=== PATIENT | male | born 1945 | race Caucasian/White ===

== ENCOUNTER → 2017-09-29 | Day surgery (SDC) | payer MEDICARE, BC ==
[~2017-09-29] MED LIST: ASPIR 8181 MG PO; CLONAZEPAM0.5 MG PO; COMPLETE M9 MG/15 ML PO; COREG25 MG PO; DIGOXIN250 MCG PO; ENALAPRIL-HCTZ1 EAC1 PO; FENTANYL CITRATE/PF 100MCG/2 ML INJ ONE; FUROSEMIDE20 MG PO; HYDROCHLOROTHIA25 MG PO; IOPAMIDOL 200 MG/ML 20 ML VIAL IT ONE; ISOSORBIDE DINI30 MG PO; LANTUS100 UNITS/ SQ; LEVEMIR100 UNIT/1 SC; LIDOCAINE HCL 1% 30ML-PF VIAL ONE; LIDOCAINE HCL 2% LOCAL INJ 5 ML SDV VIAL INJ ONE; LIOTHYRONINE SO5 MCG PO; LOVENOX SQ; LOVENOX60 MG/0.6 SC; LYRICA50 MG PO; METFORMIN HCL1000 MG PO; MIDAZOLAM HCL 2 MG/2 ML VIAL ONE; NEXIUM40 MG PO; NIASPAN500 MG PO; NITROGLYCERIN0.4 MG SL; NOVOLOG100 UNITS/ SQ; OMEGA 3 1,0001 EACH PO; OMEPRAZOLE40 MG PO; POTASSIUM CHLO10 ME1 PO; PROPOFOL IV EMULSION 10 MG/ML 20 ML VIAL ONE; SIMVASTATIN40 MG PO; TRIAMCINOLONE ACET 40 MG/ML VIAL ONE; VASOTEC5 MG PO; VIIBRYD40 MG PO; VITAMIN B12 PO; VITAMIN D1000 UNI1 PO; WARFARIN SODIUM3 MG PO
== END | disposition home or self-care (01) ==
LOC: OR 05:33
PROVIDERS: ATTEND Physical Medicine & Rehabilitation Pain Medicine
DX: M46.1 Sacroiliitis, not elsewhere classified (principal); M47.896 Other spondylosis, lumbar region; G57.00 Lesion of sciatic nerve, unspecified lower limb; E03.9 Hypothyroidism, unspecified; I25.10 Atherosclerotic heart disease of native coronary artery without angina pectoris; I25.2 Old myocardial infarction; E11.22 Type 2 diabetes mellitus with diabetic chronic kidney disease; I13.0 Hypertensive heart and chronic kidney disease with heart failure and stage 1 through stage 4 chronic kidney disease, or unspecified chronic kidney disease; N18.9 Chronic kidney disease, unspecified; I50.9 Heart failure, unspecified; Z01.810 Encounter for preprocedural cardiovascular examination; Z79.4 Long term (current) use of insulin; Z79.01 Long term (current) use of anticoagulants; Z79.82 Long term (current) use of aspirin; Z95.0 Presence of cardiac pacemaker; Z95.2 Presence of prosthetic heart valve
CPT/HCPCS: 36415; 82948; 93005; G0260; J2001 ×2; J2250; J3301; Q9966; 77002

== ENCOUNTER 2017-10-21 20:01 | Inpatient (IN) | payer MEDICARE, BC ==
[~2017-10-21] VITALS: Ht 162.6 cm; Wt 91.4 kg
[~2017-10-21 20:01] MED LIST changes: -FENTANYL CITRATE/PF 100MCG/2 ML INJ ONE; -IOPAMIDOL 200 MG/ML 20 ML VIAL IT ONE; -LIDOCAINE HCL 1% 30ML-PF VIAL ONE; -LIDOCAINE HCL 2% LOCAL INJ 5 ML SDV VIAL INJ ONE; -LOVENOX60 MG/0.6 SC; -MIDAZOLAM HCL 2 MG/2 ML VIAL ONE; -PROPOFOL IV EMULSION 10 MG/ML 20 ML VIAL ONE; -TRIAMCINOLONE ACET 40 MG/ML VIAL ONE
[2017-10-21] MEDS ORDERED: LOVENOX60 MG/0.6 SC (20:38)
[2017-10-21] MEDS ORDERED: ENALAPRIL-HCTZ1 EAC1 PO (20:38)
[2017-10-21 20:56] LABS: BASOPHILS % 0.3 % (0.0-1.0); EOSINOPHILS # (AUTO) 0.2 (0.0-0.4); EOSINOPHILS % 1.6 % (0.0-6.0); HEMATOCRIT 40.8 % (38.2-49.6); HEMOGLOBIN 13.4 g/dL (14.0-18.0); LYMPHOCYTES # (AUTO) 0.6 (1.0-3.2); LYMPHOCYTES % 6.3 % (18.0-39.1); MEAN CORPUSCULAR HEMOGLOBIN 29.7 pg (28-32); MEAN CORPUSCULAR HGB CONC 32.8 g/dL (31-35); MEAN CORPUSCULAR VOLUME 90.5 fL (81-99); MONOCYTES # (AUTO) 0.6 (0.2-0.8); MONOCYTES % 5.9 % (4.4-11.3); NEUTROPHILS # (AUTO) 8.2 (2.1-6.9); NEUTROPHILS % 85.5 % (38.7-80.0); PLATELET COUNT 136 x10e3/uL (140-360); RED BLOOD COUNT 4.51 x10e6/uL (4.3-5.7); RED CELL DISTRIBUTION WIDTH 15.2 % (11.7-14.4)
[2017-10-21 21:00] LABS: INR 1.32; PROTHROMBIN TIME 15.4 seconds (11.9-14.5)
[2017-10-21 21:01] LABS: PARTIAL THROMBOPLASTIN TIME 34.3 seconds (23.8-35.5)
[2017-10-21 21:08] LABS: ALBUMIN 3.3 g/dL (3.5-5.0); ALBUMIN/GLOBULIN RATIO 0.9 (0.8-2.0); ANION GAP 15.6 mmol/L (8-16); CALCIUM 8.9 mg/dL (8.4-10.2); CREATININE, SERUM 1.91 mg/dL (0.72-1.25); POTASSIUM 4.6 mmol/L (3.5-5.1)
[2017-10-21 21:14] LABS: CREATINE KINASE MB 6.6 ng/mL (0-5.0)
--- NOTE | 2017-10-21 21:35 | Diagnostic Imaging Report ---
CHEST SINGLE (PORTABLE), 10/21/2017 8:48 PM Technique: CHEST SINGLE (PORTABLE) Comparison: 04/12/2013, CT 01/03/2017 . Clinical history: Chest pain Findings: See Impression Impression: 1. Lines/Tubes: Stable left chest wall ICD. 2. Stable mildly enlarged cardiomediastinal silhouette. 3. Central vascular congestion. No consolidation. 4. No effusion or pneumothorax. Signed by: Dr Janna Chavez MD on 10/21/2017 9:32 PM
[2017-10-21] MEDS ORDERED: SODIUM CHLORIDE FLUSH 10 ML SYR INJ PRN (22:00)
[2017-10-21] MEDS ORDERED: DEXTROSE 50% SYRINGE 50 ML IV PRN (22:00)
[2017-10-21] MEDS ORDERED: ONDANSETRON HCL INJ 2 MG/ML VIAL IV PRN (22:00)
[2017-10-21] MEDS ORDERED: NITROGLYCERIN 0.4 MG SUBL SL SCH (22:00)
[2017-10-22] VITALS (17 sets, daily range): BP systolic 93–139; BP diastolic 60–96
[2017-10-22] MEDS: FAMOTIDINE 20 MG/2 ML VIAL IV SCH ×3 (00:40→22:25)
[2017-10-22] MEDS: NITROGLYCERIN 2% OINT 1 GM PKT TOP SCH ×4 (00:40→19:02)
[2017-10-22] MEDS: MORPHINE SULFATE 2 MG/ML SYR IV PRN ×4 (00:40→16:54)
[2017-10-22 04:19] LABS: BASOPHILS % 0.2 % (0.0-1.0); EOSINOPHILS # (AUTO) 0.2 (0.0-0.4); HEMATOCRIT 42.6 % (38.2-49.6); HEMOGLOBIN 13.8 g/dL (14.0-18.0); LYMPHOCYTES # (AUTO) 0.9 (1.0-3.2); MEAN CORPUSCULAR HEMOGLOBIN 29.3 pg (28-32); MEAN CORPUSCULAR HGB CONC 32.4 g/dL (31-35); MEAN CORPUSCULAR VOLUME 90.4 fL (81-99); MONOCYTES # (AUTO) 0.6 (0.2-0.8); MONOCYTES % 6.6 % (4.4-11.3); NEUTROPHILS # (AUTO) 7.7 (2.1-6.9); NEUTROPHILS % 81.9 % (38.7-80.0); PLATELET COUNT 135 x10e3/uL (140-360); RED BLOOD COUNT 4.71 x10e6/uL (4.3-5.7); RED CELL DISTRIBUTION WIDTH 15.3 % (11.7-14.4)
[2017-10-22 04:34] LABS: ALBUMIN 3.2 g/dL (3.5-5.0); ALBUMIN/GLOBULIN RATIO 0.9 (0.8-2.0); ANION GAP 14.2 mmol/L (8-16); CALCIUM 9.2 mg/dL (8.4-10.2); CHOL/HDL RATIO 2.8 (3.9-4.7); CREATININE, SERUM 1.69 mg/dL (0.72-1.25); POTASSIUM 4.2 mmol/L (3.5-5.1)
[2017-10-22 04:49] LABS: CREATINE KINASE MB 24.2 ng/mL (0-5.0)
[2017-10-22] MEDS: INSULIN REGULAR, HUMAN 100 UNIT/1 ML 3ML VIAL SQ SCH ×4 (07:44→21:48)
[2017-10-22] MEDS: CARVEDILOL 12.5 MG TAB PO SCH ×2 (08:21→16:43)
[2017-10-22] MEDS: ASPIRIN 81 MG ENTERIC COATED PO SCH (08:21)
[2017-10-22] MEDS: SIMVASTATIN 40 MG TAB PO SCH (08:21)
[2017-10-22] MEDS: FUROSEMIDE 20 MG TAB PO SCH (08:21)
[2017-10-22] MEDS: HYDROCHLOROTHIAZIDE 25 MG TAB PO SCH ×2 (08:21→08:22)
[2017-10-22] MEDS: ENALAPRIL MALEATE 5 MG TAB PO SCH (08:21)
[2017-10-22] MEDS: CLONAZEPAM 0.5 MG TAB PO SCH ×2 (08:21→16:44)
[2017-10-22] MEDS: PANTOPRAZOLE SOD 40 MG TABEC PO SCH (08:21)
[2017-10-22] MEDS: PREGABALIN 50 MG CAP PO SCH ×2 (08:21→16:44)
[2017-10-22] MEDS ORDERED: WARFARIN SOD 3 MG TAB PO SCH (09:00)
[2017-10-22] MEDS ORDERED: NIACIN 500 MG TABSR PO SCH (09:00)
[2017-10-22] MEDS ORDERED: HYDROCHLOROTHIAZIDE PO SCH (09:00)
[2017-10-22] MEDS ORDERED: NON-FORMULARY MEDICATION (Vilazodone Hydrochloride (Viibryd) 40 MG) PO SCH (09:00)
[2017-10-22] MEDS ORDERED: ENALAPRIL PO SCH (09:00)
[2017-10-22] MEDS ORDERED: [UNRECOGNIZED DRUG - OTHER] PO SCH (09:00)
[2017-10-22] MEDS ORDERED: CARVEDILOL 25 MG PO SCH (09:00)
[2017-10-22] MEDS ORDERED: NIACIN 500 MG PO SCH (09:00)
--- NOTE | 2017-10-22 09:16 | History and Physical ---
REASON FOR ADMISSION: [id number] elevated [place]. HISTORY OF PRESENT ILLNESS: Patient is a gentleman who presented with chest pain that he has been having off and on for a couple of days where initial enzymes and EKG were unremarkable, but second set of enzymes were positive for [id number] elevated [place], so he is being admitted for further evaluation. He is currently chest pain free. His vital signs are stable. PAST MEDICAL HISTORY: Significant for coronary artery disease, diabetes, hypothyroidism, hypertension, hyperlipidemia. MEDICATIONS: See MAR. ALLERGIES: NONE. SOCIAL HISTORY: Nonsmoker, nondrinker. Lives at home. FAMILY HISTORY: Hypertension. PHYSICAL EXAMINATION: VITAL SIGNS: 98.6, blood pressure 124/76, pulse 90, sats 98%. GENERAL: He is in no apparent distress, sitting up in bed. NECK: Supple. No lymphadenopathy. CARDIOVASCULAR: Regular rate and rhythm. LUNGS: Clear to auscultation bilaterally. ABDOMEN: Good bowel sounds. Soft, nontender. EXTREMITIES: No clubbing or cyanosis. NEUROLOGICAL: Nonfocal. ASSESSMENT AND PLAN: 1. Bnf-PH-bcxrhwg elevated myocardial infarction. Continue with current care. Will place him on telemetry and will consult his digital recruiter, Dr. Knutson. 2. Hypertension. Continue with his home medication. 3. Hyperlipidemia. Continue with his simvastatin. 4. Hypothyroidism. Continue with his medication. 5. Diabetes. Will continue with his medication and monitor his sugars. 6. Chronic kidney disease, stage 3. Will continue to monitor. Please see hospital chart for full details. Job#: [id number]
[2017-10-22] MEDS: VILAZODONE 40 MG PO SCH (09:49)
[2017-10-22] MEDS: LIOTHYRONINE SODIUM 5 MCG TAB PO SCH (09:49)
[2017-10-22 12:50] LABS: CREATINE KINASE MB 65.4 ng/mL (0-5.0)
[2017-10-22] MEDS ORDERED: CLONIDINE HCL 0.1 MG TAB PO PRN (16:00)
[2017-10-22] MEDS: WARFARIN SOD 2.5 MG TAB PO SCH (16:44)
[2017-10-22] MEDS: ENOXAPARIN SOD INJ 60 MG/0.6 ML SYR SC SCH (16:44)
--- NOTE | 2017-10-22 18:06 | Consultation ---
DATE OF CONSULTATION: October 22, 2017 ATTENDING PHYSICIAN: Dr. Jules Dawson Thank you so much for asking us to see Mr. Brown again in consultation. He is a complex, elderly, 72-year-old man known to us for many, many years with multiple cardiac problems including coronary disease and transaortic valve replacement for aortic stenosis. CHIEF COMPLAINT: He presented to the emergency room with substernal chest discomfort that he originally thought was indigestion. HISTORY OF PRESENT ILLNESS: The patient was resistant to coming to the hospital but his children eventually convinced him that he needed to come. He has demonstrated to have abnormal cardiac enzymes since he has been here. PAST MEDICAL HISTORY: Long and complex with known coronary disease and previous coronary stenting before 2013. In June 2013, he had transaortic valve replacement with a tissue valve by Dr. Nick Guan. His ejection fraction seemed to improve afterwards. He has longstanding diabetes and hyperlipidemia. He visited with Dr. Knutson in the office earlier this week to have preoperative evaluation before consideration for lumbar spine injections for pain. He had a melanoma resection from his arm. Had AICD implanted and lumbar spine surgery in 2016. MEDICATIONS: Recent home medications include: 1. Niaspan 500 mg daily. 2. Lyrica 50 mg twice a day. 3. Aspirin 81 mg daily. 4. Warfarin 2.5 mg daily. 5. Lovenox 80 mg daily. 6. Clonazepam 0.5 mg twice a day. 7. Enalapril/hydrochlorothiazide 5 and 12.5 daily. 8. NovoLog 100 units per mL, 27 units 3 times a day. 9. [place]-3 once a day. 10. Viibryd 40 mg daily. 11. Omeprazole 20 mg daily. 12. Liothyronine 5 mcg daily. 13. Levemir Flextouch 50 units in the morning and 60 in the evening. 14. Coreg 25 mg b.i.d. 15. Simvastatin 40 mg daily. PHYSICAL EXAMINATION GENERAL: A pleasant, obese man who is comfortable. VITALS: Blood pressure 135/70. HEENT: Relatively unremarkable. NECK: No jugular venous distention. THORAX: There is a defibrillator site intact. Heart sounds S1 and S2 are equal. There are no murmurs. Lungs are clear. ABDOMEN: Markedly protuberant. EXTREMITIES: No cyanosis, clubbing or edema. EKG shows sinus rhythm without ST or T wave changes above a possible anterolateral scar which is unchanged from previous EKG performed in our office earlier this week. Cardiac enzymes are abnormal with troponins at 0.149, 0.659, with normal being less than 0.3. His BNP is 316. BUN 35 and creatinine 1.69 today. ASSESSMENT 1. Subendocardial myocardial infarction or wsb-NF-aevxqkliy myocardial infarction. 2. Renal insufficiency. 3. Diabetes. 4. Congestive heart failure, improved after valve replacement. PLAN: Will continue current medications and monitor his cardiac status. Will consider invasive versus noninvasive management. He will not be having any injections for back pain as planned for next week. Thank you for asking me to see him in consultation. Job#: [id number] cc:MD KATELIN VALDEZ MD
[2017-10-22] MEDS: NIACIN 500 MG TABSR PO SCH (21:46)
[2017-10-23] VITALS (37 sets, daily range): BP systolic 79–160; BP diastolic 48–92
[2017-10-23] MEDS: NITROGLYCERIN 2% OINT 1 GM PKT TOP SCH ×5 (00:21→23:25)
[2017-10-23] MEDS: MORPHINE SULFATE 2 MG/ML SYR IV PRN ×3 (01:11→18:13)
[2017-10-23 06:45] LABS: BASOPHILS % 0.3 % (0.0-1.0); EOSINOPHILS # (AUTO) 0.2 (0.0-0.4); EOSINOPHILS % 1.3 % (0.0-6.0); HEMATOCRIT 39.1 % (38.2-49.6); HEMOGLOBIN 12.7 g/dL (14.0-18.0); LYMPHOCYTES # (AUTO) 0.5 (1.0-3.2); LYMPHOCYTES % 4.1 % (18.0-39.1); MEAN CORPUSCULAR HEMOGLOBIN 29.5 pg (28-32); MEAN CORPUSCULAR HGB CONC 32.5 g/dL (31-35); MEAN CORPUSCULAR VOLUME 90.7 fL (81-99); MONOCYTES % 8.5 % (4.4-11.3); NEUTROPHILS # (AUTO) 10.2 (2.1-6.9); NEUTROPHILS % 85.3 % (38.7-80.0); PLATELET COUNT 115 x10e3/uL (140-360); RED BLOOD COUNT 4.31 x10e6/uL (4.3-5.7); RED CELL DISTRIBUTION WIDTH 15.2 % (11.7-14.4)
[2017-10-23 07:03] LABS: ALBUMIN 3.3 g/dL (3.5-5.0); ANION GAP 13.4 mmol/L (8-16); CALCIUM 9.3 mg/dL (8.4-10.2); CREATININE, SERUM 2.28 mg/dL (0.72-1.25); POTASSIUM 4.4 mmol/L (3.5-5.1)
[2017-10-23] MEDS: INSULIN REGULAR, HUMAN 100 UNIT/1 ML 3ML VIAL SQ SCH ×4 (07:49→20:52)
[2017-10-23 07:52] LABS: EOSINOPHILS % (MANUAL) 2 % (0-7); LYMPHOCYTES % (MANUAL) 3 % (19-48); MONOCYTES % (MANUAL) 11 % (3.4-9.0); NEUTROPHILS % (MANUAL) 84 % (40-74)
[2017-10-23 07:53] LABS: PLATELET ESTIMATE ADEQUATE; PLATELET MORPHOLOGY COMMENT NORMAL; RBC MORPHOLOGY COMMENT NORMAL
[2017-10-23] MEDS: ASPIRIN 81 MG ENTERIC COATED PO SCH (08:44)
[2017-10-23] MEDS: CARVEDILOL 12.5 MG TAB PO SCH ×2 (08:45→17:30)
[2017-10-23] MEDS: LIOTHYRONINE SODIUM 5 MCG TAB PO SCH (08:45)
[2017-10-23] MEDS: HYDROCHLOROTHIAZIDE 25 MG TAB PO SCH ×2 (08:45→08:46)
[2017-10-23] MEDS: CLONAZEPAM 0.5 MG TAB PO SCH ×2 (08:46→17:30)
[2017-10-23] MEDS: PREGABALIN 50 MG CAP PO SCH ×2 (08:46→17:30)
[2017-10-23] MEDS: FUROSEMIDE 20 MG TAB PO SCH (08:46)
[2017-10-23] MEDS: ENALAPRIL MALEATE 5 MG TAB PO SCH (08:46)
[2017-10-23] MEDS: PANTOPRAZOLE SOD 40 MG TABEC PO SCH (08:46)
[2017-10-23] MEDS: SIMVASTATIN 40 MG TAB PO SCH (08:47)
[2017-10-23] MEDS: INSULIN DETEMIR 100 UNIT/ML PEN SQ SCH ×2 (08:47→20:55)
[2017-10-23] MEDS: FAMOTIDINE 20 MG/2 ML VIAL IV SCH ×2 (11:27→20:56)
[2017-10-23] MEDS: VILAZODONE 40 MG PO SCH (11:27)
[2017-10-23] MEDS: ENOXAPARIN SOD INJ 60 MG/0.6 ML SYR SC SCH (17:30)
[2017-10-23] MEDS: WARFARIN SOD 2.5 MG TAB PO SCH (17:31)
[2017-10-23] MEDS: NIACIN 500 MG TABSR PO SCH (21:00)
[2017-10-24] VITALS (29 sets, daily range): BP systolic 91–117; BP diastolic 47–93
[2017-10-24 04:39] LABS: BASOPHILS % 0.2 % (0.0-1.0); EOSINOPHILS # (AUTO) 0.2 (0.0-0.4); EOSINOPHILS % 1.6 % (0.0-6.0); HEMATOCRIT 36.1 % (38.2-49.6); HEMOGLOBIN 11.9 g/dL (14.0-18.0); LYMPHOCYTES # (AUTO) 0.6 (1.0-3.2); MEAN CORPUSCULAR HEMOGLOBIN 29.3 pg (28-32); MEAN CORPUSCULAR VOLUME 88.9 fL (81-99); MONOCYTES # (AUTO) 1.1 (0.2-0.8); MONOCYTES % 10.3 % (4.4-11.3); NEUTROPHILS # (AUTO) 9.2 (2.1-6.9); NEUTROPHILS % 82.5 % (38.7-80.0); PLATELET COUNT 114 x10e3/uL (140-360); RED BLOOD COUNT 4.06 x10e6/uL (4.3-5.7)
[2017-10-24 04:53] LABS: INR 1.46; PROTHROMBIN TIME 16.7 seconds (11.9-14.5)
[2017-10-24 05:04] LABS: ANION GAP 13.9 mmol/L (8-16); CALCIUM 9.3 mg/dL (8.4-10.2); CREATININE, SERUM 2.15 mg/dL (0.72-1.25); POTASSIUM 3.9 mmol/L (3.5-5.1)
[2017-10-24] MEDS: NITROGLYCERIN 2% OINT 1 GM PKT TOP SCH ×4 (06:00→23:49)
[2017-10-24 06:38] LABS: EOSINOPHILS % (MANUAL) 1 % (0-7); LYMPHOCYTES % (MANUAL) 5 % (19-48); MONOCYTES % (MANUAL) 6 % (3.4-9.0); NEUTROPHILS % (MANUAL) 87 % (40-74)
[2017-10-24 06:39] LABS: ANISOCYTOSIS SLIGHT; PLATELET ESTIMATE SLIGHTLY DECREASED; PLATELET MORPHOLOGY COMMENT FEW LARGE; RBC MORPHOLOGY COMMENT NORMAL
[2017-10-24] MEDS: INSULIN REGULAR, HUMAN 100 UNIT/1 ML 3ML VIAL SQ SCH ×4 (07:30→21:05)
[2017-10-24] MEDS ORDERED: INSULIN DETEMIR 100 UNIT/ML PEN SQ SCH (07:30)
[2017-10-24] MEDS: LIOTHYRONINE SODIUM 5 MCG TAB PO SCH (08:52)
[2017-10-24] MEDS: HYDROCHLOROTHIAZIDE 25 MG TAB PO SCH ×2 (08:52→09:00)
[2017-10-24] MEDS: ENALAPRIL MALEATE 5 MG TAB PO SCH (08:54)
[2017-10-24] MEDS: PREGABALIN 50 MG CAP PO SCH ×2 (08:54→17:30)
[2017-10-24] MEDS: PANTOPRAZOLE SOD 40 MG TABEC PO SCH (08:56)
[2017-10-24] MEDS: FUROSEMIDE 20 MG TAB PO SCH (08:57)
[2017-10-24] MEDS: ASPIRIN 81 MG ENTERIC COATED PO SCH (08:59)
[2017-10-24] MEDS: CLONAZEPAM 0.5 MG TAB PO SCH ×2 (08:59→17:30)
[2017-10-24] MEDS: SIMVASTATIN 40 MG TAB PO SCH (09:00)
[2017-10-24] MEDS: VILAZODONE 40 MG PO SCH (09:00)
[2017-10-24] MEDS: CARVEDILOL 12.5 MG TAB PO SCH ×2 (09:00→17:30)
[2017-10-24] MEDS ORDERED: NITROGLYCERIN 0.4 MG SUBL SL PRN (11:30)
[2017-10-24] MEDS: FAMOTIDINE 20 MG/2 ML VIAL IV SCH ×2 (12:15→21:04)
[2017-10-24] MEDS ORDERED: SODIUM CHLORIDE 0.9% 1000ML 1,000 ML IV SCH (12:30)
--- NOTE | 2017-10-24 13:21 | Consultation ---
DATE OF CONSULTATION: October 24, 2017 REASON FOR CONSULTATION: Acute kidney injury and risk stratification pre cardiac cath. A 72-year-old gentleman, multiple comorbidities. History of hypertension, congestive heart failure, hyperlipidemia. Has been on Coumadin. History of hypothyroidism, type 2 diabetes, probable chronic kidney disease stage unclear, history of prior [place], history of mitral valve replacement, AICD placement. Patient of Dr. Knutson, cardiology, with a recent report of [place] and cardiology anticipating cardiac cath. Patient lying supine. Relatively poor historian. No apparent respiratory distress. Follows commands. REVIEW OF SYSTEMS: Negative for nausea, vomiting, shortness of breath. He denies prior history of any history of chronic kidney disease. He has prior history of PCI and stenting. Had a transaortic valve replacement apparently. He had a melanoma resection. Chemistries show sodium 135, potassium 3.9, bicarbonate 27, creatinine 2.1. SOCIAL HISTORY: Does not smoke or drink. ALLERGIES: NO APPARENT DRUG ALLERGIES. CURRENT MEDICATIONS: Patient is on 1. Aspirin 81 mg daily. 2. Carvedilol 25 b.i.d. 3. Klonopin 0.5 b.i.d. 4. Enalapril 5 mg p.o. daily. 5. Furosemide 20 mg p.o. daily. 6. Famotidine. 7. Hydrochlorothiazide 12.5 mg p.o. daily. 8. Hydrochlorothiazide 50 mg p.o. daily. 9. Insulin. 10. Liothyronine. 11. Pantoprazole. 12. Simvastatin. 13. Warfarin 2.5 mg p.o. daily. FAMILY HISTORY: Significant for hypertension. PHYSICAL EXAMINATION GENERAL: Awake, alert, lying supine. VITALS: Blood pressure 117/82, pulse rate 80, respiratory rate 17. HEAD AND NECK: Cornea clear. Oral mucosa dry. LUNGS: Relatively clear. No rales or rhonchi. HEART: S1, S2 audible. ABDOMEN: Otherwise soft, nontender. LOWER EXTREMITY EXAMINATION: Shows no edema. IMPRESSION: Ihbnk-it-eqflelf kidney injury, possible underlying nephrosclerosis due to long-standing hypertension, diabetes, elderly gentleman, multiple comorbid, at moderate to high risk for dye-induced nephropathy. At the moment, no evidence of fluid overload or congestive heart failure. Will discontinue patient's diuretics as well as enalapril for now. I have discussed a spectrum of dye-induced nephropathy ranging from mild to moderate kidney injury to severe kidney shutdown, requiring temporary or permanent dialysis. Patient states he wants to think about it. In the meantime, I would hold off on loop diuretics and enalapril. Will start gentle intravenous fluids in the form of normal saline. Obtain kidney ultrasound, serum uric acid, spot urine protein creatinine ratio, urinalysis. No evidence of congestive heart failure. Overall guarded prognosis. Please see orders. Job#: [id number] MARISA
--- NOTE | 2017-10-24 16:37 | Diagnostic Imaging Report ---
EXAM: Renal Ultrasound INDICATION: \S\massiel COMPARISON: None TECHNIQUE: Transverse and longitudinal images of the kidneys and bladder were obtained. FINDINGS: Right Kidney: Length: 10.6 cm Appearance: Normal echogenicity. Collecting system: No hydronephrosis Stones: None Cyst/Mass: None Left Kidney: Length: 11.6 cm Appearance: Normal echogenicity. Collecting system: No hydronephrosis Stones: None Cyst/Mass: None Bladder: Normal. The prostate is not well-visualized but it appears normal in size, measuring 1.7 x 1.5 x 2 cm with estimated volume of 2.7 cc. IMPRESSION: Normal renal ultrasound exam. Signed by: Dr. Nicole Huerta M.D. on 10/24/2017 4:33 PM
[2017-10-24] MEDS: ENOXAPARIN SOD INJ 60 MG/0.6 ML SYR SC SCH (17:30)
[2017-10-24] MEDS: WARFARIN SOD 2.5 MG TAB PO SCH (17:30)
--- NOTE | 2017-10-24 18:14 | Diagnostic Imaging Report ---
PROCEDURE: Frontal and lateral views of the chest. COMPARISON: 10/21/17 INDICATIONS: CHF, SHORTNESS OF BREATH FINDINGS: Limited by body habitus. Lines/tubes: Stable left chest wall triple lead cardiac device. Lungs: The lungs are well inflated. Pulmonary vascular congestion and mild interstitial edema. Pleura: There is no significant pleural effusion or pneumothorax. Heart and mediastinum: The cardiomediastinal silhouette is enlarged. Stent overlying cardiac shadow. Bones: Generalized demineralization limits evaluation. No definite acute bony abnormality. IMPRESSION: Enlarged cardiomediastinal silhouette, pulmonary vascular congestion, and mild interstitial edema. Dictated by: Devon Lugo M.D. on 10/24/2017 at 18:21 Electronically approved by: Devon Lugo M.D. on 10/24/2017 at 18:21
[2017-10-24] MEDS: MORPHINE SULFATE 2 MG/ML SYR IV PRN (19:31)
[2017-10-24] MEDS: NIACIN 500 MG TABSR PO SCH (21:04)
[2017-10-24] MEDS: INSULIN DETEMIR 100 UNIT/ML PEN SQ SCH (21:06)
[2017-10-24 23:32] LABS: BACTERIA,URINE FEW /HPF; BILIRUBIN,URINE NEGATIVE (NEGATIVE); CLARITY,URINE CLEAR (CLEAR); COLOR,URINE YELLOW (YELLOW); EPITHELIAL CELLS,URINE RARE /LPF; KETONES,URINE NEGATIVE (NEGATIVE); LEUKOCYTE ESTERASE ,URINE NEGATIVE (NEGATIVE); NITRITE,URINE NEGATIVE (NEGATIVE); PROTEIN,URINE DIPSTICK NEGATIVE (NEGATIVE); URINE UROBILINOGEN 0.2 mg/dL (0.2 - 1); WBC,URINE (MAN) 0-5 /HPF (0-5)
[2017-10-25] VITALS (21 sets, daily range): BP systolic 82–128; BP diastolic 48–87
[2017-10-25 00:24] LABS: CREATININE,URINE RANDOM 146.95 mg/dL (63-166); TOTAL PROTEIN, URINE 10.6 mg/dL (1-14)
[2017-10-25] MEDS: MORPHINE SULFATE 2 MG/ML SYR IV PRN (01:19)
[2017-10-25 04:43] LABS: BASOPHILS % 0.3 % (0.0-1.0); EOSINOPHILS # (AUTO) 0.3 (0.0-0.4); EOSINOPHILS % 2.9 % (0.0-6.0); HEMATOCRIT 36.7 % (38.2-49.6); LYMPHOCYTES # (AUTO) 0.6 (1.0-3.2); LYMPHOCYTES % 6.2 % (18.0-39.1); MEAN CORPUSCULAR HEMOGLOBIN 29.3 pg (28-32); MEAN CORPUSCULAR HGB CONC 32.7 g/dL (31-35); MEAN CORPUSCULAR VOLUME 89.7 fL (81-99); MONOCYTES # (AUTO) 1.1 (0.2-0.8); MONOCYTES % 11.4 % (4.4-11.3); NEUTROPHILS # (AUTO) 7.4 (2.1-6.9); NEUTROPHILS % 78.8 % (38.7-80.0); PLATELET COUNT 129 x10e3/uL (140-360); RED BLOOD COUNT 4.09 x10e6/uL (4.3-5.7); RED CELL DISTRIBUTION WIDTH 15.2 % (11.7-14.4)
[2017-10-25 05:23] LABS: ALBUMIN/GLOBULIN RATIO 0.8 (0.8-2.0); ANION GAP 14.5 mmol/L (8-16); CALCIUM 9.1 mg/dL (8.4-10.2); CREATININE, SERUM 2.08 mg/dL (0.72-1.25); POTASSIUM 3.5 mmol/L (3.5-5.1)
[2017-10-25] MEDS: NITROGLYCERIN 2% OINT 1 GM PKT TOP SCH ×3 (05:51→18:03)
[2017-10-25] MEDS: INSULIN REGULAR, HUMAN 100 UNIT/1 ML 3ML VIAL SQ SCH ×4 (07:30→20:29)
[2017-10-25] MEDS: INSULIN DETEMIR 100 UNIT/ML PEN SQ SCH ×2 (07:30→21:04)
[2017-10-25] MEDS: VILAZODONE 40 MG PO SCH ×2 (09:00→16:00)
[2017-10-25] MEDS: ASPIRIN 81 MG ENTERIC COATED PO SCH (10:43)
[2017-10-25] MEDS: SIMVASTATIN 40 MG TAB PO SCH (10:44)
[2017-10-25] MEDS: PREGABALIN 50 MG CAP PO SCH ×2 (10:45→17:22)
[2017-10-25] MEDS: CARVEDILOL 12.5 MG TAB PO SCH ×2 (10:45→18:04)
[2017-10-25] MEDS: CLONAZEPAM 0.5 MG TAB PO SCH ×2 (10:46→17:25)
[2017-10-25] MEDS: PANTOPRAZOLE SOD 40 MG TABEC PO SCH (10:46)
[2017-10-25] MEDS: FAMOTIDINE 20 MG/2 ML VIAL IV SCH ×2 (10:50→21:02)
[2017-10-25] MEDS: LIOTHYRONINE SODIUM 5 MCG TAB PO SCH (10:53)
--- NOTE | 2017-10-25 15:04 | Cardiology Report ---
DATE OF STUDY: ECHOCARDIOGRAM ATTENDING PHYSICIAN: Dr. Antonieta Jeffers. M-MODE: Dilated left atrium. Dilated left ventricular hypertrophy. Severely diminished left ventricular contractility, especially the anterior septal and apical delgado. TAVR is present. Normal mitral and tricuspid valves. No pericardial effusion. Pacemaker. SECTOR SCAN: Dilated left atrium. Dilated left ventricle. Severely diminished left ventricular contractility. Estimated ejection fraction 15%. The anterior septal and apical delgado are akinetic. There appears to be TAVR and AICD. The mitral and tricuspid valves are otherwise normal. There is no pericardial effusion. CARDIAC DOPPLER STUDY WITH COLOR: 1+ mitral regurgitation. CONCLUSIONS: 1. Dilated left ventricle with mild left ventricular hypertrophy with severely diminished left ventricular contractility, estimated ejection fraction 15%. 2. Anterior septal, apical akinesis consistent with previous myocardial infarction. 3. Transcatheter aortic valve replacement appearing to be functioning normally. 4. Automatic implantable cardioverter-defibrillator present. 5. Mild mitral regurgitation with dilated left atrium. Job#: [id number] EV cc:ANTONIETA JEFFERS MD
[2017-10-25] MEDS: ENOXAPARIN SOD INJ 60 MG/0.6 ML SYR SC SCH (17:00)
[2017-10-25] MEDS: WARFARIN SOD 2.5 MG TAB PO SCH (17:26)
[2017-10-25] MEDS: ENOXAPARIN INJ 80 MG/0.8 ML SYR SC SCH (18:04)
[2017-10-25] MEDS: NIACIN 500 MG TABSR PO SCH (21:02)
[2017-10-26] VITALS (7 sets, daily range): BP systolic 110–144; BP diastolic 68–91
[2017-10-26] MEDS: NITROGLYCERIN 2% OINT 1 GM PKT TOP SCH ×4 (05:24→17:45)
[2017-10-26 05:45] LABS: BASOPHILS % 0.2 % (0.0-1.0); EOSINOPHILS # (AUTO) 0.3 (0.0-0.4); HEMATOCRIT 37.8 % (38.2-49.6); HEMOGLOBIN 12.5 g/dL (14.0-18.0); LYMPHOCYTES # (AUTO) 0.5 (1.0-3.2); LYMPHOCYTES % 5.3 % (18.0-39.1); MEAN CORPUSCULAR HEMOGLOBIN 29.1 pg (28-32); MEAN CORPUSCULAR HGB CONC 33.1 g/dL (31-35); MEAN CORPUSCULAR VOLUME 87.9 fL (81-99); MONOCYTES # (AUTO) 0.9 (0.2-0.8); MONOCYTES % 10.4 % (4.4-11.3); NEUTROPHILS # (AUTO) 7.3 (2.1-6.9); NEUTROPHILS % 80.8 % (38.7-80.0); PLATELET COUNT 137 x10e3/uL (140-360); RED CELL DISTRIBUTION WIDTH 15.1 % (11.7-14.4)
[2017-10-26 05:55] LABS: INR 1.65; PROTHROMBIN TIME 18.3 seconds (11.9-14.5)
[2017-10-26 05:56] LABS: PARTIAL THROMBOPLASTIN TIME 40.8 seconds (23.8-35.5)
[2017-10-26 06:02] LABS: ANION GAP 15.6 mmol/L (8-16); CALCIUM 9.4 mg/dL (8.4-10.2); CREATININE, SERUM 1.58 mg/dL (0.72-1.25); POTASSIUM 3.6 mmol/L (3.5-5.1)
[2017-10-26] MEDS: INSULIN DETEMIR 100 UNIT/ML PEN SQ SCH ×2 (07:30→21:00)
[2017-10-26] MEDS: INSULIN REGULAR, HUMAN 100 UNIT/1 ML 3ML VIAL SQ SCH ×4 (07:30→21:00)
[2017-10-26] MEDS: LIOTHYRONINE SODIUM 5 MCG TAB PO SCH (08:45)
[2017-10-26] MEDS: VILAZODONE 40 MG PO SCH (08:45)
[2017-10-26] MEDS: ASPIRIN 81 MG ENTERIC COATED PO SCH (08:45)
[2017-10-26] MEDS: CARVEDILOL 12.5 MG TAB PO SCH ×2 (08:45→17:45)
[2017-10-26] MEDS: PANTOPRAZOLE SOD 40 MG TABEC PO SCH (08:45)
[2017-10-26] MEDS: SIMVASTATIN 40 MG TAB PO SCH (08:46)
[2017-10-26] MEDS: FAMOTIDINE 20 MG/2 ML VIAL IV SCH (09:15)
[2017-10-26] MEDS: RISPERIDONE 0.5 MG TAB PO SCH ×2 (10:35→21:47)
[2017-10-26] MEDS: FAMOTIDINE 20 MG TAB PO SCH (16:52)
[2017-10-26] MEDS: WARFARIN SOD 2.5 MG TAB PO SCH (17:45)
[2017-10-26] MEDS: ENOXAPARIN INJ 80 MG/0.8 ML SYR SC SCH (17:45)
[2017-10-26] MEDS: NIACIN 500 MG TABSR PO SCH (21:47)
[2017-10-27] VITALS: BP 151/78
[2017-10-27] MEDS: NITROGLYCERIN 2% OINT 1 GM PKT TOP SCH ×3 (00:15→12:00)
[2017-10-27 04:00] VITALS: BP 131/85
[2017-10-27 05:40] LABS: BASOPHILS % 0.5 % (0.0-1.0); EOSINOPHILS # (AUTO) 0.2 (0.0-0.4); EOSINOPHILS % 1.7 % (0.0-6.0); HEMATOCRIT 39.4 % (38.2-49.6); HEMOGLOBIN 12.9 g/dL (14.0-18.0); LYMPHOCYTES # (AUTO) 0.5 (1.0-3.2); LYMPHOCYTES % 6.2 % (18.0-39.1); MEAN CORPUSCULAR HEMOGLOBIN 29.3 pg (28-32); MEAN CORPUSCULAR HGB CONC 32.7 g/dL (31-35); MEAN CORPUSCULAR VOLUME 89.3 fL (81-99); MONOCYTES # (AUTO) 0.9 (0.2-0.8); MONOCYTES % 10.9 % (4.4-11.3); NEUTROPHILS # (AUTO) 6.9 (2.1-6.9); NEUTROPHILS % 80.4 % (38.7-80.0); PLATELET COUNT 149 x10e3/uL (140-360); RED BLOOD COUNT 4.41 x10e6/uL (4.3-5.7); RED CELL DISTRIBUTION WIDTH 15.2 % (11.7-14.4)
[2017-10-27 05:56] LABS: INR 1.96
[2017-10-27 05:57] LABS: PARTIAL THROMBOPLASTIN TIME 38.3 seconds (23.8-35.5)
[2017-10-27 06:03] LABS: ANION GAP 16.8 mmol/L (8-16); CALCIUM 9.5 mg/dL (8.4-10.2); CREATININE, SERUM 1.51 mg/dL (0.72-1.25); POTASSIUM 3.8 mmol/L (3.5-5.1)
[2017-10-27] MEDS: INSULIN REGULAR, HUMAN 100 UNIT/1 ML 3ML VIAL SQ SCH ×2 (07:30→11:30)
[2017-10-27 08:00] VITALS: BP 126/77
[2017-10-27] MEDS: FAMOTIDINE 20 MG TAB PO SCH (08:30)
[2017-10-27] MEDS: VILAZODONE 40 MG PO SCH (08:31)
[2017-10-27] MEDS: LIOTHYRONINE SODIUM 5 MCG TAB PO SCH (08:31)
[2017-10-27] MEDS: PANTOPRAZOLE SOD 40 MG TABEC PO SCH (08:31)
[2017-10-27] MEDS: CARVEDILOL 12.5 MG TAB PO SCH (08:31)
[2017-10-27] MEDS: INSULIN DETEMIR 100 UNIT/ML PEN SQ SCH (08:32)
[2017-10-27 08:36] VITALS: BP 124/77
[2017-10-27] MEDS: ASPIRIN 81 MG ENTERIC COATED PO SCH (09:35)
[2017-10-27 11:55] VITALS: BP 113/74
[2017-10-27] MEDS ORDERED: SIMVASTATIN 40 MG TAB PO SCH (21:00)
== END 2017-10-27 13:20 | disposition home health service (06) | DRG 281 ==
LOC: ER 20:01 → ERHOLD 21:51 → OBSVTOIN 10-22 05:47 → ICU 10-22 14:49 → IMCU 10-25 07:49 → MED/SURG 10-25 17:55
PROVIDERS: ADMIT Family Medicine; ATTEND Family Medicine
DX: I21.4 Non-ST elevation (NSTEMI) myocardial infarction (principal); N17.9 Acute kidney failure, unspecified; I13.0 Hypertensive heart and chronic kidney disease with heart failure and stage 1 through stage 4 chronic kidney disease, or unspecified chronic kidney disease; I50.22 Chronic systolic (congestive) heart failure; E78.5 Hyperlipidemia, unspecified; E03.9 Hypothyroidism, unspecified; E11.22 Type 2 diabetes mellitus with diabetic chronic kidney disease; N18.3 Chronic kidney disease, stage 3 (moderate); I25.2 Old myocardial infarction; Z95.810 Presence of automatic (implantable) cardiac defibrillator; Z79.01 Long term (current) use of anticoagulants; Z95.2 Presence of prosthetic heart valve; Z79.52 Long term (current) use of systemic steroids; E11.649 Type 2 diabetes mellitus with hypoglycemia without coma; I51.7 Cardiomegaly; F28 Other psychotic disorder not due to a substance or known physiological condition; Z79.84 Long term (current) use of oral hypoglycemic drugs
CPT/HCPCS: 36415; 71045; 71046; 76770; 80048; 80053; 80061; 81001; 82140; 82550; 82553; 82570; 82948; 83735; 83880; 84156; 84443; 84484; 84550; 85025; 85610; 85730; 93005; 93306; 96372; 99285; G0378; J1650; J2270; J2405

== ENCOUNTER 2017-12-12 12:51 | Outpatient (RCR) | payer MEDICARE, BC ==
[~2017-12-12 12:51] MED LIST changes: +LOVENOX60 MG/0.6 SC
== END 2017-12-28 ==
LOC: PT 12:51
PROVIDERS: ATTEND Family Medicine
DX: M54.16 Radiculopathy, lumbar region (principal); M53.86 Other specified dorsopathies, lumbar region; M62.81 Muscle weakness (generalized); R53.81 Other malaise
CPT/HCPCS: 97110 ×2; 97162; G8990; G8991

== ENCOUNTER → 2018-01-10 | Outpatient (CLI) | payer MEDICARE, BC ==
[~2018-01-10] MED LIST changes: +ALLOPURINOL300 MG PO; +BUMETANIDE1 MG PO; +BUMETANIDE2 MG PO; +COREG12.5 MG PO; +LEVEMIR100 UNIT/1 SQ; +LIDOCAINE HCL 1% LOCAL INJ 20 ML VIAL ONE; +LISINOPRIL10 MG PO; +NOVOLOG100 UNIT/1 SQ; +RANITIDINE HCL150 MG PO; +SPIRONOLACTONE25 MG PO; +TYLENOL WITH C1 EACH PO; +ULTRAM 50MG50 MG PO; +VIIBRYD40 MG PEG; +WARFARIN SODIUM1 MG PO
--- NOTE | 2018-01-10 11:57 | Diagnostic Imaging Report ---
Examination: CT head without contrast Clinical Indication: Weakness. Dizziness. Technique: Transaxial noncontrast images from the skull base through the vertex were obtained. Sagittal and coronal reformatted images were done. Dose modulation, iterative reconstruction, and/or weight based adjustment of the mA/kV was utilized to reduce the radiation dose to as low as reasonably achievable. Comparison: None. Findings: Scalp: No abnormalities. Bones: Intact. No fractures. No blastic or lytic lesions. Brain sulci: Mild volume loss for patient's age. Ventricles: Ex vacuo dilatation. No hydrocephalus. Extra-axial space: No abnormalities. Parenchyma: There are subtle confluent areas of low-attenuation within subcortical and periventricular white matter, nonspecific, but could represent microvascular ischemic disease. No masses, hemorrhage, or acute or chronic cortical based vascular insults. Suprasellar region: No abnormalities. Craniocervical junction: The foramen magnum is patent. No Chiari one malformation. Incidental findings: Atherosclerotic calcification of the cavernous and supraclinoid internal carotid and V4 segments of the bilateral vertebral arteries. Impression: 1. No acute intracranial finding. 2. Mild chronic microvascular ischemic change and volume loss. Signed by: Dr. Venecia Veras M.D. on 01/10/2018 11:54 AM
== END ==
LOC: CT 11:05
PROVIDERS: ATTEND Family Medicine
DX: R42 Dizziness and giddiness (principal); R41.82 Altered mental status, unspecified
CPT/HCPCS: 70450

== ENCOUNTER 2018-01-11 09:58 | Inpatient (IN) | payer MEDICARE, BC ==
[~2018-01-11] VITALS: Ht 163.8 cm; Wt 84.2 kg
[~2018-01-11 09:58] MED LIST changes: -ALLOPURINOL300 MG PO; -BUMETANIDE1 MG PO; -BUMETANIDE2 MG PO; -COREG12.5 MG PO; -LEVEMIR100 UNIT/1 SQ; -LIDOCAINE HCL 1% LOCAL INJ 20 ML VIAL ONE; -LISINOPRIL10 MG PO; -NOVOLOG100 UNIT/1 SQ; -RANITIDINE HCL150 MG PO; -SPIRONOLACTONE25 MG PO; -TYLENOL WITH C1 EACH PO; -ULTRAM 50MG50 MG PO; -VIIBRYD40 MG PEG; -WARFARIN SODIUM1 MG PO
--- OUTSIDE RECORDS SUMMARY | 2018-01-11 10:02 | XMS REPORT | Continuity of Care Document ---
Author Author [facility] Interface Address Unknown Phone Unavailable Problems Problem Status Onset Date Classification Date Reported Comments Source OTHER MECHANICAL COMPLICATION OF CARDIAC Active 12/19/2017 [facility] CHF EXACERBATION Active 11/23/2017 [facility] FREDERIC, HEART FAILURE Active 11/23/2017 [facility] TROUBLE BREATHING/LEG PAIN/INJURY Active 11/23/2017 [facility] SEVERE AORTIC STENOSIS, CHF Active 10/24/2013 [facility] AORTIC VALVE DISORDER Active 09/13/2013 [facility] AORTIC VALVE DISORDERTAVR PROTOCOL INC Active 09/13/2013 [facility] ACD - Automatic cardiac defibrillator procedure Resolved Problem 10/29/2013 [facility] AMI (<span ID="[id number]</span>) Resolved Problem 10/29/2013 [facility] Aortic stenosis Resolved Problem 10/29/2013 [facility] Blood clot Resolved Problem 10/29/2013 [facility] CAD (<span ID="[id number]">Confirmed</span>) Resolved Problem 10/29/2013 [facility] Congestive heart failure Resolved Problem 10/29/2013 [facility] Coronary stent site Resolved Problem 10/29/2013 [facility] DM , type 2(<span ID="[id number]">Confirmed</span>) Resolved Problem 10/29/2013 [facility] Hypertension Resolved Problem 10/29/2013 [facility] AORTIC VALVE DISORDER Active [facility] AC ENDOCARDIT IN OTH DIS Active [facility] AC/CHR SYST/BOBO HRT FAIL Active [facility] HEART FAILURE, UNSPECIFIED Active [facility] Medications Medication Details Route Status Patient Instructions Ordering Provider Order Date Source remove patch 1 patch, Route: TOP, Bedtime, Drug form: ERFILM, Start date: 10/27/13 21:00:00, Duration: 30 day, Stop date: 11/25/13 21:00:00Notes: Remove patch 12 hours after application each day. Inactive 10/28/2013 [facility] tramadol hydrochloride 50 MG Oral Tablet 50 mg=1 tab, PO, Q6H, Pain, # 24 tab, 0 Refill(s) Active 10/27/2013 [facility] warfarin 3 mg oral tablet 3 mg=1 tab, PO, Daily, # 30 tab, 0 Refill(s) Active 10/27/2013 [facility] enoxaparin 80 mg/0.8 mL subcutaneous solution =80 mg, SUB- Q, Q12H, 14 syringes, # 12 mL, 0 Refill(s)Special Instructions: 14 syringes Active 10/27/2013 [facility] enalapril 5 mg oral tablet 5 mg=1 tab, PO, BID, # 60 tab, 1 Refill(s) Active 10/27/2013 [facility] Hydrochlorothiazide 25 MG Oral Tablet 12.5 mg=0.5 tab, PO, Daily, # 30 tab, 1 Refill(s) Active 10/27/2013 [facility] Lidocaine Hydrochloride 0.05 MG/MG Transdermal Patch 1 patch, Route: TOP, Daily, Drug form: FILM, Start date: 10/27/13 12:00:00, Duration: 30 day, Stop date: 11/26/13 9:00:00Notes: Apply only once for up to 12 hours in a 24-hour period (12 hours on and 12 hours off). (Same as: Lidoderm) "Remove old patch before application of new patch" Inactive 10/27/2013 [facility] Tramadol 50 mg, 1 tab, Route: PO, Drug form: TAB, Q6H, Dosing Weight 75.199, kg, PRN Pain Score 1-3, Start date: 10/27/13 11:26:00, Duration: 30 day, Stop date: 11/26/13 11:25:00Notes: Not to exceed 400mg/day. (Same As: Ultram) Inactive 10/27/2013 [facility] Coumadin 3 mg, 3 tab, Route: PO, Drug form: TAB, Q5PM, Dosing Weight 75.199, kg, Start date: 10/26/13 17:00:00, Duration: 1 doses or times, Stop date: 10/26/13 17:00:00Notes: Nurse to ensure documentation of pat ient education per anticoagulation policy. Avoid large intake of vitamin-K containing foods diet. (Same As: Coumadin) Inactive 10/26/2013 [facility] vancomycin (SCIP) + Sodium Chloride 0.9% IV 250 mL 1,250 mg, Route: IVPB, ONCE, Dosing Weight 75.199, kg, Start date: 10/26/13 14:00:00, Stop date: 10/26/13 14:00:00 Inactive 10/26/2013 [facility] POLYETHYLENE GLYCOL 3350 17 gm, 1 pkt, Route: PO, Drug form: PWDR, Daily, Dosing Weight 75.199, kg, Start date: 10/26/13 9:00:00, Duration: 30 day, Stop date: 11/24/13 9:00:00Notes: Dissolve in 8 oz of water or juice. (Same as: Miralax) No Longer Active 10/26/2013 [facility] pantoprazole 40 mg, Route: PO, Daily, Dosing Weight 75.199, kg, Start date: 10/26/13 9:00:00, Duration: 30 day, Stop date: 11/24/13 9:00:00 No Longer Active 10/26/2013 [facility] Enalapril 5 mg, 1 tab, Route: PO, Drug form: TAB, BID, Dosing Weight 75.199, kg, Start date: 10/26/13 9:00:00, Duration: 30 day, Stop date: 11/24/13 17:00:00Notes: (Same as: Vasotec) No Longer Active 10/26/2013 [facility] Lovenox 80 mg, 0.8 mL, Route: SUB-Q, Drug form: INJ, [id number], Dosing Weight 75.199, kg, Start after lines removed., Start date: 10/26/13 8:00:00, Duration: 30 day, Stop date: 11/24/13 20:00:00, > 45 kg; Prophylaxis dose; Pediatric DosingSpecial Instructions: > 45 kg; Prophylaxis dose; Pediatric DosingNotes: Nurse to ensure documentation of patient education per anticoagulation policy. (Same as: Lovenox) No Longer Active 10/26/2013 [facility] Coreg 12.5 mg, 1 tab, Route: PO, Drug form: TAB, BID, Dosing Weight 75.199, kg, Priority: NOW, Start date: 10/26/13 5:04:00, Duration: 30 day, Stop date: 11/24/13 17:00:00Notes: Give with food. (Same As: Coreg) No Longer Active 10/26/2013 [facility] Acetaminophen 325 MG / Hydrocodone Bitartrate 5 MG Oral Tablet [[place] 5/325] 1 tab, Route: PO, Drug Form: TAB, Dosing Weight 75.199, kg, Q6H, PRN Pain, Start date: 10/26/13 0:01:00, Duration: 30 day, Stop date: 11/25/13 0:00:00, pain second choiceNotes: (Same as: [place] 325/5) Do not exceed 4gm/day of acetaminophen. No Longer Active 10/26/2013 [facility] Enalapril 5 mg, 1 tab, Route: PO, Drug form: TAB, Daily, Dosing Weight 75.199, kg, Priority: NOW, Start date: 10/26/13 0:00:00, Duration: 30 day, Stop date: 11/24/13 9:00:00Notes: (Same as: Vasotec) Inactive 10/26/2013 [facility] Magnesium Oxide 800 mg, 2 tab, Route: PO, Drug form: TAB, Q12H, Dosing Weight 75.199, kg, Priority: STAT, Start date: 10/25/13 23:57:00, Duration: 2 day, Stop date: 10/27/13 21:00:00Notes: (Same as: Mag-Ox 400) Magn esium oxide [id number] elemental magnesium Dose=____mg magnesium oxide (___mg elemental magnesium) No Longer Active 10/26/2013 [facility] ceFAZolin 1 gm, Route: IVPB, Drug form: PDR/INJ, [id number], Start date: 10/25/13 22:00:00, Duration: 3 doses or times, Stop date: 10/26/13 14:00:00Notes: (Same As: Ancef, Kefzol) No Longer Active 10/26/2013 [facility] Saline Flush 0.9% 10 ml, Route: IVP, Drug Form: INJ, Dosing Weight 75.199, kg, Q12H, Start date: 10/25/13 21:00:00, Duration: 30 day, Stop date: 11/24/13 9:00:00Notes: Same as: BD Posiflush Sterile No Longer Active 10/26/2013 [facility] Docusate 100 mg, 1 cap, Route: PO, Drug form: CAP, Q12H, Dosing Weight 75.199, kg, Start date: 10/25/13 21:00:00, Duration: 30 day, Stop date: 11/24/13 9:00:00Notes: (Same as: Colace) (Do Not Crush) No Longer Active 10/26/2013 [facility] tramadol hydrochloride 50 MG Oral Tablet 50 mg, 1 tab, Route: PO, Drug form: TAB, Q6H, Dosing Weight 75.199, kg, PRN Pain Score 4-6, Start date: 10/25/13 17:17:00, Duration: 30 day, Stop date: 11/24/13 17:16:00Notes: Not to exceed 400mg/day. (Same As: Ultram) No Longer Active 10/25/2013 [facility] 10 ML Cefazolin 100 MG/ML Prefilled Syringe 1 gm, Route: IVPB, Drug form: INJ, Q8H, Dosing Weight 75.199, kg, Start date: 10/25/13 16:00:00, Duration: 1 doses or times, Stop date: 10/25/13 16:00:00 Inactive 10/25/2013 [facility] Saline Flush 0.9% 10 ml, Route: IVP, Drug Form: INJ, Dosing Weight 75.199, kg, PRN, PRN Line Flush, Start date: 10/25/13 14:02:00, Duration: 30 day, Stop date: 11/24/13 14:01:00Notes: Same as: BD Posiflush Sterile No Longer Active 10/25/2013 [facility] Ondansetron 4 mg, 1 tab, Route: PO, Drug form: TAB, Q8H, Dosing Weight 75.199, kg, PRN Nausea & Vomiting, Start date: 10/25/13 14:02:00, Duration: 30 day, Stop date: 11/24/13 14:01:00Notes: (Same as: Zofran) No Longer Active 10/25/2013 [facility] Dobutamine 1,000 mg, 250 mL, Rate: 3 micrograms/kg/min, Dosing Weight 75.199, kg, Route: IV, Total Volume: 250, Start date: 10/25/13 14:02:00, Duration: 30 day, Stop date: 11/24/13 14:01:00, Replace Every: 24 hrNo manish: (Same as: Dobutrex) Final conc=4 mg/ml. Premix solution. Protect from light. No Longer Active 10/25/2013 [facility] Nicardipine 40 mg, 200 mL, Rate: Start at 5mg/hr. Titrate, Dosing Weight 75.199, kg, Route: IV, Total Volume: 200, Start Date: 10/25/13 14:02:00, Duration: 30 day, Stop date: 11/24/13 14:01:00, Replace Every: 24 hr Notes: Same as: Cardene Concentration: (0.2 mg /1 ml ) No Longer Active 10/25/2013 [facility] Vancomycin 6.67 MG/ML Injectable Solution 1,127.985 mg, Route: IVPB, Drug form: INJ, ONCE, Dosing Weight 75.199, kg, Start date: 10/25/13 14:02:00, Stop date: 10/25/13 14:02:00 Inactive 10/25/2013 [facility] Magnesium Sulfate 2 gm, 50 mL, Route: IVPB, Drug form: INJ, Q2H, Dosing Weight 75.199, kg, Total dose=4 gm, Start date: 10/25/13 12:00:00, Duration: 2 doses or times, Stop date: 10/25/13 14:00:00 Inactive 10/25/2013 [facility] Digoxin 0.125 MG Oral Tablet 0.125 mg, 1 tab, Route: PO, Drug form: TAB, Daily, Dosing Weight 75.199, kg, Start date: 10/25/13 9:00:00, Duration: 30 day, Stop date: 11/23/13 9:00:00Notes: Take on an Empty Stomach (Same as: Lanoxin) No Longer Active 10/25/2013 [facility] Enalapril Maleate 5 MG / Hydrochlorothiazide 12.5 MG Oral Tablet 1 tab, Route: PO, Drug Form: TAB, Dosing Weight 75.199, kg, Daily, Start date: 10/25/13 9:00:00, Duration: 30 day, Stop date: 11/23/13 9:00:00 No Longer Active 10/25/2013 [facility] Imdur 30 mg, 1 tab, Route: PO, Drug form: ERTAB, Daily, Start date: 10/25/13 9:00:00, Duration: 30 day, Stop date: 11/23/13 9:00:00Notes: (Same as:Imdur) "Do Not Crush" Take on empty stomach/ full glass of water. Do not crush No Longer Active 10/25/2013 [facility] Nexium 40 mg, Route: PO, Drug form: TAB, Daily, Dosing Weight 75.199, kg, Start date: 10/25/13 9:00:00, Duration: 30 day, Stop date: 11/23/13 9:00:00 No Longer Active 10/25/2013 [facility] Aspirin / Calcium Carbonate 81 mg, 1 tab, Route: PO, Drug form: CHEWTAB, Daily, Dosing Weight 75.199, kg, Start date: 10/25/13 9:00:00, Duration: 30 day, Stop date: 11/23/13 9:00:00Notes: Take with food. No Longer Active 10/25/2013 [facility] Vitamin B 12 1,000 microgram, 1 tab, Route: PO, Drug form: TAB, Daily, Dosing Weight 75.199, kg, Start date: 10/25/13 9:00:00, Duration: 30 day, Stop date: 11/23/13 9:00:00Notes: (Same As: Vitamin B-12) No Longer Active 10/25/2013 [facility] Ascorbic Acid / Biotin / Folic Acid / Niacin / pantothenate / pyridoxine / Riboflavin / Thiamine / Vitamin B 12 1 tab, Route: PO, Drug Form: TAB, Dosing Weight 75.199, kg, Daily, Start date: 10/25/13 9:00:00, Duration: 30 day, Stop date: 11/23/13 9:00:00Notes: (Same as:Thera) Take with food. No Longer Active 10/25/2013 [facility] Isosorbide Dinitrate 30 mg, Route: PO, Drug form: TAB, Daily, Dosing Weight 75.199, kg, Start date: 10/25/13 9:00:00, Duration: 30 day, Stop date: 11/23/13 9:00:00 No Longer Active 10/25/2013 [facility] hydrochlorothiazide 25 mg oral tablet 12.5 mg, 0.5 tab, Route: PO, Daily, Start date: 10/25/13 9:00:00, Duration: 30 day, Stop date: 11/23/13 9:00:00Notes: (Same as: Hydrodiuril) With food. No Longer Active 10/25/2013 [facility] Lantus 5 unit, 0.05 mL, Route: SUB-Q, Drug form: INJ, QAM, Dosing Weight 75.199, kg, Start date: 10/25/13 9:00:00, Duration: 30 day, Stop date: 11/23/13 9:00:00Notes: Same as Lantus Solostar PEN "single patient use only" Stable for 28 days at room temperature. Expires in days from Date No Longer Active 10/25/2013 [facility] ferrous sulfate 325 mg, 1 tab, Route: PO, Drug form: ECTAB, Daily, Dosing Weight 75.199, kg, Start date: 10/25/13 9:00:00, Duration: 30 day, Stop date: 11/23/13 9:00:00Notes: Give with food. "Do Not Crush" No Longer Active 10/25/2013 [facility] Magnesium Oxide 400 mg, 1 tab, Route: PO, Drug form: TAB, ONCE, Dosing Weight 75.199, kg, Start date: 10/25/13 4:19:00, Stop date: 10/25/13 4:19:00Notes: (Same as: Mag-Ox 400) Magnesium oxide [id number] elemental magnesium Dose=____mg magnesium oxide (___mg elemental magnesium) Inactive 10/25/2013 [facility] Simvastatin 40 mg, 1 tab, Route: PO, Drug form: TAB, Bedtime, Dosing Weight 75.199, kg, Start date: 10/24/13 21:00:00, Duration: 30 day, Stop date: 11/22/13 21:00:00Notes: (Same as: Zocor) No Longer Active 10/25/2013 [facility] 24 HR Niacin 500 MG Extended Release Tablet [Niaspan] 500 mg, 1 tab, Route: PO, Drug form: ERTAB, Bedtime, Dosing Weight 75.199, kg, Start date: 10/24/13 21:00:00, Duration: 30 day, Stop date: 11/22/13 21:00:00Notes: (Same as: Niaspan) "Do Not Crush" Non-Formulary Item With food. No Longer Active 10/25/2013 [facility] Lantus 25 unit, 0.25 mL, Route: SUB-Q, Drug form: INJ, Bedtime, Dosing Weight 75.199, kg, Start date: 10/24/13 21:00:00, Duration: 30 day, Stop date: 11/22/13 21:00:00Notes: Same as Lantus Solostar PEN &quot ;single patient use only" Stable for 28 days at room temperature. Expires in days from Date No Longer Active 10/25/2013 [facility] Lovenox 80 mg, 0.8 mL, Route: SUB-Q, Drug form: INJ, ONCE, Dosing Weight 75.199, kg, Start date: 10/24/13 18:00:00, Stop date: 10/24/13 18:00:00Notes: Nurse to ensure documentation of patient education per a nticoagulation policy. (Same as: Lovenox) Inactive 10/24/2013 [facility] Coreg 25 mg, 1 tab, Route: PO, Drug form: TAB, BID, Dosing Weight 75.199, kg, Start date: 10/24/13 17:00:00, Duration: 30 day, Stop date: 11/23/13 9:00:00Notes: Give with food. (Same As: Coreg) No Longer Active 10/24/2013 [facility] Furosemide 20 MG Oral Tablet 20 mg, 1 tab, Route: PO, Drug form: TAB, BID, Dosing Weight 75.199, kg, Start date: 10/24/13 17:00:00, Duration: 30 day, Stop date: 11/23/13 9:00:00Notes: (Same as: Lasix) May cause GI upset. Give with food or milk. No Longer Active 10/24/2013 [facility] Protonix 40 mg, 1 tab, Route: PO, Drug form: ECTAB, Before Dinner, Start date: 10/24/13 16:30:00, Duration: 30 day, Stop date: 11/22/13 16:30:00Notes: Tablet should not be chewed or crushed. (Same as: Protonix) No Longer Active 10/24/2013 [facility] Vasotec 5 mg, 1 tab, Route: PO, Drug form: TAB, Daily, Start date: 10/24/13 16:00:00, Duration: 30 day, Stop date: 11/23/13 9:00:00Notes: (Same as: Vasotec) No Longer Active 10/24/2013 [facility] Insulin, Aspart, Human 2 unit, 0.02 mL, Route: SUB-Q, Drug form: SOLN, TID-Before Meals, Dosing Weight 75.199, kg, PRN Blood Glucose Results, Start date: 10/24/13 14:59:00, Duration: 30 day, Stop date: 11/23/13 14:58:00Notes: Roll in palms of hands gently; Do not shake vigorously. (Same as: NovoLOG) "single patient use only" Stable for 28 days at room temperature. Expires in days from Date No Longer Active 10/24/2013 [facility] Dextrose 50% Syringe 12.5 gm, 25 mL, Route: IVP, Drug Form: INJ, Dosing Weight 75.199, kg, PRN, PRN Blood Glucose Results, Start date: 10/24/13 14:59:00, Duration: 30 day, Stop date: 11/23/13 14:58:00 No Longer Active 10/24/2013 [facility] Glucagon 1 mg, Route: IM, Drug form: PDR/INJ, PRN, Dosing Weight 75.199, kg, PRN Blood Glucose Results, Start date: 10/24/13 14:59:00, Duration: 30 day, Stop date: 11/23/13 14:58:00 No Longer Active 10/24/2013 [facility] Nitroglycerin 0.4 MG Sublingual Tablet 0.4 mg, 1 tab, Route: SL, Drug form: TAB, Q5Min, Dosing Weight 75.199, kg, PRN as needed for chest pain, Start date: 10/24/13 14:54:00, Duration: 30 day, Stop date: 11/23/13 14:53:00Notes: (Same as:Nitroquick, Nitrostat) "Do Not Crush" Sublingual tablet No Longer Active 10/24/2013 [facility] Lantus 50 unit, SUB-Q, Bedtime, 0 Refill(s) Active 10/24/2013 [facility] Metformin hydrochloride 1000 MG Oral Tablet 1,000 mg=1 tab, PO, BID, # 30 tab, 0 Refill(s) Active 10/24/2013 [facility] 0.8 ML Enoxaparin sodium 100 MG/ML Prefilled Syringe [Lovenox] 80 mg, SUB-Q, Daily, # 20 syr, 0 Refill(s) No Longer Active 10/24/2013 [facility] Vitamin B-12 1000 mcg oral tablet 1,000 microgram=1 tab, PO, Daily, # 30 tab, 0 Refill(s) Active 10/24/2013 [facility] ferrous sulfate 325 mg oral enteric coated tablet 325 mg=1 tab, PO, Daily, 0 Refill(s) Active 10/24/2013 [facility] 24 HR Niacin 500 MG Extended Release Tablet [Niaspan] 500 mg=1 tab, PO, Bedtime, 0 Refill(s) Active 10/24/2013 [facility] vilazodone hydrochloride 40 MG Oral Tablet [Viibryd] 40 mg=1 tab, PO, Daily, with food, 0 Refill(s)Special Instructions: with food Active 10/24/2013 [facility] [place] 500 PO, Daily, 0 Refill(s) Active 10/24/2013 [facility] NovoLog 20 unit, SUB-Q, TID-Before Meals, before a meal, 0 Refill(s)Special Instructions: before a meal Active 10/24/2013 [facility] Aspirin / Calcium Carbonate 81 mg, PO, Daily, 0 Refill(s) Active 10/24/2013 [facility] clonazePAM 0.5 mg oral tablet, disintegrating 0.5 mg=1 tab, PO, TID, 0 Refill(s) No Longer Active 10/24/2013 [facility] simvastatin 40 mg oral tablet 40 mg=1 tab, PO, Bedtime, # 30 tab, 0 Refill(s) Active 10/24/2013 [facility] clonazePAM 0.5 mg oral tablet 0.5 mg=1 tab, SL, BID, 0 Refill(s) Active 10/24/2013 [facility] Nexium 40 mg, PO, Daily, 0 Refill(s) Active 10/24/2013 [facility] Ascorbic Acid / Biotin / Folic Acid / Niacin / pantothenate / pyridoxine / Riboflavin / Thiamine / Vitamin B 12 1 tab, PO, Daily, 0 Refill(s) Active 10/24/2013 [facility] carvedilol 25 MG Oral Tablet [Coreg] 25 mg=1 tab, PO, BID, # 180 tab, 0 Refill(s) Active 10/24/2013 [facility] Digoxin 0.125 MG Oral Tablet 0.125 mg, PO, Daily, # 30 tab, 0 Refill(s) Active 10/24/2013 [facility] isosorbide dinitrate 30 mg oral tablet 30 mg=1 tab, PO, Daily, 0 Refill(s) No Longer Active 10/24/2013 [facility] potassium chloride 10 mEq oral capsule, extended release 10 mEq=1 cap, PO, Daily, 0 Refill(s) Active 10/24/2013 [facility] Nitroglycerin 0.4 MG Sublingual Tablet 0.4 mg=1 tab, SL, Q5Min, Chest pain, # 100 tab, 0 Refill(s) Active 10/24/2013 [facility] Enalapril Maleate 5 MG / Hydrochlorothiazide 12.5 MG Oral Tablet 1 tab, PO, Daily, # 30 tab, 0 Refill(s) No Longer Active 10/24/2013 [facility] Furosemide 20 MG Oral Tablet 20 mg=1 tab, PO, BID, # 30 tab, 0 Refill(s) No Longer Active 10/24/2013 [facility] docosahexaenoic acid 200 MG / Eicosapentaenoic Acid 300 MG / Vitamin E 1 UNT Oral Capsule 1,000 mg=1 cap, PO, Daily, 0 Refill(s) Active 10/24/2013 [facility] Sodium Chloride 0.9% (titrate) 250 mL 250 mL, Rate: order caller for use with blood product administration, Dosing Weight 79.545, kg, Route: IV, Total Volume: 250, Start Date: 10/24/13 12:07:00, Duration: 30 day, Stop date: 11/23/13 12:06:00, Replace Every: 24 hr No Longer Active 10/24/2013 [facility] Allergies, Adverse Reactions, Alerts Substance Category Reaction Severity Reaction type Status Date Reported Comments Source Immunizations Immunization Date Given Site Status Last Updated Comments Source Results Order Name Results Value Reference Range Date Interpretation Comments Source Chest 2 views DX Chest 2 views DX EXAM: XR CHEST 2 VIEWS DATE: 01/05/2018 3:00 AM AUDIT ANALYST INDICATION: Line Placement - Status post PPM/ICD Implantation FINDINGS: PA and lateral views of the chest are compared to yesterday. Cardiomediastinal silhouette is prominent but not significantly changed. TAVR. A 3-lead left subclavian ICD has tips over the right atrium, right ventricle and coronary sinus. There is also part of a retained pacemaker tip over the right ventricle. Patchy right lower lobe opacity has increased and could be due to atelectasis, aspiration or pneumonia. There is subsegmental atelectasis in the left lower lobe. No definite pleural effusions. IMPRESSION: 1. A 3-lead left subclavian ICD is unchanged with tips over the right atrium, right ventricle and coronary sinus. 2. Again noted is a small retained portion of a pacemaker tip over the right ventricle. 3. Developing patchy right infrahilar opacity could be due to atelectasis or consolidation. 4. Left lower lobe subsegmental atelectasis. 01/05/2018 - - Read by: Xiomara Patel MD Dictated Date/time: 01/05/18 09:59 Electronically Signed by: Xiomara Patel MD 01/05/18 10:02 FINAL REPORT [facility] Chest 1 v for Placement DX Chest 1 v for Placement DX EXAM: XR CHEST 1 VIEW DATE: 01/04/2018 4:20 PM AUDIT ANALYST INDICATION: Line Placement - Status post PPM/ICD Implantation COMPARISON: 01/04/2018 TECHNIQUE: AP chest. IMPRESSION: 1. There are postsurgical changes following TAVR. Stable enlarged cardiomediastinal silhouette. 2. Interval placement of left subclavian triple lead AICD with leads overlying the right atrium, right ventricle and coronary sinus. Previously seen AICD has been removed. 3. No pneumothorax noted. 4. No definitive pleural effusions. 5. Prominent lung reticulations and peribronchial cuffing suggestive of pulmonary edema are without significant change. 6. Stable osseous structures. 01/04/2018 - - Read by: Nora German MD Dictated Date/time: 01/04/18 17:56 Electronically Signed by: Nora German MD 01/04/18 18:00 FINAL REPORT [facility] Chest 2 views DX Chest 2 views DX EXAM: XR CHEST 2 VIEWS DATE: 12/19/2017 10:42 AM CDT INDICATION: - I50.42 Chronic combined systolic (congestive) and diastolic (congestive) heart failure COMPARISON: 11/23/2017 TECHNIQUE: PA and lateral chest radiographs FINDINGS: Lines, tubes and hardware: Left-sided automatic implantable cardiac defibrillator device in place. Status post TAVR Lungs and pleura: Increased bilateral interstitial markings may indicate mild or early edema. Pulmonary vascularity is normal. Heart and mediastinum: The heart is enlarged, CT ratio 17.5 / 31.4. The mediastinal contours are normal. Bones: No acute bony abnormality is identified. IMPRESSION: 1. Bilaterally mildly prominent interstitial markings may indicate early/mild interstitial edema. 2. Cardiomegaly. 12/19/2017 - - Read by: Aleksandra Buenrostro MD Dictated Date/time: 12/19/17 10:54 Electronically Signed by: Aleksandra Buenrostro 12/19/17 10:59 FINAL REPORT SE[facility]STI[facility] Crespo Retroperitoneal Complete US Retroperitoneal Complete US EXAM: US RETROPERITONEAL COMPLETE DATE: 11/23/2017 3:17 PM CDT INDICATION: - Concern for urinary retention. Acute on chronic renal failure. ADDITIONAL INFORMATION: None. COMPARISON: Abdominal ultrasound September 18, 2009. CT angiogram of the chest, abdomen, and pelvis September 28, 2013 was also reviewed TECHNIQUE: Multiplanar grayscale and color Doppler ultrasound of the kidneys, aorta, IVC and urinary bladder. FINDINGS: Right kidney: Size: 10.1 x 4.7 x 5.3 cm. Hydronephrosis: None. Echogenicity: Normal. Calculi: None. Cysts/Masses: None. Left kidney: Size: 11.2 x 5.9 x 4.6 cm. Hydronephrosis: None. Echogenicity: Normal. Calculi: None. Cysts/Masses: None. Retroperitoneal/periaortic region: Normal. Bladder: Normal. Free fluid: None. Other: None. IMPRESSION: 1. Normal retroperitoneal ultrasound. 11/23/2017 - - This report was dictated by a General Foundry Worker/Fellow. I have personally reviewed the images as well as the Resident's interpretation and agree with the findings. Read by: Manolo Mcghee (FELLOW) Resident: Manolo Mcghee (FELLOW) Dictated Date/time: 11/23/17 16:26 Electronically Signed by: Jaime Cheatham MD 11/23/17 16:53 FINAL REPORT [facility] Chest 1view DX Chest 1view DX EXAM: XR CHEST 1 VIEW DATE: 11/23/2017 12:30 PM CDT INDICATION: - chest pain COMPARISON: 10/27/2013 TECHNIQUE: AP chest FINDINGS: Left chest wall pacemaker device with 3-lead wires is unchanged. Prosthetic aortic valve seen again. Cardiomegaly seen again. Tortuous and ectatic thoracic aorta also seen. Both lungs are clear. Possible small right pleural effusion versus overlying soft tissue seen. Bones are unchanged. IMPRESSION: 1. Persistent cardiomegaly. 2. Tortuous and ectatic thoracic aorta, widening of the mediastinum appear slightly more prominent compared to the prior x-ray, this could be related to the technique. 3. Possible tiny right pleural effusion versus overlying soft tissue. 11/23/2017 - - Read by: Alberto Eid Dictated Date/time: 11/23/17 13:24 Electronically Signed by: Alberto Eid 11/23/17 13:26 FINAL REPORT [facility] CHEM PANEL Phosphorus 4.0 mg/dL 2.5 - 4.5 10/27/2013 [facility] CHEM PANEL Magnesium Lvl 2.0 mg/dL 1.8 - 2.4 10/27/2013 [facility] ELECTROLYTES AGAP 19.3 meq/L 10.0 - 20.0 10/27/2013 [facility] ELECTROLYTES eGFR 69 mL/min/1.73m2 10/27/2013 1Result Comment: The eGFR is calculated using the CKD-EPI formula. In most young, healthy individuals the eGFR will be >90 mL/min/1.73m2. The eGFR declines with age. An eGFR of 60-89 may be normal in some populations, particularly the elderly, for whom the CKD-EPI formula has not been extensively validated. Use of the eGFR is not recommended in the following populations: Individuals with unstable creatinine concentrations, including patients and those with serious co-morbid conditions. Patients with extremes in muscle mass or diet. The data above are obtained from the National Kidney Disease Education Program (NKDEP) which additionally recommends that when the eGFR is used in patients with extremes of body mass index for purposes of drug dosing, the eGFR should be multiplied by the estimated BMI. [facility] ELECTROLYTES Calcium Lvl 8.5 mg/dL 8.5 - 10.5 10/27/2013 [facility] ELECTROLYTES Chloride Lvl 96 meq/L 95 - 109 10/27/2013 [facility] ELECTROLYTES CO2 23 meq/L 24 - 32 10/27/2013 [facility] ELECTROLYTES Sodium Lvl 134 meq/L 135 - 145 10/27/2013 [facility] ELECTROLYTES Potassium Lvl 4.3 meq/L 3.5 - 5.1 10/27/2013 [facility] ELECTROLYTES BUN 18 mg/dL 7 - 22 10/27/2013 [facility] ELECTROLYTES Creatinine Lvl 1.1 mg/dL 0.5 - 1.4 10/27/2013 [facility] ELECTROLYTES Glucose Lvl 138 mg/dL 70 - 99 10/27/2013 4Interpretive Data: Adult reference range values reflect the clinical guidelines of the [place] [employer]. [facility] HEMATOLOGY PTT 39.9 s 22.9 - 35.8 10/27/2013 13Interpretive Data: Heparin Therapeutic Range: 57 - 92 Seconds [facility] HEMATOLOGY INR 1.37 0.85 - 1.17 10/27/2013 10Interpretive Data: RECOMMENDED RANGES FOR PROTIME INR: 2.0-3.0 for most medical and surgical thromboembolic states. 2.5-3.5 for artificial heart valves and recurrent embolism. INR SHOULD BE USED ONLY FOR PATIENTS ON STABLE ANTICOAGULANT THERAPY. [facility] HEMATOLOGY PT 17.0 s 12.0 - 14.7 10/27/2013 [facility] HEMATOLOGY MPV 7.4 fL 7.4 - 10.4 10/27/2013 [facility] HEMATOLOGY Platelet 195 K/CMM 133 - 450 10/27/2013 [facility] HEMATOLOGY MCHC 32.1 g/dL 32.0 - 36.0 10/27/2013 [facility] HEMATOLOGY RDW 17.3 % 11.5 - 14.5 10/27/2013 [facility] HEMATOLOGY MCV 88.9 fL 80.0 - 94.0 10/27/2013 [facility] HEMATOLOGY MCH 28.5 pg 27.0 - 31.0 10/27/2013 [facility] HEMATOLOGY Hgb 9.0 g/dL 14.0 - 18.0 10/27/2013 [facility] HEMATOLOGY Hct 28.0 % 42.0 - 54.0 10/27/2013 [facility] HEMATOLOGY WBC 8.6 K/CMM 3.7 - 10.4 10/27/2013 [facility] HEMATOLOGY RBC 3.14 M/CMM 4.70 - 6.10 10/27/2013 [facility] HEMATOLOGY Basophils # 0.1 K/CMM 0.0 - 0.2 10/27/2013 [facility] HEMATOLOGY Segs-Bands # 6.7 K/CMM 1.5 - 8.1 10/27/2013 [facility] HEMATOLOGY Eosinophils # 0.4 K/CMM 0.0 - 0.5 10/27/2013 [facility] HEMATOLOGY Lymphocytes # 0.5 K/CMM 1.0 - 5.5 10/27/2013 [facility] HEMATOLOGY Monocytes # 0.9 K/CMM 0.0 - 0.8 10/27/2013 [facility] HEMATOLOGY Segs 78.4 % 45.0 - 75.0 10/27/2013 [facility] HEMATOLOGY Lymphocytes 5.5 % 20.0 - 40.0 10/27/2013 [facility] HEMATOLOGY Basophils 1.1 % 0.0 - 1.0 10/27/2013 [facility] HEMATOLOGY Monocytes 10.0 % 2.0 - 12.0 10/27/2013 [facility] HEMATOLOGY Eosinophils 5.0 % 0.0 - 4.0 10/27/2013 [facility] PARATHYROID PROFILE Ca Ion WB 1.10 mMol/L 1.05 - 1.25 10/27/2013 [facility] PARATHYROID PROFILE Ca Norm WB 1.06 mMol/L 1.05 - 1.25 10/27/2013 [facility] Chest 1view Chest 1view EXAM: XR CHEST 1 VIEW DATE: 10/27/2013 at 0756. INDICATION: Abnormal chest sounds. COMPARISON: 10/26/2013. TECHNIQUE: Single radiograph provided for interpretation. FINDINGS: There has been interval removal of a Zahl-Rustam catheter. A left-sided cardiac pacing device is stable in position. Changes of percutaneous cardiac valve repair are noted. No consolidation or infiltrate is seen. Mild blunting of the bilateral costophrenic angles is noted. No pneumothorax is identified. The cardio mediastinal silhouette is slightly enlarged. The chest wall osseous structures are unchanged. IMPRESSION: 1. Interval removal of Zahl-Rustam catheter. 2. Small bilateral pleural effusions. 10/27/2013 - - Read by: Samir Rivas MD Dictated Date/time: 10/27/13 12:58 Electronically Signed by: Samir Rivas MD 10/27/13 12:59 FINAL REPORT [facility] PARATHYROID PROFILE Ca Norm WB 1.11 mMol/L 1.05 - 1.25 10/26/2013 [facility] PARATHYROID PROFILE Ca Ion WB 1.10 mMol/L 1.05 - 1.25 10/26/2013 [facility] CARDIAC ENZYMES Troponin-T 0.015 ng/mL 0.000 - 0.100 10/26/2013 [facility] CARDIAC ENZYMES BNP 452 pg/mL <=100 pg/mL 10/26/2013 7Interpretive Data: Elevated results are in line with increasing severity of congestive heart failure. Minor elevations between 100 and 300 may be seen with Myocardial Ischemia, Sodium retaining drugs, and compensated/treated heart failure. [facility] CARDIAC ENZYMES Troponin-I 0.18 ng/mL 0.00 - 0.40 10/26/2013 [facility] CHEM PANEL eGFR 78 mL/min/1.73m2 10/26/2013 2Result Comment: The eGFR is calculated using the CKD-EPI formula. In most young, healthy individuals the eGFR will be >90 mL/min/1.73m2. The eGFR declines with age. An eGFR of 60-89 may be normal in some populations, particularly the elderly, for whom the CKD-EPI formula has not been extensively validated. Use of the eGFR is not recommended in the following populations: Individuals with unstable creatinine concentrations, including patients and those with serious co-morbid conditions. Patients with extremes in muscle mass or diet. The data above are obtained from the National Kidney Disease Education Program (NKDEP) which additionally recommends that when the eGFR is used in patients with extremes of body mass index for purposes of drug dosing, the eGFR should be multiplied by the estimated BMI. [facility] CHEM PANEL Calcium Lvl 8.5 mg/dL 8.5 - 10.5 10/26/2013 [facility] CHEM PANEL Chloride Lvl 103 meq/L 95 - 109 10/26/2013 [facility] CHEM PANEL CO2 24 meq/L 24 - 32 10/26/2013 [facility] CHEM PANEL Sodium Lvl 139 meq/L 135 - 145 10/26/2013 [facility] CHEM PANEL Potassium Lvl 4.7 meq/L 3.5 - 5.1 10/26/2013 [facility] CHEM PANEL Glucose Lvl 105 mg/dL 70 - 99 10/26/2013 5Interpretive Data: Adult reference range values reflect the clinical guidelines of the [place] [employer]. [facility] CHEM PANEL BUN 16 mg/dL 7 - 22 10/26/2013 [facility] CHEM PANEL Creatinine Lvl 1.0 mg/dL 0.5 - 1.4 10/26/2013 [facility] CHEM PANEL AGAP 16.7 meq/L 10.0 - 20.0 10/26/2013 [facility] CHEM PANEL Magnesium Lvl 2.0 mg/dL 1.8 - 2.4 10/26/2013 [facility] HEMATOLOGY RDW 16.8 % 11.5 - 14.5 10/26/2013 [facility] HEMATOLOGY MCH 28.7 pg 27.0 - 31.0 10/26/2013 [facility] HEMATOLOGY MPV 7.2 fL 7.4 - 10.4 10/26/2013 [facility] HEMATOLOGY Platelet 216 K/CMM 133 - 450 10/26/2013 [facility] HEMATOLOGY MCHC 33.2 g/dL 32.0 - 36.0 10/26/2013 [facility] HEMATOLOGY MCV 86.5 fL 80.0 - 94.0 10/26/2013 [facility] HEMATOLOGY Hct 28.9 % 42.0 - 54.0 10/26/2013 [facility] HEMATOLOGY RBC 3.34 M/CMM 4.70 - 6.10 10/26/2013 [facility] HEMATOLOGY WBC 11.1 K/CMM 3.7 - 10.4 10/26/2013 [facility] HEMATOLOGY Hgb 9.6 g/dL 14.0 - 18.0 10/26/2013 [facility] HEMATOLOGY PTT 33.7 s 22.9 - 35.8 10/26/2013 14Interpretive Data: Heparin Therapeutic Range: 57 - 92 Seconds [facility] HEMATOLOGY INR 1.34 0.85 - 1.17 10/26/2013 11Interpretive Data: RECOMMENDED RANGES FOR PROTIME INR: 2.0-3.0 for most medical and surgical thromboembolic states. 2.5-3.5 for artificial heart valves and recurrent embolism. INR SHOULD BE USED ONLY FOR PATIENTS ON STABLE ANTICOAGULANT THERAPY. [facility] HEMATOLOGY PT 16.7 s 12.0 - 14.7 10/26/2013 [facility] HEMATOLOGY Basophils # 0.1 K/CMM 0.0 - 0.2 10/26/2013 [facility] HEMATOLOGY RBC Morph Normal (10/26/13 3:01 AM) 10/26/2013 [facility] HEMATOLOGY Basophils 0.7 % 0.0 - 1.0 10/26/2013 [facility] HEMATOLOGY Eosinophils # 0.3 K/CMM 0.0 - 0.5 10/26/2013 [facility] HEMATOLOGY Monocytes # 0.7 K/CMM 0.0 - 0.8 10/26/2013 [facility] HEMATOLOGY Lymphocytes # 0.3 K/CMM 1.0 - 5.5 10/26/2013 [facility] HEMATOLOGY Segs-Bands # 9.8 K/CMM 1.5 - 8.1 10/26/2013 [facility] HEMATOLOGY Plt Morph Normal (10/26/13 3:01 AM) 10/26/2013 [facility] HEMATOLOGY Eosinophils 2.5 % 0.0 - 4.0 10/26/2013 [facility] HEMATOLOGY Monocytes 6.3 % 2.0 - 12.0 10/26/2013 [facility] HEMATOLOGY Lymphocytes 2.4 % 20.0 - 40.0 10/26/2013 [facility] HEMATOLOGY Segs 88.1 % 45.0 - 75.0 10/26/2013 [facility] Chest 1view Chest 1view PORTABLE CHEST 2013-10-26 01:31:00 COMPARISON: Yesterday CLINICAL INDICATION: Heart failure DISCUSSION: Support devices are unchanged. No pneumothorax or pleural effusions. Lungs are clear aside from platelike atelectasis retrocardiac regions. 10/26/2013 - - Read by: Huan Dixon MD Dictated Date/time: 10/26/13 09:14 Electronically Signed by: Huan Dixon MD 10/26/13 09:14 FINAL REPORT [facility] CHEM PANEL Magnesium Lvl 1.9 mg/dL 1.8 - 2.4 10/25/2013 [facility] ELECTROLYTES AGAP 14.7 meq/L 10.0 - 20.0 10/25/2013 [facility] ELECTROLYTES eGFR 69 mL/min/1.73m2 10/25/2013 3Result Comment: The eGFR is calculated using the CKD-EPI formula. In most young, healthy individuals the eGFR will be >90 mL/min/1.73m2. The eGFR declines with age. An eGFR of 60-89 may be normal in some populations, particularly the elderly, for whom the CKD-EPI formula has not been extensively validated. Use of the eGFR is not recommended in the following populations: Individuals with unstable creatinine concentrations, including patients and those with serious co-morbid conditions. Patients with extremes in muscle mass or diet. The data above are obtained from the National Kidney Disease Education Program (NKDEP) which additionally recommends that when the eGFR is used in patients with extremes of body mass index for purposes of drug dosing, the eGFR should be multiplied by the estimated BMI. [facility] ELECTROLYTES Potassium Lvl 4.7 meq/L 3.5 - 5.1 10/25/2013 [facility] ELECTROLYTES Chloride Lvl 103 meq/L 95 - 109 10/25/2013 [facility] ELECTROLYTES CO2 27 meq/L 24 - 32 10/25/2013 [facility] ELECTROLYTES Calcium Lvl 8.2 mg/dL 8.5 - 10.5 10/25/2013 [facility] ELECTROLYTES Glucose Lvl 142 mg/dL 70 - 99 10/25/2013 6Interpretive Data: Adult reference range values reflect the clinical guidelines of the [place] [employer]. [facility] ELECTROLYTES Sodium Lvl 140 meq/L 135 - 145 10/25/2013 [facility] ELECTROLYTES Creatinine Lvl 1.1 mg/dL 0.5 - 1.4 10/25/2013 [facility] ELECTROLYTES BUN 16 mg/dL 7 - 22 10/25/2013 [facility] HEMATOLOGY RBC 3.26 M/CMM 4.70 - 6.10 10/25/2013 [facility] HEMATOLOGY WBC 11.3 K/CMM 3.7 - 10.4 10/25/2013 [facility] HEMATOLOGY Hct 28.1 % 42.0 - 54.0 10/25/2013 [facility] HEMATOLOGY Hgb 9.3 g/dL 14.0 - 18.0 10/25/2013 [facility] HEMATOLOGY Platelet 218 K/CMM 133 - 450 10/25/2013 [facility] HEMATOLOGY MPV 6.9 fL 7.4 - 10.4 10/25/2013 [facility] HEMATOLOGY MCV 86.1 fL 80.0 - 94.0 10/25/2013 [facility] HEMATOLOGY MCH 28.6 pg 27.0 - 31.0 10/25/2013 [facility] HEMATOLOGY MCHC 33.2 g/dL 32.0 - 36.0 10/25/2013 [facility] HEMATOLOGY RDW 16.4 % 11.5 - 14.5 10/25/2013 [facility] HEMATOLOGY PTT 46.5 s 22.9 - 35.8 10/25/2013 15Interpretive Data: Heparin Therapeutic Range: 57 - 92 Seconds [facility] HEMATOLOGY PT 17.7 s 12.0 - 14.7 10/25/2013 [facility] HEMATOLOGY INR 1.43 0.85 - 1.17 10/25/2013 12Interpretive Data: RECOMMENDED RANGES FOR PROTIME INR: 2.0-3.0 for most medical and surgical thromboembolic states. 2.5-3.5 for artificial heart valves and recurrent embolism. INR SHOULD BE USED ONLY FOR PATIENTS ON STABLE ANTICOAGULANT THERAPY. [facility] HEMATOLOGY Lymphocytes 4.8 % 20.0 - 40.0 10/25/2013 [facility] HEMATOLOGY Eosinophils 3.2 % 0.0 - 4.0 10/25/2013 [facility] HEMATOLOGY Segs 85.5 % 45.0 - 75.0 10/25/2013 [facility] HEMATOLOGY Monocytes 5.8 % 2.0 - 12.0 10/25/2013 [facility] HEMATOLOGY Basophils 0.7 % 0.0 - 1.0 10/25/2013 [facility] HEMATOLOGY Segs-Bands # 9.7 K/CMM 1.5 - 8.1 10/25/2013 [facility] HEMATOLOGY Eosinophils # 0.4 K/CMM 0.0 - 0.5 10/25/2013 [facility] HEMATOLOGY Monocytes # 0.7 K/CMM 0.0 - 0.8 10/25/2013 [facility] HEMATOLOGY Lymphocytes # 0.5 K/CMM 1.0 - 5.5 10/25/2013 [facility] HEMATOLOGY Basophils # 0.1 K/CMM 0.0 - 0.2 10/25/2013 [facility] Chest 1view Chest 1view EXAM: Portable AP Chest 1view DATE: Oct 25, 2013 08:21:00 PM INDICATION: Arrhythmias COMPARISON: Portable AP Chest of 10/25/2013 at 0845 hours FINDINGS: Two portable AP supine views of the chest are presented. There has been interval placement of a percutaneously placed aortic valve (TAVR). There is a right IJ pulmonary artery catheter extending into the distal right pulmonary segment region. Again noted is a 3-lead AICD extending along the left subclavian route with unchanged position of leads. The lung volumes are satisfactory with mild bibasilar subsegmental atelectasis. There is no confluent consolidation. There is no pleural effusion or pneumothorax identified on this portable AP examination. The heart size is mildly enlarged. There is pulmonary venous hypertension. The regional skeleton is unchanged. IMPRESSION: 1. Interval placement of aortic valve. (TAVR) 2. Interval placement of a right IJ pulmonary artery catheter extending into the distal right pulmonary segment region. 3. Mild bibasilar subsegmental atelectasis. 4. Cardiomegaly with pulmonary venous hypertension. 10/25/2013 - - Read by: Martin Barrett MD Dictated Date/time: 10/25/13 20:56 Electronically Signed by: Martin Barrett MD 10/25/13 21:02 FINAL REPORT [facility] Chest 1view Chest 1view PORTABLE CHEST 2013-10-25 09:16:00 COMPARISON: 10/24/2013 CLINICAL INDICATION: Abnormal chest sounds DISCUSSION: Cardiac conduction device is unchanged. Note of very mild interstitial edema. No pleural effusions or pneumothorax. 10/25/2013 - - Read by: Huan Dixon MD Dictated Date/time: 10/26/13 09:04 Electronically Signed by: Huan Dixon MD 10/26/13 09:05 FINAL REPORT [facility] CHEM PANEL Phosphorus 3.7 mg/dL 2.5 - 4.5 10/25/2013 [facility] PARATHYROID PROFILE Ca Norm WB 1.13 mMol/L 1.05 - 1.25 10/25/2013 [facility] PARATHYROID PROFILE Ca Ion WB 1.13 mMol/L 1.05 - 1.25 10/25/2013 [facility] DRUG SCREEN U Cannab Scr Negative *NA* (10/24/13 4:00 PM) Negative 10/24/2013 [facility] DRUG SCREEN UDS Note See Note 9 *NA* (10/24/13 4:00 PM) 10/24/2013 9Interpretive Data: Drugs reported as positive have not been confirmed by a second method and should be used for medical purposes only. To order confirmation, contact laboratory. note: Below are cut-off concentrations for all urine drugs of abuse performed in the laboratory. Some drugs listed in the table may not be included in this panel. Description Cut-off concentration Amphetamine 1000 ng/mL Barbiturates 200 ng/mL Benzodiazepines 300 ng/mL Cocaine metabolites 300 ng/mL Opiates 300 ng/mL Phencyclidine 25 ng/mL Propoxyphene 300 ng/mL Marijuana metabolites 50 ng/mL Methadone 300 ng/mL Urine alcohol 20 mg/dL [facility] DRUG SCREEN U Phencyc Scr Negative *NA* (10/24/13 4:00 PM) Negative 10/24/2013 [facility] DRUG SCREEN U Opiate Scr Negative *NA* (10/24/13 4:00 PM) Negative 10/24/2013 [facility] DRUG SCREEN U Cocaine Scr Negative *NA* (10/24/13 4:00 PM) Negative 10/24/2013 [facility] DRUG SCREEN U Benzodia Scr Negative *NA* (10/24/13 4:00 PM) Negative 10/24/2013 [facility] DRUG SCREEN U Betty Scr Negative *NA* (10/24/13 4:00 PM) Negative 10/24/2013 [facility] DRUG SCREEN U Amph Scr Negative *NA* (10/24/13 4:00 PM) Negative 10/24/2013 [facility] URINE AND STOOL UA Mucus Few /LPF None Seen /LPF 10/24/2013 [facility] URINE AND STOOL UA Sq Epi Occasional /LPF Few /LPF 10/24/2013 [facility] URINE AND STOOL UA Urobilinogen 0.2 EU/dL 0.1 - 1.0 10/24/2013 [facility] URINE AND STOOL UA Blood Negative (10/24/13 4:00 PM) Negative 10/24/2013 [facility] URINE AND STOOL UA Nitrite Negative (10/24/13 4:00 PM) Negative 10/24/2013 [facility] URINE AND STOOL UA Leuk Est Negative (10/24/13 4:00 PM) Negative 10/24/2013 [facility] URINE AND STOOL UA Spec Grav 1.015 <=1.030 10/24/2013 [facility] URINE AND STOOL UA Turbidity Clear (10/24/13 4:00 PM) Clear 10/24/2013 [facility] URINE AND STOOL UA pH 5.5 5.0 - 8.0 10/24/2013 [facility] URINE AND STOOL UA Color Yellow *NA* (10/24/13 4:00 PM) Yellow 10/24/2013 [facility] URINE AND STOOL UA Ketones Negative mg/dL Negative mg/dL 10/24/2013 [facility] URINE AND STOOL UA Glucose Negative mg/dL Negative mg/dL 10/24/2013 [facility] URINE AND STOOL UA Protein Negative mg/dL Negative mg/dL 10/24/2013 [facility] URINE AND STOOL UA Bili Negative *NA* (10/24/13 4:00 PM) Negative 10/24/2013 [facility] CARDIAC ENZYMES Total CK 30 unit/L 12 - 191 10/24/2013 [facility] CARDIAC ENZYMES Troponin-T null 0.000 - 0.100 10/24/2013 [facility] CARDIAC ENZYMES Troponin-I 0.02 ng/mL 0.00 - 0.40 10/24/2013 [facility] CARDIAC ENZYMES BNP 372 pg/mL <=100 pg/mL 10/24/2013 8Interpretive Data: Elevated results are in line with increasing severity of congestive heart failure. Minor elevations between 100 and 300 may be seen with Myocardial Ischemia, Sodium retaining drugs, and compensated/treated heart failure. [facility] CHEM PANEL AST 20 unit/L 0 - 37 10/24/2013 [facility] CHEM PANEL Bili Total 0.5 mg/dL 0.2 - 1.3 10/24/2013 [facility] CHEM PANEL Total Protein 7.0 g/dL 6.4 - 8.4 10/24/2013 [facility] CHEM PANEL ALT 16 unit/L 0 - 65 10/24/2013 [facility] CHEM PANEL Albumin Lvl 3.3 g/dL 3.5 - 5.0 10/24/2013 [facility] CHEM PANEL Alk Phos 76 unit/L 39 - 136 10/24/2013 [facility] CHEM PANEL B/C Ratio 14 6 - 25 10/24/2013 [facility] CHEM PANEL Globulin 3.7 g/dL 2.0 - 4.0 10/24/2013 [facility] CHEM PANEL A/G Ratio 0.9 0.7 - 1.6 10/24/2013 [facility] [facility] SPECIAL CHEMISTRY Hgb A1C 5.6 % <=5.6 % 10/24/2013 [facility] CHEM PANEL Plasma Hemoglobin 30 mg/dL 0 - 10 10/24/2013 [facility] IMMUNOLOGY Haptoglobin 18 mg/dL 16 - 200 10/24/2013 [facility] BLOOD BANK RESULTS Antibody Scrn Negative (10/24/13 12:59 PM) 10/24/2013 [facility] BLOOD BANK RESULTS RBC product Product available (10/24/13 12:59 PM) 10/24/2013 [facility] BLOOD BANK RESULTS ABO/Rh A POS 10/24/2013 [facility] BLOOD BANK RESULTS FFP product Product available (10/24/13 12:59 PM) 10/24/2013 [facility] Chest 1view Chest 1view PORTABLE CHEST 2013-10-24 12:09:00 COMPARISON: 03/12/2009 CLINICAL INDICATION: Arrhythmias DISCUSSION: An ICD lead now overlies right ventricle. Two pacing leads are again seen overlying right ventricle. No pneumothorax or pleural effusions. Lungs are clear. Cardiac silhouette is slightly enlarged. IMPRESSION: No acute findings radiographically. 10/24/2013 - - Read by: Huan Dixon MD Dictated Date/time: 10/24/13 14:51 Electronically Signed by: Huan Dixon MD 10/24/13 14:53 FINAL REPORT [facility] CHEM PANEL eGFR 62 mL/min/1.73m2 09/28/2013 1Result Comment: The eGFR is calculated using the CKD-EPI formula. In most young, healthy individuals the eGFR will be >90 mL/min/1.73m2. The eGFR declines with age. An eGFR of 60-89 may be normal in some populations, particularly the elderly, for whom the CKD-EPI formula has not been extensively validated. Use of the eGFR is not recommended in the following populations: Individuals with unstable creatinine concentrations, including patients and those with serious co-morbid conditions. Patients with extremes in muscle mass or diet. The data above are obtained from the National Kidney Disease Education Program (NKDEP) which additionally recommends that when the eGFR is used in patients with extremes of body mass index for purposes of drug dosing, the eGFR should be multiplied by the estimated BMI. [facility] CHEM PANEL POC Creatinine 1.2 mg/dL 0.5 - 1.4 09/28/2013 [facility] Heart/coronary art TAVR CTA Heart/coronary art TAVR CTA EXAM: CHEST CARDIAC COMPUTER TOMOGRAPHY ANGIOGRAPHY DATE: 09/28/2013 INDICATION: Aortic stenosis. TAVR candidate. COMPARISON: None TECHNIQUE: Contrast imaging was performed on a [employer] [address] [employer] [address] scanner utilizing a single breath hold, at 600 mA and 120 kV. Retrospective ECG gating was performed, at a heart rate of 80 bpm. Images were reformatted at 0.5 mm intervals and sent to the [facility] workstation for interpretation of both systolic and diastolic phases. Lopresssor 10 ml iv was given just prior to coronary imaging. 90 ml of Visipaque 320 IV contrast was delivered via an 18 gauge catheter utilizing a power injector at 5 cc/sec, and followed by 50 cc of normal saline bolus as a chaser. STUDY QUALITY: Excellent FINDINGS: Aortic root landmarks (dimensions determined in systolic phases) Aortic valve: Tricuspid, however underdeveloped and calcified right and left cusps with a big noncoronary cusp ( suggestive of bicuspid functionality). Aortic annulus: 31 x 26 mm; avg 29 mm; area 6.8 sq cm Sino-tubular junction: 33 x 29 mm Ao annulus to coronary height: left main: 15 mm; right: 18 mm Ao annulus to STJ length: 21 mm Sinuses of Valsalva: width 40 x 33 mm Ascending aorta width at 40 mm from annulus: 35 x 34 mm Left subclavian artery: 9 x 8 mm Aortic arch: width: 25 x 24 mm; branch anatomy: Normal Descending thoracic aorta: width: 23 x 22 mm Coplanar TAVR angle: FRISIAN 10, CAUDAL 02 Coronary Arteries: This patient has a right dominant system, with normal origins of the coronary arteries. Left main: Calcified plaque in its mid segment. LAD: Diffuse calcified and noncalcified plaque seen in its proximal mid and distal segments. LCx: Calcified plaque in its proximal segment. RCA: Diffuse calcified and noncalcified plaque in its proximal and mid segments. Bypass Grafts: No Myocardium/Cardiac chambers: Ejection Fraction: 20% Basal septal hypertrophy: Mild at 12 mm Severe hypertrophy (1.5 cm wall thickness): No Intracardiac masses: No; Other cardiac findings: Pacemaker: Yes Artificial valve: No Intracardiac closure device: No Small pericardial effusion. IMPRESSION/SUMMARY: 1. Tricuspid, however underdeveloped and calcified right and left coronary cusps with a big noncoronary cusp ( suggestive of bicuspid functionality). There is mild dilatation of the sinuses of Valsalva measuring 40 mm. 2. Decreased left ventricular systolic function calculated at 20% with mild left ventricular hypertrophy. 3. Three vessel coronary atherosclerotic calcifications. Please correlate with the recent catheter angiogram report. 4. Small pericardial effusion. 09/28/2013 - - Read by: Matthieu Guzman MD Dictated Date/time: 09/28/13 14:56 Electronically Signed by: Matthieu Guzman 10/03/13 17:12 FINAL REPORT [facility] Vital Signs Vital Sign Value Date Comments Source Respitory Rate 18 10/27/2013 [facility] Diastolic (mm Hg) 62 10/27/2013 [facility] Systolic (mm Hg) 111 10/27/2013 [facility] Temperature Oral (F) 97.8 F 10/27/2013 [facility] Respitory Rate 18 10/27/2013 [facility] Systolic (mm Hg) 117 10/27/2013 [facility] Diastolic (mm Hg) 70 10/27/2013 [facility] Respitory Rate 15 10/27/2013 [facility] Diastolic (mm Hg) 67 10/27/2013 [facility] Systolic (mm Hg) 119 10/27/2013 [facility] Temperature Oral (F) 97.8 F 10/27/2013 [facility] Temperature Oral (F) 97.9 F 10/27/2013 [facility] Weight 75.199 10/24/2013 [facility] BMI Calculated 28.02 10/24/2013 [facility] Height 163.83 cm 10/24/2013 [facility] Weight 79.545 10/03/2013 [facility] BMI Calculated 27.47 10/03/2013 [facility] Height 170.18 cm 10/03/2013 [facility] BMI Calculated 25.9 08/21/2013 [facility] Weight 75 08/21/2013 [facility] Height 170.18 cm 08/21/2013 [facility] Encounters Location Location Details Encounter Type Encounter Number Reason For Visit Attending Provider ADM Date DC Date Status Source [facility] Outpatient [id number] Nick Guan 08/21/2013 08/22/2013 [facility] Outpatient [id number] Vimal Mcdaniel 09/28/2013 09/29/2013 [facility] Outpatient [id number] Nick Guan 10/03/2013 10/04/2013 [facility] Inpatient [id number] Nick Guan 10/24/2013 10/27/2013 [facility] Procedures Procedure Code Date Perfomer Comments Source Cardiac catheterization 53142094 [facility] Cataract surgery [id number] [facility] Excision of calcaneal spur [id number] [facility] Implantation of automatic cardioverter/defibrillator, total system (AICD) [id number] [facility] Placement of stent [id number] [facility]
--- OUTSIDE RECORDS SUMMARY | 2018-01-11 10:02 | XMS REPORT | Summary of Care ---
Author Organization Unknown Address Unknown Phone Unavailable Encounter HQ Juanar_anh(ARIANNA) [id number] Date(s): 10/03/13 - 10/03/[address] Discharge Disposition: Home Physician Attending: Nick Guan MD Physician_Referring: Nick Guan MD Reason for Visit AORTIC VALVE DISORDER Vital Signs Most recent to 1 oldest [Reference Range]: Height 170.18 cm (10/03/13 7:08 AM) Weight 79.545 kg (10/03/13 7:08 AM) Body Mass Index 27.47 m2 (10/03/13 7:08 AM) Problem List No data available for this section Allergies, Adverse Reactions, Alerts Substance Reaction Severity Status NKDA Active Medications No data available for this section Medications Administered During Your Visit No data available for this section Immunizations No data available for this section
--- OUTSIDE RECORDS SUMMARY | 2018-01-11 10:02 | XMS REPORT | Summary of Care ---
Author Organization Unknown Address Unknown Phone Unavailable Encounter HQ Rafa_anh(ARIANNA) [id number] Date(s): 08/21/13 - 08/21/[address] Discharge Disposition: Home Physician Attending: Nick Guan MD Physician_Referring: Nick Guan MD Reason for Visit AORTIC VALVE DISORDER Vital Signs Most recent to 1 oldest [Reference Range]: Height 170.18 cm (08/21/13 11:26 AM) Weight 75 kg (08/21/13 11:26 AM) Body Mass Index 25.9 m2 (08/21/13 11:26 AM) Problem List No data available for this section Allergies, Adverse Reactions, Alerts No data available for this section Medications No data available for this section Medications Administered During Your Visit No data available for this section Immunizations No data available for this section
--- OUTSIDE RECORDS SUMMARY | 2018-01-11 10:02 | XMS REPORT | Summary of Care ---
Author Organization Unknown Address Unknown Phone Unavailable Encounter JOELLEN Arteaga(ARIANNA) [id number] Date(s): 10/24/13 - 10/27/[address] Discharge Disposition: Home Physician Attending: Nick Guan MD Physician Admitting: Nick Guan MD Reason for Visit SEVERE AORTIC STENOSIS, CHF Vital Signs 1 2 3 Most recent to oldest [Reference Range]: 163.83 cm (10/24/13 12:25 PM) Height 76.591 kg (10/27/13 5:09 AM) 75.009 kg (10/26/13 2:30 PM) 74.318 kg (10/25/13 6:21 AM) Current Weight 97.8 DegF (10/27/13 2:36 PM) 97.8 DegF (10/27/13 11:59 AM) 97.9 DegF (10/27/13 7:01 AM) Temperature Oral [96.4-99.1 DegF] 111 mmHg (10/27/13 2:36 PM) 117 mmHg (10/27/13 1:00 PM) 119 mmHg (10/27/13 12:00 PM) Systolic Blood Pressure [90-140 mmHg] 62 mmHg (10/27/13 2:36 PM) 70 mmHg (10/27/13 1:00 PM) 67 mmHg (10/27/13 12:00 PM) Diastolic Blood Pressure [60-90 mmHg] 18 BRMIN (10/27/13 2:36 PM) 18 BRMIN (10/27/13 1:00 PM) 15 BRMIN (10/27/13 12:00 PM) Respiratory Rate [14-20 BRMIN] 75.199 kg (10/24/13 12:25 PM) Weight 28.02 m2 (10/24/13 12:25 PM) Body Mass Index Problem List Condition Effective Dates Status Health Status Informant ACD - Automatic Resolved cardiac defibrillator procedure(Confirmed) AMI (acute Resolved myocardial infarction)(Confirme d) Aortic Resolved stenosis(Confirmed) Blood Resolved clot(Confirmed) CAD (coronary artery Resolved disease)(Confirmed) Congestive heart Resolved failure(Confirmed) Coronary stent Resolved site(Confirmed) DM (diabetes Resolved mellitus), type 2(Confirmed) Hypertension(Confirm Resolved ed) Allergies, Adverse Reactions, Alerts Substance Reaction Severity Status NKDA Active Medications aspirin 81 mg, 1 tab, Route: PO, Drug form: CHEWTAB, Daily, Dosing Weight 75.199, kg, St art date: 10/25/13 9:00:00, Duration: 30 day, Stop date: 11/23/13 9:00:00 Notes: Take with food. Start Date: 10/25/13 Stop Date: 10/27/13 Status: Discontinued aspirin 81 mg, PO, Daily, 0 Refill(s) Start Date: 10/24/13 Stop Date: 11/23/13 Status: Ordered ceFAZolin 1 gm, Route: IVPB, Drug form: PDR/INJ, [id number], Start date: 10/25/13 22:00:00, Du ration: 3 doses or times, Stop date: 10/26/13 14:00:00 Notes: (Same As: Conchis Gallagher) Start Date: 10/25/13 Stop Date: 10/26/13 Status: Completed ceFAZolin (SCIP) 1 gm, Route: IVPB, Drug form: INJ, Q8H, Dosing Weight 75.199, kg, Start date: 16:00:00, Duration: 1 doses or times, Stop date: 10/25/13 16:00:00 Start Date: 10/25/13 Stop Date: 10/25/13 Status: Discontinued clonazePAM 0.5 mg oral tablet 0.5 mg=1 tab, SL, BID, 0 Refill(s) Start Date: 10/24/13 Stop Date: 11/23/13 Status: Ordered clonazePAM 0.5 mg oral tablet, disintegrating 0.5 mg=1 tab, PO, TID, 0 Refill(s) Start Date: 10/24/13 Stop Date: 10/27/13 Status: Discontinued Coreg 25 mg, 1 tab, Route: PO, Drug form: TAB, BID, Dosing Weight 75.199, kg, Start da te: 10/24/13 17:00:00, Duration: 30 day, Stop date: 11/23/13 9:00:00 Notes: Give with food. (Same As: Coreg) Start Date: 10/24/13 Stop Date: 10/26/13 Status: Discontinued Coreg 12.5 mg, 1 tab, Route: PO, Drug form: TAB, BID, Dosing Weight 75.199, kg, Priori ty: NOW, Start date: 10/26/13 5:04:00, Duration: 30 day, Stop date: 11/24/13 17: 00:00 Notes: Give with food. (Same As: Coreg) Start Date: 10/26/13 Stop Date: 10/27/13 Status: Discontinued Coreg 25 mg oral tablet 25 mg=1 tab, PO, BID, # 180 tab, 0 Refill(s) Start Date: 10/24/13 Status: Ordered Coumadin 3 mg, 3 tab, Route: PO, Drug form: TAB, Q5PM, Dosing Weight 75.199, kg, Start da te: 10/26/13 17:00:00, Duration: 1 doses or times, Stop date: 10/26/13 17:00:00 Notes: Nurse to ensure documentation of patient education per anticoagulation po licy.Avoid large intake of vitamin-K containing foods diet.(Same As: Coumadin) Start Date: 10/26/13 Stop Date: 10/26/13 Status: Completed cyanocobalamin 1,000 microgram, 1 tab, Route: PO, Drug form: TAB, Daily, Dosing Weight 75.199, kg, Start date: 10/25/13 9:00:00, Duration: 30 day, Stop date: 11/23/13 9:00:00 Notes: (Same As: Vitamin B-12) Start Date: 10/25/13 Stop Date: 10/27/13 Status: Discontinued Dextrose 50% Syringe 12.5 gm, 25 mL, Route: IVP, Drug Form: INJ, Dosing Weight 75.199, kg, PRN, PRN B lood Glucose Results, Start date: 10/24/13 14:59:00, Duration: 30 day, Stop date : 11/23/13 14:58:00 Start Date: 10/24/13 Stop Date: 10/27/13 Status: Discontinued Dextrose 50% Syringe 25 gm, 50 mL, Route: IVP, Drug Form: INJ, Dosing Weight 75.199, kg, PRN, PRN Blo od Glucose Results, Start date: 10/24/13 14:59:00, Duration: 30 day, Stop date: 11/23/13 14:58:00 Start Date: 10/24/13 Stop Date: 10/27/13 Status: Discontinued digoxin 125 mcg (0.125 mg) oral tablet 0.125 mg, 1 tab, Route: PO, Drug form: TAB, Daily, Dosing Weight 75.199, kg, Sta rt date: 10/25/13 9:00:00, Duration: 30 day, Stop date: 11/23/13 9:00:00 Notes: Take on an Empty Stomach (Same as: Lanoxin) Start Date: 10/25/13 Stop Date: 10/27/13 Status: Discontinued digoxin 125 mcg (0.125 mg) oral tablet 0.125 mg, PO, Daily, # 30 tab, 0 Refill(s) Start Date: 10/24/13 Status: Ordered DOBUTamine 1000 mg in 250 ml [id number] Premix (titrate) 1,000 mg 1,000 mg, 250 mL, Rate: 3 micrograms/kg/min, Dosing Weight 75.199, kg, Route: IV , Total Volume: 250, Start date: 10/25/13 14:02:00, Duration: 30 day, Stop date: 11/24/13 14:01:00, Replace Every: 24 hr Notes: (Same as: Dobutrex) Final conc=4 mg/ml. Premix solution. Protect from l ight. Start Date: 10/25/13 Stop Date: 10/26/13 Status: Discontinued docusate 100 mg, 1 cap, Route: PO, Drug form: CAP, Q12H, Dosing Weight 75.199, kg, Start date: 10/25/13 21:00:00, Duration: 30 day, Stop date: 11/24/13 9:00:00 Notes: (Same as: Colace) (Do Not Crush) Start Date: 10/25/13 Stop Date: 10/27/13 Status: Discontinued enalapril 5 mg, 1 tab, Route: PO, Drug form: TAB, Daily, Dosing Weight 75.199, kg, Priorit y: NOW, Start date: 10/26/13 0:00:00, Duration: 30 day, Stop date: 11/24/13 9:00 :00 Notes: (Same as: Vasotec) Start Date: 10/26/13 Stop Date: 10/26/13 Status: Discontinued enalapril 5 mg, 1 tab, Route: PO, Drug form: TAB, BID, Dosing Weight 75.199, kg, Start melo e: 10/26/13 9:00:00, Duration: 30 day, Stop date: 11/24/13 17:00:00 Notes: (Same as: Vasotec) Start Date: 10/26/13 Stop Date: 10/27/13 Status: Discontinued enalapril 5 mg oral tablet 5 mg=1 tab, PO, BID, # 60 tab, 1 Refill(s) Start Date: 10/27/13 Status: Ordered enalapril-hydrochlorothiazide 5 mg-12.5 mg oral tablet 1 tab, Route: PO, Drug Form: TAB, Dosing Weight 75.199, kg, Daily, Start date: 0 10/25/13 9:00:00, Duration: 30 day, Stop date: 11/23/13 9:00:00 Start Date: 10/25/13 Stop Date: 10/24/13 Status: Discontinued enalapril-hydrochlorothiazide 5 mg-12.5 mg oral tablet 1 tab, PO, Daily, # 30 tab, 0 Refill(s) Start Date: 10/24/13 Stop Date: 10/26/13 Status: Discontinued enoxaparin 80 mg/0.8 mL subcutaneous solution =80 mg, SUB-Q, Q12H, 14 syringes, # 12 mL, 0 Refill(s) Special Instructions: 14 syringes Start Date: 10/27/13 Stop Date: 11/03/13 Status: Ordered ferrous sulfate 325 mg, 1 tab, Route: PO, Drug form: ECTAB, Daily, Dosing Weight 75.199, kg, Sta rt date: 10/25/13 9:00:00, Duration: 30 day, Stop date: 11/23/13 9:00:00 Notes: Give with food. "Do Not Crush" Start Date: 10/25/13 Stop Date: 10/27/13 Status: Discontinued ferrous sulfate 325 mg oral enteric coated tablet 325 mg=1 tab, PO, Daily, 0 Refill(s) Start Date: 10/24/13 Stop Date: 11/23/13 Status: Ordered furosemide 20 mg oral tablet 20 mg, 1 tab, Route: PO, Drug form: TAB, BID, Dosing Weight 75.199, kg, Start da te: 10/24/13 17:00:00, Duration: 30 day, Stop date: 11/23/13 9:00:00 Notes: (Same as: Lasix) May cause GI upset. Give with food or milk. Start Date: 10/24/13 Stop Date: 10/27/13 Status: Discontinued furosemide 20 mg oral tablet 20 mg=1 tab, PO, BID, # 30 tab, 0 Refill(s) Start Date: 10/24/13 Stop Date: 10/27/13 Status: Discontinued glucagon 1 mg, Route: IM, Drug form: PDR/INJ, PRN, Dosing Weight 75.199, kg, PRN Blood Gl ucose Results, Start date: 10/24/13 14:59:00, Duration: 30 day, Stop date: 11/23 14:58:00 Start Date: 10/24/13 Stop Date: 10/27/13 Status: Discontinued hydrochlorothiazide 25 mg oral tablet 12.5 mg, 0.5 tab, Route: PO, Daily, Start date: 10/25/13 9:00:00, Duration: 30 d ay, Stop date: 11/23/13 9:00:00 Notes: (Same as: Hydrodiuril) With food. Start Date: 10/25/13 Stop Date: 10/27/13 Status: Discontinued hydrochlorothiazide 25 mg oral tablet 12.5 mg=0.5 tab, PO, Daily, # 30 tab, 1 Refill(s) Start Date: 10/27/13 Status: Ordered Imdur 30 mg, 1 tab, Route: PO, Drug form: ERTAB, Daily, Start date: 10/25/13 9:00:00, Duration: 30 day, Stop date: 11/23/13 9:00:00 Notes: (Same as:Imdur)"Do Not Crush" Take on empty stomach/ full glass of water . Do not crush Start Date: 10/25/13 Stop Date: 10/27/13 Status: Discontinued insulin aspart 2 unit, 0.02 mL, Route: SUB-Q, Drug form: SOLN, TID-Before Meals, Dosing Weight 75.199, kg, PRN Blood Glucose Results, Start date: 10/24/13 14:59:00, Duration: 30 day, Stop date: 11/23/13 14:58:00 Notes: Roll in palms of hands gently; Do not shake vigorously. (Same as: NovoLO G)"single patient use only" Stable for 28 days at room temperature.Expires in _ ____ days from Date Start Date: 10/24/13 Stop Date: 10/27/13 Status: Discontinued insulin aspart 4 unit, 0.04 mL, Route: SUB-Q, Drug form: SOLN, TID-Before Meals, Dosing Weight 75.199, kg, PRN Blood Glucose Results, Start date: 10/24/13 14:59:00, Duration: 30 day, Stop date: 11/23/13 14:58:00 Notes: Roll in palms of hands gently; Do not shake vigorously. (Same as: NovoLO G)"single patient use only" Stable for 28 days at room temperature.Expires in _ ____ days from Date Start Date: 10/24/13 Stop Date: 10/27/13 Status: Discontinued insulin aspart 6 unit, 0.06 mL, Route: SUB-Q, Drug form: SOLN, TID-Before Meals, Dosing Weight 75.199, kg, PRN Blood Glucose Results, Start date: 10/24/13 14:59:00, Duration: 30 day, Stop date: 11/23/13 14:58:00 Notes: Roll in palms of hands gently; Do not shake vigorously. (Same as: NovoLO G)"single patient use only" Stable for 28 days at room temperature.Expires in _ ____ days from Date Start Date: 10/24/13 Stop Date: 10/27/13 Status: Discontinued insulin aspart 8 unit, 0.08 mL, Route: SUB-Q, Drug form: SOLN, TID-Before Meals, Dosing Weight 75.199, kg, PRN Blood Glucose Results, Start date: 10/24/13 14:59:00, Duration: 30 day, Stop date: 11/23/13 14:58:00 Notes: Roll in palms of hands gently; Do not shake vigorously. (Same as: NovoLO G)"single patient use only" Stable for 28 days at room temperature.Expires in _ ____ days from Date Start Date: 10/24/13 Stop Date: 10/27/13 Status: Discontinued insulin aspart 10 unit, 0.1 mL, Route: SUB-Q, Drug form: SOLN, TID-Before Meals, Dosing Weight 75.199, kg, PRN Blood Glucose Results, Start date: 10/24/13 14:59:00, Duration: 30 day, Stop date: 11/23/13 14:58:00 Notes: Roll in palms of hands gently; Do not shake vigorously. (Same as: NovoLO G)"single patient use only" Stable for 28 days at room temperature.Expires in _ ____ days from Date Start Date: 10/24/13 Stop Date: 10/27/13 Status: Discontinued isosorbide dinitrate 30 mg, Route: PO, Drug form: TAB, Daily, Dosing Weight 75.199, kg, Start date: 0 10/25/13 9:00:00, Duration: 30 day, Stop date: 11/23/13 9:00:00 Start Date: 10/25/13 Stop Date: 10/24/13 Status: Discontinued isosorbide dinitrate 30 mg oral tablet 30 mg=1 tab, PO, Daily, 0 Refill(s) Start Date: 10/24/13 Stop Date: 10/27/13 Status: Discontinued Lantus 50 unit, SUB-Q, Bedtime, 0 Refill(s) Start Date: 10/24/13 Status: Ordered Lantus 5 unit, 0.05 mL, Route: SUB-Q, Drug form: INJ, QAM, Dosing Weight 75.199, kg, St art date: 10/25/13 9:00:00, Duration: 30 day, Stop date: 11/23/13 9:00:00 Notes: Same as Lantus Solostar PEN"single patient use only" Stable for 28 days at room temperature.Expires in days from Date Start Date: 10/25/13 Stop Date: 10/27/13 Status: Discontinued Lantus 25 unit, 0.25 mL, Route: SUB-Q, Drug form: INJ, Bedtime, Dosing Weight 75.199, k g, Start date: 10/24/13 21:00:00, Duration: 30 day, Stop date: 11/22/13 21:00:00 Notes: Same as Lantus Solostar PEN"single patient use only" Stable for 28 days at room temperature.Expires in days from Date Start Date: 10/24/13 Stop Date: 10/27/13 Status: Discontinued Lantus 10 unit, SUB-Q, at AM, 0 Refill(s) Special Instructions: at AM Start Date: 10/24/13 Status: Ordered lidocaine topical patch (5% film) 1 patch, Route: TOP, Daily, Drug form: FILM, Start date: 10/27/13 12:00:00, Dura tion: 30 day, Stop date: 11/26/13 9:00:00 Notes: Apply only once for up to 12 hours in [id number] period (12 hours on and 12 hours off).(Same as: Lidoderm)"Remove old patch before application of new patch" Start Date: 10/27/13 Stop Date: 10/27/13 Status: Discontinued Lovenox 80 mg, 0.8 mL, Route: SUB-Q, Drug form: INJ, ONCE, Dosing Weight 75.199, kg, Sta rt date: 10/24/13 18:00:00, Stop date: 10/24/13 18:00:00 Notes: Nurse to ensure documentation of patient education per anticoagulation po licy. (Same as: Lovenox) Start Date: 10/24/13 Stop Date: 10/24/13 Status: Completed Lovenox 80 mg, 0.8 mL, Route: SUB-Q, Drug form: INJ, [id number], Dosing Weight 75.199, kg, Start after lines removed., Start date: 10/26/13 8:00:00, Duration: 30 day, Stop date: 11/24/13 20:00:00, > 45 kg; Prophylaxis dose; Pediatric Dosing Special Instructions: > 45 kg; Prophylaxis dose; Pediatric Dosing Notes: Nurse to ensure documentation of patient education per anticoagulation po licy. (Same as: Lovenox) Start Date: 10/26/13 Stop Date: 10/27/13 Status: Discontinued Lovenox 80 mg/0.8 mL subcutaneous solution 80 mg, SUB-Q, Daily, # 20 syr, 0 Refill(s) Start Date: 10/24/13 Stop Date: 10/27/13 Status: Discontinued magnesium oxide 800 mg, 2 tab, Route: PO, Drug form: TAB, Q12H, Dosing Weight 75.199, kg, Priori ty: STAT, Start date: 10/25/13 23:57:00, Duration: 2 day, Stop date: 10/27/13 21 :00:00 Notes: (Same as: Mag-Ox 400)Magnesium oxide 587ay=353gm elemental magnesiumDose= ____mg magnesium oxide (___mg elemental magnesium) Start Date: 10/25/13 Stop Date: 10/27/13 Status: Discontinued magnesium oxide 400 mg, 1 tab, Route: PO, Drug form: TAB, ONCE, Dosing Weight 75.199, kg, Start date: 10/25/13 4:19:00, Stop date: 10/25/13 4:19:00 Notes: (Same as: Mag-Ox 400)Magnesium oxide [id number] elemental magnesiumDose= ____mg magnesium oxide (___mg elemental magnesium) Start Date: 10/25/13 Stop Date: 10/25/13 Status: Completed magnesium sulfate 2 gm, 50 mL, Route: IVPB, Drug form: INJ, Q2H, Dosing Weight 75.199, kg, Total d ose=4 gm, Start date: 10/25/13 12:00:00, Duration: 2 doses or times, Stop date: 10/25/13 14:00:00 Start Date: 10/25/13 Stop Date: 10/25/13 Status: Completed metFORMIN 1000 mg oral tablet 1,000 mg=1 tab, PO, BID, # 30 tab, 0 Refill(s) Start Date: 10/24/13 Status: Ordered multivitamin 1 tab, PO, Daily, 0 Refill(s) Start Date: 10/24/13 Status: Ordered multivitamin 1 tab, Route: PO, Drug Form: TAB, Dosing Weight 75.199, kg, Daily, Start date: 0 10/25/13 9:00:00, Duration: 30 day, Stop date: 11/23/13 9:00:00 Notes: (Same as:Thera) Take with food. Start Date: 10/25/13 Stop Date: 10/27/13 Status: Discontinued NexIUM 40 mg, PO, Daily, 0 Refill(s) Start Date: 10/24/13 Status: Ordered NexIUM 40 mg, Route: PO, Drug form: TAB, Daily, Dosing Weight 75.199, kg, Start date: 0 10/25/13 9:00:00, Duration: 30 day, Stop date: 11/23/13 9:00:00 Start Date: 10/25/13 Stop Date: 10/24/13 Status: Discontinued Niaspan ER 500 mg oral tablet, extended release 500 mg, 1 tab, Route: PO, Drug form: ERTAB, Bedtime, Dosing Weight 75.199, kg, S tart date: 10/24/13 21:00:00, Duration: 30 day, Stop date: 11/22/13 21:00:00 Notes: (Same as: Niaspan)"Do Not Crush"Non-Formulary Item With food. Start Date: 10/24/13 Stop Date: 10/27/13 Status: Discontinued Niaspan ER 500 mg oral tablet, extended release 500 mg=1 tab, PO, Bedtime, 0 Refill(s) Start Date: 10/24/13 Status: Ordered niCARdipine 40 mg in NS 200 ml IV 40 mg 40 mg, 200 mL, Rate: Start at 5mg/hr. Titrate, Dosing Weight 75.199, kg, Route: IV, Total Volume: 200, Start Date: 10/25/13 14:02:00, Duration: 30 day, Stop melo e: 11/24/13 14:01:00, Replace Every: 24 hr Notes: Same as: CardeneConcentration: (0.2 mg /1 ml ) Start Date: 10/25/13 Stop Date: 10/27/13 Status: Discontinued nitroglycerin 0.4 mg sublingual tablet 0.4 mg, 1 tab, Route: SL, Drug form: TAB, Q5Min, Dosing Weight 75.199, kg, PRN a s needed for chest pain, Start date: 10/24/13 14:54:00, Duration: 30 day, Stop d ate: 11/23/13 14:53:00 Notes: (Same as:Nitroquick, Nitrostat)"Do Not Crush" Sublingual tablet Start Date: 10/24/13 Stop Date: 10/27/13 Status: Discontinued nitroglycerin 0.4 mg sublingual tablet 0.4 mg=1 tab, SL, Q5Min, Chest pain, # 100 tab, 0 Refill(s) Start Date: 10/24/13 Status: Ordered W[place]ield 5/325 oral tablet 1 tab, Route: PO, Drug Form: TAB, Dosing Weight 75.199, kg, Q6H, PRN Pain, Start date: 10/26/13 0:01:00, Duration: 30 day, Stop date: 11/25/13 0:00:00, pain sec ond choice Notes: (Same as: Winfield 325/5) Do not exceed 4gm/day of acetaminophen. Start Date: 10/26/13 Stop Date: 10/27/13 Status: Discontinued NovoLOG 20 unit, SUB-Q, TID-Before Meals, before a meal, 0 Refill(s) Special Instructions: before a meal Start Date: 10/24/13 Stop Date: 11/23/13 Status: Ordered omega-3 polyunsaturated fatty acids 1000 mg oral capsule 1,000 mg=1 cap, PO, Daily, 0 Refill(s) Start Date: 10/24/13 Status: Ordered ondansetron 4 mg, 1 tab, Route: PO, Drug form: TAB, Q8H, Dosing Weight 75.199, kg, PRN Nause a & Vomiting, Start date: 10/25/13 14:02:00, Duration: 30 day, Stop date: 11/24/13 14:01:00 Notes: (Same as: Miladys) Start Date: 10/25/13 Stop Date: 10/27/13 Status: Discontinued Os-Chris 500 PO, Daily, 0 Refill(s) Start Date: 10/24/13 Stop Date: 11/23/13 Status: Ordered pantoprazole 40 mg, Route: PO, Daily, Dosing Weight 75.199, kg, Start date: 10/26/13 9:00:00, Duration: 30 day, Stop date: 11/24/13 9:00:00 Start Date: 10/26/13 Stop Date: 10/25/13 Status: Deleted polyethylene glycol 3350 17 gm, 1 pkt, Route: PO, Drug form: PWDR, Daily, Dosing Weight 75.199, kg, Start date: 10/26/13 9:00:00, Duration: 30 day, Stop date: 11/24/13 9:00:00 Notes: Dissolve in 8 oz of water or juice.(Same as: Miralax) Start Date: 10/26/13 Stop Date: 10/27/13 Status: Discontinued potassium chloride 10 mEq oral capsule, extended release 10 mEq=1 cap, PO, Daily, 0 Refill(s) Start Date: 10/24/13 Status: Ordered Protonix 40 mg, 1 tab, Route: PO, Drug form: ECTAB, Before Dinner, Start date: 10/24/13 1 6:30:00, Duration: 30 day, Stop date: 11/22/13 16:30:00 Notes: Tablet should not be chewed or crushed.(Same as: Protonix) Start Date: 10/24/13 Stop Date: 10/27/13 Status: Discontinued remove patch 1 patch, Route: TOP, Bedtime, Drug form: ERFILM, Start date: 10/27/13 21:00:00, Duration: 30 day, Stop date: 11/25/13 21:00:00 Notes: Remove patch 12 hours after application each day. Start Date: 10/27/13 Stop Date: 10/27/13 Status: Canceled Saline Flush 0.9% 10 ml, Route: IVP, Drug Form: INJ, Dosing Weight 75.199, kg, PRN, PRN Line Flush , Start date: 10/25/13 14:02:00, Duration: 30 day, Stop date: 11/24/13 14:01:00 Notes: Same as: BD Posiflush Sterile Start Date: 10/25/13 Stop Date: 10/27/13 Status: Discontinued Saline Flush 0.9% 10 ml, Route: IVP, Drug Form: INJ, Dosing Weight 75.199, kg, Q12H, Start date: 0 10/25/13 21:00:00, Duration: 30 day, Stop date: 11/24/13 9:00:00 Notes: Same as: BD Posiflush Sterile Start Date: 10/25/13 Stop Date: 10/27/13 Status: Discontinued simvastatin 40 mg, 1 tab, Route: PO, Drug form: TAB, Bedtime, Dosing Weight 75.199, kg, Star t date: 10/24/13 21:00:00, Duration: 30 day, Stop date: 11/22/13 21:00:00 Notes: (Same as: Zocor) Start Date: 10/24/13 Stop Date: 10/27/13 Status: Discontinued simvastatin 40 mg oral tablet 40 mg=1 tab, PO, Bedtime, # 30 tab, 0 Refill(s) Start Date: 10/24/13 Status: Ordered Sodium Chloride 0.9% (titrate) 250 mL 250 mL, Rate: gravel hauler for use with blood product administration, Dosing Weight 7 9.545, kg, Route: IV, Total Volume: 250, Start Date: 10/24/13 12:07:00, Duration : 30 day, Stop date: 11/23/13 12:06:00, Replace Every: 24 hr Start Date: 10/24/13 Stop Date: 10/27/13 Status: Discontinued tramadol 50 mg, 1 tab, Route: PO, Drug form: TAB, Q6H, Dosing Weight 75.199, kg, PRN Pain Score 1-3, Start date: 10/27/13 11:26:00, Duration: 30 day, Stop date: 11/26/13 11:25:00 Notes: Not to exceed 400mg/day. (Same As: Ultram) Start Date: 10/27/13 Stop Date: 10/27/13 Status: Discontinued tramadol 50 mg oral tablet 50 mg=1 tab, PO, Q6H, Pain, # 24 tab, 0 Refill(s) Start Date: 10/27/13 Stop Date: 11/06/13 Status: Ordered tramadol 50 mg oral tablet 50 mg, 1 tab, Route: PO, Drug form: TAB, Q6H, Dosing Weight 75.199, kg, PRN Pain Score 4-6, Start date: 10/25/13 17:17:00, Duration: 30 day, Stop date: 11/24/13 17:16:00 Notes: Not to exceed 400mg/day. (Same As: Ultram) Start Date: 10/25/13 Stop Date: 10/27/13 Status: Discontinued vancomycin (SCIP) 1,127.985 mg, Route: IVPB, Drug form: INJ, ONCE, Dosing Weight 75.199, kg, Start date: 10/25/13 14:02:00, Stop date: 10/25/13 14:02:00 Start Date: 10/25/13 Stop Date: 10/25/13 Status: Discontinued vancomycin (SCIP) + Sodium Chloride 0.9% IV 250 mL 1,250 mg, Route: IVPB, ONCE, Dosing Weight 75.199, kg, Start date: 10/26/13 14:0 0:00, Stop date: 10/26/13 14:00:00 Start Date: 10/26/13 Stop Date: 10/26/13 Status: Completed Vasotec 5 mg, 1 tab, Route: PO, Drug form: TAB, Daily, Start date: 10/24/13 16:00:00, Du ration: 30 day, Stop date: 11/23/13 9:00:00 Notes: (Same as: Vasotec) Start Date: 10/24/13 Stop Date: 10/26/13 Status: Discontinued Viibryd 40 mg oral tablet 40 mg=1 tab, PO, Daily, with food, 0 Refill(s) Special Instructions: with food Start Date: 10/24/13 Status: Ordered Vitamin B-12 1000 mcg oral tablet 1,000 microgram=1 tab, PO, Daily, # 30 tab, 0 Refill(s) Start Date: 10/24/13 Status: Ordered warfarin 3 mg oral tablet 3 mg=1 tab, PO, Daily, # 30 tab, 0 Refill(s) Start Date: 10/27/13 Status: Ordered Results BLOOD BANK RESULTS 1 2 3 Most recent to oldest [Reference Range]: A POS *Unknown* (10/24/13 12:59 PM) ABO/Rh Negative (10/24/13 12:59 PM) Antibody Scrn Product available (10/24/13 12:59 PM) FFP product Product available (10/24/13 12:59 PM) RBC product ELECTROLYTES 1 2 3 Most recent to oldest [Reference Range]: 134 mEq/L *LOW* (10/27/13 4:07 AM) 139 mEq/L (10/26/13 3:01 AM) 140 mEq/L (10/25/13 4:00 PM) Sodium Lvl [135-145 mEq/L] 4.3 mEq/L (10/27/13 4:07 AM) 4.7 mEq/L (10/26/13 3:01 AM) 4.7 mEq/L (10/25/13 4:00 PM) Potassium Lvl [3.5-5.1 mEq/L] 96 mEq/L (10/27/13 4:07 AM) 103 mEq/L (10/26/13 3:01 AM) 103 mEq/L (10/25/13 4:00 PM) Chloride Lvl [95-109 mEq/L] 23 mEq/L *LOW* (10/27/13 4:07 AM) 24 mEq/L (10/26/13 3:01 AM) 27 mEq/L (10/25/13 4:00 PM) CO2 [24-32 mEq/L] 19.3 mEq/L (10/27/13 4:07 AM) 16.7 mEq/L (10/26/13 3:01 AM) 14.7 mEq/L (10/25/13 4:00 PM) AGAP [10.0-20.0 mEq/L] CHEM PANEL 1 2 3 Most recent to oldest [Reference Range]: 1.1 mg/dL (10/27/13 4:07 AM) 1.0 mg/dL (10/26/13 3:01 AM) 1.1 mg/dL (10/25/13 4:00 PM) Creatinine Lvl [0.5-1.4 mg/dL] 69 mL/min/1.73m2 1 *NA* (10/27/13 4:07 AM) 78 mL/min/1.73m2 2 *NA* (10/26/13 3:01 AM) 69 mL/min/1.73m2 3 *NA* (10/25/13 4:00 PM) eGFR 18 mg/dL (10/27/13 4:07 AM) 16 mg/dL (10/26/13 3:01 AM) 16 mg/dL (10/25/13 4:00 PM) BUN [7-22 mg/dL] 14 (10/24/13 1:04 PM) B/C Ratio [6-25] 138 mg/dL 4 *HI* (10/27/13 4:07 AM) 105 mg/dL 5 *HI* (10/26/13 3:01 AM) 142 mg/dL 6 *HI* (10/25/13 4:00 PM) Glucose Lvl [70-99 mg/dL] 7.0 g/dL (10/24/13 1:04 PM) Total Protein [6.4-8.4 g/dL] 3.3 g/dL *LOW* (10/24/13 1:04 PM) Albumin Lvl [3.5-5.0 g/dL] 3.7 g/dL (10/24/13 1:04 PM) Globulin [2.0-4.0 g/dL] 0.9 (10/24/13 1:04 PM) A/G Ratio [0.7-1.6] 8.5 mg/dL (10/27/13 4:07 AM) 8.5 mg/dL (10/26/13 3:01 AM) 8.2 mg/dL *LOW* (10/25/13 4:00 PM) Calcium Lvl [8.5-10.5 mg/dL] 4.0 mg/dL (10/27/13 4:07 AM) 3.7 mg/dL (10/25/13 3:13 AM) Phosphorus [2.5-4.5 mg/dL] 2.0 mg/dL (10/27/13 4:07 AM) 2.0 mg/dL (10/26/13 3:01 AM) 1.9 mg/dL (10/25/13 4:00 PM) Magnesium Lvl [1.8-2.4 mg/dL] 16 unit/L (10/24/13 1:04 PM) ALT [0-65 unit/L] 20 unit/L (10/24/13 1:04 PM) AST [0-37 unit/L] 76 unit/L (10/24/13 1:04 PM) Alk Phos [39-136 unit/L] 30 mg/dL *HI* (10/24/13 1:04 PM) Plasma Hemoglobin [0-10 mg/dL] 0.5 mg/dL (10/24/13 1:04 PM) Bili Total [0.2-1.3 mg/dL] 1Result Comment: The eGFR is calculated using [...] from the National Kidney Disease Education Program ( NKDEP) which additionally recommends that when the eGFR is used in patients with extremes of body mass index for purposes of drug dosing, the eGFR should be mul tiplied by the estimated BMI. 2Result Comment: The eGFR is calculated using [...] from the National Kidney Disease Education Program ( NKDEP) which additionally recommends that when the eGFR is used in patients with extremes of body mass index for purposes of drug dosing, the eGFR should be mul tiplied by the estimated BMI. 3Result Comment: The eGFR is calculated using [...] from the National Kidney Disease Education Program ( NKDEP) which additionally recommends that when the eGFR is used in patients with extremes of body mass index for purposes of drug dosing, the eGFR should be mul tiplied by the estimated BMI. 4Interpretive Data: Adult reference range values reflect the clinical guidelines of the [place] [employer]. 5Interpretive Data: Adult reference range values reflect the clinical guidelines of the [place] [employer]. 6Interpretive Data: Adult reference range values reflect the clinical guidelines of the [place] [employer]. CARDIAC ENZYMES 1 2 3 Most recent to oldest [Reference Range]: 30 unit/L (10/24/13 1:04 PM) Total CK [12-191 unit/L] 0.015 ng/mL (10/26/13 3:01 AM) <0.010 ng/mL (10/24/13 1:04 PM) Troponin-T [0.000-0.100 ng/mL] 0.18 ng/mL (10/26/13 3:01 AM) 0.02 ng/mL (10/24/13 1:04 PM) Troponin-I [0.00-0.40 ng/mL] 452 pg/mL 7 *HI* (10/26/13 3:01 AM) 372 pg/mL 8 *HI* (10/24/13 1:04 PM) BNP [<=100 pg/mL] 7Interpretive Data: Elevated results are in line with increasing severity of congestive heart failure. Minor elevations between 100 and 300 may be seen with Myocardial Ischemia, Sodium retaining drugs, and compensated/treated heart failure. 8Interpretive Data: Elevated results are in line with increasing severity of congestive heart failure. Minor elevations between 100 and 300 may be seen with Myocardial Ischemia, Sodium retaining drugs, and compensated/treated heart failure. SPECIAL CHEMISTRY 1 2 3 Most recent to oldest [Reference Range]: 5.6 % (10/24/13 1:04 PM) Hgb A1C [<=5.6 %] PARATHYROID PROFILE 1 2 3 Most recent to oldest [Reference Range]: 1.10 mMol/L (10/27/13 4:07 AM) 1.10 mMol/L (10/26/13 3:01 AM) 1.13 mMol/L (10/25/13 3:13 AM) Ca Ion WB [1.05-1.25 mMol/L] 1.06 mMol/L (10/27/13 4:07 AM) 1.11 mMol/L (10/26/13 3:01 AM) 1.13 mMol/L (10/25/13 3:13 AM) Ca Norm WB [1.05-1.25 mMol/L] DRUG SCREEN 1 2 3 Most recent to oldest [Reference Range]: Negative *NA* (10/24/13 4:00 PM) U Amph Scr [Negative] Negative *NA* (10/24/13 4:00 PM) U Betty Scr [Negative] Negative *NA* (10/24/13 4:00 PM) U Benzodia Scr [Negative] Negative *NA* (10/24/13 4:00 PM) U Cocaine Scr [Negative] Negative *NA* (10/24/13 4:00 PM) U Opiate Scr [Negative] Negative *NA* (10/24/13 4:00 PM) U Phencyc Scr [Negative] Negative *NA* (10/24/13 4:00 PM) U Cannab Scr [Negative] See Note 9 *NA* (10/24/13 4:00 PM) UDS Note 9Interpretive Data: Drugs reported as positive have [...] Methadone 300 ng/mL Urine alcohol 20 mg/dL URINE AND STOOL 1 2 3 Most recent to oldest [Reference Range]: Clear (10/24/13 4:00 PM) UA Turbidity [Clear] Yellow *NA* (10/24/13 4:00 PM) UA Color [Yellow] 5.5 (10/24/13 4:00 PM) UA pH [5.0-8.0] 1.015 (10/24/13 4:00 PM) UA Spec Grav [<=1.030] Negative mg/dL (10/24/13 4:00 PM) UA Glucose [Negative mg/dL] Negative (10/24/13 4:00 PM) UA Blood [Negative] Negative mg/dL *NA* (10/24/13 4:00 PM) UA Ketones [Negative mg/dL] Negative mg/dL (10/24/13 4:00 PM) UA Protein [Negative mg/dL] 0.2 EU/dL (10/24/13 4:00 PM) UA Urobilinogen [0.1-1.0 EU/dL] Negative *NA* (10/24/13 4:00 PM) UA Bili [Negative] Negative (10/24/13 4:00 PM) UA Leuk Est [Negative] Negative (10/24/13 4:00 PM) UA Nitrite [Negative] Occasional /LPF (10/24/13 4:00 PM) UA Sq Epi [Few /LPF] Few /LPF (10/24/13 4:00 PM) UA Mucus [None Seen /LPF] IMMUNOLOGY 1 2 3 Most recent to oldest [Reference Range]: 18 mg/dL (10/24/13 1:04 PM) Haptoglobin [16-200 mg/dL] HEMATOLOGY 1 2 3 Most recent to oldest [Reference Range]: 8.6 K/CMM (10/27/13 4:07 AM) 11.1 K/CMM *HI* (10/26/13 3:01 AM) 11.3 K/CMM *HI* (10/25/13 4:00 PM) WBC [3.7-10.4 K/CMM] 3.14 M/CMM *LOW* (10/27/13 4:07 AM) 3.34 M/CMM *LOW* (10/26/13 3:01 AM) 3.26 M/CMM *LOW* (10/25/13 4:00 PM) RBC [4.70-6.10 M/CMM] 9.0 g/dL *LOW* (10/27/13 4:07 AM) 9.6 g/dL *LOW* (10/26/13 3:01 AM) 9.3 g/dL *LOW* (10/25/13 4:00 PM) Hgb [14.0-18.0 g/dL] 28.0 % *LOW* (10/27/13 4:07 AM) 28.9 % *LOW* (10/26/13 3:01 AM) 28.1 % *LOW* (10/25/13 4:00 PM) Hct [42.0-54.0 %] 88.9 fL (10/27/13 4:07 AM) 86.5 fL (10/26/13 3: AM) 86.1 fL (10/25/13 4:00 PM) MCV [80.0-94.0 fL] 28.5 pg (10/27/13:07 AM) 28.7 pg (10/26/13 3: AM) 28.6 pg (10/25/13 4:00 PM) MCH [27.0-31.0 pg] 32.1 g/dL (10/27/13 4:07 AM) 33.2 g/dL (10/26/13 3: AM) 33.2 g/dL (10/25/13 4:00 PM) MCHC [32.0-36.0 g/dL] 17.3 % *HI* (10/27/13 4:07 AM) 16.8 % *HI* (10/26/13 3: AM) 16.4 % *HI* (10/25/13 4:00 PM) RDW [11.5-14.5 %] 195 K/CMM (10/27/13 4:07 AM) 216 K/CMM (10/26/13 3:01 AM) 218 K/CMM (10/25/13 4:00 PM) Platelet [133-450 K/CMM] 7.4 fL (10/27/13 4:07 AM) 7.2 fL *LOW* (10/26/13 3:01 AM) 6.9 fL *LOW* (10/25/13 4:00 PM) MPV [7.4-10.4 fL] 78.4 % *HI* (10/27/13 4:07 AM) 88.1 % *HI* (10/26/13 3:01 AM) 85.5 % *HI* (10/25/13 4:00 PM) Segs [45.0-75.0 %] 5.5 % *LOW* (10/27/13 4:07 AM) 2.4 % *LOW* (10/26/13 3:01 AM) 4.8 % *LOW* (10/25/13 4:00 PM) Lymphocytes [20.0-40.0 %] 10.0 % (10/27/13 4:07 AM) 6.3 % (10/26/13 3:01 AM) 5.8 % (10/25/13 4:00 PM) Monocytes [2.0-12.0 %] 5.0 % *HI* (10/27/13 4:07 AM) 2.5 % (10/26/13 3:01 AM) 3.2 % (10/25/13 4:00 PM) Eosinophils [0.0-4.0 %] 1.1 % *HI* (10/27/13 4:07 AM) 0.7 % (10/26/13 3:01 AM) 0.7 % (10/25/13 4:00 PM) Basophils [0.0-1.0 %] 6.7 K/CMM (10/27/13 4:07 AM) 9.8 K/CMM *HI* (10/26/13 3:01 AM) 9.7 K/CMM *HI* (10/25/13 4:00 PM) Segs-Bands # [1.5-8.1 K/CMM] 0.5 K/CMM *LOW* (10/27/13 4:07 AM) 0.3 K/CMM *LOW* (10/26/13 3:01 AM) 0.5 K/CMM *LOW* (10/25/13 4:00 PM) Lymphocytes # [1.0-5.5 K/CMM] 0.9 K/CMM *HI* (10/27/13 4:07 AM) 0.7 K/CMM (10/26/13 3:01 AM) 0.7 K/CMM (10/25/13 4:00 PM) Monocytes # [0.0-0.8 K/CMM] 0.4 K/CMM (10/27/13 4:07 AM) 0.3 K/CMM (10/26/13 3:01 AM) 0.4 K/CMM (10/25/13 4:00 PM) Eosinophils # [0.0-0.5 K/CMM] 0.1 K/CMM (10/27/13 4:07 AM) 0.1 K/CMM (10/26/13 3:01 AM) 0.1 K/CMM (10/25/13 4:00 PM) Basophils # [0.0-0.2 K/CMM] Normal (10/26/13 3:01 AM) RBC Morph Normal (10/26/13 3:01 AM) Plt Morph 17.0 seconds *HI* (10/27/13 4:07 AM) 16.7 seconds *HI* (10/26/13 3:01 AM) 17.7 seconds *HI* (10/25/13 4:00 PM) PT [12.0-14.7 seconds] 1.37 10 *HI* (10/27/13 4:07 AM) 1.34 11 *HI* (10/26/13 3:01 AM) 1.43 12 *HI* (10/25/13 4:00 PM) INR [0.85-1.17] 39.9 seconds 13 *HI* (10/27/13 4:07 AM) 33.7 seconds 14 (10/26/13 3:01 AM) 46.5 seconds 15 *HI* (10/25/13 4:00 PM) PTT [22.9-35.8 seconds] 10Interpretive Data: RECOMMENDED RANGES FOR PROTIME INR: 2.0-3.0 for most medical and surgical thromboembolic states. 2.5-3.5 for artificial heart valves and recurrent embolism. INR SHOULD BE USED ONLY FOR PATIENTS ON STABLE ANTICOAGULANT THERAPY. 11Interpretive Data: RECOMMENDED RANGES FOR PROTIME INR: 2.0-3.0 for most medical and surgical thromboembolic states. 2.5-3.5 for artificial heart valves and recurrent embolism. INR SHOULD BE USED ONLY FOR PATIENTS ON STABLE ANTICOAGULANT THERAPY. 12Interpretive Data: RECOMMENDED RANGES FOR PROTIME INR: 2.0-3.0 for most medical and surgical thromboembolic states. 2.5-3.5 for artificial heart valves and recurrent embolism. INR SHOULD BE USED ONLY FOR PATIENTS ON STABLE ANTICOAGULANT THERAPY. 13Interpretive Data: Heparin Therapeutic Range: 57 - 92 Seconds 14Interpretive Data: Heparin Therapeutic Range: 57 - 92 Seconds 15Interpretive Data: Heparin Therapeutic Range: 57 - 92 Seconds Medications Administered During Your Visit No data available for this section Immunizations No data available for this section Procedures Procedure Type Body Site Date of Procedure Related Diagnosis Cardiac catheterization Cataract surgery Excision of calcaneal spur Implantation of automatic cardioverter/defibrillato r, total system (AICD) Placement of stent Social History Social History Type Response Substance Abuse Use: None Alcohol Use: Never Smoking Status Former smoker, Type: Cigarettes, Exposure to Tobacco Smoke None, Cigarette Smoking Last 365 Days No, Reg Smoking Cessation Counseling No Assessment and Plan Extracted from: Title: [facility] Discharge Summary Author: Rolanda Puga Date: 10/27/13 [facility] Admit Date: 10/24/13 Discharge Date: 10/27/13 Admit Attending: Dr. Nick Guan Discharge Attending: Dr. Bar Perez Admit Diagnosis: Severe aortic stenosis, CHF Discharge Diagnosis: s/p TAVR 10/25 Consults: Pulmonary/Critical Care Hospital Course: Mr. Brown is a 68 y/o M w PMH of HTN, DLD, IDDM, CAD s/p PCI, systolic CHF (EF 20-25%), CHB s/p AICD, and pulmonary HTN that presented for Transcatheter aortic valve replacement (TAVR). On 10/25, he underwent TAVR utilizing a #29 Saba [place] XT pericardial valave via the right right groin. He had an arterial line and a PA catheter was in place until day of discharge. He tolerated the procedure well and already reports improvement in his shortness of breath. He remained afebrile and breathing comfortably on room air on discharge. With history of left ventricular thrombus, patient will be discharged on coumadin 3mg daily with a lovenox bridge. He will follow up with his environmental health physician Dr. Chris Knutson in [place] for INR follow up next week (blood test Tuesday, appointment or Tue). He will follow up with Dr. Perez in 1 month. He will undergo cardiac rehab phase 2. Physical Examination: VitalsTmp(F)Tmp(C)[id number] 10/27 14:3697.836.73ocas110/[id number]--------- 10/27 13:00 117/[id number]--------- 10/27 12:00 119/[id number]------ 10/27 11:5997.836.16zwsr199/[id number]------ 10/27 11:30 124/161006--29------ 24 Hr Tmax: 97.9F (36.61c) at 10/27 07:01Vital Signs are the last 5 in the past 48 hours. 24 Hr Tmin: 97.3F (36.28c) at 10/26 23:37Weights are the last 5 in 60 days, plus initial. DateWt(kg)Wt(lb)Ht(cm)Ht(in)MethodBMIBSA 10/27 76.59 168.50Measured 28.51.87 10/26 75.01 165.02Measured 27.91.85 10/25 74.32 163.50Measured 27.71.84 10/24 (initial) 75.20 165.91590.83 64.50Measured 28.01.85 Lines, Tubes, and Drains: 10/24/2013 12:30 Peripheral Lines: Forearm Right Over the needle catheter 20 gauge 10/24/2013 12:30 Peripheral Lines: Forearm Left Over the needle catheter 20 gauge Surgical Procedures: 10/25/13 14:08TAVR PROCEDURE [id number] Surgeon: Nick Guan MD (Service: CVT) GEN: patient lying comfortably in bed, in no apparent distress HEENT: atraumatic, PERRLA, EOMI, no scleral icterus, moist mucous membranes NECK: supple, full ROM, no LAD CV: sam systolic murmur, S1 & S2 present PULM: CTAB, no wheezes/ronchi ABD: soft, nontender, nondistended, BS present, no rebound or guarding, no organomegaly EXTR: no edema, pulses 2+ throughout SKIN: warm, well-perfused, no rashes appreciated NEURO: Alert and oriented, career development consultant intact, muscle strength 5/5 throughout, sensation grossly intact, reflexes 2+ throughout Discharge Condition: improved, stable Disposition: discharge to home Discharge Meds: see discharge medication reconciliation Diet/Activity: heart healthy diet, no strenuous activity Follow-up: 1) Dr. Chris Knutson, environmental health physician - INR check next week 2) Dr. Perez, environmental health physician - 1 month for post-TAVR check up Rolanda Puga MD [place] Internal Medicine PGY-1 Extracted from: Title: CCU progress note Author: FaizaWally Date: 10/27/13 [facility] Impression and Plan Mr. Elvin Brown is a 68 y/o M w PMH of HTN, DLD, IDDM, CAD s/p PCI, systolic CHF (EF 20-25%), CHB s/p AICD, and pulmonary HTN that presents for Transcatheter aortic valve replacement (TAVR) on 10/24/13. #) Severe aortic stenosis - TTE 08/21/13: LVEF 20-25%, SRIDEVI 0.6 cm2, MG 18 mmg Hg, Peak Reji 3.1 m/s - RUIZ 10/03/13: Ao Isis 29 mm, STJ 29-30 mm - DSE 08/21/13: EF 20-25% SRIDEVI 0.6 cm2, Mean Grad 44 mmHg, Peak Reji 4.5 m/s - High operable risk STS 2.9% - S/p TAVR w sapiens, balloon angioplasty on 10/25. Sheaths removed - Maintain MAPs around 80, on home medications and well controled as of now #) Coronary artery disease - Coronary angio (06/28/13): LM: NAD, LAD: 70% Mid, LCX 40% proximal, RCA: 80-90% proximal - Cont ASA daily #) Systolic Congestive Heart Failure/CM s/p PCI and AICD NYHA III) - TTE 08/21/13: LVEF 20-25%, SRIDEVI 0.6 cm2, MG 18 mmg Hg, Peak Reji 3.1 m/s - Hold home lasix 20 PO BID - Strict I/O, daily weight #) H/o left ventricular thrombus - previously on enoxaparin 80 mg daily, restarted yesterday #) Hypertension, benign,essential - home meds of Digoxin 0.125 mg daily, Enalapril 5 mg daily, HCTZ 12.5 mg daily, Imdur 30 mg daily - BP stable on enalapril 5 mg daily and Coreg 12.5 mg BID - MAP in low 90's, restart his HCTZ and continue to hold imdur #) Dyslipidemia - Cont home simvastatin 40mg qhs, niacin 500 mg PO qhs #) IDDM - BG 119-151. Cont lantus at 1/2 dose (5u qAM, 25u qhs) - Cont SSI May be able to go home today. Extracted from: Title: Cardiothoracic Surgery Author: Kiara Russell MD Date: 10/25/13 Operative Note PATIENT NAMEElvin Brown [id number] DATE of OPERATION:10-25-13 PREOPERATIVE DIAGNOSIS:1. Severe symptomatic aortic stenosis 2. Hypertension 3. Hyperlipdemia 4. Diabetes 5. Coronary artery disease s/p PCI 6. sCHF (EF 25%) 7. AICD placement 8. Pulmonary hypertension 9. STS 2.9% POSTOPERATIVE DIAGNOSIS:Same PRIMARY SURGEON:Kade Russell MD CARDIOLOGISTSNick Guan MD SHOP BLACKSMITH:Bar Perez MD ANESTHESIOLOGIST:Lina Velasquez MD REFERRING CARDIOLOGISTS:Chris Caldwell MD POSTOPERATIVE DIAGNOSIS:Same OPERATION:1.Transcatheter aortic valve replacement (TAVR) utilizing a #29 Saba [place] XT pericardial valve via RIGHT groin under general anesthesia 2. Percutaneous access of the right and left common femoral artery 3. Percutaneous access of the right and left common femoral vein 4. Balloon aortic valvuloplasty 6. RUIZ ECHO FINDINGS: 1. Moderate calcifications in the aortic valve. 2. The #29 delivery system was passed without difficulty into the left ventricular outflow tract for deployment. 3. Post replacement RUIZ revealed mild paravalvular leak. INDICATIONS:The risks and benefits were explained to the patient. The patient is HIGH RISK (STS 2.9%) candidate for open AVR and discussed at our heart valve conference. Given his advanced age and low EF at 20%, I believe the patient has >15% risk of mortality for surgical aortic valve replacement. The patient was evaluated by Dr. Vidal Grady and myself and we believe that she would benefit from a TAVR. PROCEDURE IN DETAIL: Further details will be dictated by Dr. Guan as he was the stave inspector. The patient was brought into the cardiac medical lab director. A time-out procedure was performed which confirmed the patient s name, MRN, and procedure to be performed. The patient was placed in the supine position on the operating table and administered general anesthesia by our anesthesiologists. The chest, abdomen and groins were prepped and draped in the usual sterile manner. Access was obtained in the right common femoral artery, as well as right common femoral vein. Preclose devices were used (Proglide) at introduction for the device delivery side. Pacing was also placed in the RIGHT common femoral vein. Heparin was given intravenously, 1 mg/ml to maintain an ACT > 250 seconds. The RIGHT common femoral artery was prepared. Subsequently, test pacing was performed and obtained as expected at 180 beats per minute. An aortic angiogram root shot was performed, noting the optimal angle for deployment of the valve. This confirmed the position already determined by CT angiogram 3-D reconstruction. Subsequently, the balloon valvuloplasty was then performed expanding the valve without difficulty. Subsequently, the #29 mm Saba ANGELES XT transcatheter valve was placed into the sheath system in the RIGHT femoral artery and brought up through the aortic valve and placed in correct position. This was confirmed by the heart valve team. Rapid ventricular pacing was performed, and the valve was deployed in the aortic annulus appropriately. Post- placement RUIZ revealed good placement of the valve with mild PVL. Subsequently, the sheaths were removed, and no block was noted, the pacing wire was removed. All wounds were then closed and sterile dressings were applied. I was present as co surgeon in conjunction with Dr. Nick Guan. He will dictate his portions of the procedure. The patient tolerated the procedure well and was taken to the Coronary Care Unit in stable condition. Sponge, needle and instrument counts x2 were correct. I was present for the entire procedure. Extracted from: Title: [facility] Consult H&P Author: Josiah Fernandez MD Date: 10/24/13 [place] Pulmonary Critical Care Consult History & Physical Patient Name: Elvin Brown : 1945 [facility]: [facility] Att[facility]: Nathaniel Matamoros MD Reason for Consult: pre-op evaluation for TAVR History of Present Illness: Mr. Brown is a 68yo man with severe aortic stenosis (SRIDEVI 0.6cm, mean grad 18 and on DSE gradient of 44 in 07/2013), systolic ischemic CMP (LVEF 20-25% | NYHA III) s/p PCI and AICD, pulmonary HTN, HTN, DM, DLD who was directly admitted for TAVR. He had a PFTs done in on 09/28/13 which demonstrated mild restrictive ventilatory defect -- FEV1/FVC 76% | FVC 2.83L (77%) | TLC 4.25L (72%) | DLCO 48%. Patient reports smoking 1ppd for 15 years, quit in . He underwent general anesthesia a few years ago without any complications. He denies any h/o chemical exposures, birds, or asbestos. 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 On initial BMP, his bicarb was 29. His STOP BANG score for COURTNEY screening was 4. Admits to snoring but denies any apneic spells. Past Medical History: - HTN - DM - DLD - Severe aortic stenosis (SRIDEVI 0.6cm, mean grad 18 and on DSE gradient of 44 in 07/2013) - Systolic ischemic CMP (LVEF 20-25% | NYHA III) s/p PCI and AICD - Pulmonary HTN Past Surgical History: - LHC. - PCI. - AICD placement. - Cataract surgery. Family History: - CAD in father - HTN in mother - DM in mother Social History: - Tobacco: former smoker of 15 years x 1ppd, quit in - EtOH: denies. - Illicit drugs: denies. Allergies: - NKDA Home Medications: Coreg 25 mg oral tablet: 25 mg, 1 tab, PO, BID, 180 tab Lantus: 10 unit, SUB-Q, at AM Lantus: 50 unit, SUB-Q, Bedtime Lovenox 80 mg/0.8 mL subcutaneous solution: 80 mg, SUB-Q, Daily, 20 syr NexIUM: 40 mg, PO, Daily Niaspan ER 500 mg oral tablet, extended release: 500 mg, 1 tab, PO, Bedtime NovoLO unit, SUB-Q, TID-Before Meals, before a meal Os-Chris 500: PO, Daily Viibryd 40 mg oral tablet: 40 mg, 1 tab, PO, Daily, with food Vitamin B-12 1000 mcg oral tablet: 1,000 microgram, 1 tab, PO, Daily, 30 tab aspirin: 81 mg, PO, Daily clonazePAM 0.5 mg oral tablet, disintegratin.5 mg, 1 tab, PO, TID clonazePAM 0.5 mg oral tablet: 0.5 mg, 1 tab, SL, BID digoxin 125 mcg (0.125 mg) oral tablet: 0.125 mg, PO, Daily, 30 tab enalapril-hydrochlorothiazide 5 mg-12.5 mg oral tablet: 1 tab, PO, Daily, 30 tab ferrous sulfate 325 mg oral enteric coated tablet: 325 mg, 1 tab, PO, Daily furosemide 20 mg oral tablet: 20 mg, 1 tab, PO, BID, 30 tab isosorbide dinitrate 30 mg oral tablet: 30 mg, 1 tab, PO, Daily metFORMIN 1000 mg oral tablet: 1,000 mg, 1 tab, PO, BID, 30 tab multivitamin: 1 tab, PO, Daily nitroglycerin 0.4 mg sublingual tablet: 0.4 mg, 1 tab, SL, Q5Min, 100 tab, PRN: Chest pain omega-3 polyunsaturated fatty acids 1000 mg oral capsule: 1,000 mg, 1 cap, PO, Daily potassium chloride 10 mEq oral capsule, extended release: 10 mEq, 1 cap, PO, Daily simvastatin 40 mg oral tablet: 40 mg, 1 tab, PO, Bedtime, 30 tab Review of Systems: Constit: Denies Fever Wt gain/loss Sick contacts HEENT: Denies SANTANA Vision Head trauma Pulm: Per HPI CV: Per HPI GI: Denies Abd pain Nausea Vomiting Diarrhea Constipation : Denies Incontinence Dysuria Hematuria MS: Denies Myalgias Arthralgias Back pain Neuro: Denies Ataxia Numbness/Tingling Syncope Skin: Denies Lesions Rashes Bruises Endo: Denies Heat / Cold intol Polydipsia Polyuria Hemo/Lymph: Denies Easy bruising/bleeding Jaundice Swelling Physical Exam: Vitals: VitalsTmp(F)Tmp(C)[id number] 10/24 18:00 70 10/24 17:00 115/335530 10/24 16:5997.036.11oral 10/24 16:00 96/026841 10/24 15:58 72 24 Hr Tmax: 97.2F (36.22c) at 10/24 14:00Vital Signs are the last 5 in the past 48 hours. 24 Hr Tmin: 97.0F (36.11c) at 10/24 16:59Weights are the last 5 in 60 days, plus initial. DateWt(kg)Wt(lb)Ht(cm)Ht(in)MethodBMIBSA 10/24 (initial) 75.20 165.70865.83 64.50Measured 28.01.85 24 Hr Point of Care Glucoses 10/24 1610Glucose QUT527 H 10/24 1436Glucose DWD589 H 10/24 1257Glucose POC58 L 10/24 1221Glucose POC41 C Gen: WD/WN AAOx3 Pleasant Neuro: Follows commands career development consultant grossly intact No focal deficits appreciated HEENT: PERRL EOMI No scleral icterus Conjunct clear MMM O/P clear Neck supple No secretions Mallampati score 3 CV/Pulses: RRR Loud ANNI at the ULSB 2+ peripheral pulses Pulm: CTAB No W/R/R GI: BS (+) Soft NTND : deferred MS: FROM passively/actively Strength intact Tone intact Skin/Ext: No Cyanosis/Edema No rashes/lesions Labs: 24hr Labs 10/24 1610 Glucose RBH346 H 10/24 1600 U Amph ScrNegative U Betty ScrNegative U Benzodia ScrNegative U Cannab ScrNegative U Cocaine ScrNegative U Opiate ScrNegative U Phencyc ScrNegative UDS NoteSee Note UA ColorYellow UA TurbidityClear UA Spec Grav1.015 UA pH5.5 UA ProteinNegative UA GlucoseNegative UA KetonesNegative UA BiliNegative UA BloodNegative UA Urobilinogen0.2 UA NitriteNegative UA Leuk EstNegative UA MucusFew UA Sq EpiOccasional 10/24 1436 Glucose AKE204 H 10/24 1304 Sodium Rvo176 Potassium Lvl3.9 Chloride Cdx069 CO229 AGAP12.9 Glucose Lvl51 L Creatinine Lvl1.3 BUN18 B/C Ratio14 Total Protein7.0 Albumin Lvl3.3 L Globulin3.7 A/G Ratio0.9 Calcium Lvl8.9 ALT16 AST20 Alk Phos76 Bili Total0.5 eGFR56 Troponin-I0.02 Total CK30 Troponin-T<0.010 Hgb A1C5.6 HQI280 H WBC7.8 RBC3.64 L Hgb10.3 L Hct31.7 L MCV87.1 MCH28.4 MCHC32.6 RDW16.7 H Jclhkqbr893 MPV6.9 L Segs74.0 Monocytes9.2 Lymphocytes8.5 L Eosinophils7.2 H Basophils1.1 H Segs-Bands #5.8 Lymphocytes #0.7 L Monocytes #0.7 Eosinophils #0.6 H Basophils #0.1 PT16.9 H INR1.36 H PTT40.7 H 10/24 1304 Plasma Dfdihnnhty45 H 10/24 1259 ABO/RhA POS Antibody ScrnNegative RBC productProduct available FFP productProduct available XM EXM InterpComputer XM OK XM EXM InterpComputer XM OK XM EXM InterpComputer XM OK XM EXM InterpComputer XM OK 10/24 1257 Glucose POC58 L 10/24 1221 Glucose POC41 C Microbiology: - None. Imaging/Studies: CXR (10/24/13): per my review - clear lungs; cardiomegaly, AICD placed PFTs (09/28/13): 1. Spirometry. Spirometry and flow/volume loops demonstrate a mild restrictive ventilatory defect as seen by the reduced vital capacity (less than the lower limit of normal of 3.05 liters) of 2.83 liters, which is 77% of the predicted with a normal FEV1 to FVC ratio of 76. 2. Lung volume studies. A mild loss of lung volume as seen by the reduced total lung capacity of 4.25 liters (which is less than the lower limit of normal of 4.73 liters), which is 72% of predicted in the presence of a normal FEV1 to FVC ratio. 3. Diffusing capacity (DLCO). The moderate loss of the alveolar capillary interface demonstrated by the low DLCO of 12.02 mL/min/torr or 48% of predicted (less than the lower limit of normal of 19.94), which in this context suggests alveolar interstitial lung disease. Of note, the results of this test meet the ATS standards for acceptability and repeatability with good patient effort and cooperation. CONCLUSION: Mild restrictive ventilatory defect with a mild loss of the lung volume and a moderate reduction in the diffusing capacity suggestive of alveolar interstitial lung disease. There is no previous study on file for comparison. CT-C/A/P (09/28/13): A dual lead AICD/pacer is present with its generator overlying the left chest. A 1 cm hypoattenuating cystic appearing lesion is noted in the left superior renal pole; a similar cyst is noted in the right renal interpolar region anteriorly. The liver, gallbladder, pancreas, and adrenals are unremarkable. Moderate degenerative joint disease is noted throughout the lumbar spine. No acute bony abnormality is present. IMPRESSION: 1. Extensive coronary and aortic annulus calcifications. Arterial luminal diameters are noted above. 2. Several small nonspecific subcentimeter bilateral pulmonary nodules. Followup recommended as per Fleischner criteria. Assessment and Plan: Mr. Brown is a 68yo man with severe aortic stenosis (SRIDEVI 0.6cm, mean grad 18 and on DSE gradient of 44 in 07/2013), systolic ischemic CMP (LVEF 20-25% | NYHA III) s/p PCI and AICD, pulmonary HTN, HTN, DM, DLD who was directly admitted for TAVR. We were consulted for pulmonary pre-op clearance. Problem List: - Severe aortic stenosis -- pre-op for TAVR. - Systolic ischemic CMP. - ?Pulmonary HTN. - Small nonspecific subcentimeter bilateral pulmonary nodules - H/o HTN. - H/o DM. - H/o DLD. - Per his PFTs on 09/28/13, patient has mild restrictive ventilatory defect -- FEV1/FVC 76% | FVC 2.83L (77%) | TLC 4.25L (72%) | DLCO 48% with decreased DLCO likely 2/2 cardiac condition. - His high operable risk STS is 2.9% - He is an [id number] candidate for an intermediate-risk procedure for post-op pulmonary complications, which includes prolonged mechanical ventilation or pneumonia, etc. - Given his initial bicarb of 29 (no previous labs to compare), which could be from contraction alkalosis, please obtain a pre-op ABG to see if he's a CO2 retainer. - As for his subcentimeter pulmonary nodules, per Fleischner Society guidelines, patient will need repeat CT-chest in 6-12 months and then 18-24 months if unchanged. Thank you for the consult. We will cont to follow and assist with his post-op course. Josiah Fernandez M.D. Pulmonary Critical Care Fellow, PGY-4 MSO # [id number] Pager # [phone] ([phone]) Addendum [place] Pulmonary/Critical Care Progress Note by Saturnino, I have seen and examined the patient with Dr. Fernandez, I agree with his assessment and plan. Nathaniel Bradshaw MD on 10/24/2013 22:15 Extracted from: Title: [facility] H&P Author: Rush Shah MD Date: 10/24/13 Impression and Plan Mr. Elvin Brown is a 68 y/o M w PMH of HTN, DLD, IDDM, CAD s/p PCI, systolic CHF (EF 20-25%), CHB s/p AICD, and pulmonary HTN that presents for Transcatheter aortic valve replacement (TAVR) on 10/24/13. #) Severe aortic stenosis - TTE 08/21/13: LVEF 20-25%, SRIDEIV 0.6 cm2, MG 18 mmg Hg, Peak Reji 3.1 m/s - RUIZ 10/03/13: Ao Isis 29 mm, STJ 29-30 mm - DSE 08/21/13: EF 20-25% SRIDEVI 0.6 cm2, Mean Grad 44 mmHg, Peak Reji 4.5 m/s - High operable risk STS 2.9% - Plan for Transcatheter aortic valve replacement (TAVR) on 10/24/13 #) Coronary artery disease - Coronary angio (06/28/13): LM: NAD, LAD: 70% Mid, LCX 40% proximal, RCA: 80-90% proximal - Cont ASA daily #) Systolic Congestive Heart Failure/CM s/p PCI and AICD NYHA III) - TTE 08/21/13: LVEF 20-25%, SRIDEVI 0.6 cm2, MG 18 mmg Hg, Peak Reji 3.1 m/s - On lasix 20 PO BID - Strict I/O, daily weight #) Hypertension, benign,essential - Cont home meds of Coreg 25 mg BID, Digoxin 0.125 mg PO daily, Enalapril 5 mg PO daily, HCTZ 12.5 mg daily, Imdur 30 mg daily - Titrate as needed post TAVR #) Dyslipidemia - Cont home simvastatin 40mg qhs, niacin 500 mg PO qhs #) IDDM - Restart basal insulin and 1/2 rate - SSI
--- OUTSIDE RECORDS SUMMARY | 2018-01-11 10:02 | XMS REPORT | Summary of Care ---
Author Organization Unknown Address Unknown Phone Unavailable Encounter JOELLEN Arteaga(ARIANNA) [id number] Date(s): 09/28/13 - 09/28/[address] Discharge Disposition: Home Physician Attending: Nick Guan MD Physician_Referring: Vimal Mcdaniel MD Reason for Visit AORTIC VALVE DISORDERTAVR PROTOCOL INCLUDE CTA CHEST* Problem List No data available for this section Allergies, Adverse Reactions, Alerts Substance Reaction Severity Status NKDA Active Medications No data available for this section Results CHEM PANEL Most recent to 1 oldest [Reference Range]: eGFR 62 mL/min/1.73m2 1 *NA* (09/28/13 9:58 AM) POC Creatinine 1.2 mg/dL [0.5-1.4 mg/dL] (09/28/13 9:58 AM) 1Result Comment: The eGFR is calculated using [...] be mul tiplied by the estimated BMI. Medications Administered During Your Visit No data available for this section Immunizations No data available for this section
[2018-01-11] MEDS ORDERED: SODIUM CHLORIDE 0.9% 500ML 500 ML IV STA (10:08)
[2018-01-11 10:29] LABS: BASOPHILS % 0.2 % (0.0-1.0); EOSINOPHILS % 0.3 % (0.0-6.0); HEMATOCRIT 32.8 % (38.2-49.6); HEMOGLOBIN 10.4 g/dL (14.0-18.0); LYMPHOCYTES # (AUTO) 0.4 (1.0-3.2); LYMPHOCYTES % 3.3 % (18.0-39.1); MEAN CORPUSCULAR HEMOGLOBIN 29.1 pg (28-32); MEAN CORPUSCULAR HGB CONC 31.7 g/dL (31-35); MEAN CORPUSCULAR VOLUME 91.9 fL (81-99); MONOCYTES # (AUTO) 0.7 (0.2-0.8); MONOCYTES % 5.3 % (4.4-11.3); NEUTROPHILS # (AUTO) 11.1 (2.1-6.9); NEUTROPHILS % 90.1 % (38.7-80.0); PLATELET COUNT 107 x10e3/uL (140-360); RED BLOOD COUNT 3.57 x10e6/uL (4.3-5.7); RED CELL DISTRIBUTION WIDTH 16.1 % (11.7-14.4)
[2018-01-11] MEDS ORDERED: LISINOPRIL10 MG PO (10:37)
[2018-01-11] MEDS ORDERED: WARFARIN SODIUM1 MG PO (10:37)
[2018-01-11] MEDS ORDERED: RANITIDINE HCL150 MG PO (10:37)
[2018-01-11] MEDS ORDERED: BUMETANIDE2 MG PO (10:37)
[2018-01-11] MEDS ORDERED: NITROGLYCERIN0.4 MG SL (10:37)
[2018-01-11 10:44] LABS: INR 2.54; PROTHROMBIN TIME 29.2 seconds (11.9-14.5)
[2018-01-11 10:45] LABS: PARTIAL THROMBOPLASTIN TIME 44.5 seconds (23.8-35.5)
[2018-01-11] MEDS ORDERED: VIIBRYD40 MG PEG (10:45)
[2018-01-11] MEDS ORDERED: ULTRAM 50MG50 MG PO (10:45)
[2018-01-11] MEDS ORDERED: BUMETANIDE1 MG PO (10:45)
[2018-01-11] MEDS ORDERED: SIMVASTATIN40 MG PO (10:45)
[2018-01-11] MEDS ORDERED: ASPIR 8181 MG PO (10:45)
[2018-01-11] MEDS ORDERED: TYLENOL WITH C1 EACH PO (10:45)
[2018-01-11] MEDS ORDERED: ALLOPURINOL300 MG PO (10:45)
[2018-01-11] MEDS ORDERED: COREG12.5 MG PO (10:45)
[2018-01-11] MEDS ORDERED: NIASPAN500 MG PO (10:45)
[2018-01-11] MEDS ORDERED: NOVOLOG100 UNIT/1 SQ (10:45)
[2018-01-11] MEDS ORDERED: SPIRONOLACTONE25 MG PO (10:45)
[2018-01-11] MEDS ORDERED: OMEPRAZOLE40 MG PO (10:45)
[2018-01-11] MEDS ORDERED: LYRICA50 MG PO (10:45)
[2018-01-11] MEDS ORDERED: CLONAZEPAM0.5 MG PO (10:45)
[2018-01-11] MEDS ORDERED: LIOTHYRONINE SO5 MCG PO (10:45)
[2018-01-11] MEDS ORDERED: OMEGA 3 1,0001 EACH PO (10:45)
[2018-01-11] MEDS ORDERED: LEVEMIR100 UNIT/1 SQ (10:45)
[2018-01-11 11:01] LABS: CREATINE KINASE MB 16.4 ng/mL (0-5.0)
[2018-01-11 11:02] LABS: ALBUMIN 3.3 g/dL (3.5-5.0); ANION GAP 29.6 mmol/L (8-16); CALCIUM 8.1 mg/dL (8.4-10.2); CREATININE, SERUM 10.97 mg/dL (0.72-1.25)
[2018-01-11 11:11] LABS: POTASSIUM 5.6 mmol/L (3.5-5.1)
--- NOTE | 2018-01-11 11:12 | Diagnostic Imaging Report ---
Examination: Single AP view of the chest. COMPARISON: None INDICATION: Chest pain, altered mental status DISCUSSION: Left subclavian approach implanted cardiac device body and leads. Lungs are well-inflated and without focal consolidation, pleural effusion, or pneumothorax. Heart size is at the upper limits of normal when accounting for portable, AP technique. No overt pulmonary edema. Tortuous thoracic aorta. No acute osseous abnormality. IMPRESSION: Borderline cardiomegaly without vascular decompensation. Signed by: Dr. Martin Purvis M.D. on 01/11/2018 11:09 AM
--- NOTE | 2018-01-11 11:21 | Diagnostic Imaging Report ---
EXAMINATION: Head CT without contrast. HISTORY: Weakness, alteration of consciousness COMPARISON: None. TECHNIQUE: Multidetector axial images were obtained without contrast from the foramen magnum to the vertex . The images were reconstructed using brain and bone algorithms. Thin section brain images were reformatted into coronal and sagittal planes. Image quality: Motion/streaking artifact limits the evaluation of the skull base and posterior cranial fossa. Dose modulation, iterative reconstruction, and/or weight based adjustment of the mA/kV was utilized to reduce the radiation dose to as low as reasonably achievable. FINDINGS: Parenchyma: 1. Minimal periventricular white matter hypodensities, most likely nonspecific chronic microvascular ischemic changes. Tiny likely chronic lacunar infarct in the left head of the caudate nucleus. 2. No mass or hemorrhage. No CT evidence of acute territorial vascular insult. Extra-axial spaces:No abnormal density. No extra-axial fluid collections Brain volume: Moderate generalized brain volume loss, within normal limits for age. Ventricles: No hydrocephalus or displacement. Arteries: No density suggestive of thrombus. Dural sinuses: No abnormal density. Extra-axial spaces: No abnormal density. Foramen magnum: No mass, Chiari malformation, or basilar invagination. Sella: No obvious mass. Paranasal/mastoid sinuses: Mucosal inflammatory thickening and sclerosis of the delgado of the right maxillary sinus, likely related to chronic inflammatory process, otherwise clear. Skull/Scalp: No lytic or blastic lesions. No fractures. IMPRESSION: 1. No acute intracranial hemorrhage or cortical infarcts. 2. Mild chronic microvascular ischemic changes. 3. Mild generalized parenchymal volume loss. Signed by: Dr. Jessica Slater M.D. on 01/11/2018 11:17 AM
[2018-01-11 11:48] LABS: BILIRUBIN,URINE NEGATIVE (NEGATIVE); CLARITY,URINE CLEAR (CLEAR); COLOR,URINE YELLOW (YELLOW); KETONES,URINE NEGATIVE (NEGATIVE); LEUKOCYTE ESTERASE ,URINE NEGATIVE (NEGATIVE); NITRITE,URINE NEGATIVE (NEGATIVE); PROTEIN,URINE DIPSTICK NEGATIVE (NEGATIVE); URINE UROBILINOGEN 0.2 mg/dL (0.2 - 1)
[2018-01-11] MEDS ORDERED: SODIUM CHLORIDE 0.45% 1,000 ML IV SCH (12:13)
[2018-01-11] MEDS ORDERED: SODIUM BICARBONATE 8.4% INJ 50 ML SYR IV STA (12:15)
[2018-01-11] MEDS ORDERED: INSULIN REGULAR, HUMAN 100 UNIT/1 ML 3ML VIAL IV ONE (12:15)
[2018-01-11] MEDS ORDERED: DEXTROSE 50% SYRINGE 50 ML IV STA (12:15)
[2018-01-11 12:22] LABS: AMORPHOUS SEDIMENT,URINE FEW (FEW); EPITHELIAL CELLS,URINE RARE /LPF
[2018-01-11] MEDS ORDERED: LACTULOSE SYRUP 20 GM/30 ML UDC PO PRN (12:30)
[2018-01-11] MEDS ORDERED: SODIUM CHLORIDE FLUSH 10 ML SYR INJ PRN (12:30)
[2018-01-11] MEDS ORDERED: ACETAMINOPHEN 325 MG TAB PO PRN (12:30)
--- OUTSIDE RECORDS SUMMARY | 2018-01-11 12:37 | XMS REPORT | Summary of Care ---
Author Organization Unknown Address Unknown Phone Unavailable Encounter HQ Rafa_anh(ARIANNA) [id number] Date(s): 08/21/13 - 08/21/[address] Discharge Disposition: Home Physician Attending: Nick [...]
--- OUTSIDE RECORDS SUMMARY | 2018-01-11 12:37 | XMS REPORT | Summary of Care ---
Author Organization Unknown Address Unknown Phone Unavailable Encounter JOELLEN Arteaga(ARIANNA) [id number] Date(s): 09/28/13 - 09/28/[address] Discharge Disposition: Home Physician Attending: Nick [...]
--- OUTSIDE RECORDS SUMMARY | 2018-01-11 12:37 | XMS REPORT | Continuity of Care Document ---
Author Author [facility] Interface Address Unknown Phone Unavailable Problems Problem Status Onset Date Classification Date Reported Comments Source OTHER MECHANICAL COMPLICATION OF CARDIAC Active 12/19/2017 [facility] CHF EXACERBATION Active 11/23/2017 [facility] FREDERIC, HEART FAILURE Active 11/23/2017 [facility] TROUBLE BREATHING/LEG PAIN/INJURY Active 11/23/2017 [facility] SEVERE AORTIC STENOSIS, CHF Active 10/24/2013 [facility] AORTIC VALVE DISORDERTAVR PROTOCOL INC Active 09/13/2013 [facility] AORTIC VALVE DISORDER Active 09/13/2013 [facility] ACD - Automatic cardiac defibrillator procedure Resolved Problem 10/29/2013 [facility] AMI (<span ID="[id number]">Confirmed</span>) Resolved Problem 10/29/2013 [facility] Aortic stenosis Resolved Problem 10/29/2013 [facility] Blood clot Resolved Problem 10/29/2013 [facility] CAD (<span ID="[id number]">Confirmed</span>) Resolved Problem 10/29/2013 [facility] Congestive heart failure Resolved Problem 10/29/2013 [facility] Coronary stent site Resolved Problem 10/29/2013 [facility] DM , type 2(<span ID="[id number]">Confirmed</span>) Resolved Problem 10/29/2013 [facility] Hypertension Resolved Problem 10/29/2013 [facility] AORTIC VALVE DISORDER Active [facility] AC 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 Inactive 10/28/2013 [facility] tramadol hydrochloride 50 MG Oral Tablet 50 mg=1 tab, PO, Q6H, Pain, # 24 tab, 0 Refill(s) Active 10/27/2013 [facility] warfarin 3 mg oral tablet 3 mg=1 tab, PO, Daily, # 30 tab, 0 Refill(s) Active 10/27/2013 [facility] enoxaparin 80 mg/0.8 mL subcutaneous solution =80 mg, SUB- Q, Q12H, 14 syringes, # 12 mL, 0 Refill(s)Special Instructions: 14 syringes Active 10/27/2013 [facility] enalapril 5 mg oral tablet 5 mg=1 tab, PO, BID, # 60 tab, 1 Refill(s) Active 10/27/2013 [facility] Hydrochlorothiazide 25 MG Oral Tablet 12.5 mg=0.5 tab, PO, Daily, # 30 tab, 1 Refill(s) Active 10/27/2013 [facility] Lidocaine Hydrochloride 0.05 MG/MG Transdermal Patch 1 patch, Route: TOP, Daily, Drug form: FILM, Start date: 10/27/13 12:00:00, Duration: 30 day, Stop date: 11/26/13 9:00:00Notes: Apply only once for up to 12 hours in a 24-hour period (12 hours on and 12 hours off). (Same as: Lidoderm) "Remove old patch before application of new patch" Inactive 10/27/2013 [facility] Tramadol 50 mg, 1 tab, Route: PO, Drug form: TAB, Q6H, Dosing Weight 75.199, kg, PRN Pain Score 1-3, Start date: 10/27/13 11:26:00, Duration: 30 day, Stop date: 11/26/13 11:25:00Notes: Not to exceed 400mg/day. (Same As: Ultram) Inactive 10/27/2013 [facility] Coumadin 3 mg, 3 tab, Route: PO, Drug form: TAB, Q5PM, Dosing Weight 75.199, kg, Start date: 10/26/13 17:00:00, Duration: 1 doses or times, Stop date: 10/26/13 17:00:00Notes: Nurse to ensure documentation of pat ient education per anticoagulation policy. Avoid large intake of vitamin-K containing foods diet. (Same As: Coumadin) Inactive 10/26/2013 [facility] vancomycin (SCIP) + Sodium Chloride 0.9% IV 250 mL 1,250 mg, Route: IVPB, ONCE, Dosing Weight 75.199, kg, Start date: 10/26/13 14:00:00, Stop date: 10/26/13 14:00:00 Inactive 10/26/2013 [facility] POLYETHYLENE GLYCOL 3350 17 gm, 1 pkt, Route: PO, Drug form: PWDR, Daily, Dosing Weight 75.199, kg, Start date: 10/26/13 9:00:00, Duration: 30 day, Stop date: 11/24/13 9:00:00Notes: Dissolve in 8 oz of water or juice. (Same as: Miralax) No Longer Active 10/26/2013 [facility] pantoprazole 40 mg, Route: PO, Daily, Dosing Weight 75.199, kg, Start date: 10/26/13 9:00:00, Duration: 30 day, Stop date: 11/24/13 9:00:00 No Longer Active 10/26/2013 [facility] Enalapril 5 mg, 1 tab, Route: PO, Drug form: TAB, BID, Dosing Weight 75.199, kg, Start date: 10/26/13 9:00:00, Duration: 30 day, Stop date: 11/24/13 17:00:00Notes: (Same as: Vasotec) No Longer Active 10/26/2013 [facility] Lovenox 80 mg, 0.8 mL, Route: SUB-Q, Drug form: INJ, [id number], Dosing Weight 75.199, kg, Start after lines removed., Start date: 10/26/13 8:00:00, Duration: 30 day, Stop date: 11/24/13 20:00:00, > 45 kg; Prophylaxis dose; Pediatric DosingSpecial Instructions: > 45 kg; Prophylaxis dose; Pediatric DosingNotes: Nurse to ensure documentation of patient education per anticoagulation policy. (Same as: Lovenox) No Longer Active 10/26/2013 [facility] Coreg 12.5 mg, 1 tab, Route: PO, Drug form: TAB, BID, Dosing Weight 75.199, kg, Priority: NOW, Start date: 10/26/13 5:04:00, Duration: 30 day, Stop date: 11/24/13 17:00:00Notes: Give with food. (Same As: Coreg) No Longer Active 10/26/2013 [facility] Acetaminophen 325 MG / Hydrocodone Bitartrate 5 MG Oral Tablet [[place] 5/325] 1 tab, Route: PO, Drug Form: TAB, Dosing Weight 75.199, kg, Q6H, PRN Pain, Start date: 10/26/13 0:01:00, Duration: 30 day, Stop date: 11/25/13 0:00:00, pain second choiceNotes: (Same as: [place] 325/5) Do not exceed 4gm/day of acetaminophen. No Longer Active 10/26/2013 [facility] Enalapril 5 mg, 1 tab, Route: PO, Drug form: TAB, Daily, Dosing Weight 75.199, kg, Priority: NOW, Start date: 10/26/13 0:00:00, Duration: 30 day, Stop date: 11/24/13 9:00:00Notes: (Same as: Vasotec) Inactive 10/26/2013 [facility] Magnesium Oxide 800 mg, 2 tab, Route: PO, Drug form: TAB, Q12H, Dosing Weight 75.199, kg, Priority: STAT, Start date: 10/25/13 23:57:00, Duration: 2 day, Stop date: 10/27/13 21:00:00Notes: (Same as: Mag-Ox 400) Magn esium oxide [id number] elemental magnesium Dose=____mg magnesium oxide (___mg elemental magnesium) No Longer Active 10/26/2013 [facility] ceFAZolin 1 gm, Route: IVPB, Drug form: PDR/INJ, [id number], Start date: 10/25/13 22:00:00, Duration: 3 doses or times, Stop date: 10/26/13 14:00:00Notes: (Same As: Ancef, Kefzol) No Longer Active 10/26/2013 [facility] Saline Flush 0.9% 10 ml, Route: IVP, Drug Form: INJ, Dosing Weight 75.199, kg, Q12H, Start date: 10/25/13 21:00:00, Duration: 30 day, Stop date: 11/24/13 9:00:00Notes: Same as: BD Posiflush Sterile No Longer Active 10/26/2013 [facility] Docusate 100 mg, 1 cap, Route: PO, Drug form: CAP, Q12H, Dosing Weight 75.199, kg, Start date: 10/25/13 21:00:00, Duration: 30 day, Stop date: 11/24/13 9:00:00Notes: (Same as: Colace) (Do Not Crush) No Longer Active 10/26/2013 [facility] tramadol hydrochloride 50 MG Oral Tablet 50 mg, 1 tab, Route: PO, Drug form: TAB, Q6H, Dosing Weight 75.199, kg, PRN Pain Score 4-6, Start date: 10/25/13 17:17:00, Duration: 30 day, Stop date: 11/24/13 17:16:00Notes: Not to exceed 400mg/day. (Same As: Ultram) No Longer Active 10/25/2013 [facility] 10 ML Cefazolin 100 MG/ML Prefilled Syringe 1 gm, Route: IVPB, Drug form: INJ, Q8H, Dosing Weight 75.199, kg, Start date: 10/25/13 16:00:00, Duration: 1 doses or times, Stop date: 10/25/13 16:00:00 Inactive 10/25/2013 [facility] Saline Flush 0.9% 10 ml, Route: IVP, Drug Form: INJ, Dosing Weight 75.199, kg, PRN, PRN Line Flush, Start date: 10/25/13 14:02:00, Duration: 30 day, Stop date: 11/24/13 14:01:00Notes: Same as: BD Posiflush Sterile No Longer Active 10/25/2013 [facility] Ondansetron 4 mg, 1 tab, Route: PO, Drug form: TAB, Q8H, Dosing Weight 75.199, kg, PRN Nausea & Vomiting, Start date: 10/25/13 14:02:00, Duration: 30 day, Stop date: 11/24/13 14:01:00Notes: (Same as: Zofran) No Longer Active 10/25/2013 [facility] Dobutamine 1,000 mg, 250 mL, Rate: 3 micrograms/kg/min, Dosing Weight 75.199, kg, Route: IV, Total Volume: 250, Start date: 10/25/13 14:02:00, Duration: 30 day, Stop date: 11/24/13 14:01:00, Replace Every: 24 hrNo manish: (Same as: Dobutrex) Final conc=4 mg/ml. Premix solution. Protect from light. No Longer Active 10/25/2013 [facility] Nicardipine 40 mg, 200 mL, Rate: Start at 5mg/hr. Titrate, Dosing Weight 75.199, kg, Route: IV, Total Volume: 200, Start Date: 10/25/13 14:02:00, Duration: 30 day, Stop date: 11/24/13 14:01:00, Replace Every: 24 hr Notes: Same as: Cardene Concentration: (0.2 mg /1 ml ) No Longer Active 10/25/2013 [facility] Vancomycin 6.67 MG/ML Injectable Solution 1,127.985 mg, Route: IVPB, Drug form: INJ, ONCE, Dosing Weight 75.199, kg, Start date: 10/25/13 14:02:00, Stop date: 10/25/13 14:02:00 Inactive 10/25/2013 [facility] Magnesium Sulfate 2 gm, 50 mL, Route: IVPB, Drug form: INJ, Q2H, Dosing Weight 75.199, kg, Total dose=4 gm, Start date: 10/25/13 12:00:00, Duration: 2 doses or times, Stop date: 10/25/13 14:00:00 Inactive 10/25/2013 [facility] Digoxin 0.125 MG Oral Tablet 0.125 mg, 1 tab, Route: PO, Drug form: TAB, Daily, Dosing Weight 75.199, kg, Start date: 10/25/13 9:00:00, Duration: 30 day, Stop date: 11/23/13 9:00:00Notes: Take on an Empty Stomach (Same as: Lanoxin) No Longer Active 10/25/2013 [facility] Enalapril Maleate 5 MG / Hydrochlorothiazide 12.5 MG Oral Tablet 1 tab, Route: PO, Drug Form: TAB, Dosing Weight 75.199, kg, Daily, Start date: 10/25/13 9:00:00, Duration: 30 day, Stop date: 11/23/13 9:00:00 No Longer Active 10/25/2013 [facility] Imdur 30 mg, 1 tab, Route: PO, Drug form: ERTAB, Daily, Start date: 10/25/13 9:00:00, Duration: 30 day, Stop date: 11/23/13 9:00:00Notes: (Same as:Imdur) "Do Not Crush" Take on empty stomach/ full glass of water. Do not crush No Longer Active 10/25/2013 [facility] Nexium 40 mg, Route: PO, Drug form: TAB, Daily, Dosing Weight 75.199, kg, Start date: 10/25/13 9:00:00, Duration: 30 day, Stop date: 11/23/13 9:00:00 No Longer Active 10/25/2013 [facility] Aspirin / Calcium Carbonate 81 mg, 1 tab, Route: PO, Drug form: CHEWTAB, Daily, Dosing Weight 75.199, kg, Start date: 10/25/13 9:00:00, Duration: 30 day, Stop date: 11/23/13 9:00:00Notes: Take with food. No Longer Active 10/25/2013 [facility] Vitamin B 12 1,000 microgram, 1 tab, Route: PO, Drug form: TAB, Daily, Dosing Weight 75.199, kg, Start date: 10/25/13 9:00:00, Duration: 30 day, Stop date: 11/23/13 9:00:00Notes: (Same As: Vitamin B-12) No Longer Active 10/25/2013 [facility] Ascorbic Acid / Biotin / Folic Acid / Niacin / pantothenate / pyridoxine / Riboflavin / Thiamine / Vitamin B 12 1 tab, Route: PO, Drug Form: TAB, Dosing Weight 75.199, kg, Daily, Start date: 10/25/13 9:00:00, Duration: 30 day, Stop date: 11/23/13 9:00:00Notes: (Same as:Thera) Take with food. No Longer Active 10/25/2013 [facility] Isosorbide Dinitrate 30 mg, Route: PO, Drug form: TAB, Daily, Dosing Weight 75.199, kg, Start date: 10/25/13 9:00:00, Duration: 30 day, Stop date: 11/23/13 9:00:00 No Longer Active 10/25/2013 [facility] hydrochlorothiazide 25 mg oral tablet 12.5 mg, 0.5 tab, Route: PO, Daily, Start date: 10/25/13 9:00:00, Duration: 30 day, Stop date: 11/23/13 9:00:00Notes: (Same as: Hydrodiuril) With food. No Longer Active 10/25/2013 [facility] Lantus 5 unit, 0.05 mL, Route: SUB-Q, Drug form: INJ, QAM, Dosing Weight 75.199, kg, Start date: 10/25/13 9:00:00, Duration: 30 day, Stop date: 11/23/13 9:00:00Notes: Same as Lantus Solostar PEN "single patient use only" Stable for 28 days at room temperature. Expires in days from Date No Longer Active 10/25/2013 [facility] ferrous sulfate 325 mg, 1 tab, Route: PO, Drug form: ECTAB, Daily, Dosing Weight 75.199, kg, Start date: 10/25/13 9:00:00, Duration: 30 day, Stop date: 11/23/13 9:00:00Notes: Give with food. "Do Not Crush" No Longer Active 10/25/2013 [facility] Magnesium Oxide 400 mg, 1 tab, Route: PO, Drug form: TAB, ONCE, Dosing Weight 75.199, kg, Start date: 10/25/13 4:19:00, Stop date: 10/25/13 4:19:00Notes: (Same as: Mag-Ox 400) Magnesium oxide [id number] elemental magnesium Dose=____mg magnesium oxide (___mg elemental magnesium) Inactive 10/25/2013 [facility] Simvastatin 40 mg, 1 tab, Route: PO, Drug form: TAB, Bedtime, Dosing Weight 75.199, kg, Start date: 10/24/13 21:00:00, Duration: 30 day, Stop date: 11/22/13 21:00:00Notes: (Same as: Zocor) No Longer Active 10/25/2013 [facility] 24 HR Niacin 500 MG Extended Release Tablet [Niaspan] 500 mg, 1 tab, Route: PO, Drug form: ERTAB, Bedtime, Dosing Weight 75.199, kg, Start date: 10/24/13 21:00:00, Duration: 30 day, Stop date: 11/22/13 21:00:00Notes: (Same as: Niaspan) "Do Not Crush" Non-Formulary Item With food. No Longer Active 10/25/2013 [facility] Lantus 25 unit, 0.25 mL, Route: SUB-Q, Drug form: INJ, Bedtime, Dosing Weight 75.199, kg, Start date: 10/24/13 21:00:00, Duration: 30 day, Stop date: 11/22/13 21:00:00Notes: Same as Lantus Solostar PEN &quot ;single patient use only" Stable for 28 days at room temperature. Expires in days from Date No Longer Active 10/25/2013 [facility] Lovenox 80 mg, 0.8 mL, Route: SUB-Q, Drug form: INJ, ONCE, Dosing Weight 75.199, kg, Start date: 10/24/13 18:00:00, Stop date: 10/24/13 18:00:00Notes: Nurse to ensure documentation of patient education per a nticoagulation policy. (Same as: Lovenox) Inactive 10/24/2013 [facility] Coreg 25 mg, 1 tab, Route: PO, Drug form: TAB, BID, Dosing Weight 75.199, kg, Start date: 10/24/13 17:00:00, Duration: 30 day, Stop date: 11/23/13 9:00:00Notes: Give with food. (Same As: Coreg) No Longer Active 10/24/2013 [facility] Furosemide 20 MG Oral Tablet 20 mg, 1 tab, Route: PO, Drug form: TAB, BID, Dosing Weight 75.199, kg, Start date: 10/24/13 17:00:00, Duration: 30 day, Stop date: 11/23/13 9:00:00Notes: (Same as: Lasix) May cause GI upset. Give with food or milk. No Longer Active 10/24/2013 [facility] Protonix 40 mg, 1 tab, Route: PO, Drug form: ECTAB, Before Dinner, Start date: 10/24/13 16:30:00, Duration: 30 day, Stop date: 11/22/13 16:30:00Notes: Tablet should not be chewed or crushed. (Same as: Protonix) No Longer Active 10/24/2013 [facility] Vasotec 5 mg, 1 tab, Route: PO, Drug form: TAB, Daily, Start date: 10/24/13 16:00:00, Duration: 30 day, Stop date: 11/23/13 9:00:00Notes: (Same as: Vasotec) No Longer Active 10/24/2013 [facility] Insulin, Aspart, Human 2 unit, 0.02 mL, [...] days from Date No Longer Active 10/24/2013 [facility] Dextrose 50% Syringe 12.5 gm, 25 mL, Route: IVP, Drug Form: INJ, Dosing Weight 75.199, kg, PRN, PRN Blood Glucose Results, Start date: 10/24/13 14:59:00, Duration: 30 day, Stop date: 11/23/13 14:58:00 No Longer Active 10/24/2013 [facility] Glucagon 1 mg, Route: IM, Drug form: PDR/INJ, PRN, Dosing Weight 75.199, kg, PRN Blood Glucose Results, Start date: 10/24/13 14:59:00, Duration: 30 day, Stop date: 11/23/13 14:58:00 No Longer Active 10/24/2013 [facility] Nitroglycerin 0.4 MG Sublingual Tablet 0.4 mg, 1 tab, Route: SL, Drug form: TAB, Q5Min, Dosing Weight 75.199, kg, PRN as needed for chest pain, Start date: 10/24/13 14:54:00, Duration: 30 day, Stop date: 11/23/13 14:53:00Notes: (Same as:Nitroquick, Nitrostat) "Do Not Crush" Sublingual tablet No Longer Active 10/24/2013 [facility] Lantus 50 unit, SUB-Q, Bedtime, 0 Refill(s) Active 10/24/2013 [facility] Metformin hydrochloride 1000 MG Oral Tablet 1,000 mg=1 tab, PO, BID, # 30 tab, 0 Refill(s) Active 10/24/2013 [facility] 0.8 ML Enoxaparin sodium 100 MG/ML Prefilled Syringe [Lovenox] 80 mg, SUB-Q, Daily, # 20 syr, 0 Refill(s) No Longer Active 10/24/2013 [facility] Vitamin B-12 1000 mcg oral tablet 1,000 microgram=1 tab, PO, Daily, # 30 tab, 0 Refill(s) Active 10/24/2013 [facility] ferrous sulfate 325 mg oral enteric coated tablet 325 mg=1 tab, PO, Daily, 0 Refill(s) Active 10/24/2013 [facility] 24 HR Niacin 500 MG Extended Release Tablet [Niaspan] 500 mg=1 tab, PO, Bedtime, 0 Refill(s) Active 10/24/2013 [facility] vilazodone hydrochloride 40 MG Oral Tablet [Viibryd] 40 mg=1 tab, PO, Daily, with food, 0 Refill(s)Special Instructions: with food Active 10/24/2013 [facility] Os-Chris 500 PO, Daily, 0 Refill(s) Active 10/24/2013 [facility] NovoLog 20 unit, SUB-Q, TID-Before Meals, before a meal, 0 Refill(s)Special Instructions: before a meal Active 10/24/2013 [facility] Aspirin / Calcium Carbonate 81 mg, PO, Daily, 0 Refill(s) Active 10/24/2013 [facility] clonazePAM 0.5 mg oral tablet, disintegrating 0.5 mg=1 tab, PO, TID, 0 Refill(s) No Longer Active 10/24/2013 [facility] simvastatin 40 mg oral tablet 40 mg=1 tab, PO, Bedtime, # 30 tab, 0 Refill(s) Active 10/24/2013 [facility] clonazePAM 0.5 mg oral tablet 0.5 mg=1 tab, SL, BID, 0 Refill(s) Active 10/24/2013 [facility] Nexium 40 mg, PO, Daily, 0 Refill(s) Active 10/24/2013 [facility] Ascorbic Acid / Biotin / Folic Acid / Niacin / pantothenate / pyridoxine / Riboflavin / Thiamine / Vitamin B 12 1 tab, PO, Daily, 0 Refill(s) Active 10/24/2013 [facility] carvedilol 25 MG Oral Tablet [Coreg] 25 mg=1 tab, PO, BID, # 180 tab, 0 Refill(s) Active 10/24/2013 [facility] Digoxin 0.125 MG Oral Tablet 0.125 mg, PO, Daily, # 30 tab, 0 Refill(s) Active 10/24/2013 [facility] isosorbide dinitrate 30 mg oral tablet 30 mg=1 tab, PO, Daily, 0 Refill(s) No Longer Active 10/24/2013 [facility] potassium chloride 10 mEq oral capsule, extended release 10 mEq=1 cap, PO, Daily, 0 Refill(s) Active 10/24/2013 [facility] Nitroglycerin 0.4 MG Sublingual Tablet 0.4 mg=1 tab, SL, Q5Min, Chest pain, # 100 tab, 0 Refill(s) Active 10/24/2013 [facility] Enalapril Maleate 5 MG / Hydrochlorothiazide 12.5 MG Oral Tablet 1 tab, PO, Daily, # 30 tab, 0 Refill(s) No Longer Active 10/24/2013 [facility] Furosemide 20 MG Oral Tablet 20 mg=1 tab, PO, BID, # 30 tab, 0 Refill(s) No Longer Active 10/24/2013 [facility] docosahexaenoic acid 200 MG / Eicosapentaenoic Acid 300 MG / Vitamin E 1 UNT Oral Capsule 1,000 mg=1 cap, PO, Daily, 0 Refill(s) Active 10/24/2013 [facility] Sodium Chloride 0.9% (titrate) 250 mL 250 mL, Rate: call center operator for use with blood product administration, Dosing Weight 79.545, kg, Route: IV, Total Volume: 250, Start Date: 10/24/13 12:07:00, Duration: 30 day, Stop date: 11/23/13 12:06:00, Replace Every: 24 hr No Longer Active 10/24/2013 [facility] Allergies, Adverse Reactions, Alerts Substance Category Reaction Severity Reaction type Status Date Reported Comments Source Immunizations Immunization Date Given Site Status Last Updated Comments Source Results Order Name Results Value Reference Range Date Interpretation Comments Source Chest 2 views DX Chest 2 views DX EXAM: XR CHEST 2 VIEWS DATE: 01/05/2018 3:00 AM ASSEMBLER 1ST SHIFT INDICATION: Line Placement - Status post PPM/ICD [...] Xiomara Patel MD 01/05/18 10:02 FINAL REPORT [facility] Chest 1 v for Placement DX Chest 1 v for Placement DX EXAM: XR CHEST 1 VIEW DATE: 01/04/2018 4:20 PM ASSEMBLER 1ST SHIFT INDICATION: Line Placement - Status post PPM/ICD [...] Nora German MD 01/04/18 18:00 FINAL REPORT [facility] Chest 2 views DX Chest 2 views [...] - This report was dictated by a Film Maker/Fellow. I have personally reviewed the images as well as the Resident's interpretation and agree with the findings. Read by: Manolo Mcghee (FELLOW) Resident: Manolo Mcghee (FELLOW) Dictated Date/time: 11/23/17 16:26 Electronically Signed by: Jaime Cheatham MD 11/23/17 16:53 FINAL REPORT [facility] Chest 1view DX Chest 1view DX EXAM: [...] by: Alberto Eid 11/23/17 13:26 FINAL REPORT [facility] CHEM PANEL Phosphorus 4.0 mg/dL 2.5 - 4.5 10/27/2013 [facility] CHEM PANEL Magnesium Lvl 2.0 mg/dL 1.8 - 2.4 10/27/2013 [facility] ELECTROLYTES AGAP 19.3 meq/L 10.0 - 20.0 10/27/2013 [facility] ELECTROLYTES eGFR 69 mL/min/1.73m2 10/27/2013 1Result Comment: [...] should be multiplied by the estimated BMI. [facility] ELECTROLYTES Calcium Lvl 8.5 mg/dL 8.5 - 10.5 10/27/2013 [facility] ELECTROLYTES Chloride Lvl 96 meq/L 95 - 109 10/27/2013 [facility] ELECTROLYTES CO2 23 meq/L 24 - 32 10/27/2013 [facility] ELECTROLYTES Sodium Lvl 134 meq/L 135 - 145 10/27/2013 [facility] ELECTROLYTES Potassium Lvl 4.3 meq/L 3.5 - 5.1 10/27/2013 [facility] ELECTROLYTES BUN 18 mg/dL 7 - 22 10/27/2013 [facility] ELECTROLYTES Creatinine Lvl 1.1 mg/dL 0.5 - 1.4 10/27/2013 [facility] ELECTROLYTES Glucose Lvl 138 mg/dL 70 - 99 10/27/2013 4Interpretive Data: Adult reference range values reflect the clinical guidelines of the [employer]. [facility] HEMATOLOGY PTT 39.9 s 22.9 - 35.8 10/27/2013 13Interpretive Data: Heparin Therapeutic Range: 57 - 92 Seconds [facility] HEMATOLOGY INR 1.37 0.85 - 1.17 10/27/2013 10Interpretive Data: RECOMMENDED RANGES FOR PROTIME INR: 2.0-3.0 for most medical and surgical thromboembolic states. 2.5-3.5 for artificial heart valves and recurrent embolism. INR SHOULD BE USED ONLY FOR PATIENTS ON STABLE ANTICOAGULANT THERAPY. [facility] HEMATOLOGY PT 17.0 s 12.0 - 14.7 10/27/2013 [facility] HEMATOLOGY MPV 7.4 fL 7.4 - 10.4 10/27/2013 [facility] HEMATOLOGY Platelet 195 K/CMM 133 - 450 10/27/2013 [facility] HEMATOLOGY MCHC 32.1 g/dL 32.0 - 36.0 10/27/2013 [facility] HEMATOLOGY RDW 17.3 % 11.5 - 14.5 10/27/2013 [facility] HEMATOLOGY MCV 88.9 fL 80.0 - 94.0 10/27/2013 [facility] HEMATOLOGY MCH 28.5 pg 27.0 - 31.0 10/27/2013 [facility] HEMATOLOGY Hgb 9.0 g/dL 14.0 - 18.0 10/27/2013 [facility] HEMATOLOGY Hct 28.0 % 42.0 - 54.0 10/27/2013 [facility] HEMATOLOGY WBC 8.6 K/CMM 3.7 - 10.4 10/27/2013 [facility] HEMATOLOGY RBC 3.14 M/CMM 4.70 - 6.10 10/27/2013 [facility] HEMATOLOGY Basophils # 0.1 K/CMM 0.0 - 0.2 10/27/2013 [facility] HEMATOLOGY Segs-Bands # 6.7 K/CMM 1.5 - 8.1 10/27/2013 [facility] HEMATOLOGY Eosinophils # 0.4 K/CMM 0.0 - 0.5 10/27/2013 [facility] HEMATOLOGY Lymphocytes # 0.5 K/CMM 1.0 - 5.5 10/27/2013 [facility] HEMATOLOGY Monocytes # 0.9 K/CMM 0.0 - 0.8 10/27/2013 [facility] HEMATOLOGY Segs 78.4 % 45.0 - 75.0 10/27/2013 [facility] HEMATOLOGY Lymphocytes 5.5 % 20.0 - 40.0 10/27/2013 [facility] HEMATOLOGY Basophils 1.1 % 0.0 - 1.0 10/27/2013 [facility] HEMATOLOGY Monocytes 10.0 % 2.0 - 12.0 10/27/2013 [facility] HEMATOLOGY Eosinophils 5.0 % 0.0 - 4.0 10/27/2013 [facility] PARATHYROID PROFILE Ca Ion WB 1.10 mMol/L 1.05 - 1.25 10/27/2013 [facility] PARATHYROID PROFILE Ca Norm WB 1.06 mMol/L 1.05 - 1.25 10/27/2013 [facility] Chest 1view Chest 1view EXAM: XR CHEST 1 VIEW DATE: 10/27/2013 at 0756. INDICATION: Abnormal chest sounds. COMPARISON: 10/26/2013. TECHNIQUE: Single radiograph provided for interpretation. FINDINGS: There has been interval removal of a [place]-Rustam catheter. A left-sided cardiac pacing device is stable in position. Changes of percutaneous cardiac valve repair are noted. No consolidation or infiltrate is seen. Mild blunting of the bilateral costophrenic angles is noted. No pneumothorax is identified. The cardio mediastinal silhouette is slightly enlarged. The chest wall osseous structures are unchanged. IMPRESSION: 1. Interval removal of [place]-Rustam catheter. 2. Small bilateral pleural effusions. 10/27/2013 - - Read by: Samir Rivas MD Dictated Date/time: 10/27/13 12:58 Electronically Signed by: Samir Rivas MD 10/27/13 12:59 FINAL REPORT [facility] PARATHYROID PROFILE Ca Norm WB 1.11 mMol/L 1.05 - 1.25 10/26/2013 [facility] PARATHYROID PROFILE Ca Ion WB 1.10 mMol/L 1.05 - 1.25 10/26/2013 [facility] CARDIAC ENZYMES Troponin-T 0.015 ng/mL 0.000 - 0.100 10/26/2013 [facility] CARDIAC ENZYMES BNP 452 pg/mL <=100 pg/mL 10/26/2013 7Interpretive Data: Elevated results are in line with increasing severity of congestive heart failure. Minor elevations between 100 and 300 may be seen with Myocardial Ischemia, Sodium retaining drugs, and compensated/treated heart failure. [facility] CARDIAC ENZYMES Troponin-I 0.18 ng/mL 0.00 - 0.40 10/26/2013 [facility] CHEM PANEL eGFR 78 mL/min/1.73m2 10/26/2013 2Result [...] should be multiplied by the estimated BMI. [facility] CHEM PANEL Calcium Lvl 8.5 mg/dL 8.5 - 10.5 10/26/2013 [facility] CHEM PANEL Chloride Lvl 103 meq/L 95 - 109 10/26/2013 [facility] CHEM PANEL CO2 24 meq/L 24 - 32 10/26/2013 [facility] CHEM PANEL Sodium Lvl 139 meq/L 135 - 145 10/26/2013 [facility] CHEM PANEL Potassium Lvl 4.7 meq/L 3.5 - 5.1 10/26/2013 [facility] CHEM PANEL Glucose Lvl 105 mg/dL 70 - 99 10/26/2013 5Interpretive Data: Adult reference range values reflect the clinical guidelines of the [place] [employer]. [facility] CHEM PANEL BUN 16 mg/dL 7 - 22 10/26/2013 [facility] CHEM PANEL Creatinine Lvl 1.0 mg/dL 0.5 - 1.4 10/26/2013 [facility] CHEM PANEL AGAP 16.7 meq/L 10.0 - 20.0 10/26/2013 [facility] CHEM PANEL Magnesium Lvl 2.0 mg/dL 1.8 - 2.4 10/26/2013 [facility] HEMATOLOGY RDW 16.8 % 11.5 - 14.5 10/26/2013 [facility] HEMATOLOGY MCH 28.7 pg 27.0 - 31.0 10/26/2013 [facility] HEMATOLOGY MPV 7.2 fL 7.4 - 10.4 10/26/2013 [facility] HEMATOLOGY Platelet 216 K/CMM 133 - 450 10/26/2013 [facility] HEMATOLOGY MCHC 33.2 g/dL 32.0 - 36.0 10/26/2013 [facility] HEMATOLOGY MCV 86.5 fL 80.0 - 94.0 10/26/2013 [facility] HEMATOLOGY Hct 28.9 % 42.0 - 54.0 10/26/2013 [facility] HEMATOLOGY RBC 3.34 M/CMM 4.70 - 6.10 10/26/2013 [facility] HEMATOLOGY WBC 11.1 K/CMM 3.7 - 10.4 10/26/2013 [facility] HEMATOLOGY Hgb 9.6 g/dL 14.0 - 18.0 10/26/2013 [facility] HEMATOLOGY PTT 33.7 s 22.9 - 35.8 10/26/2013 14Interpretive Data: Heparin Therapeutic Range: 57 - 92 Seconds [facility] HEMATOLOGY INR 1.34 0.85 - 1.17 10/26/2013 11Interpretive Data: RECOMMENDED RANGES FOR PROTIME INR: 2.0-3.0 for most medical and surgical thromboembolic states. 2.5-3.5 for artificial heart valves and recurrent embolism. INR SHOULD BE USED ONLY FOR PATIENTS ON STABLE ANTICOAGULANT THERAPY. [facility] HEMATOLOGY PT 16.7 s 12.0 - 14.7 10/26/2013 [facility] HEMATOLOGY Basophils # 0.1 K/CMM 0.0 - 0.2 10/26/2013 [facility] HEMATOLOGY RBC Morph Normal (10/26/13 3:01 AM) 10/26/2013 [facility] HEMATOLOGY Basophils 0.7 % 0.0 - 1.0 10/26/2013 [facility] HEMATOLOGY Eosinophils # 0.3 K/CMM 0.0 - 0.5 10/26/2013 [facility] HEMATOLOGY Monocytes # 0.7 K/CMM 0.0 - 0.8 10/26/2013 [facility] HEMATOLOGY Lymphocytes # 0.3 K/CMM 1.0 - 5.5 10/26/2013 [facility] HEMATOLOGY Segs-Bands # 9.8 K/CMM 1.5 - 8.1 10/26/2013 [facility] HEMATOLOGY Plt Morph Normal (10/26/13 3:01 AM) 10/26/2013 [facility] HEMATOLOGY Eosinophils 2.5 % 0.0 - 4.0 10/26/2013 [facility] HEMATOLOGY Monocytes 6.3 % 2.0 - 12.0 10/26/2013 [facility] HEMATOLOGY Lymphocytes 2.4 % 20.0 - 40.0 10/26/2013 [facility] HEMATOLOGY Segs 88.1 % 45.0 - 75.0 10/26/2013 [facility] Chest 1view Chest 1view PORTABLE CHEST 2013-10-26 01:31:00 COMPARISON: Yesterday CLINICAL INDICATION: Heart failure DISCUSSION: Support devices are unchanged. No pneumothorax or pleural effusions. Lungs are clear aside from platelike atelectasis retrocardiac regions. 10/26/2013 - - Read by: Huan Dixon MD Dictated Date/time: 10/26/13 09:14 Electronically Signed by: Huan Dixon MD 10/26/13 09:14 FINAL REPORT [facility] CHEM PANEL Magnesium Lvl 1.9 mg/dL 1.8 - 2.4 10/25/2013 [facility] ELECTROLYTES AGAP 14.7 meq/L 10.0 - 20.0 10/25/2013 [facility] ELECTROLYTES eGFR 69 mL/min/1.73m2 10/25/2013 3Result Comment: [...] should be multiplied by the estimated BMI. [facility] ELECTROLYTES Potassium Lvl 4.7 meq/L 3.5 - 5.1 10/25/2013 [facility] ELECTROLYTES Chloride Lvl 103 meq/L 95 - 109 10/25/2013 [facility] ELECTROLYTES CO2 27 meq/L 24 - 32 10/25/2013 [facility] ELECTROLYTES Calcium Lvl 8.2 mg/dL 8.5 - 10.5 10/25/2013 [facility] ELECTROLYTES Glucose Lvl 142 mg/dL 70 - 99 10/25/2013 6Interpretive Data: Adult reference range values reflect the clinical guidelines of the [place] [employer]. [facility] ELECTROLYTES Sodium Lvl 140 meq/L 135 - 145 10/25/2013 [facility] ELECTROLYTES Creatinine Lvl 1.1 mg/dL 0.5 - 1.4 10/25/2013 [facility] ELECTROLYTES BUN 16 mg/dL 7 - 22 10/25/2013 [facility] HEMATOLOGY RBC 3.26 M/CMM 4.70 - 6.10 10/25/2013 [facility] HEMATOLOGY WBC 11.3 K/CMM 3.7 - 10.4 10/25/2013 [facility] HEMATOLOGY Hct 28.1 % 42.0 - 54.0 10/25/2013 [facility] HEMATOLOGY Hgb 9.3 g/dL 14.0 - 18.0 10/25/2013 [facility] HEMATOLOGY Platelet 218 K/CMM 133 - 450 10/25/2013 [facility] HEMATOLOGY MPV 6.9 fL 7.4 - 10.4 10/25/2013 [facility] HEMATOLOGY MCV 86.1 fL 80.0 - 94.0 10/25/2013 [facility] HEMATOLOGY MCH 28.6 pg 27.0 - 31.0 10/25/2013 [facility] HEMATOLOGY MCHC 33.2 g/dL 32.0 - 36.0 10/25/2013 [facility] HEMATOLOGY RDW 16.4 % 11.5 - 14.5 10/25/2013 [facility] HEMATOLOGY PTT 46.5 s 22.9 - 35.8 10/25/2013 15Interpretive Data: Heparin Therapeutic Range: 57 - 92 Seconds [facility] HEMATOLOGY PT 17.7 s 12.0 - 14.7 10/25/2013 [facility] HEMATOLOGY INR 1.43 0.85 - 1.17 10/25/2013 12Interpretive Data: RECOMMENDED RANGES FOR PROTIME INR: 2.0-3.0 for most medical and surgical thromboembolic states. 2.5-3.5 for artificial heart valves and recurrent embolism. INR SHOULD BE USED ONLY FOR PATIENTS ON STABLE ANTICOAGULANT THERAPY. [facility] HEMATOLOGY Lymphocytes 4.8 % 20.0 - 40.0 10/25/2013 [facility] HEMATOLOGY Eosinophils 3.2 % 0.0 - 4.0 10/25/2013 [facility] HEMATOLOGY Segs 85.5 % 45.0 - 75.0 10/25/2013 [facility] HEMATOLOGY Monocytes 5.8 % 2.0 - 12.0 10/25/2013 [facility] HEMATOLOGY Basophils 0.7 % 0.0 - 1.0 10/25/2013 [facility] HEMATOLOGY Segs-Bands # 9.7 K/CMM 1.5 - 8.1 10/25/2013 [facility] HEMATOLOGY Eosinophils # 0.4 K/CMM 0.0 - 0.5 10/25/2013 [facility] HEMATOLOGY Monocytes # 0.7 K/CMM 0.0 - 0.8 10/25/2013 [facility] HEMATOLOGY Lymphocytes # 0.5 K/CMM 1.0 - 5.5 10/25/2013 [facility] HEMATOLOGY Basophils # 0.1 K/CMM 0.0 - 0.2 10/25/2013 [facility] Chest 1view Chest 1view EXAM: Portable AP [...] Martin Barrett MD 10/25/13 21:02 FINAL REPORT [facility] Chest 1view Chest 1view PORTABLE CHEST 2013-10-25 09:16:00 COMPARISON: 10/24/2013 CLINICAL INDICATION: Abnormal chest sounds DISCUSSION: Cardiac conduction device is unchanged. Note of very mild interstitial edema. No pleural effusions or pneumothorax. 10/25/2013 - - Read by: Huan Dixon MD Dictated Date/time: 10/26/13 09:04 Electronically Signed by: Huan Dixon MD 10/26/13 09:05 FINAL REPORT [facility] CHEM PANEL Phosphorus 3.7 mg/dL 2.5 - 4.5 10/25/2013 [facility] PARATHYROID PROFILE Ca Norm WB 1.13 mMol/L 1.05 - 1.25 10/25/2013 [facility] PARATHYROID PROFILE Ca Ion WB 1.13 mMol/L 1.05 - 1.25 10/25/2013 [facility] DRUG SCREEN U Cannab Scr Negative *NA* (10/24/13 4:00 PM) Negative 10/24/2013 [facility] DRUG SCREEN UDS Note See Note 9 [...] Methadone 300 ng/mL Urine alcohol 20 mg/dL [facility] DRUG SCREEN U Phencyc Scr Negative *NA* (10/24/13 4:00 PM) Negative 10/24/2013 [facility] DRUG SCREEN U Opiate Scr Negative *NA* (10/24/13 4:00 PM) Negative 10/24/2013 [facility] DRUG SCREEN U Cocaine Scr Negative *NA* (10/24/13 4:00 PM) Negative 10/24/2013 [facility] DRUG SCREEN U Benzodia Scr Negative *NA* (10/24/13 4:00 PM) Negative 10/24/2013 [facility] DRUG SCREEN U Betty Scr Negative *NA* (10/24/13 4:00 PM) Negative 10/24/2013 [facility] DRUG SCREEN U Amph Scr Negative *NA* (10/24/13 4:00 PM) Negative 10/24/2013 [facility] URINE AND STOOL UA Mucus Few /LPF None Seen /LPF 10/24/2013 [facility] URINE AND STOOL UA Sq Epi Occasional /LPF Few /LPF 10/24/2013 [facility] URINE AND STOOL UA Urobilinogen 0.2 EU/dL 0.1 - 1.0 10/24/2013 [facility] URINE AND STOOL UA Blood Negative (10/24/13 4:00 PM) Negative 10/24/2013 [facility] URINE AND STOOL UA Nitrite Negative (10/24/13 4:00 PM) Negative 10/24/2013 [facility] URINE AND STOOL UA Leuk Est Negative (10/24/13 4:00 PM) Negative 10/24/2013 [facility] URINE AND STOOL UA Spec Grav 1.015 <=1.030 10/24/2013 [facility] URINE AND STOOL UA Turbidity Clear (10/24/13 4:00 PM) Clear 10/24/2013 [facility] URINE AND STOOL UA pH 5.5 5.0 - 8.0 10/24/2013 [facility] URINE AND STOOL UA Color Yellow *NA* (10/24/13 4:00 PM) Yellow 10/24/2013 [facility] URINE AND STOOL UA Ketones Negative mg/dL Negative mg/dL 10/24/2013 [facility] URINE AND STOOL UA Glucose Negative mg/dL Negative mg/dL 10/24/2013 [facility] URINE AND STOOL UA Protein Negative mg/dL Negative mg/dL 10/24/2013 [facility] URINE AND STOOL UA Bili Negative *NA* (10/24/13 4:00 PM) Negative 10/24/2013 [facility] CARDIAC ENZYMES Total CK 30 unit/L 12 - 191 10/24/2013 [facility] CARDIAC ENZYMES Troponin-T null 0.000 - 0.100 10/24/2013 [facility] CARDIAC ENZYMES Troponin-I 0.02 ng/mL 0.00 - 0.40 10/24/2013 [facility] CARDIAC ENZYMES BNP 372 pg/mL <=100 pg/mL 10/24/2013 8Interpretive Data: Elevated results are in line with increasing severity of congestive heart failure. Minor elevations between 100 and 300 may be seen with Myocardial Ischemia, Sodium retaining drugs, and compensated/treated heart failure. [facility] CHEM PANEL AST 20 unit/L 0 - 37 10/24/2013 [facility] CHEM PANEL Bili Total 0.5 mg/dL 0.2 - 1.3 10/24/2013 [facility] CHEM PANEL Total Protein 7.0 g/dL 6.4 - 8.4 10/24/2013 [facility] CHEM PANEL ALT 16 unit/L 0 - 65 10/24/2013 [facility] CHEM PANEL Albumin Lvl 3.3 g/dL 3.5 - 5.0 10/24/2013 [facility] CHEM PANEL Alk Phos 76 unit/L 39 - 136 10/24/2013 [facility] CHEM PANEL B/C Ratio 14 6 - 25 10/24/2013 [facility] CHEM PANEL Globulin 3.7 g/dL 2.0 - 4.0 10/24/2013 [facility] CHEM PANEL A/G Ratio 0.9 0.7 - 1.6 10/24/2013 [facility] SPECIAL CHEMISTRY Hgb A1C 5.6 % <=5.6 % 10/24/2013 [facility] CHEM PANEL Plasma Hemoglobin 30 mg/dL 0 - 10 10/24/2013 [facility] IMMUNOLOGY Haptoglobin 18 mg/dL 16 - 200 10/24/2013 [facility] BLOOD BANK RESULTS Antibody Scrn Negative (10/24/13 12:59 PM) 10/24/2013 [facility] BLOOD BANK RESULTS RBC product Product available (10/24/13 12:59 PM) 10/24/2013 [facility] BLOOD BANK RESULTS ABO/Rh A POS 10/24/2013 [facility] BLOOD BANK RESULTS FFP product Product available (10/24/13 12:59 PM) 10/24/2013 [facility] Chest 1view Chest 1view PORTABLE CHEST 2013-10-24 [...] Huan Dixon MD 10/24/13 14:53 FINAL REPORT [facility] CHEM PANEL eGFR 62 mL/min/1.73m2 09/28/2013 1Result [...] should be multiplied by the estimated BMI. [facility] CHEM PANEL POC Creatinine 1.2 mg/dL 0.5 - 1.4 09/28/2013 [facility] Heart/coronary art TAVR CTA Heart/coronary art TAVR CTA EXAM: CHEST CARDIAC COMPUTER TOMOGRAPHY ANGIOGRAPHY DATE: 09/28/2013 INDICATION: Aortic stenosis. TAVR candidate. COMPARISON: None TECHNIQUE: Contrast imaging was performed on a [employer] [address] scanner utilizing a single breath hold, at 600 mA and 120 kV. Retrospective ECG gating was performed, at a heart rate of 80 bpm. Images were reformatted at 0.5 mm intervals and sent to the [employer] workstation for interpretation of both systolic and [...] 23 x 22 mm Coplanar TAVR angle: CROATIAN 10, CAUDAL 02 Coronary Arteries: This patient [...] by: Matthieu Guzman 10/03/13 17:12 FINAL REPORT [facility] Vital Signs Vital Sign Value Date Comments Source Respitory Rate 18 10/27/2013 [facility] Diastolic (mm Hg) 62 10/27/2013 [facility] Systolic (mm Hg) 111 10/27/2013 [facility] Temperature Oral (F) 97.8 F 10/27/2013 [facility] Respitory Rate 18 10/27/2013 [facility] Systolic (mm Hg) 117 10/27/2013 [facility] Diastolic (mm Hg) 70 10/27/2013 [facility] Respitory Rate 15 10/27/2013 [facility] Diastolic (mm Hg) 67 10/27/2013 [facility] Systolic (mm Hg) 119 10/27/2013 [facility] Temperature Oral (F) 97.8 F 10/27/2013 [facility] Temperature Oral (F) 97.9 F 10/27/2013 [facility] Weight 75.199 10/24/2013 [facility] BMI Calculated 28.02 10/24/2013 [facility] Height 163.83 cm 10/24/2013 [facility] Weight 79.545 10/03/2013 [facility] BMI Calculated 27.47 10/03/2013 [facility] Height 170.18 cm 10/03/2013 [facility] BMI Calculated 25.9 08/21/2013 [facility] Weight 75 08/21/2013 [facility] Height 170.18 cm 08/21/2013 [facility] Encounters Location Location Details Encounter Type Encounter Number Reason For Visit Attending Provider ADM Date DC Date Status Source [facility] Outpatient [id number] Nick Guan 08/21/2013 08/22/2013 [facility] Outpatient [id number] Vimal Mcdaniel 09/28/2013 09/29/2013 [facility] Outpatient [id number] Nick Guan 10/03/2013 10/04/2013 [facility] Inpatient [id number] Nick Guan 10/24/2013 10/27/2013 [facility] Procedures Procedure Code Date Perfomer Comments Source Cardiac catheterization [id number] [facility] Cataract surgery [id number] [facility] Excision of calcaneal spur [id number] [facility] Implantation of automatic cardioverter/defibrillator, total system (AICD) [id number] [facility] Placement of stent [id number] [facility]
--- OUTSIDE RECORDS SUMMARY | 2018-01-11 12:37 | XMS REPORT | Summary of Care ---
Author Organization Unknown Address Unknown Phone Unavailable Encounter HQ Juanar_anh(ARIANNA) [id number] Date(s): 10/03/13 - 10/03/[address] Discharge Disposition: Home Physician Attending: Nick [...]
--- OUTSIDE RECORDS SUMMARY | 2018-01-11 12:38 | XMS REPORT | Summary of Care ---
Author Organization Unknown Address Unknown Phone Unavailable Encounter JOELLEN Arteaga(ARIANNA) [id number] Date(s): 10/24/13 - 10/27/[address] Discharge Disposition: Home Physician Attending: Nick [...] once for up to 12 hours in w47-thhi period (12 hours on and 12 hours [...] 0.8 mL, Route: SUB-Q, Drug form: INJ, [id number], Dosing Weight 75.199, kg, Start after lines [...] :00:00 Notes: (Same as: Mag-Ox 400)Magnesium oxide [id number] elemental magnesiumDose= ____mg magnesium oxide (___mg elemental magnesium) Start Date: 10/25/13 Stop Date: 10/27/13 Status: Discontinued magnesium oxide 400 mg, 1 tab, Route: PO, Drug form: TAB, ONCE, Dosing Weight 75.199, kg, Start date: 10/25/13 4:19:00, Stop date: 10/25/13 4:19:00 Notes: (Same as: Mag-Ox 400)Magnesium oxide 025nu=780rs elemental magnesiumDose= ____mg magnesium oxide (___mg elemental [...] 0 Refill(s) Start Date: 10/24/13 Status: Ordered [place] 5/325 oral tablet 1 tab, Route: PO, Drug Form: TAB, Dosing Weight 75.199, kg, Q6H, PRN Pain, Start date: 10/26/13 0:01:00, Duration: 30 day, Stop date: 11/25/13 0:00:00, pain sec ond choice Notes: (Same as: [place] 325/5) Do not exceed 4gm/day of acetaminophen. [...] 0.9% (titrate) 250 mL 250 mL, Rate: scallop cutter for use with blood product administration, Dosing [...] values reflect the clinical guidelines of the [place] [employer]. 5Interpretive Data: Adult reference range values reflect the clinical guidelines of the [place] [employer]. 6Interpretive Data: Adult reference range values reflect the clinical guidelines of the [place] [employer]. CARDIAC ENZYMES 1 2 3 [...] Discharge Summary Author: [facility] Ad[facility] Date: 10/24/13 Discharge [...] bridge. He will follow up with his sex offender treatment professional Dr. Chris Knutson in [place] for INR follow up next week (blood test Tuesday, appointment or Tue). He will follow up with Dr. Perez in 1 month. He will undergo cardiac rehab phase 2. Physical Examination: VitalsTmp(F)Tmp(C)TtcaqYVWLBLleoxWZMiM4UXG8XQYV5 10/27 14:3697.836.85migr955/[id number]--------- 10/27 13:00 117/42274780--------- 10/27 12:00 119/[id number]------ 10/27 11:5997.836.27dkbp000/[id number]------ 10/27 11:30 124/331369--24------ 24 Hr Tmax: 97.9F (36.61c) at 10/27 07:01Vital Signs are the last 5 in the past 48 hours. 24 Hr Tmin: 97.3F (36.28c) at 10/26 23:37Weights are the last 5 in 60 days, plus initial. DateWt(kg)Wt(lb)Ht(cm)Ht(in)MethodBMIBSA 10/27 76.59 168.50Measured 28.51.87 10/26 75.01 165.02Measured 27.91.85 10/25 74.32 163.50Measured 27.71.84 10/24 (initial) 75.20 165.02676.83 64.50Measured 28.01.85 Lines, Tubes, and Drains: 10/24/2013 12:30 Peripheral Lines: Forearm Right Over the needle catheter 20 gauge 10/24/2013 12:30 Peripheral Lines: Forearm Left Over the needle catheter 20 gauge Surgical Procedures: 10/25/13 14:08TAVR PROCEDURE [id number] Surgeon: Nick Guan MD (Service: CVT) GEN: [...] no rashes appreciated NEURO: Alert and oriented, information technology security analyst intact, muscle strength 5/5 throughout, sensation grossly intact, reflexes 2+ throughout Discharge Condition: improved, stable Disposition: discharge to home Discharge Meds: see discharge medication reconciliation Diet/Activity: heart healthy diet, no strenuous activity Follow-up: 1) Dr. Chris Knutson, sex offender treatment professional - INR check next week 2) Dr. Perez, sex offender treatment professional - 1 month for post-TAVR check up Rolanda Puga MD [place] Internal Medicine PGY-1 Extracted from: Title: CCU [...] Date: 10/25/13 Operative Note PATIENT NAMEElvin Brown [id number] DATE of OPERATION:10-25-13 PREOPERATIVE DIAGNOSIS:1. Severe symptomatic aortic stenosis 2. Hypertension 3. Hyperlipdemia 4. Diabetes 5. Coronary artery disease s/p PCI 6. sCHF (EF 25%) 7. AICD placement 8. Pulmonary hypertension 9. STS 2.9% POSTOPERATIVE DIAGNOSIS:Same PRIMARY SURGEON:Kade Russell MD CARDIOLOGISTSNick Guan MD INVESTMENT ANALYST:Bar Perez MD ANESTHESIOLOGIST:Lina Velasquez MD REFERRING CARDIOLOGISTS:Chris [...] by Dr. Guan as he was the sports therapist. The patient was brought into the cardiac grass farm laborer. A time-out procedure was performed which confirmed [...] for the entire procedure. Extracted from: Title: [facility] Consult H&P Author: Josiah Fernandez MD Date: 10/24/13 [place] Pulmonary Critical Care Consult History & Physical Patient Name: Elvin Brown : 1945 [facility]: [facility]: Nathaniel Matamoros MD Reason for Consult: [...] asbestos. 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 On initial BMP, his bicarb [...] Easy bruising/bleeding Jaundice Swelling Physical Exam: Vitals: VitalsTmp(F)Tmp(C)XgieqCXLCPAyczcPBAoW9UVD5PMRF4 10/24 18:00 70 10/24 17:00 115/059594 10/24 16:5997.036.11oral 10/24 16:00 96/679856 10/24 15:58 72 24 Hr Tmax: 97.2F (36.22c) at 10/24 14:00Vital Signs are the last 5 in the past 48 hours. 24 Hr Tmin: 97.0F (36.11c) at 10/24 16:59Weights are the last 5 in 60 days, plus initial. DateWt(kg)Wt(lb)Ht(cm)Ht(in)MethodBMIBSA 10/24 (initial) 75.20 165.98365.83 64.50Measured 28.01.85 24 Hr Point of Care Glucoses 10/24 1610Glucose QCF414 H 10/24 1436Glucose ZKP627 H 10/24 1257Glucose POC58 L 10/24 1221Glucose POC41 C Gen: WD/WN AAOx3 Pleasant Neuro: Follows commands information technology security analyst grossly intact No focal deficits appreciated HEENT: PERRL EOMI No scleral icterus Conjunct clear MMM O/P clear Neck supple No secretions Mallampati score 3 CV/Pulses: RRR Loud ANNI at the ULSB 2+ peripheral pulses Pulm: CTAB No W/R/R GI: BS (+) Soft NTND : deferred MS: FROM passively/actively Strength intact Tone intact Skin/Ext: No Cyanosis/Edema No rashes/lesions Labs: 24hr Labs 10/24 1610 Glucose CYW490 H 10/24 1600 U Amph ScrNegative U Betty ScrNegative U Benzodia ScrNegative U Cannab ScrNegative U Cocaine ScrNegative U Opiate ScrNegative U Phencyc ScrNegative UDS NoteSee Note UA ColorYellow UA TurbidityClear UA Spec Grav1.015 UA pH5.5 UA ProteinNegative UA GlucoseNegative UA KetonesNegative UA BiliNegative UA BloodNegative UA Urobilinogen0.2 UA NitriteNegative UA Leuk EstNegative UA MucusFew UA Sq EpiOccasional 10/24 1436 Glucose YQB430 H 10/24 1304 Sodium Nyh142 Potassium Lvl3.9 Chloride Bvw007 CO229 AGAP12.9 Glucose Lvl51 L Creatinine Lvl1.3 BUN18 B/C Ratio14 Total Protein7.0 Albumin Lvl3.3 L Globulin3.7 A/G Ratio0.9 Calcium Lvl8.9 ALT16 AST20 Alk Phos76 Bili Total0.5 eGFR56 Troponin-I0.02 Total CK30 Troponin-T<0.010 Hgb A1C5.6 CQC435 H WBC7.8 RBC3.64 L Hgb10.3 L Hct31.7 L MCV87.1 MCH28.4 MCHC32.6 RDW16.7 H Xkegaswc068 MPV6.9 L Segs74.0 Monocytes9.2 Lymphocytes8.5 L Eosinophils7.2 H Basophils1.1 H Segs-Bands #5.8 Lymphocytes #0.7 L Monocytes #0.7 Eosinophils #0.6 H Basophils #0.1 PT16.9 H INR1.36 H PTT40.7 H 10/24 1304 Plasma Gpnfxikxxo06 H 10/24 1259 ABO/RhA POS Antibody ScrnNegative [...] STS is 2.9% - He is an bql-wk-aoromqatsdal candidate for an intermediate-risk procedure for post-op [...] Pulmonary Critical Care Fellow, PGY-4 MSO # [id number] Pager # [phone] ([phone]) Addendum [place] Pulmonary/Critical Care Progress Note by Saturnino, I [...]
--- OUTSIDE RECORDS SUMMARY | 2018-01-11 12:38 | XMS REPORT | Summary of Care ---
Author Author Ariana Eckert R.N. Organization Unknown Address [facility] Phone Unavailable Care Team Providers Care Auto Brake Mechanic Name Role Phone JAEL Boggs, NEVIN Unavailable Unavailable Ariana Eckert R.N. Unavailable Unavailable JAN Boggs, SARA Unavailable Unavailable Unavailable Unavailable Functional Status Name Dates Details Functional status health issues are not documented Status: Name Dates Details Cognitive status health issues are not documented Status: Problems Name Dates Details Dizziness (780.4, R42) Status: Active Cardiovascular disease (429.2, I25.10) Status: Active Dyspnea (786.09, R06.00) Status: Active Atrial fibrillation (427.31, I48.91) Status: Active Ventricular tachycardia (427.1, I47.2) Status: Active Aortic valve disorder (424.1, I35.9) Status: Active Heart failure (428.9, I50.9) Status: Active Left bundle branch block (426.3, I44.7) Status: Active Medications Name Dates Details Simvastatin 40 MG Oral Tablet TAKE 1 TABLET DAILY. Quantity: 90 * Start : 27-Jul-2013 Active Furosemide 20 MG Oral Tablet TAKE 1 TABLET DAILY * Quantity: 30 Refills: 2 * Start : 27-Jul-2013 Active Nitrostat 0.4 MG Sublingual Tablet Sublingual DISSOLVE 1 TAB UNDER TONGUE FOR CHEST PAIN - IF PAIN REMAINS AFTER 5 MIN, CALL 9 11 AND REPEAT DOSE. MAX 3 TABS IN 15 MINUTES * Quantity: 25 Refills: 6 * Start : 27-Jul-2013 Active Potassium Chloride ER 10 MEQ Oral Capsule Extended Release TAKE 1 CAPSULE BY MOUTH EVERY DAY * Quantity: 90 Refills: 0 * Start : 27-Jul-2013 Active Digoxin 125 MCG Oral Tablet TAKE ONE TABLET BY MOUTH EVERY DAY * Refills: 0 * Start : 27-Jul-2013 Active Coreg 25 MG Oral Tablet TAKE 1 TABLET TWICE DAILY * Quantity: 60 Refills: 5 * Start : 27-Jul-2013 Active ClonazePAM 0.5 MG Oral Tablet Take one tablet twice daily * Refills: 0 * Start : 27-Jul-2013 Active [place] 3 1000 MG Oral Capsule TAKE 1 CAPSULE DAILY. * Refills: 0 * Start : 27-Jul-2013 Active Aspirin 81 MG TABS TAKE 1 TABLET DAILY. * Refills: 0 * Start : 27-Jul-2013 Active Lantus 100 UNIT/ML Subcutaneous Solution INJECT 10 UNITS IN THE AM AND 50 UNITS IN THE PM. * Refills: 0 * Start : 27-Jul-2013 Active NovoLOG 100 UNIT/ML Subcutaneous Solution INJECT SUBCUTANEOUSLY DIRECTED. INJECT 20 UNITS THREE TIMES DAILY * Refills: 0 * Start : 27-Jul-2013 Active Viibryd 40 MG Oral Tablet Take one tablet daily * Refills: 0 * Start : 27-Jul-2013 Active Niaspan 500 MG Oral Tablet Extended Release TAKE 1 TABLET BEDTIME * Refills: 0 * Start : 27-Jul-2013 Active Ferrous Sulfate 325 (65 Fe) MG Oral Tablet TAKE 1 TABLET DAILY * Refills: 0 * Start : 27-Jul-2013 Active Coumadin 2 MG Oral Tablet TAKE 1 TABLET DAILY * Refills: 0 Active Omeprazole 40 MG Oral Capsule Delayed Release TAKE 1 CAPSULE DAILY. * Refills: 0 Active TraMADol HCl - 50 MG Oral Tablet TAKE 1 TABLET 3 TIMES DAILY NEEDED. * Refills: 0 Active BusPIRone HCl - 10 MG Oral Tablet TAKE 1 TABLET 3 TIMES DAILY. * Refills: 0 Active Vitamin D TABS TAKE 1 TABLET WEEKLY * Refills: 0 Active Spironolactone 25 MG Oral Tablet TAKE 0.5 TABLET DAILY * Quantity: 45 Refills: 3 SARA MONTOYA M.D. * Start : 16-Nov-2017 Active Lisinopril 10 MG Oral Tablet TAKE 1 TABLET TWICE DAILY * Quantity: 180 Refills: 3 SARA MONTOYA M.D. * Start : 16-Nov-2017 Active Liothyronine Sodium 5 MCG Oral Tablet TAKE 1 TABLET DAILY. * Refills: 0 * Start : 23-Nov-2017 Active Lyrica 50 MG Oral Capsule TAKE 1 CAPSULE TWICE DAILY * Refills: 0 * Start : 23-Nov-2017 Active Acetaminophen-Codeine #3 300-30 MG Oral Tablet take one tablet every 8 to 12 hours * Refills: 0 * Start : 23-Nov-2017 Active Allopurinol 100 MG Oral Tablet TAKE 1 TABLET DAILY. * Refills: 0 Active Bumetanide 2 MG Oral Tablet TAKE 1 TABLET DAILY. * Quantity: 30 Refills: 6 JAEL Boggs, NEVIN * Start : 05-Jan-2018 Active Allergies and Adverse Reactions Name Dates Details Hydrocodone-Acetaminophen TABS (Allergy) Status: Active Procedures Procedure Dates Details [QLH] CMP W/EGFR Date: 16-Nov-2017 [QLH] B TYPE NATRIURETIC PEPTIDE (BNP) Date: 16-Nov-2017 [QLH] BASIC METABOLIC PANEL W/EGFR Date: 07-Dec-2017 Immunization Name Dates Details Immunizations not documented Social History Name Dates Details - Status: Name Dates Details Former smoker Vital Signs Date Test Result Details 04-Fno-777123:09 BP Systolic 96 mm[Hg] Status: Comments: Location: LUE; Position: Sitting BP Diastolic 66 mm[Hg] Status: Comments: Location: LUE; Position: Sitting Height 64 in Status: Weight 195.125 lb Status: Body Mass Index Calculated 33.49 kg/m2 Status: Body Surface Area Calculated 1.94 m2 Status: Heart Rate 79 /min Status: Comments: Location: L Radial; Results Date Description Value Details Results not documented Plan of Care Name Dates Details Planned Observations Planned Goals not documented Planned Encounters Appointment; CAC, DEVICE On: 24-Jan-2018 11:00 Appointment; EDWIGE MIN M.D. On: 13-Feb-2018 9:15 Appointment; NEVIN ELDER M.D. On: 15-Feb-2018 10:20 Interventions Provided Medication Changes* Bumetanide 2 MG Oral Tablet - Start Instructions Name Dates Details Instructions not documented Encounters Appointment; SOLOMON JEROME Encounter Diagnosis: Problem not documented On: 16-Nov-2017 8:00 Appointment; NEVIN ELDER M.D. Encounter Diagnosis: Problem not documented On: 16-Nov-2017 9:20 Appointment; RAIZA LEAHY NP Encounter Diagnosis: Problem not documented On: 23-Nov-2017 10:00 Appointment; OMID SHANKAR NP Encounter Diagnosis: Problem not documented On: 05-Dec-2017 8:15 Appointment; NEVIN ELDER M.D. Encounter Diagnosis: Problem not documented On: 07-Dec-2017 10:30 Appointment; EDWIGE MIN M.D. Encounter Diagnosis: Problem not documented On: 19-Dec-2017 9:45
[2018-01-11] MEDS: FAMOTIDINE 20 MG TAB PO SCH (16:25)
--- NOTE | 2018-01-11 16:36 | Diagnostic Imaging Report ---
Date and Time: 01/11/2018 Procedure: Temporary hemodialysis catheter placement, right internal jugular approach shotblast equipment operator: Dr. Purvis Pre-operative diagnosis: Acute kidney injury Post-operative diagnosis: Acute kidney injury Conscious Sedation: None Additional Medications: Lidocaine 1% for local anesthesia Fluoroscopy time: 1.1 minute Frontal Air Kerma: 41.5 mGy Contrast used: None Estimated blood loss: Minimal Blood products administered: None Specimens: None Implants: 13 [place] 15 cm triple-lumen hi flow central venous catheter Condition at completion of procedure: Stable Disposition: Returned to ER Complications: No immediate DISCUSSION: Informed consent was obtained and documented in the medical record after discussion of risks and benefits. The patient was placed in the supine position on the fluoroscopic table. Preliminary sonographic evaluation confirmed patency of the right internal jugular vein, evidenced by compressibility. The right neck was prepped and draped in the standard sterile fashion. 1% lidocaine was infiltrated into the skin and subcutaneous tissues for local anesthesia. Then under continuous sonographic guidance, an 18-gauge singlewall needle was used to access the right internal jugular vein. A permanent sonographic image was stored in the medical record. A 0.0 3 5-in. wire was advanced centrally into the IVC under fluoroscopic guidance. The needle was removed over the wire and the tract was dilated. Then a 13 [place] 15 cm triple-lumen hi flow central venous catheter was advanced over the wire to full depth. The wire was removed, and the catheter tip was positioned in the low superior vena cava. Each lumen showed adequate bidirectional flow and was flushed with sterile saline. The catheter was secured to the skin with monofilament nylon suture and a sterile dressing was applied. The patient tolerated the procedure well without immediate complication. FINDINGS: Patent right internal jugular vein. IMPRESSION: Successful placement of a triple-lumen temporary hemodialysis catheter (13 Fr 15 cm Trialysis catheter) by a right internal jugular approach under sonographic and fluoroscopic guidance. Signed by: Dr. Martin Purvis M.D. on 01/11/2018 4:33 PM
--- NOTE | 2018-01-11 16:36 | Diagnostic Imaging Report ---
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 Purvis Pre-operative diagnosis: Acute kidney injury Post-operative diagnosis: Acute kidney injury Conscious Sedation: None Additional Medications: Lidocaine 1% for local anesthesia Fluoroscopy time: 1.1 minute Frontal Air Kerma: 41.5 mGy Contrast used: None Estimated blood loss: Minimal Blood products administered: None Specimens: None Implants: 13 [place] 15 cm triple-lumen hi flow central venous catheter Condition at completion of procedure: Stable Disposition: Returned to ER Complications: No immediate DISCUSSION: Informed consent was obtained and documented in the medical record after discussion of risks and benefits. The patient was placed in the supine position on the fluoroscopic table. Preliminary sonographic evaluation confirmed patency of the right internal jugular vein, evidenced by compressibility. The right neck was prepped and draped in the standard sterile fashion. 1% lidocaine was infiltrated into the skin and subcutaneous tissues for local anesthesia. Then under continuous sonographic guidance, an 18-gauge singlewall needle was used to access the right internal jugular vein. A permanent sonographic image was stored in the medical record. A 0.0 3 5-in. wire was advanced centrally into the IVC under fluoroscopic guidance. The needle was removed over the wire and the tract was dilated. Then a 13 [place] 15 cm triple-lumen hi flow central venous catheter was advanced over the wire to full depth. The wire was removed, and the catheter tip was positioned in the low superior vena cava. Each lumen showed adequate bidirectional flow and was flushed with sterile saline. The catheter was secured to the skin with monofilament nylon suture and a sterile dressing was applied. The patient tolerated the procedure well without immediate complication. FINDINGS: Patent right internal jugular vein. IMPRESSION: Successful placement of a triple-lumen temporary hemodialysis catheter (13 Fr 15 cm Trialysis catheter) by a right internal jugular approach under sonographic and fluoroscopic guidance. Signed by: Dr. aMrtin Purvis M.D. on 01/11/2018 4:33 PM
--- NOTE | 2018-01-11 18:48 | History and Physical ---
The patient comes in here with lack of eating and was found to have elevated creatinine. HISTORY OF PRESENTING ILLNESS: Mr. Brown recently had an AICD placement at [facility]. He was in his usual state of health until on the day of discharge the patient had some dizziness and spells where he was having tremors. The patient has a history of heart failure and had a biventricular pacemaker placed at [facility] a week ago. Since then he has been bedridden. He has not eaten much and is not drinking at all. According to the family, the last time he urinated was 24 hours ago. He was seen by me about 2 days ago. He was encouraged to eat and to move around, but the patient has not been able to keep anything down. His dizziness is exacerbated and the patient came in. He was found to have a creatinine of 10.9 and BUN of 143, dry, and the patient is admitted for acute kidney injury. PAST MEDICAL HISTORY: History of coronary artery disease, history of systolic heart failure, history of uncontrolled diabetes mellitus, history of hyperlipidemia, history of chronic pain syndrome, history of low back pain, history of also taking long-term insulin. HOME MEDICATIONS: codeine, Allopurinol for his gout, aspirin 81 mg, Bumex 2 mg, Carvedilol 12.5 mg twice a day, Enalapril hydrochlorothiazide 5/12.5, Lasix 20 mg daily, insulin 10 units subcutaneously 3 times a day, 5 mcg, Niaspan 500 mg, nitroglycerin as needed, omeprazole 40 mg, simvastatin 40 mg and Vybrid for his depression and warfarin 2.5 mg alternating dose. PAST SURGICAL HISTORY: The patient has a history of stents in the past. The patient had stenting of LAD [place] [address] Knutson. He also has history of AICD implantation. Also, bilateral shoulder surgery and as mentioned above pacemaker implantation. FAMILY HISTORY: Father with history of bypass at 80, history of myocardial infarction in uncle. ALLERGIES: NO KNOWN DRUG ALLERGIES. PHYSICAL EXAMINATION GENERAL: The patient is alert and oriented x3 now. HEENT: Normocephalic, atraumatic. Pupils are reactive to light and accommodation. CVS: S1 and S2 regular. Ejection systolic murmur. ABDOMEN: No tenderness in the abdomen. EXTREMITIES: No clubbing, no cyanosis. Positive for trace edema. SKIN: The patient has multiple ecchymoses on the chest area and also scar on the left precordium where the AICD was implanted. LABORATORY DATA: The patient's hemoglobin is 10.4 and hematocrit of 32.8. White count 12,000, platelet count 107,000. Chemistry: Sodium 126, potassium 5.6, BUN 143, creatinine 10.97. CK was 563. Troponin 0.102. Urine was essentially negative. ASSESSMENT 1. Acute kidney injury. 2. Dehydration. 3. History of coronary artery disease. 4. History of recent AICD implantation. 5. Leukocytosis. PLAN: The plan is to dialyze the patient by dialysis for acute kidney injury. Will continue monitoring the patient. Dr. Baptiste has been consulted. Will dialyze him today. Repeat and follow up his creatinine levels. Continue monitoring him for his blood pressure. For right now, will hold off on his diuretics and blood pressure medications because he is hypotensive. Further recommendations depending on clinical course. As far as his regular medicines, hold off until dialysis is done and depending on his cardiovascular response. Job#: [id number]
[2018-01-11] MEDS ORDERED: SODIUM BICARBONATE 8.4% 150 ML in DEXTROSE 5% 1,000 ML IV SCH (19:15)
[2018-01-11] MEDS ORDERED: VANCOMYCIN 1GM/NS 250 ML 250 ML IV ONE ×2 (19:15→23:30)
[2018-01-11 19:25] VITALS: BP 92/50
[2018-01-11 19:34] LABS: % IRON SATURATION 10 % (15-50); IRON 36 ug/dL (65-175); TOTAL IRON BINDING CAPACITY 367 ug/dL (261-478); TRANSFERRIN 262 mg/dL (174-364)
--- NOTE | 2018-01-11 19:58 | Consultation ---
DATE OF CONSULTATION: January 11, 2018 RENAL CONSULTATION History predominantly from ER physician and chart. Patient very poor historian albeit awake, alert, following commands. He was recently discharged from [facility]. Has an AICD placed. There are numerous ecchymotic patches on his body and some nonhealing superficial eschars on the right side of the chest. There is some ecchymosis noted around the pacemaker site, incision site. The incision appears relatively clean. There is some ecchymosis noted in the upper abdomen as well as right groin area. Some excoriations in the lower extremity area. He is otherwise awake, alert, lying supine. He does not remember exactly when he was discharged. Admits to weakness. Denies shortness of breath, orthopnea, abdominal pain. Currently has an indwelling Guardado catheter. Labs show white count 12.2 with a hemoglobin 10.4. Potassium 5.6. Bicarbonate 14. Creatinine 10.97. CK 563. He has been admitted here in the past. His baseline serum creatinine is 1.5. Has prior history of VT, history of mitral valve replacement, history of AICD placement, history of hypothyroidism, type 2 diabetes, chronic kidney disease due to diabetes and hypertension, history of hypothyroidism. ALLERGIES: NO APPARENT DRUG ALLERGIES. CURRENT MEDICATIONS: Patient has been started on lactulose, allopurinol. Currently receiving normal saline at 100 mL an hour. Simvastatin, ondansetron, diphenhydramine, pantoprazole. For dose schedule, please see MAR. Blood cultures have been sent, and they are pending. SOCIAL HISTORY: Does not smoke or drink. FAMILY HISTORY: Significant for hypertension. PHYSICAL EXAMINATION: GENERAL: Patient awake, alert, lying supine. Appears quite weak, tired. Appears pale. No apparent respiratory distress. VITALS: Blood pressure 100/53. Pulse rate 83. Oxygen saturation 99%. HEAD AND NECK: Oral mucosa moist. Neck veins flat. LUNGS: Decreased air entry. No clear-cut rales. Occasional rhonchi. HEART: S1 and S2 audible. AICD pacemaker noted left subclavicular area. ABDOMEN: Distended, soft, nontender. LOWER EXTREMITY EXAMINATION: Shows chronic skin changes, some excoriations, trace ankle edema. WORKUP: Chest x-ray shows it is negative except for cardiomegaly. CT brain negative for any acute infarcts. IMPRESSION: Acute kidney injury, acute tubular necrosis, severe metabolic acidosis, hyperkalemia. Plan to discontinue existing IV normal saline. Will hold off on allopurinol. Arrange for stat dialysis. Dialysis catheter to be placed. As soon as dialysis catheter placed, will schedule for dialysis. Will start IV bicarbonate. Give empiric antibiotics in the form of vancomycin and Rocephin. Non-oliguric, which is encouraging. Will follow up with a kidney ultrasound. Overall prognosis appears poor. Job#: [id number]
[2018-01-11 20:00] VITALS: BP 92/50
[2018-01-11] MEDS ORDERED: HEPARIN SOD (PORCINE) 1000 UNIT/ML SDV IV PRN (20:00)
[2018-01-11] MEDS ORDERED: SODIUM CHLORIDE 0.9% 1000ML 2,000 ML IV PRN (20:00)
[2018-01-11] MEDS ORDERED: MANNITOL 25% 12.5GM/50 ML VIAL IV PRN (20:00)
[2018-01-11 20:10] VITALS: BP 92/50
[2018-01-11] MEDS: CEFTRIAXONE SOD 1 GM VIAL IV SCH (23:32)
[2018-01-11] MEDS: SIMVASTATIN 40 MG TAB PO SCH (23:32)
[2018-01-12] VITALS (8 sets, daily range): BP systolic 93–124; BP diastolic 42–70
[2018-01-12 05:10] LABS: ALBUMIN 2.7 g/dL (3.5-5.0); ANION GAP 20.2 mmol/L (8-16); CALCIUM 7.3 mg/dL (8.4-10.2); CREATININE, SERUM 7.21 mg/dL (0.72-1.25); POTASSIUM 4.2 mmol/L (3.5-5.1)
--- NOTE | 2018-01-12 07:55 | Progress Note ---
DATE: January 12, 2018 The patient is currently post dialysis yesterday. The patient came in for acute renal failure, acute kidney injury, acute tubular necrosis and severe metabolic acidosis with hyperkalemia. Currently, the patient has some twitching going on, some involuntary movement, especially on the right side. Slightly confused. Otherwise, alert. PHYSICAL EXAMINATION VITAL SIGNS: Today, temperature is 97.6, pulse 101, blood pressure 124/53, pulse oximetry 95%. HEENT: Normocephalic, atraumatic. Pupils are reactive to light and accommodation. CVS: S1 and S2 irregular. ABDOMEN: Nontender, nondistended. EXTREMITIES: Trace edema. LABORATORY VALUES: His sodium has improved to 131, potassium 4.2, chloride 94, CO2 21, creatinine 7.21--improved from yesterday, creatinine clearance 8. Laboratory values are otherwise normal. IMAGING STUDIES: Renal ultrasound has not been done yet. MEDICATIONS: The patient is right now on Rocephin and bicarbonate drip. The patient has been held off on all of his nephrotoxic drugs and also his hypertensive drugs because of hypotension. ASSESSMENT 1. Acute kidney injury. 2. Acute tubular necrosis. 3. Severe metabolic acidosis, which is improving. 4. Hyperkalemia, which has resolved. PLAN: Continue monitoring his electrolytes. Dialysis today, too, if possible. We will continue to monitor the patient. IV wynn as is. The patient is on antibiotic for leukocytosis. For the rest of his hyperlipidemia, heart disease, and CHF, we will continue monitoring his I's and O's strict and put him back on his antihypertensive when his blood pressure goes up again. At this time, very critical. We will continue to monitor the patient. The prognosis is very poor. Discussed with son at bedside. Further recommendations per clinical course. Will continue following the patient along with renal. Thank you for renal's input. Job#: [id number]
[2018-01-12] MEDS: FAMOTIDINE 20 MG TAB PO SCH ×2 (08:16→16:58)
[2018-01-12] MEDS: PANTOPRAZOLE SOD 40 MG TABEC PO SCH (08:16)
[2018-01-12] MEDS ORDERED: ALLOPURINOL 300 MG TAB PO SCH (09:00)
[2018-01-12] MEDS ORDERED: ALBUMIN 25% 12.5GM 100 ML IV ONE (10:46)
[2018-01-12] MEDS ORDERED: HEPARIN SOD (PORCINE) 1000 UNIT/ML SDV IV PRN (11:45)
[2018-01-12] MEDS ORDERED: ALBUMIN 25% 12.5GM 0.25 GM/ML BTL IV PRN (11:45)
[2018-01-12] MEDS ORDERED: SODIUM CHLORIDE 0.9% 250ML 500 ML IV PRN (11:45)
--- NOTE | 2018-01-12 15:04 | Diagnostic Imaging Report ---
EXAMINATION: Renal ultrasound. CLINICAL HISTORY :Acute kidney injury COMPARISON: 10/24/2017 TECHNIQUE: Grayscale and color Doppler evaluation of the kidneys and bladder was performed in transverse and longitudinal planes. DISCUSSION: RIGHT KIDNEY: The right kidney measures 10.3 cm in length and shows normal echogenicity. No hydronephrosis, shadowing calculi or solid mass lesions. LEFT KIDNEY: The left kidney measures 13.2 cm in length and shows normal echogenicity. No hydronephrosis, shadowing calculi or solid mass lesions. BLADDER: Collapsed around a Guardado catheter Prostate is poorly visualized. IMPRESSION: Unremarkable sonographic appearance of the kidneys. Signed by: Dr. Martin Purvis M.D. on 01/12/2018 3:01 PM
[2018-01-12] MEDS ORDERED: VANCOMYCIN 1GM/NS 250 ML 250 ML IV ONE (15:15)
[2018-01-12] MEDS ORDERED: LORAZEPAM INJ 2 MG/ML VIAL IV ONE (21:15)
[2018-01-12] MEDS: SIMVASTATIN 40 MG TAB PO SCH (21:25)
[2018-01-12] MEDS: SODIUM BICARBONATE 8.4% 150 ML in DEXTROSE 5% 1,000 ML IV SCH (21:25)
[2018-01-12] MEDS: CEFTRIAXONE SOD 1 GM VIAL IV SCH (21:25)
[2018-01-12] MEDS: MORPHINE SULFATE 2 MG/ML SYR IV PRN (21:42)
--- NOTE | 2018-01-12 21:42 | Diagnostic Imaging Report ---
EXAM: CHEST SINGLE (PORTABLE), AP 1 view INDICATION: Edema around AICD placement today COMPARISON: AP view of the chest October 21, 2017 FINDINGS: LINES/TUBES: Interval exchange of cardiac device. Interval placement of right internal jugular vein temporary hemodialysis catheter. LUNGS: Mild perihilar bronchial thickening and atelectasis. PLEURA: No effusions or pneumothorax. HEART AND MEDIASTINUM: Stable prominence of the cardiomediastinal silhouette. BONES AND SOFT TISSUES: No acute findings. IMPRESSION: Interval placement of right internal jugular vein temporary hemodialysis catheter and left approach cardiac device. No pneumothorax. Signed by: Dr. Isis Ochoa M.D. on 01/12/2018 9:38 PM
[2018-01-13] VITALS (25 sets, daily range): BP systolic 100–172; BP diastolic 41–110
[2018-01-13] MEDS ORDERED: LORAZEPAM INJ 2 MG/ML VIAL IV ONE (00:30)
[2018-01-13 04:46] LABS: BASOPHILS % 0.1 % (0.0-1.0); EOSINOPHILS # (AUTO) 0.2 (0.0-0.4); EOSINOPHILS % 1.8 % (0.0-6.0); HEMATOCRIT 25.5 % (38.2-49.6); LYMPHOCYTES # (AUTO) 0.3 (1.0-3.2); LYMPHOCYTES % 3.1 % (18.0-39.1); MEAN CORPUSCULAR HGB CONC 31.4 g/dL (31-35); MEAN CORPUSCULAR VOLUME 92.4 fL (81-99); MONOCYTES % 10.2 % (4.4-11.3); NEUTROPHILS # (AUTO) 8.1 (2.1-6.9); NEUTROPHILS % 84.4 % (38.7-80.0); PLATELET COUNT 53 x10e3/uL (140-360); RED BLOOD COUNT 2.76 x10e6/uL (4.3-5.7); RED CELL DISTRIBUTION WIDTH 16.5 % (11.7-14.4)
[2018-01-13 05:04] LABS: ANION GAP 18.2 mmol/L (8-16); CALCIUM 7.8 mg/dL (8.4-10.2); CREATININE, SERUM 3.27 mg/dL (0.72-1.25); POTASSIUM 4.2 mmol/L (3.5-5.1)
[2018-01-13 07:10] LABS: BILIRUBIN,DIRECT 0.3 mg/dL (0.0-0.5)
[2018-01-13] MEDS: FAMOTIDINE 20 MG TAB PO SCH ×2 (07:30→16:02)
--- NOTE | 2018-01-13 07:37 | Progress Note ---
DATE: The patient was admitted for acute kidney injury, acute tubular necrosis and for dehydration and mental status changes. Currently, the patient has mental status changes and is pulling on all the lines, including the central lines. Has been sedated, and not restrained. Has a sitter by his side. The patient is verbal, but does not make any sense of his conversation. PHYSICAL EXAMINATION VITAL SIGNS: Temperature is 99.6, respirations 15, blood pressure is 133/67, pulse oximetry 96%. HEENT: Normocephalic and atraumatic. Pupils are reactive to light and accommodation. CV: S1 and tachycardic. Chest wall over where the ICD was placed with increased puffiness and erythema around it. There is some excoriation on the right side of the chest too. Multiple ecchymoses presented in that area. ABDOMEN: Slightly distended and slightly tender. EXTREMITIES: Trace edema. LABORATORY VALUES: Today, his white count is 9.57, hemoglobin of 8 and hematocrit of 25.5, and platelet count is 53,000. Neutrophil count of 84.5 with a left shift. Chemistry shows a sodium of 141 from yesterday. BUN and creatinine are pending, but yesterday at 4:30 his BUN was 44 and creatinine of 3.27 with an estimated GFR of 19. MICROBIOLOGY: Did send blood cultures and urine cultures. Urine cultures preliminary no growth on holding. Blood cultures no growth in 24 hours. Did a culture workup on the wound site, and is pending. We also did a C. diff because of his diarrhea, and that has also been pending. ASSESSMENT 1. Acute kidney injury and acute tubular necrosis: The patient is on medication and is getting dialysis at this time. Improvement in kidney function is seen. 2. Delirium secondary to probable cognitive changes secondary to early dementia: The patient will be sedated. Also, secondary to probable toxic encephalopathy. Will continue to monitor the patient. The patient is on vancomycin. 3. Hypertension. 4. Hyperlipidemia. 5. Congestive heart failure. 6. Coronary artery disease: Will continue giving the medications he is on. Also, keep a good eye on his input and output. For his acute mental status changes and possible toxic encephalopathy, sitter is at the bedside. Today, will go ahead and discuss the case with his attending, who did the ICD. If the ICD needs to come out, will send him back to [facility] where it was inserted. Further recommendations per clinical course. Would also consult ID and also Dr. Chris Knutson, his music artist. Further recommendations per clinical course. Will continue monitoring the patient. Prognosis is grim. I discussed with the son at the bedside. For further information, look in the chart. For medicines, please look at the medicine and nurse's notes. Job#: [id number] VALENTIN
[2018-01-13] MEDS ORDERED: DEXTROSE 50% SYRINGE 50 ML IV PRN (08:15)
[2018-01-13] MEDS: PANTOPRAZOLE SOD 40 MG TABEC PO SCH (09:00)
[2018-01-13] MEDS ORDERED: ACETAMINOPHEN 1000 MG/100 ML IV PRN (11:15)
--- NOTE | 2018-01-13 12:19 | Consultation ---
DATE OF CONSULTATION: January 12, 2018 CARDIOLOGY CONSULTATION ATTENDING PHYSICIAN: Antonieta Jeffers MD CLINICAL HISTORY: This is a 72-year-old white man known to me from previous evaluations with complicated cardiovascular history referred by Dr. Antonieta Jeffers for cardiovascular evaluation in the setting of possible sepsis with altered mental status with acute kidney injury superimposed on chronic kidney disease. This patient had a TAVR in June of 2013 as well as stents implanted, particularly in the left anterior descending coronary artery. He is known to have severe ischemic cardiomyopathy with ejection fraction in the range of 25%. He is status post pacemaker implantation in 1994 followed by AICD implantation in 2009, which was later upgraded to biventricular AICD with recent upgrade at the [facility] apparently a week ago without my knowledge. This patient was also hospitalized here in September of 2017 with altered mental status under the care of Dr. Antonieta Jeffers. Reportedly, the cardiac enzymes were elevated. At that time, the creatinine was in the range of 1.9. The troponin was elevated at 2.86. No intervention was carried out. Echocardiogram at that time showed ejection fraction of 15%. He was also suffering from altered mental status. At that time, it was thought to be due to medications. Apparently he has not returned to my office since then and ended up at the [facility] whereupon the pulse generator for AICD apparently has been replaced. He presents now with fever and altered mental status. One of two blood cultures is positive for coagulase-negative staph. His renal function has worsened. The creatinine has risen from the 1.9 range to 10.9. Cardiology consultation was requested. The patient was started on dialysis via a right internal jugular catheter. PAST MEDICAL HISTORY: Remarkable for insulin-dependent diabetes, hyperlipidemia, hypertension, chronic back pains requiring multiple injections by pain specialist Dr. Caban, history of cellulitis at pacemaker site, anemia, melanoma resected, lumbar surgery. HOME MEDICATIONS: The last list of home medications included: 1. Tylenol No. 3. 2. Aspirin. 3. Bumex 2 mg. 4. Coreg 12.5 mg b.i.d. 5. Clonazepam 0.5 mg b.i.d. 6. Lasix 20 mg daily. 7. NovoLog insulin. 8. Levothyroxine 5 mcg daily. 9. Lisinopril 10 mg daily. 10. Nitroglycerin. 11. [place] 3. 12. Lyrica. 13. Simvastatin 40 mg daily. 14. Spironolactone 25 mg daily. 15. Coumadin 2 mg p.o. daily. 16. Tylenol. 17. Coumadin 3 mg per day. 18. In the past, the patient also took Niaspan and Viibryd as well as hydrochlorothiazide. PAST SURGICAL HISTORY: Bilateral shoulder surgery, multiple lumbar injections, lumbar surgery, AICD pacemaker with multiple upgrades, TAVR in September of 2014, melanoma resection. FAMILY HISTORY: Father had coronary artery bypass surgery at age 80. Uncle had heart failure and myocardial infarction in his 70s. Another uncle from myocardial infarction in his 70s. PERSONAL / SOCIAL HISTORY: Denies smoking, drinking, drug abuse. ALLERGIES: HYDROCODONE. REVIEW OF SYSTEMS: Deferred. PHYSICAL EXAMINATION GENERAL: He is oriented to person and place, but is not oriented to year. He cannot name me but appears to recognize me. CARDIAC: Jugular veins were not distended. S1 and S2 were regular. There is no appreciable murmur. LUNGS: Clear. ABDOMEN: Soft. Bowel sounds are present. EXTREMITIES: No cyanosis, clubbing or edema. LABORATORY DATA: The white count is 4200, hemoglobin 10.4. Platelet count is 107,000. The INR is 2.54. Urinalysis was negative. Serology pending. Sodium 126, potassium 5.6, bicarb 14, BUN 143, creatinine 10.9, GFR 5. Calcium is 8.1. Iron is low at 36. TIBC is 567. Saturation is low at 10%. CK is 563. CK-MB is 16.4. Troponin is 0.1. IMPRESSION 1. Altered mental status, possibly uremic, possibly due to sepsis. 2. Acute kidney injury superimposed on chronic kidney disease. Creatinine has risen from 1.9 range to 10.9. 3. Low-grade temperature of 100 degrees Fahrenheit with mild leukocytosis. Tenderness at the recent AICD pocket site with some swelling. Blood culture 1 out of 2 bottles positive for coagulase-negative staph. Consider sepsis. 4. Congestive heart failure with ejection fraction in the range of 15%. 5. Status post pacemaker 1994, AICD 2009, upgrade to biventricular pacing with the last change a week ago. 6. Status post transcatheter aortic valve replacement. 7. Status post coronary stenting in the left anterior descending. The stent in the left anterior descending was dating back to 1994. 8. Anemia. 9. Hypothyroidism. 10. History of melanoma. 11. History of lumbar surgery with chronic back pain requiring multiple injections. 12. Hyperlipidemia. 13. Hypertension. 14. Mitral regurgitation. 15. Pulmonary hypertension. RECOMMENDATION: Dialysis. Coverage for sepsis. Consider culture aspiration from the AICD site. Job#: [id number] cc:ANTONIETA JEFFERS MD
[2018-01-13] MEDS: INSULIN REGULAR, HUMAN 100 UNIT/1 ML 3ML VIAL SQ SCH ×3 (13:32→21:09)
--- NOTE | 2018-01-13 14:30 | Consultation ---
DATE OF CONSULTATION: INFECTIOUS DISEASE CONSULTATION REASON FOR CONSULTATION: Recommendation of antibiotic. HISTORY OF PRESENT ILLNESS: This is a patient who is a very pleasant 72-year-old white male who had history of AICD placement at [facility]. He was in usual state until the day of discharge the patient became dizzy where he was having tremors. The patient also has history of congestive heart failure, biventricular pacemaker placed in [facility] a week ago before he comes here. Since then he has been bedridden. Not eating, not drinking. The patient when he came here was dehydrated. He did not urinate for more than 24 hours. So, he was brought here in the emergency room where he was evaluated, and he is being admitted. The patient was found to have creatinine of 10.9 and BUN 143. He had acute kidney injury. He is currently on dialysis. The patient has history of coronary artery heart disease, a history of congestive heart failure systolic, and diabetes mellitus, hyperlipidemia, chronic pain syndrome, low back pain, on insulin. Patient at home is on codeine, allopurinol. He has gout. Aspirin, carvedilol 12.5 twice a day, enalapril, hydrochlorothiazide, Lasix, Niaspan, nitroglycerin, omeprazole, simvastatin. The patient was also on Viibryd for depression and Coumadin 2.5. PAST SURGICAL HISTORY: Stent placement, LAD in 1995. A history of AICD implantation. Bilateral shoulder surgery. Pacemaker implantation recently. FAMILY HISTORY: His father had myocardial infarction at the age of 80. ALLERGIES: NKA. Patient was admitted. He was seen by Dr. Baptiste. I was asked to see him today. Patient does not really provide good information. History was taken mainly from the chart. Infectious Disease was consulted today, as mentioned above. LABORATORY DATA: Reviewed. His white count on admission was 12.2, today 9.57. Hemoglobin 8.0. Sodium 141, potassium 4.2, creatinine was 3.27. A blood culture is coagulase-negative staph, 1 set out of 2. Patient is currently on morphine, ceftriaxone, Zocor, Protonix, Pepcid. He received vancomycin. PHYSICAL EXAMINATION: GENERAL: He is currently alert, confused, does not seem to be in acute distress. VITAL SIGNS: He did have a low fever today, 100. HEENT: He is normocephalic. CHEST: Clear bilaterally. HEART: S1, S2. No S3 or S4. No murmur. ABDOMEN: Soft. Bowel sounds present. No tenderness. EXTREMITIES: No edema. He did have ecchymosis on his left chest wall. IMPRESSION: 1. Bacteremia, coagulase-negative staph. I think it is contamination in 1 set. 2. Low fever. Etiology unclear. Will get a blood culture. Continue with Rocephin. 3. Acute kidney injury, probably underlying chronic kidney disease. 4. Congestive heart failure. 5. Arrhythmia. 6. Obesity. 7. Concerned about early dementia. Will follow with you. Thank you very much for asking me to see this patient. Job#: [id number] EV
[2018-01-13] MEDS: SODIUM BICARBONATE 8.4% 150 ML in DEXTROSE 5% 1,000 ML IV SCH (15:59)
[2018-01-13] MEDS: MORPHINE SULFATE 2 MG/ML SYR IV PRN (20:05)
[2018-01-13] MEDS: ONDANSETRON HCL INJ 2 MG/ML VIAL IV PRN (20:05)
[2018-01-13] MEDS: BALSAM PERU/CASTOR OIL 5 GM OINT...G. TP SCH (20:55)
[2018-01-13] MEDS: MUPIROCIN 2% OINT 22 GM TUBE TOP SCH (20:55)
[2018-01-13] MEDS: SIMVASTATIN 40 MG TAB PO SCH ×2 (21:00→21:03)
[2018-01-13] MEDS: CEFTRIAXONE SOD 1 GM VIAL IV SCH (21:03)
[2018-01-14] VITALS (42 sets, daily range): BP systolic 102–167; BP diastolic 42–100
[2018-01-14] MEDS: MORPHINE SULFATE 2 MG/ML SYR IV PRN ×3 (01:14→12:06)
[2018-01-14 04:52] LABS: BASOPHILS % 0.1 % (0.0-1.0); EOSINOPHILS # (AUTO) 0.1 (0.0-0.4); EOSINOPHILS % 1.2 % (0.0-6.0); HEMOGLOBIN 7.7 g/dL (14.0-18.0); LYMPHOCYTES # (AUTO) 0.3 (1.0-3.2); LYMPHOCYTES % 2.6 % (18.0-39.1); MEAN CORPUSCULAR HEMOGLOBIN 29.2 pg (28-32); MEAN CORPUSCULAR HGB CONC 30.8 g/dL (31-35); MEAN CORPUSCULAR VOLUME 94.7 fL (81-99); MONOCYTES # (AUTO) 0.7 (0.2-0.8); MONOCYTES % 6.9 % (4.4-11.3); NEUTROPHILS # (AUTO) 9.3 (2.1-6.9); NEUTROPHILS % 88.6 % (38.7-80.0); PLATELET COUNT 53 x10e3/uL (140-360); RED BLOOD COUNT 2.64 x10e6/uL (4.3-5.7); RED CELL DISTRIBUTION WIDTH 16.3 % (11.7-14.4)
[2018-01-14 05:17] LABS: ANION GAP 19.7 mmol/L (8-16); CALCIUM 8.1 mg/dL (8.4-10.2); CREATININE, SERUM 2.11 mg/dL (0.72-1.25); MAGNESIUM 1.8 MG/DL (1.3-2.1); POTASSIUM 3.7 mmol/L (3.5-5.1)
[2018-01-14] MEDS: SODIUM BICARBONATE 8.4% 150 ML in DEXTROSE 5% 1,000 ML IV SCH ×2 (05:17→20:28)
[2018-01-14 06:35] LABS: PHOSPHORUS 2.2 MG/DL (2.3-4.7)
[2018-01-14] MEDS: FAMOTIDINE 20 MG TAB PO SCH ×2 (07:30→15:17)
[2018-01-14] MEDS: INSULIN REGULAR, HUMAN 100 UNIT/1 ML 3ML VIAL SQ SCH ×4 (08:07→20:54)
[2018-01-14] MEDS: PANTOPRAZOLE SOD 40 MG TABEC PO SCH (09:00)
[2018-01-14] MEDS: ONDANSETRON HCL INJ 2 MG/ML VIAL IV PRN (12:32)
[2018-01-14] MEDS ORDERED: VANCOMYCIN 1GM/NS 250 ML 250 ML IV SCH (15:15)
[2018-01-14] MEDS: CEFTRIAXONE SOD 1 GM VIAL IV SCH (19:28)
[2018-01-14] MEDS: SIMVASTATIN 40 MG TAB PO SCH (20:28)
[2018-01-15] VITALS (29 sets, daily range): BP systolic 121–158; BP diastolic 53–101
[2018-01-15] MEDS: MORPHINE SULFATE 2 MG/ML SYR IV PRN (02:45)
[2018-01-15 06:56] LABS: BASOPHILS % 0.1 % (0.0-1.0); EOSINOPHILS # (AUTO) 0.1 (0.0-0.4); EOSINOPHILS % 0.7 % (0.0-6.0); HEMATOCRIT 25.4 % (38.2-49.6); HEMOGLOBIN 7.8 g/dL (14.0-18.0); LYMPHOCYTES # (AUTO) 0.4 (1.0-3.2); MEAN CORPUSCULAR HEMOGLOBIN 29.2 pg (28-32); MEAN CORPUSCULAR HGB CONC 30.7 g/dL (31-35); MEAN CORPUSCULAR VOLUME 95.1 fL (81-99); MONOCYTES # (AUTO) 0.9 (0.2-0.8); MONOCYTES % 8.1 % (4.4-11.3); NEUTROPHILS # (AUTO) 9.2 (2.1-6.9); NEUTROPHILS % 86.5 % (38.7-80.0); PLATELET COUNT 58 x10e3/uL (140-360); RED BLOOD COUNT 2.67 x10e6/uL (4.3-5.7); RED CELL DISTRIBUTION WIDTH 16.4 % (11.7-14.4)
[2018-01-15 07:07] LABS: ANION GAP 17.7 mmol/L (8-16); CALCIUM 8.1 mg/dL (8.4-10.2); CREATININE, SERUM 2.91 mg/dL (0.72-1.25); MAGNESIUM 1.9 MG/DL (1.3-2.1); PHOSPHORUS 2.9 MG/DL (2.3-4.7); POTASSIUM 3.7 mmol/L (3.5-5.1)
[2018-01-15] MEDS: FAMOTIDINE 20 MG TAB PO SCH ×2 (08:02→16:31)
[2018-01-15] MEDS: PANTOPRAZOLE SOD 40 MG TABEC PO SCH (08:02)
[2018-01-15 08:14] LABS: BAND NEUTROPHILS % (MANUAL) 1 %; EOSINOPHILS % (MANUAL) 1 % (0-7); LYMPHOCYTES % (MANUAL) 1 % (19-48); MONOCYTES % (MANUAL) 5 % (3.4-9.0); NEUTROPHILS % (MANUAL) 92 % (40-74)
[2018-01-15 08:15] LABS: ANISOCYTOSIS MODERATE; HYPOCHROMASIA SLIGHT; MICROCYTOSIS SLIG; PLATELET MORPHOLOGY COMMENT NORMAL; RBC MORPHOLOGY COMMENT ABNORMAL
[2018-01-15 08:16] LABS: PLATELET ESTIMATE MODERATELY DECREASED
[2018-01-15] MEDS: INSULIN REGULAR, HUMAN 100 UNIT/1 ML 3ML VIAL SQ SCH ×4 (08:18→20:09)
[2018-01-15] MEDS: BALSAM PERU/CASTOR OIL 5 GM OINT...G. TP SCH (08:53)
[2018-01-15] MEDS: MUPIROCIN 2% OINT 22 GM TUBE TOP SCH (08:53)
[2018-01-15] MEDS: SODIUM BICARBONATE 8.4% 150 ML in DEXTROSE 5% 1,000 ML IV SCH (13:42)
[2018-01-15] MEDS: ACETAMINOPHEN 325 MG TAB PO PRN (16:31)
[2018-01-15] MEDS: SIMVASTATIN 40 MG TAB PO SCH (20:08)
[2018-01-15] MEDS: CEFTRIAXONE SOD 1 GM VIAL IV SCH (20:08)
[2018-01-16] VITALS (39 sets, daily range): BP systolic 120–157; BP diastolic 52–89
[2018-01-16] MEDS: SODIUM BICARBONATE 8.4% 150 ML in DEXTROSE 5% 1,000 ML IV SCH ×2 (05:40→21:31)
[2018-01-16 07:43] LABS: BASOPHILS % 0.2 % (0.0-1.0); EOSINOPHILS # (AUTO) 0.6 (0.0-0.4); EOSINOPHILS % 5.2 % (0.0-6.0); HEMATOCRIT 25.3 % (38.2-49.6); HEMOGLOBIN 7.8 g/dL (14.0-18.0); LYMPHOCYTES # (AUTO) 0.6 (1.0-3.2); MEAN CORPUSCULAR HEMOGLOBIN 28.9 pg (28-32); MEAN CORPUSCULAR HGB CONC 30.8 g/dL (31-35); MEAN CORPUSCULAR VOLUME 93.7 fL (81-99); MONOCYTES # (AUTO) 0.9 (0.2-0.8); MONOCYTES % 7.8 % (4.4-11.3); NEUTROPHILS # (AUTO) 8.9 (2.1-6.9); NEUTROPHILS % 81.4 % (38.7-80.0); PLATELET COUNT 63 x10e3/uL (140-360); RED CELL DISTRIBUTION WIDTH 16.7 % (11.7-14.4)
--- NOTE | 2018-01-16 07:44 | Progress Note ---
DATE: SUBJECTIVE: Patient is in ICU, comes here for acute mental status changes, acute kidney injury, recent placement of AICD with leukocytosis. Patient is currently feeling better. Acute mental status is little bit better. Still has cognitive problems. Alert and oriented x2. Sleeping, easily arousable. Over the weekend, the patient was kept in the ICU. A dialysis was done. Patient is currently off the dialysis. PHYSICAL EXAMINATION: VITAL SIGNS: Blood pressure is 150/75, pulse is 80, satting at 98% on 2 liters of oxygen. HEENT: Normocephalic, atraumatic. Pupils are reactive to light and accommodation. CVS: S1, S2 normal, is regular rate and rhythm. ABDOMEN: Nontender, nondistended. EXTREMITIES: Trace edema. LABORATORY VALUES: White count has come down to 10.68; hemoglobin of 7.8; hematocrit of 25.4; platelet count 58,000, low. Chemistries: Sodium is 141, potassium of 3.7, BUN of 25, creatinine of 2.91, glucose is 294. MICROBIOLOGY: Blood cultures are no growth after 48 hours, Gram stains are negative, and initial blood culture did grow some Staph coag, which is possibly a contamination. ASSESSMENT: 1. Acute mental status changes. 2. Leukocytosis. 3. Acute kidney injury. 4. Hypertension. 5. Hyperlipidemia. 6. Thrombocytopenia. 7. History of coronary artery disease with automatic implantable cardioverter-defibrillator placement. 8. Diabetes mellitus. PLAN: To continue with the antibiotics. The patient is on Rocephin. Will continue monitoring his white count. Acute kidney injury has been better. Will continue to keep him on the fluids. Patient's medicines have been reviewed. Will keep him on pantoprazole, and also for the AICD placement pressure bandage has been applied, and Dr. Powers is on the case. Further recommendations on clinical course. Will continue to monitor the patient and keep monitoring his labs and his medications. Overall, the patient is better compared to Tuesday. Will continue to monitor the patient in ICU for right now and repeat labs. Job#: [id number]
[2018-01-16 08:02] LABS: CALCIUM 8.6 mg/dL (8.4-10.2); CREATININE, SERUM 3.43 mg/dL (0.72-1.25)
[2018-01-16] MEDS: INSULIN REGULAR, HUMAN 100 UNIT/1 ML 3ML VIAL SQ SCH ×4 (08:10→20:22)
[2018-01-16] MEDS: FAMOTIDINE 20 MG TAB PO SCH ×2 (08:14→16:30)
[2018-01-16] MEDS: PANTOPRAZOLE SOD 40 MG TABEC PO SCH (08:14)
[2018-01-16] MEDS ORDERED: MAGNESIUM SULFATE 2GM/50ML 50 ML IV ONE (11:00)
[2018-01-16] MEDS: BALSAM PERU/CASTOR OIL 5 GM OINT...G. TP SCH (11:54)
[2018-01-16] MEDS: MUPIROCIN 2% OINT 22 GM TUBE TOP SCH (11:54)
[2018-01-16 18:36] LABS: INR 1.34; PROTHROMBIN TIME 17.7 seconds (11.9-14.5)
[2018-01-16] MEDS: CEFTRIAXONE SOD 1 GM VIAL IV SCH (20:16)
[2018-01-16] MEDS: SIMVASTATIN 40 MG TAB PO SCH (20:18)
[2018-01-16] MEDS: ONDANSETRON HCL INJ 2 MG/ML VIAL IV PRN (20:50)
[2018-01-16] MEDS: MORPHINE SULFATE 2 MG/ML SYR IV PRN (20:50)
[2018-01-16] MEDS: DIPHENHYDRAMINE HCL 25 MG CAP PO PRN (21:00)
[2018-01-17] VITALS (18 sets, daily range): BP systolic 97–137; BP diastolic 29–83
[2018-01-17] MEDS: MORPHINE SULFATE 2 MG/ML SYR IV PRN ×2 (01:00→05:09)
[2018-01-17 04:49] LABS: BASOPHILS % 0.2 % (0.0-1.0); EOSINOPHILS # (AUTO) 0.7 (0.0-0.4); EOSINOPHILS % 5.1 % (0.0-6.0); HEMATOCRIT 26.3 % (38.2-49.6); HEMOGLOBIN 8.1 g/dL (14.0-18.0); LYMPHOCYTES # (AUTO) 0.6 (1.0-3.2); LYMPHOCYTES % 4.2 % (18.0-39.1); MEAN CORPUSCULAR HEMOGLOBIN 29.2 pg (28-32); MEAN CORPUSCULAR HGB CONC 30.8 g/dL (31-35); MEAN CORPUSCULAR VOLUME 94.9 fL (81-99); MONOCYTES # (AUTO) 1.1 (0.2-0.8); NEUTROPHILS # (AUTO) 10.9 (2.1-6.9); NEUTROPHILS % 82.1 % (38.7-80.0); PLATELET COUNT 79 x10e3/uL (140-360); RED BLOOD COUNT 2.77 x10e6/uL (4.3-5.7); RED CELL DISTRIBUTION WIDTH 16.6 % (11.7-14.4)
[2018-01-17 05:15] LABS: ALBUMIN 2.9 g/dL (3.5-5.0); ANION GAP 11.6 mmol/L (8-16); CALCIUM 8.6 mg/dL (8.4-10.2); CREATININE, SERUM 2.4 mg/dL (0.72-1.25); PHOSPHORUS 2.3 MG/DL (2.3-4.7); POTASSIUM 3.6 mmol/L (3.5-5.1)
--- NOTE | 2018-01-17 07:26 | Progress Note ---
DATE: SUBJECTIVE: This is a patient who came in with acute mental status changes. Patient currently is doing better. Cognition is better. Poor feeding. Patient is in the ICU and more cognizant today. PHYSICAL EXAMINATION: VITAL SIGNS: Temperature is 97.9, pulse of 76, blood pressure is 125/60, SpO2 of 82%. Patient BMI is 34. GENERAL: Patient is sick, alert and oriented x2, better than yesterday. LUNGS: Decreased breath sounds into lung bases and throughout the lung wynn. HEENT: Normocephalic, atraumatic. Moist mucosa. NECK: There is no JVD. CARDIOVASCULAR: S1, S2 normal. Ejection systolic murmur present. CHEST WALL: There is presence of AICD, questionable hematoma versus fluid collection. ABDOMEN: Nontender, nondistended. EXTREMITIES: Decreased pulses, otherwise normal. NEUROLOGICAL: As mentioned above mental status and otherwise no focal changes. LABS: Sodium is 135, potassium is 3.6. BUN is 22; creatinine of 2.40, which has improved from yesterday. White count is 13.3; hemoglobin of 8.1 with hematocrit of 26.3, which has come up from 7.8 yesterday. Liver enzymes are normal. Patient's blood cultures are normal. ASSESSMENT: 1. Acute mental status changes possibly secondary to sepsis. Patient is on Rocephin, which we will continue to have. Acute mental status changes secondary to sepsis probably getting better. 2. Renal failure, had dialysis and is currently better. Will hold off on dialysis right now. 3. Chest hematoma versus fluid collection, compression. 4. History of automatic implantable cardioverter-defibrillator upgrade, doing very well. 5. History of transcatheter aortic valve replacement. 6. Currently afebrile. PLAN: To continue with the antibiotics. Continue with medications for his coronary artery disease. Patient is on DVT prophylaxis. Will continue to monitor the patient. Prognosis remains guarded still, and will follow up with the consultants. Job#: [id number]
[2018-01-17] MEDS: INSULIN REGULAR, HUMAN 100 UNIT/1 ML 3ML VIAL SQ SCH ×4 (07:58→22:58)
[2018-01-17] MEDS: PANTOPRAZOLE SOD 40 MG TABEC PO SCH (08:07)
[2018-01-17] MEDS: MUPIROCIN 2% OINT 22 GM TUBE TOP SCH (08:07)
[2018-01-17] MEDS: FAMOTIDINE 20 MG TAB PO SCH ×2 (08:07→16:30)
[2018-01-17] MEDS: BALSAM PERU/CASTOR OIL 5 GM OINT...G. TP SCH (08:07)
[2018-01-17 08:18] LABS: LYMPHOCYTES % (MANUAL) 4 % (19-48); MONOCYTES % (MANUAL) 6 % (3.4-9.0); NEUTROPHILS % (MANUAL) 90 % (40-74)
[2018-01-17 08:19] LABS: PLATELET ESTIMATE SLIGHTLY DECREASED; PLATELET MORPHOLOGY COMMENT NORMAL
[2018-01-17] MEDS: SODIUM BICARBONATE 8.4% 150 ML in DEXTROSE 5% 1,000 ML IV SCH (13:33)
[2018-01-17 15:29] LABS: ANION GAP 11.2 mmol/L (8-16); CALCIUM 8.3 mg/dL (8.4-10.2); CREATININE, SERUM 2.37 mg/dL (0.72-1.25); MAGNESIUM 1.8 MG/DL (1.3-2.1); POTASSIUM 3.2 mmol/L (3.5-5.1)
[2018-01-17] MEDS ORDERED: POTASSIUM CHLORIDE 20MEQ/100ML 100 ML IV ONE (17:30)
[2018-01-17] MEDS: CEFTRIAXONE SOD 1 GM VIAL IV SCH (20:43)
[2018-01-17] MEDS: SIMVASTATIN 40 MG TAB PO SCH (20:43)
[2018-01-18] VITALS (28 sets, daily range): BP systolic 96–150; BP diastolic 38–100
[2018-01-18 05:05] LABS: ALBUMIN 2.7 g/dL (3.5-5.0); ALBUMIN/GLOBULIN RATIO 0.9 (0.8-2.0); ANION GAP 11.2 mmol/L (8-16); CALCIUM 8.5 mg/dL (8.4-10.2); CREATININE, SERUM 2.41 mg/dL (0.72-1.25); MAGNESIUM 1.7 MG/DL (1.3-2.1); PHOSPHORUS 2.1 MG/DL (2.3-4.7); POTASSIUM 3.2 mmol/L (3.5-5.1)
[2018-01-18] MEDS: SODIUM BICARBONATE 8.4% 150 ML in DEXTROSE 5% 1,000 ML IV SCH ×2 (06:23→23:09)
[2018-01-18] MEDS: FAMOTIDINE 20 MG TAB PO SCH ×2 (07:13→16:53)
[2018-01-18] MEDS: INSULIN REGULAR, HUMAN 100 UNIT/1 ML 3ML VIAL SQ SCH ×4 (08:30→21:00)
[2018-01-18] MEDS: PANTOPRAZOLE SOD 40 MG TABEC PO SCH (08:32)
[2018-01-18] MEDS: BALSAM PERU/CASTOR OIL 5 GM OINT...G. TP SCH (15:36)
[2018-01-18] MEDS: MUPIROCIN 2% OINT 22 GM TUBE TOP SCH (15:36)
[2018-01-18] MEDS: SIMVASTATIN 40 MG TAB PO SCH (21:00)
[2018-01-19] VITALS (8 sets, daily range): BP systolic 118–138; BP diastolic 64–91
[2018-01-19 05:08] LABS: BASOPHILS % 0.1 % (0.0-1.0); EOSINOPHILS # (AUTO) 0.2 (0.0-0.4); EOSINOPHILS % 1.7 % (0.0-6.0); LYMPHOCYTES # (AUTO) 0.5 (1.0-3.2); LYMPHOCYTES % 3.7 % (18.0-39.1); MEAN CORPUSCULAR HEMOGLOBIN 29.1 pg (28-32); MEAN CORPUSCULAR HGB CONC 30.8 g/dL (31-35); MEAN CORPUSCULAR VOLUME 94.5 fL (81-99); MONOCYTES # (AUTO) 1.2 (0.2-0.8); MONOCYTES % 9.4 % (4.4-11.3); NEUTROPHILS # (AUTO) 10.1 (2.1-6.9); NEUTROPHILS % 83.2 % (38.7-80.0); PLATELET COUNT 118 x10e3/uL (140-360); RED BLOOD COUNT 2.75 x10e6/uL (4.3-5.7); RED CELL DISTRIBUTION WIDTH 17.2 % (11.7-14.4)
[2018-01-19 05:33] LABS: ALBUMIN 2.9 g/dL (3.5-5.0); ALBUMIN/GLOBULIN RATIO 0.9 (0.8-2.0); ANION GAP 13.6 mmol/L (8-16); CALCIUM 8.6 mg/dL (8.4-10.2); CREATININE, SERUM 1.76 mg/dL (0.72-1.25); POTASSIUM 3.6 mmol/L (3.5-5.1)
[2018-01-19 06:18] LABS: LYMPHOCYTES % (MANUAL) 3 % (19-48); MONOCYTES % (MANUAL) 5 % (3.4-9.0); NEUTROPHILS % (MANUAL) 92 % (40-74)
[2018-01-19 06:25] LABS: PLATELET ESTIMATE ADEQUATE; PLATELET MORPHOLOGY COMMENT NORMAL; RBC MORPHOLOGY COMMENT NORMAL
[2018-01-19 06:26] LABS: ANISOCYTOSIS SLIGHT
[2018-01-19] MEDS: ACETAMINOPHEN 325 MG TAB PO PRN ×3 (07:55→17:53)
[2018-01-19] MEDS: CEFTRIAXONE SOD 1 GM VIAL IV SCH (07:55)
[2018-01-19] MEDS: PANTOPRAZOLE SOD 40 MG TABEC PO SCH (07:55)
[2018-01-19] MEDS: INSULIN REGULAR, HUMAN 100 UNIT/1 ML 3ML VIAL SQ SCH ×4 (08:06→20:33)
[2018-01-19] MEDS: MUPIROCIN 2% OINT 22 GM TUBE TOP SCH (09:52)
[2018-01-19] MEDS: BALSAM PERU/CASTOR OIL 5 GM OINT...G. TP SCH (09:52)
[2018-01-19] MEDS ORDERED: POTASSIUM CHLORIDE 20 MEQ TAB CR PO ONE (12:40)
[2018-01-19] MEDS: SIMETHICONE 80 MG CHEW PO PRN (13:12)
[2018-01-19] MEDS: ALLOPURINOL 100 MG TAB PO SCH (13:41)
[2018-01-19] MEDS ORDERED: TRAMADOL HCL 50 MG TAB PO PRN (14:00)
[2018-01-19 15:19] LABS: INR 1.31; PROTHROMBIN TIME 17.4 seconds (11.9-14.5)
[2018-01-19 17:27] LABS: OCCULT BLOOD STOOL NEGATIVE (NEGATIVE)
[2018-01-19] MEDS: FUROSEMIDE 40 MG TAB PO SCH (17:52)
[2018-01-19] MEDS: WARFARIN SOD 2 MG TAB PO SCH (17:53)
[2018-01-19] MEDS: SIMVASTATIN 40 MG TAB PO SCH (20:35)
[2018-01-20] VITALS (8 sets, daily range): BP systolic 115–137; BP diastolic 79–91
[2018-01-20 04:59] LABS: INR 1.24; PROTHROMBIN TIME 16.7 seconds (11.9-14.5)
[2018-01-20 05:10] LABS: ANION GAP 13.4 mmol/L (8-16); CREATININE, SERUM 1.98 mg/dL (0.72-1.25); POTASSIUM 3.4 mmol/L (3.5-5.1)
[2018-01-20] MEDS: FUROSEMIDE 40 MG TAB PO SCH (05:21)
--- NOTE | 2018-01-20 06:28 | Progress Note ---
DATE: Becoming more alert and less confusion and agitation. His sitter has actually been able to be removed. OBJECTIVE VITAL SIGNS: 98.2, pulse 100, blood pressure 137/91, saturations 100%. GENERAL: He is in no apparent distress. LUNGS: Decreased breath sounds. NECK: Supple. CARDIOVASCULAR: Regular rate and rhythm. ABDOMEN: Good bowel sounds. Soft and nontender. EXTREMITIES: No clubbing cyanosis. NEUROLOGICAL: Moves all extremities times 4. ASSESSMENT AND PLAN 1. Chronic kidney disease, stage 3: Continue to monitor. 2. Gout: Continue with allopurinol. 3. Diabetes: Continue current care. 4. Hyperlipidemia: Continue with his simvastatin. Please see hospital chart for full details. Job#: [id number] VALENTIN
[2018-01-20] MEDS: INSULIN REGULAR, HUMAN 100 UNIT/1 ML 3ML VIAL SQ SCH ×4 (07:44→21:15)
[2018-01-20] MEDS: CEFTRIAXONE SOD 1 GM VIAL IV SCH (07:44)
[2018-01-20] MEDS ORDERED: POTASSIUM CHLORIDE 20 MEQ TAB CR PO ONE (08:10)
[2018-01-20] MEDS: FUROSEMIDE INJ 10 MG/ML 4 ML VIAL IV SCH ×2 (08:27→21:15)
[2018-01-20] MEDS: ASPIRIN 81 MG CHEW TAB PO SCH (08:27)
[2018-01-20] MEDS: ALLOPURINOL 100 MG TAB PO SCH (08:27)
[2018-01-20] MEDS: PANTOPRAZOLE SOD 40 MG TABEC PO SCH (08:27)
[2018-01-20 08:53] LABS: C DIFFICILE TOXIN A&B AMP PROB NEGATIVE (NEGATIVE)
[2018-01-20] MEDS ORDERED: WARFARIN SOD 3 MG TAB PO SCH (09:00)
[2018-01-20] MEDS: MUPIROCIN 2% OINT 22 GM TUBE TOP SCH (11:43)
[2018-01-20] MEDS: BALSAM PERU/CASTOR OIL 5 GM OINT...G. TP SCH (11:43)
[2018-01-20] MEDS: DIPHENHYDRAMINE HCL 25 MG CAP PO PRN (14:21)
[2018-01-20] MEDS: WARFARIN SOD 2 MG TAB PO SCH (17:27)
[2018-01-20] MEDS: SIMVASTATIN 40 MG TAB PO SCH (21:15)
[2018-01-21] VITALS (21 sets, daily range): BP systolic 102–142; BP diastolic 51–94
[2018-01-21 05:27] LABS: INR 1.18
[2018-01-21 05:32] LABS: ANION GAP 16.4 mmol/L (8-16); CALCIUM 9.2 mg/dL (8.4-10.2); CREATININE, SERUM 2.07 mg/dL (0.72-1.25); POTASSIUM 3.4 mmol/L (3.5-5.1)
[2018-01-21] MEDS: INSULIN REGULAR, HUMAN 100 UNIT/1 ML 3ML VIAL SQ SCH ×4 (07:30→21:38)
[2018-01-21] MEDS: PANTOPRAZOLE SOD 40 MG TABEC PO SCH (09:02)
[2018-01-21] MEDS: BALSAM PERU/CASTOR OIL 5 GM OINT...G. TP SCH (09:02)
[2018-01-21] MEDS: ASPIRIN 81 MG CHEW TAB PO SCH (09:02)
[2018-01-21] MEDS: ALLOPURINOL 100 MG TAB PO SCH (09:02)
[2018-01-21] MEDS: CEFTRIAXONE SOD 1 GM VIAL IV SCH (09:03)
[2018-01-21] MEDS: FUROSEMIDE INJ 10 MG/ML 4 ML VIAL IV SCH ×2 (09:03→21:25)
[2018-01-21 12:07] LABS: BASOPHILS % 0.3 % (0.0-1.0); EOSINOPHILS # (AUTO) 0.3 (0.0-0.4); EOSINOPHILS % 2.4 % (0.0-6.0); HEMATOCRIT 28.6 % (38.2-49.6); HEMOGLOBIN 8.9 g/dL (14.0-18.0); LYMPHOCYTES # (AUTO) 0.4 (1.0-3.2); LYMPHOCYTES % 3.8 % (18.0-39.1); MEAN CORPUSCULAR HGB CONC 31.1 g/dL (31-35); MEAN CORPUSCULAR VOLUME 93.2 fL (81-99); MONOCYTES % 10.2 % (4.4-11.3); NEUTROPHILS # (AUTO) 8.5 (2.1-6.9); NEUTROPHILS % 82.9 % (38.7-80.0); PLATELET COUNT 154 x10e3/uL (140-360); RED BLOOD COUNT 3.07 x10e6/uL (4.3-5.7); RED CELL DISTRIBUTION WIDTH 17.5 % (11.7-14.4)
[2018-01-21 12:57] LABS: EOSINOPHILS % (MANUAL) 2 % (0-7); LYMPHOCYTES % (MANUAL) 6 % (19-48); MONOCYTES % (MANUAL) 6 % (3.4-9.0); NEUTROPHILS % (MANUAL) 86 % (40-74); PLATELET ESTIMATE ADEQUATE; PLATELET MORPHOLOGY COMMENT NORMAL; RBC MORPHOLOGY COMMENT NORMAL
[2018-01-21] MEDS: WARFARIN SOD 2 MG TAB PO SCH (20:12)
[2018-01-21] MEDS: CLONAZEPAM 0.5 MG TAB PO SCH (20:12)
[2018-01-21] MEDS: ACETAMINOPHEN 325 MG TAB PO PRN (20:12)
[2018-01-21] MEDS: SIMVASTATIN 40 MG TAB PO SCH (21:25)
[2018-01-22] VITALS (10 sets, daily range): BP systolic 108–142; BP diastolic 70–99
[2018-01-22] MEDS: SIMETHICONE 80 MG CHEW PO PRN (03:48)
[2018-01-22 04:14] LABS: BASOPHILS % 0.3 % (0.0-1.0); EOSINOPHILS # (AUTO) 0.5 (0.0-0.4); EOSINOPHILS % 5.2 % (0.0-6.0); HEMOGLOBIN 8.9 g/dL (14.0-18.0); LYMPHOCYTES # (AUTO) 0.6 (1.0-3.2); MEAN CORPUSCULAR HEMOGLOBIN 29.1 pg (28-32); MEAN CORPUSCULAR HGB CONC 30.7 g/dL (31-35); MEAN CORPUSCULAR VOLUME 94.8 fL (81-99); MONOCYTES % 9.7 % (4.4-11.3); NEUTROPHILS # (AUTO) 7.9 (2.1-6.9); NEUTROPHILS % 78.4 % (38.7-80.0); PLATELET COUNT 166 x10e3/uL (140-360); RED BLOOD COUNT 3.06 x10e6/uL (4.3-5.7); RED CELL DISTRIBUTION WIDTH 17.6 % (11.7-14.4)
[2018-01-22 04:22] LABS: INR 1.19; PROTHROMBIN TIME 16.2 seconds (11.9-14.5)
[2018-01-22 04:29] LABS: ANION GAP 18.6 mmol/L (8-16); CALCIUM 9.3 mg/dL (8.4-10.2); CREATININE, SERUM 1.62 mg/dL (0.72-1.25); POTASSIUM 3.6 mmol/L (3.5-5.1)
[2018-01-22] MEDS: BALSAM PERU/CASTOR OIL 5 GM OINT...G. TP SCH (07:30)
[2018-01-22] MEDS: INSULIN REGULAR, HUMAN 100 UNIT/1 ML 3ML VIAL SQ SCH ×4 (07:30→20:49)
[2018-01-22] MEDS: ASPIRIN 81 MG CHEW TAB PO SCH (09:00)
[2018-01-22] MEDS: CEFTRIAXONE SOD 1 GM VIAL IV SCH (09:00)
[2018-01-22] MEDS: FUROSEMIDE INJ 10 MG/ML 4 ML VIAL IV SCH ×2 (09:00→20:42)
[2018-01-22] MEDS: Vilazodone Hydrochloride (Viibryd) 40 MG PO SCH (09:00)
[2018-01-22] MEDS: ALLOPURINOL 100 MG TAB PO SCH (09:00)
[2018-01-22] MEDS: PANTOPRAZOLE SOD 40 MG TABEC PO SCH (09:00)
[2018-01-22] MEDS: CLONAZEPAM 0.5 MG TAB PO SCH ×2 (09:00→17:28)
[2018-01-22] MEDS ORDERED: WARFARIN SOD 5 MG TAB PO ONE ×2 (17:00→18:00)
[2018-01-22] MEDS: WARFARIN SOD 2 MG TAB PO SCH (17:28)
[2018-01-22] MEDS: SIMVASTATIN 40 MG TAB PO SCH (20:42)
[2018-01-23] VITALS (12 sets, daily range): BP systolic 108–138; BP diastolic 72–88
[2018-01-23 05:13] LABS: INR 1.35; PROTHROMBIN TIME 17.8 seconds (11.9-14.5)
[2018-01-23 06:56] LABS: ANION GAP 15.5 mmol/L (8-16); CALCIUM 9.2 mg/dL (8.4-10.2); CREATININE, SERUM 1.78 mg/dL (0.72-1.25); POTASSIUM 3.5 mmol/L (3.5-5.1)
[2018-01-23] MEDS: CEFTRIAXONE SOD 1 GM VIAL IV SCH (08:32)
[2018-01-23] MEDS: INSULIN REGULAR, HUMAN 100 UNIT/1 ML 3ML VIAL SQ SCH ×4 (08:33→21:15)
[2018-01-23] MEDS: ALLOPURINOL 100 MG TAB PO SCH (08:37)
[2018-01-23] MEDS: ASPIRIN 81 MG CHEW TAB PO SCH (08:37)
[2018-01-23] MEDS: CLONAZEPAM 0.5 MG TAB PO SCH ×2 (08:37→17:37)
[2018-01-23] MEDS: FUROSEMIDE INJ 10 MG/ML 4 ML VIAL IV SCH (08:37)
[2018-01-23] MEDS: BALSAM PERU/CASTOR OIL 5 GM OINT...G. TP SCH (08:37)
[2018-01-23] MEDS: PANTOPRAZOLE SOD 40 MG TABEC PO SCH (08:37)
[2018-01-23] MEDS: Vilazodone Hydrochloride (Viibryd) 40 MG PO SCH (08:37)
[2018-01-23] MEDS ORDERED: HEPARIN SOD (PORCINE) 1000 UNIT/ML SDV IV PRN (08:45)
--- NOTE | 2018-01-23 15:04 | Diagnostic Imaging Report ---
EXAM: XR CHEST 2 VIEWS DATE: 01/23/2018 10:36 AM INDICATION: CHF COMPARISON: 01/12/2018, no report available FINDINGS: Lines and Tubes: Right IJ dialysis catheter tip overlying the SVC, left chest wall ICD with leads overlying the right atrium, right ventricle, and coronary sinus, and TAVR changes are stable. Heart and Mediastinum: Heart is upper limits of normal. Lungs and Pleura: No significant edema, pneumothorax, or focal consolidation. Bones and Soft Tissues: No acute findings. IMPRESSION: 1. No acute cardiopulmonary findings. Signed by: Dr. Ibrahima Bennett MD on 01/23/2018 3:01 PM
--- NOTE | 2018-01-23 15:23 | Consultation ---
DATE OF CONSULTATION: January 23, 2018 REASON FOR CONSULTATION: To evaluate the patient's mood. HISTORY OF PRESENT ILLNESS: The patient is a 72-year-old male admitted to the hospital with acute hyperkalemia. A psychiatric consultation is called to evaluate the patient's mood and possible dementia. As per medical records, the patient has history of heart failure, uncontrolled diabetes, hyperlipidemia, chronic pain syndrome. Upon evaluation today, the patient is found to be in the room surrounded by family members. He is alert, awake and oriented to self and place, but he does not know the current year. His mentation is slow, answering questions with some difficulty regarding his mood, and is not oriented to the year. He claims that he had recently had dialysis and he is feeling tired. He admits to having depression and anxiety, as well as feeling hopeless and helpless. He denies any suicidal thoughts and denies any passive wish. He complained of poor appetite and intermittent sleep problem. He is calm at this time. No delusions or being paranoid elicited. Collaborated with family members who reported that the patient has been given medication for depression and anxiety by primary care physician for over 20 years. He has never seen a psychiatrist in the past. PAST PSYCHIATRIC HISTORY: The patient reported history of depression and anxiety. He denied suicidal attempt. He denies alcohol or drug use. FAMILY HISTORY: Sister with depression and anxiety. SOCIAL HISTORY: The patient lives with , sons and daughter. MENTAL STATUS EXAM: The patient is an elderly, male. He is alert, awake and oriented to self and place, but does not know the current year. He is calm at this time. He has some psychomotor retardation. He admits to feeling depressed and anxious. His affect is congruent with his mood. Denies any hallucinations. Denies any suicidal or homicidal ideation. His thought process is concrete with no delusions, no paranoia elicited. Insight and judgment are fair. Memory appears to be grossly impaired. CURRENT MEDICATIONS: Vilazodone. HOME MEDICATIONS: 1. Klonopin 0.5 mg p.o. 2 times a day. 2. Allopurinol. 3. Aspirin. 4. Pantoprazole. 5. Insulin. 6. Ceftriaxone. 7. Statin. 8. Warfarin. 9. Simethicone. 10. p.r.n. 11. Acetaminophen. 12. Benadryl. 13. Zofran. 14. Sodium chloride. 15. Heparin. 16. Dextrose. 17. Albumin. 18. Mannitol. 19. Lactulose. CURRENT LABS: WBC 10.09, RBCs ____, hemoglobin 8.9, hematocrit 29.0, platelets 166,000. Chemistry: Sodium 139, potassium 3.5, chloride 97, CO2 31, creatinine is 1.78. ASSESSMENT: Major depressive disorder, recurrent, moderate; anxiety disorder, unspecified; rule out dementia. PLAN: 1. To continue with Vilazodone. 2. Continue with Klonopin. 3. Add Remeron 7.5 mg p.o. nightly. 4. Monitor for mood. 5. Supportive therapy. Thank you for this consultation. Dictated by: DAIJA Baires Job#: [id number] GH
[2018-01-23] MEDS: WARFARIN SOD 2 MG TAB PO SCH (17:37)
[2018-01-23] MEDS: MIRTAZAPINE 15 MG TAB PO SCH (21:15)
[2018-01-23] MEDS: SIMVASTATIN 40 MG TAB PO SCH (21:15)
[2018-01-24] VITALS (9 sets, daily range): BP systolic 76–121; BP diastolic 31–90
[2018-01-24 04:23] LABS: INR 1.57; PROTHROMBIN TIME 20.1 seconds (11.9-14.5)
[2018-01-24 04:25] LABS: BASOPHILS % 0.2 % (0.0-1.0); EOSINOPHILS # (AUTO) 0.5 (0.0-0.4); EOSINOPHILS % 6.1 % (0.0-6.0); HEMOGLOBIN 8.4 g/dL (14.0-18.0); LYMPHOCYTES # (AUTO) 0.5 (1.0-3.2); LYMPHOCYTES % 6.4 % (18.0-39.1); MEAN CORPUSCULAR HEMOGLOBIN 29.1 pg (28-32); MEAN CORPUSCULAR HGB CONC 31.1 g/dL (31-35); MEAN CORPUSCULAR VOLUME 93.4 fL (81-99); MONOCYTES # (AUTO) 0.6 (0.2-0.8); MONOCYTES % 7.1 % (4.4-11.3); NEUTROPHILS # (AUTO) 6.7 (2.1-6.9); NEUTROPHILS % 79.7 % (38.7-80.0); PLATELET COUNT 175 x10e3/uL (140-360); RED BLOOD COUNT 2.89 x10e6/uL (4.3-5.7); RED CELL DISTRIBUTION WIDTH 17.2 % (11.7-14.4)
[2018-01-24 04:38] LABS: ALBUMIN 2.9 g/dL (3.5-5.0); ALBUMIN/GLOBULIN RATIO 0.8 (0.8-2.0); ANION GAP 15.3 mmol/L (8-16); CALCIUM 8.9 mg/dL (8.4-10.2); CREATININE, SERUM 1.67 mg/dL (0.72-1.25); POTASSIUM 3.3 mmol/L (3.5-5.1)
[2018-01-24] MEDS ORDERED: POTASSIUM CHLORIDE 20 MEQ TAB CR PO ONE (07:00)
--- NOTE | 2018-01-24 08:23 | Progress Note ---
DATE: SUBJECTIVE: Patient came in with hematoma of the chest wall, sepsis, and status post AICD upgraded. Patient is currently doing well. Patient had acute renal failure, which is also better. Patient is sleepy, but alert and oriented x3, talkative, and did work with physical therapy yesterday. Guardado was out yesterday. The patient is going to the bathroom without any complaints at this time. MEDICINES: Have been reviewed today. PHYSICAL EXAMINATION: VITAL SIGNS: Temperature is 98.4, pulse of 94, blood pressure is 108/67, SpO2 of 100%, on 2 liters of oxygen. GENERAL: Alert and oriented x3. LUNGS: Clear to auscultation bilaterally. NECK: No JVD present. IJ present. CARDIOVASCULAR: S1, S2 normal. Regular rate and rhythm. ABDOMEN: Nontender. EXTREMITIES: No clubbing, no cyanosis, no edema. NEUROLOGICAL: Stable. No focal deficits. LABS: Sodium is 136, potassium of 3.3, chloride of 95, CO2 of 29, BUN 33, creatinine of 1.67. Hemoglobin of 8.4 and hematocrit of 27. The rest of the labs were essentially normal. ASSESSMENT: 1. Acute kidney injury, better, status post dialysis . 2. Hematoma of the chest wall. Continue with compression, status post automatic implantable cardioverter-defibrillator placement and upgrade secondary to low ejection fraction of less than 15%. 3. Chronic kidney disease. 4. Debility. 5. Diabetes mellitus. 6. Gout. 7. Hypertension. PLAN: Will continue his home medications and continue monitoring him. The patient has physical therapy on board. SNF has been noted. Will have conference with the insurance, and depending on the plan, we can discharge him to the SNF and/or home with home health. Further recommendations on clinical course. Will continue to monitor the patient and his electrolytes as we go. Potassium was low today, will be replaced with 40 mEq of potassium. For further information, look in the chart. For medicines, look into the medicine sheet. Job#: [id number]
[2018-01-24] MEDS: CEFTRIAXONE SOD 1 GM VIAL IV SCH (09:11)
[2018-01-24] MEDS: ASPIRIN 81 MG CHEW TAB PO SCH (09:13)
[2018-01-24] MEDS: INSULIN REGULAR, HUMAN 100 UNIT/1 ML 3ML VIAL SQ SCH ×4 (09:13→20:20)
[2018-01-24] MEDS: CLONAZEPAM 0.5 MG TAB PO SCH ×2 (09:14→17:00)
[2018-01-24] MEDS: Vilazodone Hydrochloride (Viibryd) 40 MG PO SCH (09:14)
[2018-01-24] MEDS: BALSAM PERU/CASTOR OIL 5 GM OINT...G. TP SCH (09:14)
[2018-01-24] MEDS: ALLOPURINOL 100 MG TAB PO SCH (09:14)
[2018-01-24] MEDS: PANTOPRAZOLE SOD 40 MG TABEC PO SCH (09:14)
[2018-01-24] MEDS: WARFARIN SOD 2 MG TAB PO SCH (17:00)
[2018-01-24] MEDS: MIRTAZAPINE 15 MG TAB PO SCH (20:19)
[2018-01-24] MEDS: SIMVASTATIN 40 MG TAB PO SCH (20:19)
[2018-01-25] VITALS (12 sets, daily range): BP systolic 108–131; BP diastolic 67–90
[2018-01-25 05:24] LABS: INR 1.53; PROTHROMBIN TIME 19.7 seconds (11.9-14.5)
[2018-01-25 06:16] LABS: ANION GAP 14.4 mmol/L (8-16); CALCIUM 8.8 mg/dL (8.4-10.2); CREATININE, SERUM 1.84 mg/dL (0.72-1.25); MAGNESIUM 1.3 MG/DL (1.3-2.1); POTASSIUM 3.4 mmol/L (3.5-5.1)
[2018-01-25 07:41] LABS: BASOPHILS % 0.3 % (0.0-1.0); EOSINOPHILS # (AUTO) 0.5 (0.0-0.4); EOSINOPHILS % 5.7 % (0.0-6.0); HEMATOCRIT 27.7 % (38.2-49.6); HEMOGLOBIN 8.5 g/dL (14.0-18.0); LYMPHOCYTES # (AUTO) 0.5 (1.0-3.2); LYMPHOCYTES % 6.2 % (18.0-39.1); MEAN CORPUSCULAR HEMOGLOBIN 29.1 pg (28-32); MEAN CORPUSCULAR HGB CONC 30.7 g/dL (31-35); MEAN CORPUSCULAR VOLUME 94.9 fL (81-99); MONOCYTES # (AUTO) 0.6 (0.2-0.8); MONOCYTES % 6.6 % (4.4-11.3); NEUTROPHILS % 80.4 % (38.7-80.0); PLATELET COUNT 204 x10e3/uL (140-360); RED BLOOD COUNT 2.92 x10e6/uL (4.3-5.7); RED CELL DISTRIBUTION WIDTH 17.3 % (11.7-14.4)
[2018-01-25] MEDS: INSULIN REGULAR, HUMAN 100 UNIT/1 ML 3ML VIAL SQ SCH ×4 (08:04→21:20)
[2018-01-25] MEDS: PANTOPRAZOLE SOD 40 MG TABEC PO SCH (08:40)
[2018-01-25] MEDS: Vilazodone Hydrochloride (Viibryd) 40 MG PO SCH (08:40)
[2018-01-25] MEDS: CEFTRIAXONE SOD 1 GM VIAL IV SCH (08:40)
[2018-01-25] MEDS: ASPIRIN 81 MG CHEW TAB PO SCH (08:40)
[2018-01-25] MEDS: CLONAZEPAM 0.5 MG TAB PO SCH ×2 (08:40→16:50)
[2018-01-25] MEDS: BALSAM PERU/CASTOR OIL 5 GM OINT...G. TP SCH (08:41)
[2018-01-25] MEDS: ALLOPURINOL 100 MG TAB PO SCH (08:41)
[2018-01-25 08:53] LABS: EOSINOPHILS % (MANUAL) 3 % (0-7); LYMPHOCYTES % (MANUAL) 9 % (19-48); MONOCYTES % (MANUAL) 6 % (3.4-9.0); NEUTROPHILS % (MANUAL) 82 % (40-74); PLATELET ESTIMATE ADEQUATE; PLATELET MORPHOLOGY COMMENT NORMAL; RBC MORPHOLOGY COMMENT NORMAL
--- NOTE | 2018-01-25 11:09 | Consultation ---
DATE OF CONSULTATION: January 16, 2018 CONSULT TO: Dr. Mayo Mr. Brown is a 72-year-old white male who has been referred to me for evaluation of anemia and thrombocytopenia. The patient had presented with confusion and subsequently admitted for further evaluation and treatment. SOCIAL HISTORY: Noncontributory. FAMILY HISTORY: Noncontributory. ALLERGIES: REPORTED HYDROCODONE. MEDICATIONS AT THIS TIME 1. Sodium chloride. 2. Sodium bicarbonate. 3. Diphenhydramine. 4. Pepcid. 5. Lactulose. 6. Morphine. 7. Ondansetron. 8. Protonix. 9. Simvastatin. 10. Ceftriaxone. 11. Mannitol. 12. Albumin. 13. Heparin. 14. Tylenol. 15. Insulin. REVIEW OF SYSTEMS HEENT: Normal. CARDIAC: The patient had AICD. History of coronary artery disease. RESPIRATORY: History of congestive heart failure. GI: Normal. : At the present time, chronic renal failure. MUSCULOSKELETAL: Normal. SKIN AND BREASTS: Normal. NEUROENDOCRINE: History of diabetes mellitus. PHYSICAL EXAMINATION GENERAL: A morbidly obese, short, stalky male. Confused at the time. Anemic. No palpable adenopathy. HEART: Within normal limits. LUNGS: Clear. CHEST: The left upper chest shows recent scar of AICD with some hematoma. ABDOMEN: Obese. RECTAL: Exam deferred. CENTRAL NERVOUS SYSTEM: Essentially normal. EXTREMITIES: Essentially normal. LABS: Investigations of interest show the patient to have a CBC dated 01/11/2018 with hemoglobin of 10.4; white count 12,200; platelets of 107,000. However, the consult was given when the patient's platelets dropped down to 63,000 with hemoglobin of 7.8. Chemistry had shown the patient to have a sodium of 126, potassium 5.6, chloride 88, CO2 14, creatinine 10.9, BUN 143. CPK high at 563. Blood cultures are positive for staph coagulase-negative species. Imaging showed the CT of the brain to be normal. Chest x-ray showing mild bronchial thickening and atelectasis. IMPRESSION 1. Anemia of chronic disease. 2. Hypoalbuminemia. 3. Hyponatremia. 4. Chronic renal failure. 5. High creatine phosphokinase, possible rhabdomyolysis. 6. Hypoproteinemia. 7. Hypocalcemia. 8. Diabetes mellitus. 9. Coagulopathy. 10. Staph sepsis, coagulase negative. 11. Cardiomegaly and congestive heart failure by chest x-ray. 12. Acquired thrombocytopenia. 13. History of hyperlipidemia. PLAN, COMMENTS AND SUGGESTIONS: This low platelet count is acquired after admission. The patient has infection, and he should recover. The patient does not need any platelet transfusion unless he bleeds less than 20,000. INR to begin with was 2.54. However, fibrinogen level is essentially normal at 480. This is acquired coagulopathy. I will confine myself to hematology. Thank you very much for allowing me to participate in the management of this patient. Job#: [id number] cc:MD DR. ABIGAIL BELLA MD ABRAHAM JOHN, MD MING JEANG, MD
[2018-01-25] MEDS ORDERED: POTASSIUM CHLORIDE 20 MEQ TAB CR PO NR (13:00)
--- NOTE | 2018-01-25 13:02 | Progress Note ---
DATE: January 25, 2018 PSYCHIATRIC PROGRESS NOTE The patient is in the room with his daughter. He is alert, awake and oriented to situation. He is calm. He is sitting up having his lunch. He states that he is doing okay. He denies depression. Denies other issues. Does not complain of poor sleep. Denies any hallucinations. He is answering questions appropriately. He is not oriented to year. However, as per the daughter, the patient does not typically know the year over so many years. The daughter states he is currently at baseline. The daughter states that he has not been confused. ASSESSMENT: Major depressive disorder, recurrent, moderate; anxiety disorder, unspecified; rule out dementia. PLAN: 1. Continue Klonopin. 2. Continue Remeron 7.5 mg p.o. nightly. 3. Continue with vilazodone. 4. Supportive therapy. Dictated by: DAIJA Baires Job#: [id number]
[2018-01-25] MEDS: WARFARIN SOD 2 MG TAB PO SCH (16:50)
[2018-01-25] MEDS: SIMVASTATIN 40 MG TAB PO SCH (21:20)
[2018-01-25] MEDS: MIRTAZAPINE 15 MG TAB PO SCH (21:20)
[2018-01-26] VITALS (7 sets, daily range): BP systolic 110–133; BP diastolic 68–80
[2018-01-26 06:28] LABS: ANION GAP 14.7 mmol/L (8-16); CALCIUM 8.8 mg/dL (8.4-10.2); CREATININE, SERUM 1.64 mg/dL (0.72-1.25); POTASSIUM 3.7 mmol/L (3.5-5.1)
[2018-01-26 07:02] LABS: INR 1.56
[2018-01-26] MEDS: INSULIN REGULAR, HUMAN 100 UNIT/1 ML 3ML VIAL SQ SCH ×4 (07:30→21:20)
[2018-01-26] MEDS: BALSAM PERU/CASTOR OIL 5 GM OINT...G. TP SCH (10:00)
[2018-01-26] MEDS: PANTOPRAZOLE SOD 40 MG TABEC PO SCH (10:13)
[2018-01-26] MEDS: CLONAZEPAM 0.5 MG TAB PO SCH ×2 (10:13→17:44)
[2018-01-26] MEDS: ALLOPURINOL 100 MG TAB PO SCH (10:13)
[2018-01-26] MEDS: ASPIRIN 81 MG CHEW TAB PO SCH (10:13)
[2018-01-26] MEDS: Vilazodone Hydrochloride (Viibryd) 40 MG PO SCH (11:30)
[2018-01-26] MEDS ORDERED: WARFARIN SOD 2 MG TAB PO SCH (17:00)
[2018-01-26] MEDS: MIRTAZAPINE 15 MG TAB PO SCH (21:20)
[2018-01-26] MEDS: SIMVASTATIN 40 MG TAB PO SCH (21:20)
[2018-01-27 00:05] VITALS: BP 125/79
[2018-01-27 04:00] VITALS: BP 134/87
[2018-01-27 06:22] LABS: INR 1.55; PROTHROMBIN TIME 19.9 seconds (11.9-14.5)
[2018-01-27] MEDS: CARVEDILOL 12.5 MG TAB PO SCH ×2 (07:00→16:38)
[2018-01-27] MEDS: INSULIN REGULAR, HUMAN 100 UNIT/1 ML 3ML VIAL SQ SCH ×3 (07:30→16:37)
[2018-01-27 08:00] VITALS: BP 114/71
[2018-01-27] MEDS ORDERED: BALSAM PERU/CASTOR OIL 60 GM OINT...G. TP SCH (09:00)
[2018-01-27] MEDS ORDERED: NYSTATIN 100,000 UNITS/GM CRM 30GM TUBE TOP SCH (09:00)
[2018-01-27] MEDS: CLONAZEPAM 0.5 MG TAB PO SCH ×2 (09:00→16:39)
[2018-01-27] MEDS ORDERED: METOPROLOL TARTRATE 25 MG TAB PO SCH (09:00)
[2018-01-27] MEDS: PANTOPRAZOLE SOD 40 MG TABEC PO SCH (09:00)
[2018-01-27] MEDS: ASPIRIN 81 MG CHEW TAB PO SCH (09:00)
[2018-01-27] MEDS: ALLOPURINOL 100 MG TAB PO SCH (09:00)
[2018-01-27] MEDS: BALSAM PERU/CASTOR OIL 5 GM OINT...G. TP SCH (10:16)
[2018-01-27] MEDS: Vilazodone Hydrochloride (Viibryd) 40 MG PO SCH (10:16)
[2018-01-27 10:37] VITALS: BP 114/71
[2018-01-27 12:03] VITALS: BP 109/59
[2018-01-27 16:08] VITALS: BP 122/75
--- NOTE | 2018-01-27 16:38 | Progress Note ---
DATE: January 27, 2018 PSYCHIATRIC PROGRESS NOTE Patient evaluated and events noted. Patient is in the room. He is alert, awake and oriented to situation. He is calm, pleasant, cooperative. He is looking forward to being discharged home. Denies any depression, denies any hallucination, denies any suicidal ideation. He is doing fair. He is receiving his medication and denies any side effects. ASSESSMENT: Major depressive disorder, recurrent, moderate; anxiety disorder and rule out dementia. PLAN 1. Continue with Klonopin. 2. Continue with Remeron 7.5 mg p.o. nightly. 3. Continue with vilazodone. 4. Supportive therapy. Dictated by: DAIJA Baires Job#: [id number] EV
[2018-01-27] MEDS ORDERED: WARFARIN SOD 2 MG TAB PO SCH (17:00)
[2018-01-27] MEDS ORDERED: WARFARIN SOD 2.5 MG TAB PO SCH (17:00)
== END 2018-01-27 17:20 | disposition home health service (06) | DRG 871 ==
LOC: MERGE 09:58 → ER 09:58 → ERHOLD 12:18 → MED/SURG2 19:29 → ICU 01-13 15:32 → IMCU 01-18 23:05 → MED/SURG 01-25 20:54
PROVIDERS: ADMIT Family Medicine; ATTEND Family Medicine
PROC: 02HV33Z Insertion of Infusion Device into Superior Vena Cava, Percutaneous Approach (ICD-10-PCS; principal; 2018-01-11)
PROC: B5181ZA Fluoroscopy of Superior Vena Cava using Low Osmolar Contrast, Guidance (ICD-10-PCS; 2018-01-11)
PROC: 5A1D70Z Performance of Urinary Filtration, Intermittent, Less than 6 Hours Per Day (ICD-10-PCS; 2018-01-11)
PROC: 5A1D70Z Performance of Urinary Filtration, Intermittent, Less than 6 Hours Per Day (ICD-10-PCS; 2018-01-13)
PROC: 5A1D70Z Performance of Urinary Filtration, Intermittent, Less than 6 Hours Per Day (ICD-10-PCS; 2018-01-16)
PROC: 5A1D70Z Performance of Urinary Filtration, Intermittent, Less than 6 Hours Per Day (ICD-10-PCS; 2018-01-18)
PROC: 5A1D70Z Performance of Urinary Filtration, Intermittent, Less than 6 Hours Per Day (ICD-10-PCS; 2018-01-21)
DX: A41.9 Sepsis, unspecified organism (principal); N17.0 Acute kidney failure with tubular necrosis; G92 Toxic encephalopathy; I50.22 Chronic systolic (congestive) heart failure; I13.0 Hypertensive heart and chronic kidney disease with heart failure and stage 1 through stage 4 chronic kidney disease, or unspecified chronic kidney disease; E87.2 Acidosis; F33.1 Major depressive disorder, recurrent, moderate; E87.1 Hypo-osmolality and hyponatremia; M62.82 Rhabdomyolysis; I97.638 Postprocedural hematoma of a circulatory system organ or structure following other circulatory system procedure; R65.20 Severe sepsis without septic shock; I27.20 Pulmonary hypertension, unspecified; Z79.01 Long term (current) use of anticoagulants; E87.5 Hyperkalemia; E86.0 Dehydration; E11.22 Type 2 diabetes mellitus with diabetic chronic kidney disease; Z79.4 Long term (current) use of insulin; Z95.810 Presence of automatic (implantable) cardiac defibrillator; Z95.5 Presence of coronary angioplasty implant and graft; Z82.49 Family history of ischemic heart disease and other diseases of the circulatory system; Z95.2 Presence of prosthetic heart valve; Z79.82 Long term (current) use of aspirin; D64.9 Anemia, unspecified; E03.9 Hypothyroidism, unspecified; E78.5 Hyperlipidemia, unspecified; I34.0 Nonrheumatic mitral (valve) insufficiency; F03.90 Unspecified dementia, unspecified severity, without behavioral disturbance, psychotic disturbance, mood disturbance, and anxiety; E66.9 Obesity, unspecified; I49.9 Cardiac arrhythmia, unspecified; G89.4 Chronic pain syndrome; F41.9 Anxiety disorder, unspecified; E77.8 Other disorders of glycoprotein metabolism; E83.51 Hypocalcemia; D69.6 Thrombocytopenia, unspecified; N18.3 Chronic kidney disease, stage 3 (moderate); Z68.33 Body mass index [BMI] 33.0-33.9, adult; M10.9 Gout, unspecified
CPT/HCPCS: 36415; 36556; 51700; 70450; 71045; 71046; 74470; 76770; 76937; 77001; 80048; 80053; 80076; 81001; 82270; 82550; 82553; 82728; 82948; 83540; 83735; 84100; 84443; 84466; 84484; 85025; 85379; 85384; 85610; 85730; 86021; 86706; 86707; 87040; 87045; 87071; 87086; 87205; 87340; 87350; 87493; 90962; 93005; 96367; 96372; 97139; 99285; J0696; J1644; J1940; J2060; J2150; J2270; J2405; J3370; J3475; J3480; J7030; J7040; J7070; J7799

== ENCOUNTER 2018-03-27 16:00 | Outpatient (RCR) | payer MEDICARE, BC ==
[~2018-03-27 16:00] MED LIST changes: +ALLOPURINOL300 MG PO; +BUMETANIDE1 MG PO; +BUMETANIDE2 MG PO; +COREG12.5 MG PO; +LEVEMIR100 UNIT/1 SQ; +LISINOPRIL10 MG PO; +NOVOLOG100 UNIT/1 SQ; +RANITIDINE HCL150 MG PO; +SPIRONOLACTONE25 MG PO; +TYLENOL WITH C1 EACH PO; +ULTRAM 50MG50 MG PO; +VIIBRYD40 MG PEG; +WARFARIN SODIUM1 MG PO
== END 2018-03-30 ==
LOC: PT 16:00
PROVIDERS: ATTEND Family Medicine
DX: M54.5 Low back pain (principal); I50.9 Heart failure, unspecified; R54 Age-related physical debility

== ENCOUNTER → 2018-04-27 | Outpatient (RCR) | payer MEDICARE, BC | LOC: PT 04-03 15:11 | PROVIDERS: ATTEND Family Medicine | DX: I50.9 Heart failure, unspecified (principal); R54 Age-related physical debility; M54.5 Low back pain; M62.81 Muscle weakness (generalized); R53.81 Other malaise; R26.2 Difficulty in walking, not elsewhere classified | CPT/HCPCS: 97139 ==

== ENCOUNTER 2018-05-02 14:51 | Outpatient (RCR) | payer MEDICARE, BC ==
[2018-05-04] MEDS ORDERED: LOVASTATIN20 MG PO (09:30)
[2018-05-04] MEDS ORDERED: BUSPIRONE HCL5 MG PO (09:30)
== END 2018-05-28 ==
LOC: PT 14:51
PROVIDERS: ATTEND Family Medicine
DX: M54.5 Low back pain (principal); I50.9 Heart failure, unspecified; R54 Age-related physical debility; M62.81 Muscle weakness (generalized); R53.81 Other malaise; R26.2 Difficulty in walking, not elsewhere classified

== ENCOUNTER 2018-05-04 09:01 | Inpatient (IN) | payer MEDICARE, BC ==
[2018-05-04] VITALS (8 sets, daily range): BP systolic 105–116; BP diastolic 74–84
[~2018-05-04] VITALS: Ht 170.2 cm; Wt 92.2 kg
--- OUTSIDE RECORDS SUMMARY | 2018-05-04 09:05 | XMS REPORT | Summary of Care ---
Author Author JAEL Boggs, NEVIN Davis Unknown Address Unknown Phone Unavailable Care Team Providers Care Manager Social Services Name Role Phone JAEL Boggs, NEVIN Unavailable Unavailable JENNIFER Boggs, UVALDO Unavailable Unavailable JAEL STEWART HI, NEVIN Overton Unavailable Unavailable Unavailable Unavailable Functional Status Name [...] Quantity: 90 * Start : 27-Jul-2013 Active Nitrostat 0.4 MG Sublingual Tablet Sublingual DISSOLVE 1 TAB UNDER TONGUE FOR CHEST PAIN - IF PAIN REMAINS AFTER 5 MIN, CALL 9 11 AND REPEAT DOSE. MAX 3 TABS IN 15 MINUTES * Quantity: 25 Refills: 6 * Start : 27-Jul-2013 Active Digoxin 125 MCG Oral Tablet TAKE ONE TABLET BY MOUTH EVERY DAY * Refills: 0 * Start : 27-Jul-2013 Active Coreg 25 MG Oral Tablet TAKE 1 TABLET TWICE DAILY * Quantity: 60 Refills: 5 * Start : 27-Jul-2013 Active ClonazePAM 0.5 MG Oral Tablet Take one tablet twice daily * Refills: 0 * Start : 27-Jul-2013 Active Basehor 3 1000 MG Oral Capsule TAKE 1 [...] TABLET DAILY * Quantity: 45 Refills: 3 UVALDO RODRIGUEZ M.D. * Start : 16-Nov-2017 Active Liothyronine [...] TABLET DAILY. * Refills: 0 Active Bumetanide 1 MG Oral Tablet TAKE 1 TABLET DAILY. * Quantity: 90 Refills: 3 MEHDI RODRIGUEZ M.D.YL * Start : 05-Jan-2018 Active Lisinopril 5 MG Oral Tablet TAKE 1 TABLET DAILY. * Refills: 0 Active 30 Tablet Bottle Allergies and Adverse Reactions Name Dates Details Hydrocodone-Acetaminophen TABS (Allergy) Status: Active Procedures Procedure Dates Details [[facility]] BASIC METABOLIC PANEL W/EGFR Date: 15-Feb-2018 [QL] B TYPE NATRIURETIC PEPTIDE (BNP) Date: 15-Feb-2018 Immunization Name Dates Details Immunizations not documented Social History Name Dates Details - Status: Name Dates Details Former smoker Vital Signs Date Test Result Details [id number] BP Systolic 104 mm[Hg] Status: Comments: Location: LUE; Position: Sitting BP Diastolic 72 mm[Hg] Status: Comments: Location: LUE; Position: Sitting Height 64 in Status: Weight 191 lb Status: Body Mass Index Calculated 32.79 kg/m2 Status: Body Surface Area Calculated 1.92 m2 Status: O2 SAT 98 % Status: Comments: Source: RA Heart Rate 72 /min Status: Comments: Location: L Radial; Results Date Description Value Details Results not documented Plan of Care Name Dates Details Planned Observations Planned Goals not documented Planned Encounters Appointment; RUBI DE [place] On: 08-Mar-2018 14:00 Appointment; NEVIN ELDER M.D. On: 17-May-2018 10:00 Interventions Provided Medication Changes* Bumetanide 1 MG Oral Tablet - Renew * Spironolactone 25 MG Oral Tablet - Renew Plan* - appears dry on examination and given recent admission for [facility] requiring temporary HD, will decrease Bumex to 1mg daily * - will check BMP and BNP prior to next visit * - advised weight monitoring and DASH diet * - continue OMT and GDMT * - RTC in 3 months Instructions Name Dates Details Instructions not documented [...] Diagnosis: Problem not documented On: 19-Dec-2017 9:45 Appointment; [facility] DEV[facility] Encounter Diagnosis: Problem not documented On: 23-Jan-2018 8:45 Appointment; [facility], DEVICE Encounter Diagnosis: Problem not documented On: 24-Jan-2018 11:00 Appointment; [facility], DEVICE Encounter Diagnosis: Problem not documented On: 01-Feb-2018 14:30 Appointment; EDWIGE MIN M.D. Encounter Diagnosis: Problem not documented On: 13-Feb-2018 9:15 Appointment; NEVIN ELDER M.D. Encounter Diagnosis: Problem not documented On: 15-Feb-2018 10:20
--- OUTSIDE RECORDS SUMMARY | 2018-05-04 09:05 | XMS REPORT | Continuity of Care Document ---
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 12/19/2017 [facility] OTHER MECHANICAL COMPLICATION OF CARDIAC Active 12/19/2017 [facility] CHF EXACERBATION Active 11/23/2017 [facility] FREDERIC, HEART FAILURE Active 11/23/2017 [facility] TROUBLE BREATHING/LEG PAIN/INJURY Active 11/23/2017 [facility] SEVERE AORTIC STENOSIS, CHF Active 10/24/2013 [facility] AORTIC VALVE DISORDER Active 09/13/2013 [facility] AORTIC VALVE DISORDERTAVR PROTOCOL INC Active 09/13/2013 [facility] ACD - Automatic cardiac defibrillator procedure Resolved Problem 10/29/2013 [facility] AMI (<span ID="[id number]">Confirmed</span>) Resolved Problem 10/29/2013 [facility] Aortic stenosis Resolved Problem 10/29/2013 [facility] Blood clot Resolved Problem 10/29/2013 [facility] CAD (<span ID="[id number]">Confirmed</span>) Resolved Problem 10/29/2013 [facility] Congestive heart failure Resolved Problem 10/29/2013 [facility] Coronary stent site Resolved Problem 10/29/2013 [facility] DM , type 2(<span ID="[id number]">Confirmed</span>) Resolved Problem 10/29/2013 [facility] Hypertension Resolved Problem 10/29/2013 [facility] AORTIC VALVE DISORDER Active [facility] AC 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 Inactive 10/28/2013 [facility] tramadol hydrochloride 50 MG Oral Tablet 50 mg=1 tab, PO, Q6H, Pain, # 24 tab, 0 Refill(s) Active 10/27/2013 [facility] warfarin 3 mg oral tablet 3 mg=1 tab, PO, Daily, # 30 tab, 0 Refill(s) Active 10/27/2013 [facility] enoxaparin 80 mg/0.8 mL subcutaneous solution =80 mg, SUB- Q, Q12H, 14 syringes, # 12 mL, 0 Refill(s)Special Instructions: 14 syringes Active 10/27/2013 [facility] enalapril 5 mg oral tablet 5 mg=1 tab, PO, BID, # 60 tab, 1 Refill(s) Active 10/27/2013 [facility] Hydrochlorothiazide 25 MG Oral Tablet 12.5 mg=0.5 tab, PO, Daily, # 30 tab, 1 Refill(s) Active 10/27/2013 [facility] Lidocaine Hydrochloride 0.05 MG/MG Transdermal Patch 1 patch, Route: TOP, Daily, Drug form: FILM, Start date: 10/27/13 12:00:00, Duration: 30 day, Stop date: 11/26/13 9:00:00Notes: Apply only once for up to 12 hours in a 24-hour period (12 hours on and 12 hours off). (Same as: Lidoderm) "Remove old patch before application of new patch" Inactive 10/27/2013 [facility] Tramadol 50 mg, 1 tab, Route: PO, Drug form: TAB, Q6H, Dosing Weight 75.199, kg, PRN Pain Score 1-3, Start date: 10/27/13 11:26:00, Duration: 30 day, Stop date: 11/26/13 11:25:00Notes: Not to exceed 400mg/day. (Same As: Ultram) Inactive 10/27/2013 [facility] Coumadin 3 mg, 3 tab, Route: PO, Drug form: TAB, Q5PM, Dosing Weight 75.199, kg, Start date: 10/26/13 17:00:00, Duration: 1 doses or times, Stop date: 10/26/13 17:00:00Notes: Nurse to ensure documentation of pat ient education per anticoagulation policy. Avoid large intake of vitamin-K containing foods diet. (Same As: Coumadin) Inactive 10/26/2013 [facility] vancomycin (SCIP) + Sodium Chloride 0.9% IV 250 mL 1,250 mg, Route: IVPB, ONCE, Dosing Weight 75.199, kg, Start date: 10/26/13 14:00:00, Stop date: 10/26/13 14:00:00 Inactive 10/26/2013 [facility] POLYETHYLENE GLYCOL 3350 17 gm, 1 pkt, Route: PO, Drug form: PWDR, Daily, Dosing Weight 75.199, kg, Start date: 10/26/13 9:00:00, Duration: 30 day, Stop date: 11/24/13 9:00:00Notes: Dissolve in 8 oz of water or juice. (Same as: Miralax) No Longer Active 10/26/2013 [facility] pantoprazole 40 mg, Route: PO, Daily, Dosing Weight 75.199, kg, Start date: 10/26/13 9:00:00, Duration: 30 day, Stop date: 11/24/13 9:00:00 No Longer Active 10/26/2013 [facility] Enalapril 5 mg, 1 tab, Route: PO, Drug form: TAB, BID, Dosing Weight 75.199, kg, Start date: 10/26/13 9:00:00, Duration: 30 day, Stop date: 11/24/13 17:00:00Notes: (Same as: Vasotec) No Longer Active 10/26/2013 [facility] Lovenox 80 mg, 0.8 mL, Route: SUB-Q, Drug form: INJ, [id number], Dosing Weight 75.199, kg, Start after lines removed., Start date: 10/26/13 8:00:00, Duration: 30 day, Stop date: 11/24/13 20:00:00, > 45 kg; Prophylaxis dose; Pediatric DosingSpecial Instructions: > 45 kg; Prophylaxis dose; Pediatric DosingNotes: Nurse to ensure documentation of patient education per anticoagulation policy. (Same as: Lovenox) No Longer Active 10/26/2013 [facility] Coreg 12.5 mg, 1 tab, Route: PO, Drug form: TAB, BID, Dosing Weight 75.199, kg, Priority: NOW, Start date: 10/26/13 5:04:00, Duration: 30 day, Stop date: 11/24/13 17:00:00Notes: Give with food. (Same As: Coreg) No Longer Active 10/26/2013 [facility] Acetaminophen 325 MG / Hydrocodone Bitartrate 5 MG Oral Tablet [Broxton 5/325] 1 tab, Route: PO, Drug Form: TAB, Dosing Weight 75.199, kg, Q6H, PRN Pain, Start date: 10/26/13 0:01:00, Duration: 30 day, Stop date: 11/25/13 0:00:00, pain second choiceNotes: (Same as: Bro[place] 325/5) Do not exceed 4gm/day of acetaminophen. No Longer Active 10/26/2013 [facility] Enalapril 5 mg, 1 tab, Route: PO, Drug form: TAB, Daily, Dosing Weight 75.199, kg, Priority: NOW, Start date: 10/26/13 0:00:00, Duration: 30 day, Stop date: 11/24/13 9:00:00Notes: (Same as: Vasotec) Inactive 10/26/2013 [facility] Magnesium Oxide 800 mg, 2 tab, Route: PO, Drug form: TAB, Q12H, Dosing Weight 75.199, kg, Priority: STAT, Start date: 10/25/13 23:57:00, Duration: 2 day, Stop date: 10/27/13 21:00:00Notes: (Same as: Mag-Ox 400) Magn esium oxide [id number] elemental magnesium Dose=____mg magnesium oxide (___mg elemental magnesium) No Longer Active 10/26/2013 [facility] ceFAZolin 1 gm, Route: IVPB, Drug form: PDR/INJ, ABXQ8H, Start date: 10/25/13 22:00:00, Duration: 3 doses or times, Stop date: 10/26/13 14:00:00Notes: (Same As: Ancef, Kefzol) No Longer Active 10/26/2013 [facility] Saline Flush 0.9% 10 ml, Route: IVP, Drug Form: INJ, Dosing Weight 75.199, kg, Q12H, Start date: 10/25/13 21:00:00, Duration: 30 day, Stop date: 11/24/13 9:00:00Notes: Same as: BD Posiflush Sterile No Longer Active 10/26/2013 [facility] Docusate 100 mg, 1 cap, Route: PO, Drug form: CAP, Q12H, Dosing Weight 75.199, kg, Start date: 10/25/13 21:00:00, Duration: 30 day, Stop date: 11/24/13 9:00:00Notes: (Same as: Colace) (Do Not Crush) No Longer Active 10/26/2013 [facility] tramadol hydrochloride 50 MG Oral Tablet 50 mg, 1 tab, Route: PO, Drug form: TAB, Q6H, Dosing Weight 75.199, kg, PRN Pain Score 4-6, Start date: 10/25/13 17:17:00, Duration: 30 day, Stop date: 11/24/13 17:16:00Notes: Not to exceed 400mg/day. (Same As: Ultram) No Longer Active 10/25/2013 [facility] 10 ML Cefazolin 100 MG/ML Prefilled Syringe 1 gm, Route: IVPB, Drug form: INJ, Q8H, Dosing Weight 75.199, kg, Start date: 10/25/13 16:00:00, Duration: 1 doses or times, Stop date: 10/25/13 16:00:00 Inactive 10/25/2013 [facility] Saline Flush 0.9% 10 ml, Route: IVP, Drug Form: INJ, Dosing Weight 75.199, kg, PRN, PRN Line Flush, Start date: 10/25/13 14:02:00, Duration: 30 day, Stop date: 11/24/13 14:01:00Notes: Same as: BD Posiflush Sterile No Longer Active 10/25/2013 [facility] Ondansetron 4 mg, 1 tab, Route: PO, Drug form: TAB, Q8H, Dosing Weight 75.199, kg, PRN Nausea & Vomiting, Start date: 10/25/13 14:02:00, Duration: 30 day, Stop date: 11/24/13 14:01:00Notes: (Same as: Zofran) No Longer Active 10/25/2013 [facility] Dobutamine 1,000 mg, 250 mL, Rate: 3 micrograms/kg/min, Dosing Weight 75.199, kg, Route: IV, Total Volume: 250, Start date: 10/25/13 14:02:00, Duration: 30 day, Stop date: 11/24/13 14:01:00, Replace Every: 24 hrNo manish: (Same as: Dobutrex) Final conc=4 mg/ml. Premix solution. Protect from light. No Longer Active 10/25/2013 [facility] Nicardipine 40 mg, 200 mL, Rate: Start at 5mg/hr. Titrate, Dosing Weight 75.199, kg, Route: IV, Total Volume: 200, Start Date: 10/25/13 14:02:00, Duration: 30 day, Stop date: 11/24/13 14:01:00, Replace Every: 24 hr Notes: Same as: Cardene Concentration: (0.2 mg /1 ml ) No Longer Active 10/25/2013 [facility] Vancomycin 6.67 MG/ML Injectable Solution 1,127.985 mg, Route: IVPB, Drug form: INJ, ONCE, Dosing Weight 75.199, kg, Start date: 10/25/13 14:02:00, Stop date: 10/25/13 14:02:00 Inactive 10/25/2013 [facility] Magnesium Sulfate 2 gm, 50 mL, Route: IVPB, Drug form: INJ, Q2H, Dosing Weight 75.199, kg, Total dose=4 gm, Start date: 10/25/13 12:00:00, Duration: 2 doses or times, Stop date: 10/25/13 14:00:00 Inactive 10/25/2013 [facility] Digoxin 0.125 MG Oral Tablet 0.125 mg, 1 tab, Route: PO, Drug form: TAB, Daily, Dosing Weight 75.199, kg, Start date: 10/25/13 9:00:00, Duration: 30 day, Stop date: 11/23/13 9:00:00Notes: Take on an Empty Stomach (Same as: Lanoxin) No Longer Active 10/25/2013 [facility] Enalapril Maleate 5 MG / Hydrochlorothiazide 12.5 MG Oral Tablet 1 tab, Route: PO, Drug Form: TAB, Dosing Weight 75.199, kg, Daily, Start date: 10/25/13 9:00:00, Duration: 30 day, Stop date: 11/23/13 9:00:00 No Longer Active 10/25/2013 [facility] Imdur 30 mg, 1 tab, Route: PO, Drug form: ERTAB, Daily, Start date: 10/25/13 9:00:00, Duration: 30 day, Stop date: 11/23/13 9:00:00Notes: (Same as:Imdur) "Do Not Crush" Take on empty stomach/ full glass of water. Do not crush No Longer Active 10/25/2013 [facility] Nexium 40 mg, Route: PO, Drug form: TAB, Daily, Dosing Weight 75.199, kg, Start date: 10/25/13 9:00:00, Duration: 30 day, Stop date: 11/23/13 9:00:00 No Longer Active 10/25/2013 [facility] Aspirin / Calcium Carbonate 81 mg, 1 tab, Route: PO, Drug form: CHEWTAB, Daily, Dosing Weight 75.199, kg, Start date: 10/25/13 9:00:00, Duration: 30 day, Stop date: 11/23/13 9:00:00Notes: Take with food. No Longer Active 10/25/2013 [facility] Vitamin B 12 1,000 microgram, 1 tab, Route: PO, Drug form: TAB, Daily, Dosing Weight 75.199, kg, Start date: 10/25/13 9:00:00, Duration: 30 day, Stop date: 11/23/13 9:00:00Notes: (Same As: Vitamin B-12) No Longer Active 10/25/2013 [facility] Ascorbic Acid / Biotin / Folic Acid / Niacin / pantothenate / pyridoxine / Riboflavin / Thiamine / Vitamin B 12 1 tab, Route: PO, Drug Form: TAB, Dosing Weight 75.199, kg, Daily, Start date: 10/25/13 9:00:00, Duration: 30 day, Stop date: 11/23/13 9:00:00Notes: (Same as:Thera) Take with food. No Longer Active 10/25/2013 [facility] Isosorbide Dinitrate 30 mg, Route: PO, Drug form: TAB, Daily, Dosing Weight 75.199, kg, Start date: 10/25/13 9:00:00, Duration: 30 day, Stop date: 11/23/13 9:00:00 No Longer Active 10/25/2013 [facility] hydrochlorothiazide 25 mg oral tablet 12.5 mg, 0.5 tab, Route: PO, Daily, Start date: 10/25/13 9:00:00, Duration: 30 day, Stop date: 11/23/13 9:00:00Notes: (Same as: Hydrodiuril) With food. No Longer Active 10/25/2013 [facility] Lantus 5 unit, 0.05 mL, Route: SUB-Q, Drug form: INJ, QAM, Dosing Weight 75.199, kg, Start date: 10/25/13 9:00:00, Duration: 30 day, Stop date: 11/23/13 9:00:00Notes: Same as Lantus Solostar PEN "single patient use only" Stable for 28 days at room temperature. Expires in days from Date No Longer Active 10/25/2013 [facility] ferrous sulfate 325 mg, 1 tab, Route: PO, Drug form: ECTAB, Daily, Dosing Weight 75.199, kg, Start date: 10/25/13 9:00:00, Duration: 30 day, Stop date: 11/23/13 9:00:00Notes: Give with food. "Do Not Crush" No Longer Active 10/25/2013 [facility] Magnesium Oxide 400 mg, 1 tab, Route: PO, Drug form: TAB, ONCE, Dosing Weight 75.199, kg, Start date: 10/25/13 4:19:00, Stop date: 10/25/13 4:19:00Notes: (Same as: Mag-Ox 400) Magnesium oxide [id number] elemental magnesium Dose=____mg magnesium oxide (___mg elemental magnesium) Inactive 10/25/2013 [facility] Simvastatin 40 mg, 1 tab, Route: PO, Drug form: TAB, Bedtime, Dosing Weight 75.199, kg, Start date: 10/24/13 21:00:00, Duration: 30 day, Stop date: 11/22/13 21:00:00Notes: (Same as: Zocor) No Longer Active 10/25/2013 [facility] 24 HR Niacin 500 MG Extended Release Tablet [Niaspan] 500 mg, 1 tab, Route: PO, Drug form: ERTAB, Bedtime, Dosing Weight 75.199, kg, Start date: 10/24/13 21:00:00, Duration: 30 day, Stop date: 11/22/13 21:00:00Notes: (Same as: Niaspan) "Do Not Crush" Non-Formulary Item With food. No Longer Active 10/25/2013 [facility] Lantus 25 unit, 0.25 mL, Route: SUB-Q, Drug form: INJ, Bedtime, Dosing Weight 75.199, kg, Start date: 10/24/13 21:00:00, Duration: 30 day, Stop date: 11/22/13 21:00:00Notes: Same as Lantus Solostar PEN &quot ;single patient use only" Stable for 28 days at room temperature. Expires in days from Date No Longer Active 10/25/2013 [facility] Lovenox 80 mg, 0.8 mL, Route: SUB-Q, Drug form: INJ, ONCE, Dosing Weight 75.199, kg, Start date: 10/24/13 18:00:00, Stop date: 10/24/13 18:00:00Notes: Nurse to ensure documentation of patient education per a nticoagulation policy. (Same as: Lovenox) Inactive 10/24/2013 [facility] Coreg 25 mg, 1 tab, Route: PO, Drug form: TAB, BID, Dosing Weight 75.199, kg, Start date: 10/24/13 17:00:00, Duration: 30 day, Stop date: 11/23/13 9:00:00Notes: Give with food. (Same As: Coreg) No Longer Active 10/24/2013 [facility] Furosemide 20 MG Oral Tablet 20 mg, 1 tab, Route: PO, Drug form: TAB, BID, Dosing Weight 75.199, kg, Start date: 10/24/13 17:00:00, Duration: 30 day, Stop date: 11/23/13 9:00:00Notes: (Same as: Lasix) May cause GI upset. Give with food or milk. No Longer Active 10/24/2013 [facility] Protonix 40 mg, 1 tab, Route: PO, Drug form: ECTAB, Before Dinner, Start date: 10/24/13 16:30:00, Duration: 30 day, Stop date: 11/22/13 16:30:00Notes: Tablet should not be chewed or crushed. (Same as: Protonix) No Longer Active 10/24/2013 [facility] Vasotec 5 mg, 1 tab, Route: PO, Drug form: TAB, Daily, Start date: 10/24/13 16:00:00, Duration: 30 day, Stop date: 11/23/13 9:00:00Notes: (Same as: Vasotec) No Longer Active 10/24/2013 [facility] Insulin, Aspart, Human 2 unit, 0.02 mL, [...] days from Date No Longer Active 10/24/2013 [facility] Dextrose 50% Syringe 12.5 gm, 25 mL, Route: IVP, Drug Form: INJ, Dosing Weight 75.199, kg, PRN, PRN Blood Glucose Results, Start date: 10/24/13 14:59:00, Duration: 30 day, Stop date: 11/23/13 14:58:00 No Longer Active 10/24/2013 [facility] Glucagon 1 mg, Route: IM, Drug form: PDR/INJ, PRN, Dosing Weight 75.199, kg, PRN Blood Glucose Results, Start date: 10/24/13 14:59:00, Duration: 30 day, Stop date: 11/23/13 14:58:00 No Longer Active 10/24/2013 [facility] Nitroglycerin 0.4 MG Sublingual Tablet 0.4 mg, 1 tab, Route: SL, Drug form: TAB, Q5Min, Dosing Weight 75.199, kg, PRN as needed for chest pain, Start date: 10/24/13 14:54:00, Duration: 30 day, Stop date: 11/23/13 14:53:00Notes: (Same as:Nitroquick, Nitrostat) "Do Not Crush" Sublingual tablet No Longer Active 10/24/2013 [facility] Lantus 50 unit, SUB-Q, Bedtime, 0 Refill(s) Active 10/24/2013 [facility] Metformin hydrochloride 1000 MG Oral Tablet 1,000 mg=1 tab, PO, BID, # 30 tab, 0 Refill(s) Active 10/24/2013 [facility] 0.8 ML Enoxaparin sodium 100 MG/ML Prefilled Syringe [Lovenox] 80 mg, SUB-Q, Daily, # 20 syr, 0 Refill(s) No Longer Active 10/24/2013 [facility] Vitamin B-12 1000 mcg oral tablet 1,000 microgram=1 tab, PO, Daily, # 30 tab, 0 Refill(s) Active 10/24/2013 [facility] ferrous sulfate 325 mg oral enteric coated tablet 325 mg=1 tab, PO, Daily, 0 Refill(s) Active 10/24/2013 [facility] 24 HR Niacin 500 MG Extended Release Tablet [Niaspan] 500 mg=1 tab, PO, Bedtime, 0 Refill(s) Active 10/24/2013 [facility] vilazodone hydrochloride 40 MG Oral Tablet [Viibryd] 40 mg=1 tab, PO, Daily, with food, 0 Refill(s)Special Instructions: with food Active 10/24/2013 [facility] Os-Chris 500 PO, Daily, 0 Refill(s) Active 10/24/2013 [facility] NovoLog 20 unit, SUB-Q, TID-Before Meals, before a meal, 0 Refill(s)Special Instructions: before a meal Active 10/24/2013 [facility] Aspirin / Calcium Carbonate 81 mg, PO, Daily, 0 Refill(s) Active 10/24/2013 [facility] clonazePAM 0.5 mg oral tablet, disintegrating 0.5 mg=1 tab, PO, TID, 0 Refill(s) No Longer Active 10/24/2013 [facility] simvastatin 40 mg oral tablet 40 mg=1 tab, PO, Bedtime, # 30 tab, 0 Refill(s) Active 10/24/2013 [facility] clonazePAM 0.5 mg oral tablet 0.5 mg=1 tab, SL, BID, 0 Refill(s) Active 10/24/2013 [facility] Nexium 40 mg, PO, Daily, 0 Refill(s) Active 10/24/2013 [facility] Ascorbic Acid / Biotin / Folic Acid / Niacin / pantothenate / pyridoxine / Riboflavin / Thiamine / Vitamin B 12 1 tab, PO, Daily, 0 Refill(s) Active 10/24/2013 [facility] carvedilol 25 MG Oral Tablet [Coreg] 25 mg=1 tab, PO, BID, # 180 tab, 0 Refill(s) Active 10/24/2013 [facility] Digoxin 0.125 MG Oral Tablet 0.125 mg, PO, Daily, # 30 tab, 0 Refill(s) Active 10/24/2013 [facility] isosorbide dinitrate 30 mg oral tablet 30 mg=1 tab, PO, Daily, 0 Refill(s) No Longer Active 10/24/2013 [facility] potassium chloride 10 mEq oral capsule, extended release 10 mEq=1 cap, PO, Daily, 0 Refill(s) Active 10/24/2013 [facility] Nitroglycerin 0.4 MG Sublingual Tablet 0.4 mg=1 tab, SL, Q5Min, Chest pain, # 100 tab, 0 Refill(s) Active 10/24/2013 [facility] Enalapril Maleate 5 MG / Hydrochlorothiazide 12.5 MG Oral Tablet 1 tab, PO, Daily, # 30 tab, 0 Refill(s) No Longer Active 10/24/2013 [facility] Furosemide 20 MG Oral Tablet 20 mg=1 tab, PO, BID, # 30 tab, 0 Refill(s) No Longer Active 10/24/2013 [facility] docosahexaenoic acid 200 MG / Eicosapentaenoic Acid 300 MG / Vitamin E 1 UNT Oral Capsule 1,000 mg=1 cap, PO, Daily, 0 Refill(s) Active 10/24/2013 [facility] Sodium Chloride 0.9% (titrate) 250 mL 250 mL, Rate: call center specialist for use with blood product administration, Dosing Weight 79.545, kg, Route: IV, Total Volume: 250, Start Date: 10/24/13 12:07:00, Duration: 30 day, Stop date: 11/23/13 12:06:00, Replace Every: 24 hr No Longer Active 10/24/2013 [facility] Allergies, Adverse Reactions, Alerts Substance Category Reaction Severity Reaction type Status Date Reported Comments Source Immunizations Immunization Date Given Site Status Last Updated Comments Source Results Order Name Results Value Reference Range Date Interpretation Comments Source Chest 2 views DX Chest 2 views DX EXAM: XR CHEST 2 VIEWS 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 I have personally reviewed the images as well as the Resident's interpretation and agree with the findings. Read by: aMnolo Mcghee (FELLOW) Resident: Manolo Mcghee (FELLOW) Dictated Date/time: 11/23/17 16:26 Electronically Signed by: Jaime Cheatham MD 11/23/17 16:53 FINAL REPORT [facility] Chest 1view DX Chest 1view DX EXAM: [...] by: Alberto Eid 11/23/17 13:26 FINAL REPORT [facility] CHEM PANEL Phosphorus 4.0 mg/dL 2.5 - 4.5 10/27/2013 [facility] CHEM PANEL Magnesium Lvl 2.0 mg/dL 1.8 - 2.4 10/27/2013 [facility] ELECTROLYTES AGAP 19.3 meq/L 10.0 - 20.0 10/27/2013 [facility] ELECTROLYTES eGFR 69 mL/min/1.73m2 10/27/2013 1Result Comment: [...] should be multiplied by the estimated BMI. [facility] ELECTROLYTES Calcium Lvl 8.5 mg/dL 8.5 - 10.5 10/27/2013 [facility] ELECTROLYTES Chloride Lvl 96 meq/L 95 - 109 10/27/2013 [facility] ELECTROLYTES CO2 23 meq/L 24 - 32 10/27/2013 [facility] ELECTROLYTES Sodium Lvl 134 meq/L 135 - 145 10/27/2013 [facility] ELECTROLYTES Potassium Lvl 4.3 meq/L 3.5 - 5.1 10/27/2013 [facility] ELECTROLYTES BUN 18 mg/dL 7 - 22 10/27/2013 [facility] ELECTROLYTES Creatinine Lvl 1.1 mg/dL 0.5 - 1.4 10/27/2013 [facility] ELECTROLYTES Glucose Lvl 138 mg/dL 70 - 99 10/27/2013 4Interpretive Data: Adult reference range values reflect the clinical guidelines of the [place] [employer]. [facility] HEMATOLOGY PTT 39.9 s 22.9 - 35.8 10/27/2013 13Interpretive Data: Heparin Therapeutic Range: 57 - 92 Seconds [facility] HEMATOLOGY INR 1.37 0.85 - 1.17 10/27/2013 10Interpretive Data: RECOMMENDED RANGES FOR PROTIME INR: 2.0-3.0 for most medical and surgical thromboembolic states. 2.5-3.5 for artificial heart valves and recurrent embolism. INR SHOULD BE USED ONLY FOR PATIENTS ON STABLE ANTICOAGULANT THERAPY. [facility] HEMATOLOGY PT 17.0 s 12.0 - 14.7 10/27/2013 [facility] HEMATOLOGY MPV 7.4 fL 7.4 - 10.4 10/27/2013 [facility] HEMATOLOGY Platelet 195 K/CMM 133 - 450 10/27/2013 [facility] HEMATOLOGY MCHC 32.1 g/dL 32.0 - 36.0 10/27/2013 [facility] HEMATOLOGY RDW 17.3 % 11.5 - 14.5 10/27/2013 [facility] HEMATOLOGY MCV 88.9 fL 80.0 - 94.0 10/27/2013 [facility] HEMATOLOGY MCH 28.5 pg 27.0 - 31.0 10/27/2013 [facility] HEMATOLOGY Hgb 9.0 g/dL 14.0 - 18.0 10/27/2013 [facility] HEMATOLOGY Hct 28.0 % 42.0 - 54.0 10/27/2013 [facility] HEMATOLOGY WBC 8.6 K/CMM 3.7 - 10.4 10/27/2013 [facility] HEMATOLOGY RBC 3.14 M/CMM 4.70 - 6.10 10/27/2013 [facility] HEMATOLOGY Basophils # 0.1 K/CMM 0.0 - 0.2 10/27/2013 [facility] HEMATOLOGY Segs-Bands # 6.7 K/CMM 1.5 - 8.1 10/27/2013 [facility] HEMATOLOGY Eosinophils # 0.4 K/CMM 0.0 - 0.5 10/27/2013 [facility] HEMATOLOGY Lymphocytes # 0.5 K/CMM 1.0 - 5.5 10/27/2013 [facility] HEMATOLOGY Monocytes # 0.9 K/CMM 0.0 - 0.8 10/27/2013 [facility] HEMATOLOGY Segs 78.4 % 45.0 - 75.0 10/27/2013 [facility] HEMATOLOGY Lymphocytes 5.5 % 20.0 - 40.0 10/27/2013 [facility] HEMATOLOGY Basophils 1.1 % 0.0 - 1.0 10/27/2013 [facility] HEMATOLOGY Monocytes 10.0 % 2.0 - 12.0 10/27/2013 [facility] HEMATOLOGY Eosinophils 5.0 % 0.0 - 4.0 10/27/2013 [facility] PARATHYROID PROFILE Ca Ion WB 1.10 mMol/L 1.05 - 1.25 10/27/2013 [facility] PARATHYROID PROFILE Ca Norm WB 1.06 mMol/L 1.05 - 1.25 10/27/2013 [facility] Chest 1view Chest 1view EXAM: XR CHEST 1 VIEW DATE: 10/27/2013 at 0756. INDICATION: Abnormal chest sounds. COMPARISON: 10/26/2013. TECHNIQUE: Single radiograph provided for interpretation. FINDINGS: There has been interval removal of a [place]am catheter. A left-sided cardiac pacing device is stable in position. Changes of percutaneous cardiac valve repair are noted. No consolidation or infiltrate is seen. Mild blunting of the bilateral costophrenic angles is noted. No pneumothorax is identified. The cardio mediastinal silhouette is slightly enlarged. The chest wall osseous structures are unchanged. IMPRESSION: 1. Interval removal of [place]Rustam catheter. 2. Small bilateral pleural effusions. 10/27/2013 - - Read by: Samir Rivas MD Dictated Date/time: 10/27/13 12:58 Electronically Signed by: Samir Riavs MD 10/27/13 12:59 FINAL REPORT [facility] PARATHYROID PROFILE Ca Norm WB 1.11 mMol/L 1.05 - 1.25 10/26/2013 [facility] PARATHYROID PROFILE Ca Ion WB 1.10 mMol/L 1.05 - 1.25 10/26/2013 [facility] CARDIAC ENZYMES Troponin-T 0.015 ng/mL 0.000 - 0.100 10/26/2013 [facility] CARDIAC ENZYMES BNP 452 pg/mL <=100 pg/mL 10/26/2013 7Interpretive Data: Elevated results are in line with increasing severity of congestive heart failure. Minor elevations between 100 and 300 may be seen with Myocardial Ischemia, Sodium retaining drugs, and compensated/treated heart failure. [facility] CARDIAC ENZYMES Troponin-I 0.18 ng/mL 0.00 - 0.40 10/26/2013 [facility] CHEM PANEL eGFR 78 mL/min/1.73m2 10/26/2013 2Result [...] should be multiplied by the estimated BMI. [facility] CHEM PANEL Calcium Lvl 8.5 mg/dL 8.5 - 10.5 10/26/2013 [facility] CHEM PANEL Chloride Lvl 103 meq/L 95 - 109 10/26/2013 [facility] CHEM PANEL CO2 24 meq/L 24 - 32 10/26/2013 [facility] CHEM PANEL Sodium Lvl 139 meq/L 135 - 145 10/26/2013 [facility] CHEM PANEL Potassium Lvl 4.7 meq/L 3.5 - 5.1 10/26/2013 [facility] CHEM PANEL Glucose Lvl 105 mg/dL 70 - 99 10/26/2013 5Interpretive Data: Adult reference range values reflect the clinical guidelines of the [place] [employer]. [facility] CHEM PANEL BUN 16 mg/dL 7 - 22 10/26/2013 [facility] CHEM PANEL Creatinine Lvl 1.0 mg/dL 0.5 - 1.4 10/26/2013 [facility] CHEM PANEL AGAP 16.7 meq/L 10.0 - 20.0 10/26/2013 [facility] CHEM PANEL Magnesium Lvl 2.0 mg/dL 1.8 - 2.4 10/26/2013 [facility] HEMATOLOGY RDW 16.8 % 11.5 - 14.5 10/26/2013 [facility] HEMATOLOGY MCH 28.7 pg 27.0 - 31.0 10/26/2013 [facility] HEMATOLOGY MPV 7.2 fL 7.4 - 10.4 10/26/2013 [facility] HEMATOLOGY Platelet 216 K/CMM 133 - 450 10/26/2013 [facility] HEMATOLOGY MCHC 33.2 g/dL 32.0 - 36.0 10/26/2013 [facility] HEMATOLOGY MCV 86.5 fL 80.0 - 94.0 10/26/2013 [facility] HEMATOLOGY Hct 28.9 % 42.0 - 54.0 10/26/2013 [facility] HEMATOLOGY RBC 3.34 M/CMM 4.70 - 6.10 10/26/2013 [facility] HEMATOLOGY WBC 11.1 K/CMM 3.7 - 10.4 10/26/2013 [facility] HEMATOLOGY Hgb 9.6 g/dL 14.0 - 18.0 10/26/2013 [facility] HEMATOLOGY PTT 33.7 s 22.9 - 35.8 10/26/2013 14Interpretive Data: Heparin Therapeutic Range: 57 - 92 Seconds [facility] HEMATOLOGY INR 1.34 0.85 - 1.17 10/26/2013 11Interpretive Data: RECOMMENDED RANGES FOR PROTIME INR: 2.0-3.0 for most medical and surgical thromboembolic states. 2.5-3.5 for artificial heart valves and recurrent embolism. INR SHOULD BE USED ONLY FOR PATIENTS ON STABLE ANTICOAGULANT THERAPY. [facility] HEMATOLOGY PT 16.7 s 12.0 - 14.7 10/26/2013 [facility] HEMATOLOGY Basophils # 0.1 K/CMM 0.0 - 0.2 10/26/2013 [facility] HEMATOLOGY RBC Morph Normal (10/26/13 3:01 AM) 10/26/2013 [facility] HEMATOLOGY Basophils 0.7 % 0.0 - 1.0 10/26/2013 [facility] HEMATOLOGY Eosinophils # 0.3 K/CMM 0.0 - 0.5 10/26/2013 [facility] HEMATOLOGY Monocytes # 0.7 K/CMM 0.0 - 0.8 10/26/2013 [facility] HEMATOLOGY Lymphocytes # 0.3 K/CMM 1.0 - 5.5 10/26/2013 [facility] HEMATOLOGY Segs-Bands # 9.8 K/CMM 1.5 - 8.1 10/26/2013 [facility] HEMATOLOGY Plt Morph Normal (10/26/13 3:01 AM) 10/26/2013 [facility] HEMATOLOGY Eosinophils 2.5 % 0.0 - 4.0 10/26/2013 [facility] HEMATOLOGY Monocytes 6.3 % 2.0 - 12.0 10/26/2013 [facility] HEMATOLOGY Lymphocytes 2.4 % 20.0 - 40.0 10/26/2013 [facility] HEMATOLOGY Segs 88.1 % 45.0 - 75.0 10/26/2013 [facility] Chest 1view Chest 1view PORTABLE CHEST 2013-10-26 01:31:00 COMPARISON: Yesterday CLINICAL INDICATION: Heart failure DISCUSSION: Support devices are unchanged. No pneumothorax or pleural effusions. Lungs are clear aside from platelike atelectasis retrocardiac regions. 10/26/2013 - - Read by: Huan Dixon MD Dictated Date/time: 10/26/13 09:14 Electronically Signed by: Huan Dixon MD 10/26/13 09:14 FINAL REPORT [facility] CHEM PANEL Magnesium Lvl 1.9 mg/dL 1.8 - 2.4 10/25/2013 [facility] ELECTROLYTES AGAP 14.7 meq/L 10.0 - 20.0 10/25/2013 [facility] ELECTROLYTES eGFR 69 mL/min/1.73m2 10/25/2013 3Result Comment: [...] should be multiplied by the estimated BMI. [facility] ELECTROLYTES Potassium Lvl 4.7 meq/L 3.5 - 5.1 10/25/2013 [facility] ELECTROLYTES Chloride Lvl 103 meq/L 95 - 109 10/25/2013 [facility] ELECTROLYTES CO2 27 meq/L 24 - 32 10/25/2013 [facility] ELECTROLYTES Calcium Lvl 8.2 mg/dL 8.5 - 10.5 10/25/2013 [facility] ELECTROLYTES Glucose Lvl 142 mg/dL 70 - 99 10/25/2013 6Interpretive Data: Adult reference range values reflect the clinical guidelines of the [place] [employer]. [facility] ELECTROLYTES Sodium Lvl 140 meq/L 135 - 145 10/25/2013 [facility] ELECTROLYTES Creatinine Lvl 1.1 mg/dL 0.5 - 1.4 10/25/2013 [facility] ELECTROLYTES BUN 16 mg/dL 7 - 22 10/25/2013 [facility] HEMATOLOGY RBC 3.26 M/CMM 4.70 - 6.10 10/25/2013 [facility] HEMATOLOGY WBC 11.3 K/CMM 3.7 - 10.4 10/25/2013 [facility] HEMATOLOGY Hct 28.1 % 42.0 - 54.0 10/25/2013 [facility] HEMATOLOGY Hgb 9.3 g/dL 14.0 - 18.0 10/25/2013 [facility] HEMATOLOGY Platelet 218 K/CMM 133 - 450 10/25/2013 [facility] HEMATOLOGY MPV 6.9 fL 7.4 - 10.4 10/25/2013 [facility] HEMATOLOGY MCV 86.1 fL 80.0 - 94.0 10/25/2013 [facility] HEMATOLOGY MCH 28.6 pg 27.0 - 31.0 10/25/2013 [facility] HEMATOLOGY MCHC 33.2 g/dL 32.0 - 36.0 10/25/2013 [facility] HEMATOLOGY RDW 16.4 % 11.5 - 14.5 10/25/2013 [facility] HEMATOLOGY PTT 46.5 s 22.9 - 35.8 10/25/2013 15Interpretive Data: Heparin Therapeutic Range: 57 - 92 Seconds [facility] HEMATOLOGY PT 17.7 s 12.0 - 14.7 10/25/2013 [facility] HEMATOLOGY INR 1.43 0.85 - 1.17 10/25/2013 12Interpretive Data: RECOMMENDED RANGES FOR PROTIME INR: 2.0-3.0 for most medical and surgical thromboembolic states. 2.5-3.5 for artificial heart valves and recurrent embolism. INR SHOULD BE USED ONLY FOR PATIENTS ON STABLE ANTICOAGULANT THERAPY. [facility] HEMATOLOGY Lymphocytes 4.8 % 20.0 - 40.0 10/25/2013 [facility] HEMATOLOGY Eosinophils 3.2 % 0.0 - 4.0 10/25/2013 [facility] HEMATOLOGY Segs 85.5 % 45.0 - 75.0 10/25/2013 [facility] HEMATOLOGY Monocytes 5.8 % 2.0 - 12.0 10/25/2013 [facility] HEMATOLOGY Basophils 0.7 % 0.0 - 1.0 10/25/2013 [facility] HEMATOLOGY Segs-Bands # 9.7 K/CMM 1.5 - 8.1 10/25/2013 [facility] HEMATOLOGY Eosinophils # 0.4 K/CMM 0.0 - 0.5 10/25/2013 [facility] HEMATOLOGY Monocytes # 0.7 K/CMM 0.0 - 0.8 10/25/2013 [facility] HEMATOLOGY Lymphocytes # 0.5 K/CMM 1.0 - 5.5 10/25/2013 [facility] HEMATOLOGY Basophils # 0.1 K/CMM 0.0 - 0.2 10/25/2013 [facility] Chest 1view Chest 1view EXAM: Portable AP [...] Martin Barrett MD 10/25/13 21:02 FINAL REPORT [facility] Chest 1view Chest 1view PORTABLE CHEST 2013-10-25 09:16:00 COMPARISON: 10/24/2013 CLINICAL INDICATION: Abnormal chest sounds DISCUSSION: Cardiac conduction device is unchanged. Note of very mild interstitial edema. No pleural effusions or pneumothorax. 10/25/2013 - - Read by: Huan Dixon MD Dictated Date/time: 10/26/13 09:04 Electronically Signed by: Huan Dixon MD 10/26/13 09:05 FINAL REPORT [facility] CHEM PANEL Phosphorus 3.7 mg/dL 2.5 - 4.5 10/25/2013 [facility] PARATHYROID PROFILE Ca Norm WB 1.13 mMol/L 1.05 - 1.25 10/25/2013 [facility] PARATHYROID PROFILE Ca Ion WB 1.13 mMol/L 1.05 - 1.25 10/25/2013 [facility] DRUG SCREEN U Cannab Scr Negative *NA* (10/24/13 4:00 PM) Negative 10/24/2013 [facility] DRUG SCREEN UDS Note See Note 9 [...] Methadone 300 ng/mL Urine alcohol 20 mg/dL [facility] DRUG SCREEN U Phencyc Scr Negative *NA* (10/24/13 4:00 PM) Negative 10/24/2013 [facility] DRUG SCREEN U Opiate Scr Negative *NA* (10/24/13 4:00 PM) Negative 10/24/2013 [facility] DRUG SCREEN U Cocaine Scr Negative *NA* (10/24/13 4:00 PM) Negative 10/24/2013 [facility] DRUG SCREEN U Benzodia Scr Negative *NA* (10/24/13 4:00 PM) Negative 10/24/2013 [facility] DRUG SCREEN U Betty Scr Negative *NA* (10/24/13 4:00 PM) Negative 10/24/2013 [facility] DRUG SCREEN U Amph Scr Negative *NA* (10/24/13 4:00 PM) Negative 10/24/2013 [facility] URINE AND STOOL UA Mucus Few /LPF None Seen /LPF 10/24/2013 [facility] URINE AND STOOL UA Sq Epi Occasional /LPF Few /LPF 10/24/2013 [facility] URINE AND STOOL UA Urobilinogen 0.2 EU/dL 0.1 - 1.0 10/24/2013 [facility] URINE AND STOOL UA Blood Negative (10/24/13 4:00 PM) Negative 10/24/2013 [facility] URINE AND STOOL UA Nitrite Negative (10/24/13 4:00 PM) Negative 10/24/2013 [facility] URINE AND STOOL UA Leuk Est Negative (10/24/13 4:00 PM) Negative 10/24/2013 [facility] URINE AND STOOL UA Spec Grav 1.015 <=1.030 10/24/2013 [facility] URINE AND STOOL UA Turbidity Clear (10/24/13 4:00 PM) Clear 10/24/2013 [facility] URINE AND STOOL UA pH 5.5 5.0 - 8.0 10/24/2013 [facility] URINE AND STOOL UA Color Yellow *NA* (10/24/13 4:00 PM) Yellow 10/24/2013 [facility] URINE AND STOOL UA Ketones Negative mg/dL Negative mg/dL 10/24/2013 [facility] URINE AND STOOL UA Glucose Negative mg/dL Negative mg/dL 10/24/2013 [facility] URINE AND STOOL UA Protein Negative mg/dL Negative mg/dL 10/24/2013 [facility] URINE AND STOOL UA Bili Negative *NA* (10/24/13 4:00 PM) Negative 10/24/2013 [facility] CARDIAC ENZYMES Total CK 30 unit/L 12 - 191 10/24/2013 [facility] CARDIAC ENZYMES Troponin-T null 0.000 - 0.100 10/24/2013 [facility] CARDIAC ENZYMES Troponin-I 0.02 ng/mL 0.00 - 0.40 10/24/2013 [facility] CARDIAC ENZYMES BNP 372 pg/mL <=100 pg/mL 10/24/2013 8Interpretive Data: Elevated results are in line with increasing severity of congestive heart failure. Minor elevations between 100 and 300 may be seen with Myocardial Ischemia, Sodium retaining drugs, and compensated/treated heart failure. [facility] CHEM PANEL AST 20 unit/L 0 - 37 10/24/2013 [facility] CHEM PANEL Bili Total 0.5 mg/dL 0.2 - 1.3 10/24/2013 [facility] CHEM PANEL Total Protein 7.0 g/dL 6.4 - 8.4 10/24/2013 [facility] CHEM PANEL ALT 16 unit/L 0 - 65 10/24/2013 [facility] CHEM PANEL Albumin Lvl 3.3 g/dL 3.5 - 5.0 10/24/2013 [facility] CHEM PANEL Alk Phos 76 unit/L 39 - 136 10/24/2013 [facility] CHEM PANEL B/C Ratio 14 6 - 25 10/24/2013 [facility] CHEM PANEL Globulin 3.7 g/dL 2.0 - 4.0 10/24/2013 [facility] CHEM PANEL A/G Ratio 0.9 0.7 - 1.6 10/24/2013 [facility] SPECIAL CHEMISTRY Hgb A1C 5.6 % <=5.6 % 10/24/2013 [facility] CHEM PANEL Plasma Hemoglobin 30 mg/dL 0 - 10 10/24/2013 [facility] IMMUNOLOGY Haptoglobin 18 mg/dL 16 - 200 10/24/2013 [facility] BLOOD BANK RESULTS Antibody Scrn Negative (10/24/13 12:59 PM) 10/24/2013 [facility] BLOOD BANK RESULTS RBC product Product available (10/24/13 12:59 PM) 10/24/2013 [facility] BLOOD BANK RESULTS ABO/Rh A POS 10/24/2013 [facility] BLOOD BANK RESULTS FFP product Product available (10/24/13 12:59 PM) 10/24/2013 [facility] Chest 1view Chest 1view PORTABLE CHEST 2013-10-24 [...] Huan Dixon MD 10/24/13 14:53 FINAL REPORT [facility] CHEM PANEL eGFR 62 mL/min/1.73m2 09/28/2013 1Result [...] should be multiplied by the estimated BMI. [facility] CHEM PANEL POC Creatinine 1.2 mg/dL 0.5 - 1.4 09/28/2013 [facility] Heart/coronary art TAVR CTA Heart/coronary art TAVR CTA EXAM: CHEST CARDIAC COMPUTER TOMOGRAPHY ANGIOGRAPHY DATE: 09/28/2013 INDICATION: Aortic stenosis. TAVR candidate. COMPARISON: None TECHNIQUE: Contrast imaging was performed on a [employer] [address] scanner utilizing a single breath hold, at 600 mA and 120 kV. Retrospective ECG gating was performed, at a heart rate of 80 bpm. Images were reformatted at 0.5 mm intervals and sent to the [employer] workstation for interpretation of both systolic and [...] 23 x 22 mm Coplanar TAVR angle: SHON 10, CAUDAL 02 Coronary Arteries: This patient [...] by: Matthieu Guzman 10/03/13 17:12 FINAL REPORT [facility] Vital Signs Vital Sign Value Date Comments Source Respitory Rate 18 10/27/2013 [facility] Diastolic (mm Hg) 62 10/27/2013 [facility] Systolic (mm Hg) 111 10/27/2013 [facility] Temperature Oral (F) 97.8 F 10/27/2013 [facility] Respitory Rate 18 10/27/2013 [facility] Systolic (mm Hg) 117 10/27/2013 [facility] Diastolic (mm Hg) 70 10/27/2013 [facility] Respitory Rate 15 10/27/2013 [facility] Diastolic (mm Hg) 67 10/27/2013 [facility] Systolic (mm Hg) 119 10/27/2013 [facility] Temperature Oral (F) 97.8 F 10/27/2013 [facility] Temperature Oral (F) 97.9 F 10/27/2013 [facility] Weight 75.199 10/24/2013 [facility] BMI Calculated 28.02 10/24/2013 [facility] Height 163.83 cm 10/24/2013 [facility] Weight 79.545 10/03/2013 [facility] BMI Calculated 27.47 10/03/2013 [facility] Height 170.18 cm 10/03/2013 [facility] BMI Calculated 25.9 08/21/2013 [facility] Weight 75 08/21/2013 [facility] Height 170.18 cm 08/21/2013 [facility] Encounters Location Location Details Encounter Type Encounter Number Reason For Visit Attending Provider ADM Date DC Date Status Source [facility] Outpatient [id number] Nick Guan 08/21/2013 08/22/2013 [facility] Outpatient [id number] Vimal Mcdaniel 09/28/2013 09/29/2013 [facility] Outpatient [id number] Nick Guan 10/03/2013 10/04/2013 [facility] Inpatient [id number] Nick Guan 10/24/2013 10/27/2013 [facility] Procedures Procedure Code Date Perfomer Comments Source Cardiac catheterization [id number] [facility] Cataract surgery [id number] [facility] Excision of calcaneal spur [id number] [facility] Implantation of automatic cardioverter/defibrillator, total system (AICD) [id number] [facility] Placement of stent [id number] [facility]
[2018-05-04] MEDS ORDERED: ALBUTEROL/IPRATROPIUM 3 ML NEB NEB ONE (09:15)
[2018-05-04] MEDS ORDERED: SODIUM CHLORIDE 0.9% 1000ML 500 ML IV ONE (09:15)
[2018-05-04] MEDS ORDERED: LOVASTATIN20 MG PO (09:30)
[2018-05-04] MEDS ORDERED: BUSPIRONE HCL5 MG PO (09:30)
[2018-05-04 09:37] LABS: BASOPHILS # (AUTO) 0.1 (0.0-0.1); BASOPHILS % 0.4 % (0.0-1.0); EOSINOPHILS # (AUTO) 0.1 (0.0-0.4); EOSINOPHILS % 0.9 % (0.0-6.0); HEMATOCRIT 30.7 % (38.2-49.6); HEMOGLOBIN 8.9 g/dL (14.0-18.0); LYMPHOCYTES # (AUTO) 0.3 (1.0-3.2); LYMPHOCYTES % 2.3 % (18.0-39.1); MEAN CORPUSCULAR HEMOGLOBIN 24.8 pg (28-32); MEAN CORPUSCULAR VOLUME 85.5 fL (81-99); MONOCYTES # (AUTO) 0.8 (0.2-0.8); MONOCYTES % 6.4 % (4.4-11.3); NEUTROPHILS # (AUTO) 11.5 (2.1-6.9); NEUTROPHILS % 89.5 % (38.7-80.0); PLATELET COUNT 190 x10e3/uL (140-360); RED BLOOD COUNT 3.59 x10e6/uL (4.3-5.7); RED CELL DISTRIBUTION WIDTH 18.7 % (11.7-14.4)
[2018-05-04 10:05] LABS: ALBUMIN 3.3 g/dL (3.5-5.0); ALBUMIN/GLOBULIN RATIO 0.9 (0.8-2.0); ANION GAP 14.7 mmol/L (8-16); CALCIUM 9.6 mg/dL (8.4-10.2); CREATININE, SERUM 1.99 mg/dL (0.72-1.25); POTASSIUM 4.7 mmol/L (3.5-5.1)
--- NOTE | 2018-05-04 10:11 | Diagnostic Imaging Report ---
EXAM: CHEST SINGLE (PORTABLE), AP Portable DATE: 05/04/2018 Time stamp on exam: 9:34 AM INDICATION: Shortness of breath COMPARISON: 01/23/2018 FINDINGS: LINES/TUBES: Dual lead left-sided cardiac device with leads intact. Metallic stent overlies the mediastinum consistent with TAVR. LUNGS: Mild pulmonary vascular congestion. PLEURA: No effusions or pneumothorax. HEART AND MEDIASTINUM: The heart is enlarged. BONES AND SOFT TISSUES: No acute findings. IMPRESSION: Cardiomegaly with mild pulmonary vascular congestion. Signed by: Dr. Everton Juárez DO on 05/04/2018 10:08 AM
[2018-05-04 10:12] LABS: B-TYPE NATRIURETIC PEPTIDE2 1336.5 pg/mL (0-100)
[2018-05-04] MEDS ORDERED: ACETAMINOPHEN 325 MG TAB PO ONE (10:30)
[2018-05-04] MEDS ORDERED: ACETAMINOPHEN 1000 MG/100 ML IV STA (10:51)
[2018-05-04] MEDS ORDERED: FUROSEMIDE INJ 10 MG/ML 4 ML VIAL IV ONE (11:00)
--- NOTE | 2018-05-04 13:12 | NUR ---
CHANGED PT SHEETS IN BED AND PLACED PT IN BRIEF
[2018-05-04] MEDS ORDERED: PIPER-TAZ 3.375 GM 50 ML IV ONE (13:15)
[2018-05-04] MEDS ORDERED: VANCOMYCIN 1GM/NS 250 ML 250 ML IV ONE (13:15)
[2018-05-04] MEDS ORDERED: SODIUM CHLORIDE 0.9% 1000ML 1,000 ML IV ONE (13:15)
[2018-05-04 13:27] LABS: BILIRUBIN,URINE NEGATIVE (NEGATIVE); CLARITY,URINE CLEAR (CLEAR); COLOR,URINE YELLOW (YELLOW); KETONES,URINE NEGATIVE (NEGATIVE); LEUKOCYTE ESTERASE ,URINE NEGATIVE (NEGATIVE); NITRITE,URINE NEGATIVE (NEGATIVE); PROTEIN,URINE DIPSTICK NEGATIVE (NEGATIVE); URINE UROBILINOGEN 0.2 mg/dL (0.2 - 1)
[2018-05-04] MEDS ORDERED: NOREPINEPHRINE 8 MG/D5W 250 ML 250 ML ONE (14:11)
--- NOTE | 2018-05-04 14:41 | NUR ---
CENTRAL LINE PLACED BY DR TRISTAN LEVOPHED 8 MG/ 250 ML AT 10 MCG /MIN PT BP 77/56 15 MIN LATER PT BP 107/77
[2018-05-04] MEDS ORDERED: DEXTROSE 50% SYRINGE 50 ML IV PRN ×2 (14:45→15:00)
[2018-05-04] MEDS ORDERED: SODIUM CHLORIDE FLUSH 10 ML SYR INJ PRN (14:45)
[2018-05-04] MEDS ORDERED: ACETAMINOPHEN 1000 MG/100 ML IV PRN (14:45)
--- NOTE | 2018-05-04 14:45 | NUR ---
PT PLACED IN TRENDELENBERG POSITION DUE TO HYPOTENSION
[2018-05-04] MEDS ORDERED: SODIUM CHLORIDE 0.9% 1000ML 1,000 ML IV SCH (15:00)
[2018-05-04] MEDS ORDERED: ASPIRIN 81 MG CHEW TAB PO ONE (15:00)
--- NOTE | 2018-05-04 15:09 | Diagnostic Imaging Report ---
EXAM: CHEST SINGLE (PORTABLE), AP Portable DATE: 05/04/2018 Time stamp on exam: 2:44 PM INDICATION: Central line placement COMPARISON: 05/04/2018 at 9:34 AM FINDINGS: LINES/TUBES: Left chest wall dual lead cardiac device. Metallic stent compatible with a TAVR. Right IJ central line has been placed. LUNGS: Mild pulmonary vascular congestion. PLEURA: No effusions or pneumothorax. HEART AND MEDIASTINUM: Mediastinum is prominent but unchanged to the prior preprocedure study and likely secondary to lipomatosis and portable technique. Cardiac silhouette is mildly enlarged. BONES AND SOFT TISSUES: No acute findings. IMPRESSION: 1. Mild pulmonary vascular congestion. 2. Prominent cardiomediastinal silhouette. Signed by: Dr. Everton Juárez DO on 05/04/2018 3:06 PM
[2018-05-04] MEDS ORDERED: NOREPINEPHRINE INJ 4MG/4ML 8 MG in DEXTROSE 5% 250ML 250 ML IV SCH (15:15)
[2018-05-04] MEDS ORDERED: ENOXAPARIN SOD INJ 40 MG/0.4 ML SYR SC SCH (17:00)
[2018-05-04] MEDS ORDERED: FUROSEMIDE INJ 10 MG/ML 4 ML VIAL IV SCH (17:00)
--- NOTE | 2018-05-04 17:30 | NUR ---
CARDIAC CONSULT CALLED. ATG ARCHITECT
[2018-05-04] MEDS: FAMOTIDINE 20 MG/2 ML VIAL IV SCH (17:50)
[2018-05-04] MEDS ORDERED: NITROGLYCERIN 0.4 MG SUBL SL SCH (18:30)
[2018-05-04] MEDS: ALBUTEROL/IPRATROPIUM 3 ML NEB NEB SCH (19:15)
[2018-05-04] MEDS: NOREPINEPHRINE INJ 4MG/4ML 8 MG in DEXTROSE 5% 250ML 250 ML IV SCH ×2 (20:32→23:07)
[2018-05-04] MEDS ORDERED: VANCOMYCIN 1GM/NS 250 ML 250 ML IV SCH (21:00)
[2018-05-04] MEDS ORDERED: NON-FORMULARY MEDICATION (Insulin Detemir (Levemir) 20 U) SC SCH (21:00)
[2018-05-04] MEDS: INSULIN GLARGINE 100 UNITS/ML VIAL SQ SCH (21:15)
[2018-05-04] MEDS: PIPER-TAZ 3.375 GM 50 ML IV SCH (21:50)
[2018-05-05] VITALS (56 sets, daily range): BP systolic 84–121; BP diastolic 51–83
[2018-05-05] MEDS: NOREPINEPHRINE INJ 4MG/4ML 8 MG in DEXTROSE 5% 250ML 250 ML IV SCH ×3 (00:04→07:45)
[2018-05-05] MEDS: ALBUTEROL/IPRATROPIUM 3 ML NEB NEB SCH ×4 (00:30→19:15)
--- NOTE | 2018-05-05 03:01 | NUR ---
Patient c/o pain in right neck at IJ insertion site. No redness or swelling noted at site. IV Acetaminophen administered
--- NOTE | 2018-05-05 03:03 | Consultation ---
DATE OF CONSULTATION: Pulmonary Critical Care Consultation HISTORY OF PRESENT ILLNESS: The patient is a 73-year-old man with a history of a systolic cardiomyopathy. He has a history of atrial fibrillation. He also had AICD and pacemaker placed in 2014. He had transaortic valve. He also had an aortic valve replacement. He required admission to [facility] in late December of 2017 with sepsis secondary to a urinary source. He has also required dialysis during that hospitalization. He now comes to the emergency department complaining of worsening malaise and fatigue. He reports dyspnea on exertion. There is no chest pain. He had some fevers. PAST SURGICAL HISTORY: 1. Status post AICD and pacemaker. 2. Status post aortic valve replacement. PAST MEDICAL HISTORY: 1. Systolic cardiomyopathy. 2. Atrial fibrillation. 3. Chronic renal insufficiency. 4. Diabetes. ALLERGIES: THE PATIENT IS ALLERGIC TO HYDROCODONE. SOCIAL HISTORY: The patient is not an active smoker or drinker. REVIEW OF SYSTEMS: He has no active fevers, although he did have a fever in the emergency department. He is not complaining of headache or neck pain. He has no sore throat. He did not have any chest pain. He did note some dyspnea and a dry cough. He denies abdominal pain. He is having no nausea or vomiting. He is having some leg edema. There is weakness, but no focal neurological complaints. PHYSICAL EXAMINATION: VITAL SIGNS: The blood pressure is 112/74 and the saturation is 97% on 2 L. The pulse is 82 and respiratory rate is 16. HEENT: Shows no facial swelling or erythema. The oropharynx is normal. LYMPHATIC: Shows no submandibular, cervical, or supraclavicular adenopathy. CARDIAC: Reveals regular rate and rhythm with normal S1 and S2. There are no murmurs or rubs. LUNGS: Auscultation of lungs shows decreased breath sounds at the bases. There is no wheezing. ABDOMEN: Soft, nontender. There is no rebound or guarding. There are no masses in the abdomen. EXTREMITIES: The patient has 1 to 2+ leg edema. NEUROLOGIC: Shows weakness, but no focal abnormalities. LABORATORY DATA: White blood cell count is 12.8 and hemoglobin is 8.9. Platelet count is 190. The BUN to creatinine ratio is 37 to 1.99 and the sodium is 132. The total bilirubin is 1.3 and BNP is 1336.5. RADIOGRAPHIC DATA: Chest x-ray shows a prominent cardiac silhouette with mild venous congestion. IMPRESSION: 1. Acute on chronic systolic congestive heart failure. 2. Fever of unclear etiology. 3. Acute on chronic kidney injury. 4. Prior aortic valve replacement. PLAN: 1. Stop IV fluids and give Lasix. 2. Echocardiogram. 3. We will continue antibiotics and await culture results. 4. Monitor creatinine. 5. Wean Levophed as tolerated. 6. Continue insulin and adjust according to blood sugars. 7. Check INR and adjust the warfarin. Cuong Kyle MD [facility]/MODL /[id number]
[2018-05-05 05:13] LABS: BASOPHILS % 0.5 % (0.0-1.0); EOSINOPHILS # (AUTO) 0.3 (0.0-0.4); EOSINOPHILS % 3.7 % (0.0-6.0); HEMATOCRIT 27.6 % (38.2-49.6); HEMOGLOBIN 7.7 g/dL (14.0-18.0); LYMPHOCYTES # (AUTO) 0.3 (1.0-3.2); LYMPHOCYTES % 3.3 % (18.0-39.1); MEAN CORPUSCULAR HEMOGLOBIN 24.1 pg (28-32); MEAN CORPUSCULAR HGB CONC 27.9 g/dL (31-35); MEAN CORPUSCULAR VOLUME 86.3 fL (81-99); MONOCYTES # (AUTO) 0.8 (0.2-0.8); NEUTROPHILS # (AUTO) 6.4 (2.1-6.9); NEUTROPHILS % 82.1 % (38.7-80.0); PLATELET COUNT 165 x10e3/uL (140-360); RED CELL DISTRIBUTION WIDTH 18.6 % (11.7-14.4)
[2018-05-05 05:32] LABS: INR 2.23; PROTHROMBIN TIME 25.4 seconds (11.9-14.5)
[2018-05-05 05:48] LABS: ALBUMIN 2.8 g/dL (3.5-5.0); ALBUMIN/GLOBULIN RATIO 0.8 (0.8-2.0); ANION GAP 12.8 mmol/L (8-16); CALCIUM 8.7 mg/dL (8.4-10.2); CREATININE, SERUM 2.04 mg/dL (0.72-1.25); POTASSIUM 3.8 mmol/L (3.5-5.1)
[2018-05-05] MEDS: PIPER-TAZ 3.375 GM 50 ML IV SCH ×3 (05:58→22:15)
[2018-05-05 06:47] LABS: CREATINE KINASE MB 0.9 ng/mL (0-5.0)
--- NOTE | 2018-05-05 06:58 | Diagnostic Imaging Report ---
EXAM: CHEST SINGLE (PORTABLE), AP Portable DATE: 05/05/2018 7:00 AM INDICATION: CHF COMPARISON: 05/04/2018 at 1444 FINDINGS: LINES/TUBES: Left chest wall dual lead cardiac device. Metallic stent compatible with a TAVR. Right IJ catheter tip overlies the lower SVC.. LUNGS: Mild pulmonary vascular congestion. PLEURA: No effusions or pneumothorax. HEART AND MEDIASTINUM: Stable mild enlargement of the cardiomediastinal silhouette. BONES AND SOFT TISSUES: No acute findings. IMPRESSION: No significant change. Cardiomegaly with central pulmonary venous congestion. Signed by: DR. Mando Kapadia MD on 05/05/2018 6:54 AM
[2018-05-05 07:27] LABS: EOSINOPHILS % (MANUAL) 4 % (0-7); LYMPHOCYTES % (MANUAL) 7 % (19-48); MONOCYTES % (MANUAL) 7 % (3.4-9.0); NEUTROPHILS % (MANUAL) 82 % (40-74)
[2018-05-05 07:29] LABS: HYPOCHROMASIA SLIGHT; RBC MORPHOLOGY COMMENT NORMAL
[2018-05-05] MEDS ORDERED: ACETAMINOPHEN 325 MG TAB PO PRN (08:00)
[2018-05-05] MEDS: FAMOTIDINE 20 MG/2 ML VIAL IV SCH ×2 (08:04→18:06)
[2018-05-05] MEDS: FUROSEMIDE INJ 10 MG/ML 4 ML VIAL IV SCH (08:04)
[2018-05-05] MEDS: INSULIN LISPRO 100 UNIT/1 ML 3ML VIAL SQ SCH ×3 (08:05→17:00)
[2018-05-05] MEDS: LIOTHYRONINE SODIUM 5 MCG TAB PO SCH (08:06)
[2018-05-05] MEDS: PREGABALIN 50 MG CAP PO SCH ×2 (08:06→18:06)
[2018-05-05] MEDS: SPIRONOLACTONE 25 MG TAB PO SCH (08:06)
[2018-05-05] MEDS: ASPIRIN 81 MG CHEW TAB PO SCH (08:06)
[2018-05-05] MEDS: ALLOPURINOL 100 MG TAB PO SCH (08:07)
[2018-05-05] MEDS ORDERED: ALLOPURINOL 300 MG TAB PO SCH ×2 (09:00)
[2018-05-05] MEDS ORDERED: CLONAZEPAM 0.5 MG TAB PO SCH (09:00)
[2018-05-05] MEDS ORDERED: CLONAZEPAM 0.5 MG TAB PO PRN (09:00)
[2018-05-05] MEDS ORDERED: WARFARIN SOD 1 MG TAB PO SCH (09:00)
--- NOTE | 2018-05-05 11:35 | Progress Note ---
DATE: Pulmonary Critical Care Progress Note SUBJECTIVE: The patient still has some cough. He denies any pain other than at the IJ line site. The Levophed has been weaned down to 2.5 mcg. He does have some urination with Lasix. PHYSICAL EXAMINATION: VITAL SIGNS: The blood pressure is 92/55, on 2.5 mcg of Levophed. The pulse is 84 and respiratory rate is 16. HEENT: Shows no facial swelling or erythema. There is nasal cannula. There is a high J-line site. The site looks clean. There is no drainage. CARDIAC: Reveals regular rate and rhythm with normal S1 and S2. There are no murmurs or rubs heard. LUNGS: Auscultation of lungs reveals crackles of both lung wynn. ABDOMEN: Soft and nontender. There is no rebound or guarding. EXTREMITIES: Show no leg edema or calf tenderness. LABORATORY DATA: The BUN to creatinine ratio is 39-2.04 and the other electrolytes are within normal limits. The BNP is 1249. The blood sugar is 135. White blood cell count is 7.8 and hemoglobin is 7.7. The platelet count is 165. The INR is 2.23. RADIOGRAPHIC DATA: Chest x-ray shows cardiomegaly and mild pulmonary edema. Echocardiogram shows estimated ejection fraction less than 20%. There is a prosthetic aortic valve. There is trace MR and mild TR. There is some left ventricular enlargement with some left atrial enlargement. IMPRESSION: 1. Ixbee-md-kgolibo systolic congestive heart failure. 2. Qipib-pa-xtnryau kidney injury. 3. Prior aortic valve replacement. 4. Diabetes. 5. Paroxysmal atrial fibrillation. PLAN: 1. Continue Lasix and spironolactone. 2. Continue warfarin. 3. Stop vancomycin because of elevated creatinine. 4. Nasal swab for influenza and MRSA. 5. Wean Levophed as tolerated. 6. Continue to monitor blood sugars and adjust insulin. 7. Greater than 35 minutes in direct critical care time. Cuong Kyle MD [facility]/MODL /[id number]
--- NOTE | 2018-05-05 15:32 | NUR ---
WOUND CARE CONSULTATION INITIAL EVALUATION Patient admitted from Home to ER for Fever, SOB, Cough+, and Nausea and Vomiting. DX: CHF, SEPSIS LABS: WBC7.78 HGB7.7 HCT27.6 NEUT%82.1 ALB2.8 [id number] Wound Care Consulted For evaluation of sacral Stage 1 P.U. PATIENT VISIT: Patient is calm and cooperative. Jose De Jesus Score = 13 Alternating Pressure Air Mattress Moderate PUP No pressure ulcers identified. Sacral pink, dry, no redness, no swelling, denies discomfort. Bilateral groin and scrotal redness. Patient now has condom cath and moisture is being controlled. Calazime lotion appears to be improving skin condition. Right groin at crease has open linear area with light bleeding. Bilateral Heels intact. No Redness, No Swelling , No Discomfort. IMPRESSION: 1. Bilateral Groin/ Scrotal Redness- Moisture Related Dermatitis: - Wash area with mild soap and water then pat dry thoroughly q12h and PRN Soiling - Apply Calazime Cream q12h and PRN soiling RECOMMENDATION: 1. Bilateral Groin/ Scrotal Redness- Moisture Related Dermatitis: - Wash area with mild soap and water then pat dry thoroughly q12h and PRN Soiling - Apply Calazime Cream q12h and PRN soiling 2. Continue Alternating Pressure Air Mattress 3. Turn and Reposition every 2Hrs 4. Bilateral Heel protectors/ offload heels with pillows while in bed. 5. No Diapers while in bed. Thank you for consulting with Wound Care. Addendum: 05/05/18 at 1540 by Patrick Mills RN Amended: Links added.
--- NOTE | 2018-05-05 17:30 | NUR ---
Nutrition Screen Note RD Recommendation for Physician: -Rec adding ADA to cardiac diet as medically appropriate Plan of Care: RD following, monitoring for tolerance and adequacy Nutrition reason for involvement: RN Consult no reason stated Primary Diagnose(s): 1. Ygjkc-la-qrjttbe systolic congestive heart failure. 2. Dcxso-gf-vnswdep kidney injury. PMH: a fib, systolic cardiomyopathy, chronic renal insufficiency, DM Ht: 67in Wt:188.56lb BMI: 29.5kg/m2 IBW: 148lb RD Assessment: (05/05) Chart reviewed. Labs and meds reviewed. 73yo M, who was admitted for fatigue and SOB. Levophed running at 1.5mcg/min. 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 Pt denied chewing/swallowing problems and nausea/vomiting. Pt ate ~100% of his meals since admission. LBM 05/05. Will continue to monitor and follow. Please consult as needed. Current Diet: Cardiac diet Malnutrition Evaluation (05/05) The patient does not meet criteria for a specified degree of malnutrition at this time. Will re-evaluate at follow-up as appropriate. Diet Education Needs Assessment: Diet education not indicated. Nutrition Care Level: low Signed: Ariana Mays, MS, RD, LD
[2018-05-05] MEDS: WARFARIN SOD 2 MG TAB PO SCH (18:06)
--- NOTE | 2018-05-05 18:12 | NUR ---
CASE MANAGEMENT INITIAL ASSESSMENT Supervisor [employer] to bedside to discuss plan of care with patient/family. CM/SW role and care transitions discussed. Anticipated discharge plan discussed along with duration of care. CM/SW discussed patients right to make decisions in care. CM/SW work hours given. Patient lives: HOME Admit/Transfer: ER Hospital/ER visits since last admit:0 POA/Emergency contact: AISHA CRUZ [phone] Current/Previous Home Health: NONE PCP/Follow-up Care: ANTONIETA JEFFERS Current/Previous DME: Jessica, GUERRERO PAlexiTAlexi, SHOWER CHAIR, HOME 02 Medications (referring to index hospitalization or the first time you were in the hospital) a. Were changes made in your medications when you were in the hospital on [date of index hospitalization]? N/A Note: If no or not sure, please skip to question d b. Did you understand the changes? Yes No Explain: c. Were you able to obtain your new medications right away? Yes No n/a SNF only Explain: d. Were you able to take your medications like the doctor wanted you to? Yes e. Did the hospital give you an accurate, easy to understand list of medications when you left? N/A Scale of 1-10 how comfortable does patient feel with disease management in outpatient settin Other Services: NONE Employment Status: RETIRED Areas of Concerns: NONE Referral Needs: TO BE DETERMINED; WILL PROBABLY NEED CHF HOME HEALTH Education Needs: CHF IMM/LEE given and signed (if applicable): IMM ON ADMIT Goal for discharge:HOME WITH AND 2 ADULT CHILDREN CM/SW left business card at the bedside with contact information. Name and number was also written on the patients whiteboard. Patient verbalized understanding of discussion. CM will follow-up with ongoing discharge and transition of care needs.
[2018-05-05] MEDS: INSULIN GLARGINE 100 UNITS/ML VIAL SQ SCH (21:30)
[2018-05-06] VITALS (25 sets, daily range): BP systolic 107–142; BP diastolic 56–95
[2018-05-06] MEDS: ALBUTEROL/IPRATROPIUM 3 ML NEB NEB SCH ×4 (01:50→19:10)
[2018-05-06] MEDS: VANCOMYCIN 1GM/NS 250 ML 250 ML IV SCH ×2 (06:00→08:39)
[2018-05-06] MEDS: PIPER-TAZ 3.375 GM 50 ML IV SCH (06:06)
--- NOTE | 2018-05-06 07:00 | NUR ---
bedside report recvd. assessment completed and recorded. reminded pt poc. pt appropriate but forgetful.
--- NOTE | 2018-05-06 08:18 | NUR ---
PT PREVIOUS VISIT DISCHARGED HOME WITH [facility] (REFUSED SNF AT THAT TIME) AND DOING OUTPATIENT THERAPY HERE. WAS USING A WALKER. IS AISHA [phone], DAUGHTER CALI [phone].
[2018-05-06 08:22] LABS: BASOPHILS % 0.3 % (0.0-1.0); EOSINOPHILS # (AUTO) 0.4 (0.0-0.4); EOSINOPHILS % 5.3 % (0.0-6.0); HEMOGLOBIN 8.2 g/dL (14.0-18.0); LYMPHOCYTES # (AUTO) 0.4 (1.0-3.2); LYMPHOCYTES % 5.2 % (18.0-39.1); MEAN CORPUSCULAR HEMOGLOBIN 24.4 pg (28-32); MEAN CORPUSCULAR HGB CONC 28.3 g/dL (31-35); MEAN CORPUSCULAR VOLUME 86.3 fL (81-99); MONOCYTES # (AUTO) 0.8 (0.2-0.8); MONOCYTES % 10.2 % (4.4-11.3); NEUTROPHILS # (AUTO) 6.1 (2.1-6.9); NEUTROPHILS % 78.7 % (38.7-80.0); PLATELET COUNT 152 x10e3/uL (140-360); RED BLOOD COUNT 3.36 x10e6/uL (4.3-5.7); RED CELL DISTRIBUTION WIDTH 18.9 % (11.7-14.4)
[2018-05-06] MEDS: SPIRONOLACTONE 25 MG TAB PO SCH (08:29)
[2018-05-06] MEDS: ASPIRIN 81 MG CHEW TAB PO SCH (08:29)
[2018-05-06] MEDS: LIOTHYRONINE SODIUM 5 MCG TAB PO SCH (08:29)
[2018-05-06] MEDS: ALLOPURINOL 100 MG TAB PO SCH (08:30)
[2018-05-06] MEDS: PREGABALIN 50 MG CAP PO SCH ×2 (08:30→16:29)
[2018-05-06] MEDS: FAMOTIDINE 20 MG/2 ML VIAL IV SCH ×2 (08:33→16:28)
[2018-05-06] MEDS: FUROSEMIDE INJ 10 MG/ML 4 ML VIAL IV SCH (08:33)
[2018-05-06] MEDS: INSULIN LISPRO 100 UNIT/1 ML 3ML VIAL SQ SCH ×3 (08:34→16:32)
--- NOTE | 2018-05-06 08:47 | NUR ---
called dr daniels to speak with son. no changes to full code status. Addendum: 05/06/18 at 1239 by Lazara Tejeda RN wrong pt ....disregard note
[2018-05-06 08:56] LABS: ALBUMIN 2.8 g/dL (3.5-5.0); ALBUMIN/GLOBULIN RATIO 0.8 (0.8-2.0); ANION GAP 11.7 mmol/L (8-16); CREATININE, SERUM 1.84 mg/dL (0.72-1.25); POTASSIUM 3.7 mmol/L (3.5-5.1)
--- NOTE | 2018-05-06 10:30 | NUR ---
dr randolph making rounds, updated on status. no changes in poc.
--- NOTE | 2018-05-06 12:09 | Progress Note ---
DATE: SUBJECTIVE: The patient is admitted for sepsis. Currently, the patient is afebrile, more alert and oriented. The patient has a history of atrial fibrillation and congestive heart failure. He is getting fluid resuscitation very slowly. The patient also has a history of aortic valve replacement and AICD pacemaker. OBJECTIVE: VITAL SIGNS: Today, temperature is 98.4, pulse of 101, blood pressure is 142/56, pulse oximetry of 96% on 2 L of oxygen. HEENT: Normocephalic, atraumatic. NECK: IJ present in the neck. CVS: S1 and S2, tachy. Positive for S3. ABDOMEN: Nondistended, nontender. Pannus present. EXTREMITIES: Trace edema present. LABORATORY DATA: The patient's laboratory values; white count 7.78 from 12.85 yesterday, hemoglobin of 7.7, hematocrit of 27.6. Chemistries show a sodium of 137, potassium of 3.8, BUN of 39, creatinine of 2.05, glucose is 155, total bilirubin of 1.3. CK, CK-MB, and troponin have been negative. The patient's lactic acid earliest one was 19.4. Microbiology, urine cultures, preliminary, no growth in 18 and 24 hours and blood cultures also preliminary with no growth. ASSESSMENT: 1. Acute sepsis. 2. Acute on chronic congestive heart failure. 3. Acute on chronic kidney injury. 4. History of aortic valve replacement. 5. History of paroxysmal atrial fibrillation. PLAN: The patient's medication has been reviewed. First, we will continue with the Lasix and spironolactone. Continue with warfarin. The patient is on Zosyn and we will go and reduce him to the renal dose. The patient was on Levophed, has been weaned off it. Monitor blood sugars. Continue monitoring the patient. Further recommendations and clinical course, the patient will stay in the ICU today and can be transferred out in the morning. MD MICHELLE Martinez/MODL /[id number]
--- NOTE | 2018-05-06 12:39 | NUR ---
dr vazqeuz making rounds. no changes in condition or care
[2018-05-06] MEDS: PIPERACILLIN/TAZO 2.25 GM 50 ML IV SCH ×2 (14:25→22:38)
--- NOTE | 2018-05-06 14:31 | Progress Note ---
DATE: Pulmonary Critical Care Progress Note SUBJECTIVE: The patient reports a little bit of wheezing and some cough. He is more awake. PHYSICAL EXAMINATION: VITAL SIGNS: The patient is afebrile. The blood pressure is 142/56. Saturation is 96%. The pulse is 101. HEENT: No facial swelling or erythema. CARDIAC: Regular rate and rhythm with normal S1 and S2. LUNGS: Auscultation of lungs reveals few expiratory wheezes bilaterally. ABDOMEN: Soft, nontender. There is no rebound or guarding. EXTREMITIES: No leg edema or calf tenderness. There is no cyanosis or clubbing. SKIN: No rashes. NEUROLOGICAL: No focal abnormalities. IMPRESSION: 1. Acute on chronic systolic congestive heart failure. 2. Acute on chronic kidney injury. 3. Prior aortic valve replacement. 4. Diabetes. 5. Paroxysmal atrial fibrillation. PLAN: 1. Continue diuresis. 2. Monitor electrolytes and renal function. 3. Repeat chest x-ray in the morning. 4. Robitussin with codeine p.r.n. Cuong Kyle MD [facility]/MODL /[id number]
[2018-05-06] MEDS: WARFARIN SOD 2 MG TAB PO SCH (16:29)
[2018-05-06] MEDS: GUAIFENESIN/CODEINE 10 ML CUP PO PRN ×2 (16:33→23:32)
[2018-05-06] MEDS: NOREPINEPHRINE INJ 4MG/4ML 8 MG in DEXTROSE 5% 250ML 250 ML IV SCH (18:30)
[2018-05-06] MEDS ORDERED: SODIUM CHLORIDE 0.9% 250ML 250 ML ONE (20:17)
--- NOTE | 2018-05-06 20:36 | NUR ---
PATIENT C/O FEELING SHAKE AND JITTERY, GLUCOSE 108. MEDICATED WITH PRN KLONOPIN
[2018-05-06] MEDS: INSULIN GLARGINE 100 UNITS/ML VIAL SQ SCH (21:29)
[2018-05-07] VITALS (20 sets, daily range): BP systolic 107–154; BP diastolic 43–100
--- NOTE | 2018-05-07 00:16 | Consultation ---
DATE OF CONSULTATION: 05/05/2018 Cardiology Consultation Note Thank you so much for asking us to see this nice man again in consultation. Mr. Brown is a complex and chronically ill 73-year-old man, who was admitted on the with complaints of fever and cellulitis. HISTORY OF PRESENT ILLNESS: The patient is a very poor historian, but notes he has had some redness in his groins. PAST MEDICAL HISTORY: Long and complex with a longstanding type 2 adult-onset diabetes, congestive heart failure. He had 1st coronary intervention with stenting of the LAD in 1994. He had previous pacemaker for heart block in 1994 and it was upgraded to AICD in 2009. He has had bilateral shoulder surgeries and he had a transaortic valve replacement in 2013, lumbar spine surgery 2015, and melanoma resection in May 2017. MEDICATIONS: Previous home medications have been: 1. Niaspan 500 mg once a day. 2. Lyrica 50 mg twice daily. 3. Aspirin 81 mg daily. 4. Enalapril hydrochlorothiazide. 5. NovoLog 27 units three times a day. 6. Omeprazole 20 mg daily. 7. Levemir FlexTouch 50 units in the morning and 60 units in the evening. 8. Coreg 25 mg twice a day. 9. Simvastatin 40 mg daily. 10. Warfarin 2.5 mg daily. 11. Furosemide 20 mg two tablets daily. PHYSICAL EXAMINATION: GENERAL: At this time shows a pleasant obese man, who is about 5 feet 7 inches tall, weighing 202 pounds, blood pressure 100/60. HEAD, EYES, EARS, NOSE, AND THROAT: Unremarkable. Thorax shows defibrillator in place. HEART: Sounds S1 and S2 are equal. No significant murmur. LUNGS: Relatively clear. ABDOMEN: Protuberant. EXTREMITIES: Have no cyanosis, clubbing, or edema. PERTINENT LABORATORY STUDIES: Show a hemoglobin of 7.7. BUN 39, creatinine 2.0. White count 7.7. ASSESSMENT: 1. Cellulitis/sepsis. 2. Congestive heart failure. 3. Transaortic valve replacement in the past. 4. Defibrillator in place. 5. Anemia. 6. Mild renal insufficiency. PLAN: We will monitor him with you. Review echocardiogram to reassess left ventricular function. His prognosis is always guarded. Thank you for asking me to see him in consultation. MD AMBAR Brooks /[id number]
[2018-05-07] MEDS: ALBUTEROL/IPRATROPIUM 3 ML NEB NEB SCH ×4 (00:40→20:30)
[2018-05-07] MEDS: GUAIFENESIN/CODEINE 10 ML CUP PO PRN ×2 (05:15→23:20)
[2018-05-07] MEDS: PIPERACILLIN/TAZO 2.25 GM 50 ML IV SCH ×3 (05:33→22:20)
--- NOTE | 2018-05-07 06:20 | Diagnostic Imaging Report ---
EXAM: CHEST SINGLE (PORTABLE), AP Portable DATE: 05/07/2018 7:00 AM INDICATION: Cough, wheezing COMPARISON: 05/05/2018 FINDINGS: LINES/TUBES: Left chest wall dual lead cardiac device. Metallic stent compatible with a TAVR. Right IJ catheter tip overlies the lower SVC.. LUNGS: Mild pulmonary vascular congestion. PLEURA: No effusions or pneumothorax. HEART AND MEDIASTINUM: Stable enlargement of the cardiomediastinal silhouette. BONES AND SOFT TISSUES: No acute findings. IMPRESSION: No significant change. Cardiomegaly with central pulmonary venous congestion. Signed by: DR. Mando Kapadia MD on 05/07/2018 6:17 AM
[2018-05-07] MEDS ORDERED: TRAMADOL HCL 50 MG TAB PO PRN (06:45)
[2018-05-07] MEDS: SPIRONOLACTONE 25 MG TAB PO SCH (08:12)
[2018-05-07] MEDS: FUROSEMIDE INJ 10 MG/ML 4 ML VIAL IV SCH (08:12)
[2018-05-07] MEDS: PREGABALIN 50 MG CAP PO SCH ×2 (08:12→16:24)
[2018-05-07] MEDS: LIOTHYRONINE SODIUM 5 MCG TAB PO SCH (08:12)
[2018-05-07] MEDS: FAMOTIDINE 20 MG/2 ML VIAL IV SCH ×2 (08:12→16:24)
[2018-05-07] MEDS: ALLOPURINOL 100 MG TAB PO SCH (08:12)
[2018-05-07] MEDS: VANCOMYCIN 1GM/NS 250 ML 250 ML IV SCH (08:12)
[2018-05-07] MEDS: ASPIRIN 81 MG CHEW TAB PO SCH (08:12)
[2018-05-07] MEDS: INSULIN LISPRO 100 UNIT/1 ML 3ML VIAL SQ SCH ×3 (08:13→17:10)
[2018-05-07] MEDS: CLONAZEPAM 0.5 MG TAB PO PRN ×2 (14:25→23:20)
[2018-05-07] MEDS: WARFARIN SOD 2 MG TAB PO SCH (16:24)
--- NOTE | 2018-05-07 19:40 | Progress Note ---
DATE: Pulmonary Critical Care Progress Note. SUBJECTIVE: The patient feels better. He is not having agitation. He has no fever. He has no congestion. PHYSICAL EXAMINATION: VITAL SIGNS: The patient is afebrile. The blood pressure is 123/86 and saturation is 100% on 2 L. The pulse is 105. HEENT: Shows no facial swelling or erythema. The nasal mucosa is normal. The oropharynx is normal. LYMPHATIC: Shows no submandibular, cervical, or supraclavicular adenopathy. CARDIAC: Reveals a regular rate and rhythm with a normal S1 and S2. There are no murmurs or rubs. CHEST: Auscultation of lungs shows clear breath sounds bilaterally. There is no wheezing. ABDOMEN: Soft, nontender. There is no rebound or guarding. EXTREMITIES: Show no leg edema or calf tenderness. There is no cyanosis or clubbing. IMPRESSION: 1. Acute on chronic systolic congestive heart failure. 2. Acute on chronic kidney injury. 3. Prior aortic valve replacement. 4. Diabetes. 5. Paroxysmal atrial fibrillation. PLAN: 1. Continue diuresis. 2. Monitor renal function. 3. Arrange for a transfer out of the intensive care unit. Cuong Kyle MD LM/AFIA /[id number]
[2018-05-07] MEDS: INSULIN GLARGINE 100 UNITS/ML VIAL SQ SCH (21:30)
[2018-05-08] VITALS (13 sets, daily range): BP systolic 91–135; BP diastolic 41–105
[2018-05-08] MEDS: ALBUTEROL/IPRATROPIUM 3 ML NEB NEB SCH ×4 (01:00→19:18)
[2018-05-08] MEDS: GUAIFENESIN/CODEINE 10 ML CUP PO PRN (03:04)
[2018-05-08] MEDS: PIPERACILLIN/TAZO 2.25 GM 50 ML IV SCH ×3 (06:01→21:09)
[2018-05-08 06:28] LABS: BASOPHILS % 0.2 % (0.0-1.0); EOSINOPHILS # (AUTO) 0.5 (0.0-0.4); EOSINOPHILS % 4.9 % (0.0-6.0); HEMATOCRIT 31.2 % (38.2-49.6); HEMOGLOBIN 8.9 g/dL (14.0-18.0); LYMPHOCYTES # (AUTO) 0.5 (1.0-3.2); LYMPHOCYTES % 5.4 % (18.0-39.1); MEAN CORPUSCULAR HEMOGLOBIN 24.9 pg (28-32); MEAN CORPUSCULAR HGB CONC 28.5 g/dL (31-35); MEAN CORPUSCULAR VOLUME 87.2 fL (81-99); MONOCYTES # (AUTO) 0.6 (0.2-0.8); MONOCYTES % 6.1 % (4.4-11.3); NEUTROPHILS # (AUTO) 8.3 (2.1-6.9); NEUTROPHILS % 82.9 % (38.7-80.0); PLATELET COUNT 169 x10e3/uL (140-360); RED BLOOD COUNT 3.58 x10e6/uL (4.3-5.7)
[2018-05-08 06:42] LABS: INR 2.03; PROTHROMBIN TIME 23.6 seconds (11.9-14.5)
[2018-05-08 06:51] LABS: ALBUMIN 3.2 g/dL (3.5-5.0); ALBUMIN/GLOBULIN RATIO 0.8 (0.8-2.0); ANION GAP 14.7 mmol/L (8-16); CALCIUM 9.3 mg/dL (8.4-10.2); CREATININE, SERUM 1.55 mg/dL (0.72-1.25); POTASSIUM 3.7 mmol/L (3.5-5.1)
[2018-05-08] MEDS: INSULIN LISPRO 100 UNIT/1 ML 3ML VIAL SQ SCH ×3 (08:10→17:51)
[2018-05-08] MEDS: ASPIRIN 81 MG CHEW TAB PO SCH (08:34)
[2018-05-08] MEDS: FUROSEMIDE INJ 10 MG/ML 4 ML VIAL IV SCH (08:34)
[2018-05-08] MEDS: LIOTHYRONINE SODIUM 5 MCG TAB PO SCH (08:34)
[2018-05-08] MEDS: VANCOMYCIN 1GM/NS 250 ML 250 ML IV SCH (08:34)
[2018-05-08] MEDS: SPIRONOLACTONE 25 MG TAB PO SCH (08:34)
[2018-05-08] MEDS: FAMOTIDINE 20 MG/2 ML VIAL IV SCH ×2 (08:34→17:49)
[2018-05-08] MEDS: ALLOPURINOL 100 MG TAB PO SCH (08:35)
[2018-05-08] MEDS: CLONAZEPAM 0.5 MG TAB PO PRN (08:35)
[2018-05-08] MEDS: VIIBRYD 40MG PO SCH (08:35)
[2018-05-08] MEDS: PREGABALIN 50 MG CAP PO SCH ×2 (08:35→17:50)
--- NOTE | 2018-05-08 12:22 | NUR ---
dr vazquez making rounds. no changes in poc
--- NOTE | 2018-05-08 14:50 | NUR ---
report called to santino pt ambulating with pt, daughter at bedside. pt transferred to room 204 w/ tele monitor in place.
--- NOTE | 2018-05-08 15:39 | NUR ---
RECEIVED PATIENT FROM ICU, PATIENT ORIENTED TO NAME AND YEAR, ALTHOUGH NOT PLACE AND CIRCUMSTANCES, PATIENT COMPLAINING OF CONFUSION, COMPLAINING OF ABDOMINAL PAIN, DAUGHTER AT BEDSIDE, DAUGHTER'S NAME IS CALI, PATIENT'S DAUGHTER STATED THAT THE CLONAZEPAM CAUSES THE PATIENT CONFUSION.
--- NOTE | 2018-05-08 15:51 | NUR ---
PATIENT'S TELEMETRY UNIT NUMBER 22 IS READING PACED AND 103 BEAT PER MINUTE.
[2018-05-08] MEDS: BUSPIRONE HCL 5 MG TAB PO SCH (17:36)
[2018-05-08] MEDS: WARFARIN SOD 2 MG TAB PO SCH (17:50)
--- NOTE | 2018-05-08 19:07 | NUR ---
RECEIVED PATIENT RESTING IN BED. RESPIRATIONS EVEN AND UNLABORED, NO ACUTE DISTRESS NOTED. CALL LIGHT WITHIN REACH. BED IN THE LOWEST POSITION. CALL LIGHT WITHIN REACH. BED IN THE LOWEST POSITION. BED ALARM ON.
[2018-05-08 19:37] LABS: EOSINOPHILS % (MANUAL) 4 % (0-7); HYPOCHROMASIA MODERATE; LYMPHOCYTES % (MANUAL) 4 % (19-48); MONOCYTES % (MANUAL) 8 % (3.4-9.0); NEUTROPHILS % (MANUAL) 84 % (40-74); PLATELET ESTIMATE ADEQUATE; PLATELET MORPHOLOGY COMMENT NORMAL; RBC MORPHOLOGY COMMENT NORMAL
[2018-05-08] MEDS ORDERED: SODIUM CHLORIDE 0.9% 250ML 250 ML ONE (20:40)
[2018-05-08] MEDS: INSULIN GLARGINE 100 UNITS/ML VIAL SQ SCH (21:09)
[2018-05-09] VITALS (7 sets, daily range): BP systolic 122–148; BP diastolic 74–99
[2018-05-09] MEDS: ALBUTEROL/IPRATROPIUM 3 ML NEB NEB SCH ×4 (01:07→19:35)
[2018-05-09] MEDS: GUAIFENESIN/CODEINE 10 ML CUP PO PRN ×2 (03:38→21:27)
--- NOTE | 2018-05-09 03:56 | Progress Note ---
DATE: 05/08/2018 Pulmonary Medicine Progress Note SUBJECTIVE: Mr. Brown was seen and examined at bedside. He continues to feel a little bit better. 2 L/minute by nasal cannula. He ate very little. He did have bowel movement. He was in bed all day he says. Occasional . REVIEW OF SYSTEMS: No headaches, no bleeding. OBJECTIVE: VITAL SIGNS: Afebrile, vital signs noted per the chart record. GENERAL: In no acute distress, alert and calm. HEENT: Normocephalic, atraumatic. NECK: Supple. Throat midline. LUNGS: Bilateral air entry, rare rhonchi. CARDIOVASCULAR: S1, S2. No murmurs, rubs, or gallops. ABDOMEN: Soft and nontender. EXTREMITIES: No clubbing, no cyanosis. There is no edema. INTEGUMENT: No rash or purpura. LABORATORY DATA: 25 BUN, 1.5 creatinine, 3.7 potassium. Albumin was 3.2. BNP level was 1249 three days ago. White count 10, 31 hematocrit, and 169 platelets. IMPRESSION AND PLAN: 1. Acute on chronic systolic congestive heart failure. 2. Acute on chronic kidney injury. 3. History of aortic valve replacement. 4. Diabetes. 5. Paroxysmal atrial fibrillation. 6. Cellulitis/sepsis reported. Order physical therapy for the patient. Mobilize him. Continue oxygen as needed. Continue expectorant. Antibiotics to be continued with followup. Now, he is on vancomycin, which may need levels. MD CLEMENTINA Iraheta/AFIA /[id number]
[2018-05-09] MEDS: PIPERACILLIN/TAZO 2.25 GM 50 ML IV SCH ×3 (05:20→21:16)
--- NOTE | 2018-05-09 05:52 | NUR ---
RECEIVED CRITICAL VANC. TROUGH RESULT FROM LAB, CALLED THEM TO NOTIFY THAT THE ORDER WAS FOR 0800 NOT 0500, RE-ENTERED THE ORDER.
--- NOTE | 2018-05-09 07:06 | NUR ---
REPORT GIVEN TO ONCOMING NURSE. PATIENT IS RESTING IN BED, NO ACUTE DISTRESS NOTED, RESPIRATIONS EVEN AND UNLABORED. CALL LIGHT WITHIN REACH. BED IN THE LOWEST POSITION.
[2018-05-09] MEDS: INSULIN LISPRO 100 UNIT/1 ML 3ML VIAL SQ SCH ×3 (08:00→17:31)
[2018-05-09] MEDS: VIIBRYD 40MG PO SCH (09:00)
[2018-05-09] MEDS ORDERED: BUSPIRONE HCL 5 MG TAB PO SCH (09:00)
--- NOTE | 2018-05-09 09:30 | NUR ---
RECIEVED CALL FROM LAB FOR PATIENT'S CRITICAL LAB VALUE- VANCOMYCIN TROUGH 13.5, CALLED DR. JEFFERS'S OFFICE, AND LEFT MESSAGE WITH SWIMMING TEACHER.
[2018-05-09] MEDS: SPIRONOLACTONE 25 MG TAB PO SCH (11:39)
[2018-05-09] MEDS: VANCOMYCIN 1GM/NS 250 ML 250 ML IV SCH (11:39)
[2018-05-09] MEDS: FUROSEMIDE INJ 10 MG/ML 4 ML VIAL IV SCH (11:39)
[2018-05-09] MEDS: FAMOTIDINE 20 MG/2 ML VIAL IV SCH ×2 (11:39→17:21)
[2018-05-09] MEDS: LIOTHYRONINE SODIUM 5 MCG TAB PO SCH (11:40)
[2018-05-09] MEDS: ASPIRIN 81 MG CHEW TAB PO SCH (11:40)
[2018-05-09] MEDS: BUSPIRONE HCL 5 MG TAB PO SCH ×2 (11:40→17:21)
[2018-05-09] MEDS: PREGABALIN 50 MG CAP PO SCH ×2 (11:41→17:23)
[2018-05-09] MEDS: ALLOPURINOL 100 MG TAB PO SCH (11:41)
--- NOTE | 2018-05-09 14:05 | NUR ---
CALLED [phone], LEFT MESSAGE FOR DR. Regino FRANK REGARDING HIGH VANCOMYCIN TROUGH.
--- NOTE | 2018-05-09 14:27 | NUR ---
PAGED DR. VELASQUEZ REGARDING CRITICAL VANCOMYCIN TROUGH. AWAITING CALL BACK.
--- NOTE | 2018-05-09 15:58 | NUR ---
SPOKE TO DR. FRANK REGARDING TROUGH OF 13.5, PHYSICIAN INSTRUCTED TO CONTINUE MEDICATION.
[2018-05-09 17:19] LABS: INR 2.23; PROTHROMBIN TIME 25.4 seconds (11.9-14.5)
[2018-05-09] MEDS: WARFARIN SOD 2 MG TAB PO SCH (17:22)
--- NOTE | 2018-05-09 18:42 | Progress Note ---
DATE: Pulmonary Critical Care Progress Note SUBJECTIVE: The patient is transferred out of the intensive care unit. He reports feeling better. He has less congestion and less cough. He is not complaining of chest pain. He ambulated with physical therapy a little bit. PHYSICAL EXAMINATION: VITAL SIGNS: The blood pressure is 133/87 and the saturation is 98% on 2 L. The pulse is 98. HEENT: Shows no facial swelling or erythema. The nasal mucosa is normal. The oropharynx is normal. LYMPHATIC: Shows no submandibular, cervical, or supraclavicular adenopathy. CARDIAC: Reveals a regular rate and rhythm with a normal S1 and S2. There are no murmurs or rubs. LUNGS: Auscultation of lungs reveals clear breath sounds bilaterally. There is no wheezing. ABDOMEN: Soft, nontender. There is no rebound or guarding. EXTREMITIES: There is no leg edema. IMPRESSION: 1. Acute on chronic systolic congestive heart failure. 2. Acute kidney injury. 3. History of aortic valve replacement. 4. Diabetes. 5. Paroxysmal atrial fibrillation. PLAN: 1. Continue current cardiac regimen. 2. Physical therapy. 3. Continue oxygen. 4. Taper antibiotics as tolerated. Cuong Kyle MD [facility]/AFIA /[id number]
[2018-05-09] MEDS: INSULIN GLARGINE 100 UNITS/ML VIAL SQ SCH (21:15)
--- NOTE | 2018-05-09 22:50 | NUR ---
D/c right AC IV infiltrated. start new IV to left forearm 20g. Patient tolerated well.
[2018-05-10] VITALS (8 sets, daily range): BP systolic 106–164; BP diastolic 55–90
[2018-05-10] MEDS: ALBUTEROL/IPRATROPIUM 3 ML NEB NEB SCH ×4 (01:35→19:18)
[2018-05-10] MEDS: GUAIFENESIN/CODEINE 10 ML CUP PO PRN ×2 (02:24→11:02)
[2018-05-10] MEDS: PIPERACILLIN/TAZO 2.25 GM 50 ML IV SCH ×3 (05:17→22:00)
--- NOTE | 2018-05-10 07:00 | NUR ---
RCD PT AT BED PT IS ALERT AND ORIENTED PT RESTING ON BED NO SIGNS OF ANY DISTRESS NOTED IV PATENT BED LOW AND LOCKED CALL LIGHT IN REACH
[2018-05-10] MEDS: INSULIN LISPRO 100 UNIT/1 ML 3ML VIAL SQ SCH ×3 (08:00→17:00)
--- NOTE | 2018-05-10 08:15 | NUR ---
HR [address] ACEVEDO TO NOTIFY THAT
--- NOTE | 2018-05-10 08:35 | NUR ---
DR ACEVEDO RETURNED THE CALL AND GOT THE ORDER TO EKG
[2018-05-10] MEDS: SPIRONOLACTONE 25 MG TAB PO SCH (09:00)
[2018-05-10] MEDS: ALLOPURINOL 100 MG TAB PO SCH (09:00)
[2018-05-10] MEDS: PREGABALIN 50 MG CAP PO SCH ×2 (09:00→17:00)
[2018-05-10] MEDS: VANCOMYCIN 1GM/NS 250 ML 250 ML IV SCH (09:00)
[2018-05-10] MEDS: VIIBRYD 40MG PO SCH (09:00)
[2018-05-10] MEDS: FAMOTIDINE 20 MG/2 ML VIAL IV SCH ×2 (09:00→17:00)
[2018-05-10] MEDS: FUROSEMIDE INJ 10 MG/ML 4 ML VIAL IV SCH (09:00)
[2018-05-10] MEDS: ASPIRIN 81 MG CHEW TAB PO SCH (09:00)
[2018-05-10] MEDS: BUSPIRONE HCL 5 MG TAB PO SCH ×3 (09:00→20:51)
[2018-05-10] MEDS: LIOTHYRONINE SODIUM 5 MCG TAB PO SCH (09:00)
--- NOTE | 2018-05-10 10:30 | NUR ---
CM called pt's Daniela Brown [phone] and explained IMM letter. She verbalized understanding. Witnessed by LITO Javier. Signed copy in chart. Copy left at bedside for pt's family.
[2018-05-10 14:57] LABS: INR 3.36; PROTHROMBIN TIME 34.8 seconds (11.9-14.5)
--- NOTE | 2018-05-10 17:10 | NUR ---
PAGED AND NOTIFIED THE INR LEVEL TO DR FRANK GOT THE ORDER TO HOLD COUMADIN
--- NOTE | 2018-05-10 18:44 | NUR ---
PT RESTING ON BED BED SIDE REPORT GIVEN TO ONCOMING NURSE
[2018-05-10] MEDS ORDERED: PREDNISONE 20 MG TAB PO ONE (19:30)
--- NOTE | 2018-05-10 20:37 | Progress Note ---
DATE: 05/10/2018 Pulmonary Medicine Progress Note SUBJECTIVE: Mr. Brown was seen and examined at bedside. He continues to have slow progress. He had a mildly high heart rate and Cardiology had to intervene and assess. The patient without any significant worsening noted however. 2 L/minute by nasal cannula oxygen. 96% oxygen saturation. REVIEW OF SYSTEMS: No headaches, no bleeding. OBJECTIVE: VITAL SIGNS: Afebrile. Vital signs noted per the chart record. GENERAL: In no acute distress. Alert and calm, and pleasant. HEENT: Normocephalic, atraumatic. NECK: Supple. Throat midline. LUNGS: Bilateral air entry, mostly clear except for rare rhonchi. CARDIOVASCULAR: S1, S2. No murmurs, rubs, or gallops. ABDOMEN: Soft, nontender. EXTREMITIES: No clubbing, no cyanosis. There is no edema. INTEGUMENT: No rash or purpura. IMPRESSION AND PLAN: 1. Xyzgy-cv-fqdkpbv congestive heart failure. 2. Kiuls-db-bkaneqn kidney injury. 3. History of aortic valve replacement. 4. Diabetes. 5. Paroxysmal atrial fibrillation. 6. Cellulitis and sepsis. 7. Wheezing, possible chronic bronchitis versus chronic obstructive pulmonary disease versus other. Given high-dose steroids today. Follow up his cough. Continue bronchodilators. Light-dose diuretics. Mobilize him aggressively with therapy. MD CLEMENTINA Iraheta/AFIA /[id number]
[2018-05-10] MEDS: INSULIN GLARGINE 100 UNITS/ML VIAL SQ SCH (21:00)
[2018-05-11] VITALS (7 sets, daily range): BP systolic 137–149; BP diastolic 64–101
--- NOTE | 2018-05-11 04:45 | NUR ---
Dr. Lowry wants PT to work with patient before DC home.
[2018-05-11] MEDS: PIPERACILLIN/TAZO 2.25 GM 50 ML IV SCH ×2 (05:29→14:00)
[2018-05-11 06:25] LABS: INR 3.38
[2018-05-11 06:42] LABS: ALBUMIN/GLOBULIN RATIO 0.8 (0.8-2.0); ANION GAP 19.4 mmol/L (8-16); CALCIUM 8.4 mg/dL (8.4-10.2); CREATININE, SERUM 1.84 mg/dL (0.72-1.25); MAGNESIUM 1.9 MG/DL (1.3-2.1); PHOSPHORUS 4.1 MG/DL (2.3-4.7); POTASSIUM 4.4 mmol/L (3.5-5.1)
[2018-05-11] MEDS: ALBUTEROL/IPRATROPIUM 3 ML NEB NEB SCH ×3 (07:00→13:00)
--- NOTE | 2018-05-11 07:00 | NUR ---
RCD PT AT BED PT IS ALERT AND ORIENTED PT RESTING ON BED NO SIGNS OF ANY DISTRESS NOTED IV PATENT GETTING O2 2L BY NC BED LOW AND LOCKED CALL LIGHT IN REACH
[2018-05-11] MEDS: INSULIN LISPRO 100 UNIT/1 ML 3ML VIAL SQ SCH ×2 (08:00→12:00)
--- NOTE | 2018-05-11 08:30 | NUR ---
ATE THE BREAKFAST 50%
[2018-05-11] MEDS: VANCOMYCIN 1GM/NS 250 ML 250 ML IV SCH (08:57)
[2018-05-11] MEDS: FAMOTIDINE 20 MG/2 ML VIAL IV SCH (08:57)
[2018-05-11] MEDS: FUROSEMIDE INJ 10 MG/ML 4 ML VIAL IV SCH (08:57)
[2018-05-11] MEDS: VIIBRYD 40MG PO SCH (08:58)
[2018-05-11] MEDS: PREGABALIN 50 MG CAP PO SCH (08:58)
[2018-05-11] MEDS: BUSPIRONE HCL 10 MG TABLET PO SCH ×2 (08:58→15:00)
[2018-05-11] MEDS: SPIRONOLACTONE 25 MG TAB PO SCH (08:58)
[2018-05-11] MEDS: ALLOPURINOL 100 MG TAB PO SCH (08:58)
[2018-05-11] MEDS: ASPIRIN 81 MG CHEW TAB PO SCH (08:58)
[2018-05-11] MEDS: LIOTHYRONINE SODIUM 5 MCG TAB PO SCH (08:58)
--- NOTE | 2018-05-11 12:39 | NUR ---
CM SPOKE TO PATIENT AISHA AND SON AT BEDSIDE WITH BRADY LEIVA ON THE PHONE. CM SPOKE WITH THEM REGARDING PATIENT PLAN OF CARE AND DISCHARGE PLAN. THEY HAD GRIEVANCES WITH THE MISCOMMUNICATION OF STAFF AND NON COMMUNICATION FROM THE COVERING MD DR. FRANK. CM INFORMED THE PATIENT AND PATIENT FAMILY OF THE UPDATED INFORMATION REGARDING PATIENT PLAN OF CARE AND DISCHARGE PLANNING AND REASSURED THAT NURSING MANAGEMENT WILL COME AND SPEAK TO THEM REGARDING THEIR GRIEVANCES. [place], RN NURSE PRODUCTION PLANNER NOTIFIED. PATIENT CONFUSED AND ALERT TO SELF. PATIENT FAMILY INFORMED OF HOME EHALTH ORDERS AND SERVCIES. PATIENT FAMILY GIVEN CHOICES AND MADE DECISION FOR PATIENT TO RETURN ON HOME HEALTH SERVICES WITH [facility]. CHOICE LETTER SIGNED BY PATIENT AND PLACED IN CHART. CLINICAL SENT TO [facility]. PATIENT FAMILY AWARE TO CALL IF HOME HEALTH COMPANY DOES NOT REACH OUT WITHING 48 HOURS POST DISCHARGE. [facility] (P) [phone] (F) [phone] Addendum: 05/11/18 at 1245 by Rylie Valerio CM BRADY LEIVA- [phone]
--- NOTE | 2018-05-11 13:00 | NUR ---
FAMILY WANTED TO TALK DR FRANK ,NURSE SONG LYRICIST TALKED TO THE FAMILY AND SHE TALKED TO DR FRANK ,DR FRANK TALKED TO THE FAMILY ,DR FRANK WANTED TO KNOW THE UPDATE FROM PT
--- NOTE | 2018-05-11 14:00 | NUR ---
NOTIFIED THE UPDATE REPORT OF THE PT TO DR FRANK THE HOME HEALTH FOR PT ,A/C TO DR FRANK IF THE FAMILY OK TO DISCHARGE THE PT TO HOME
--- NOTE | 2018-05-11 14:15 | NUR ---
RECHECKED BP 140/76 MM/HG
--- NOTE | 2018-05-11 14:30 | NUR ---
TALKED TO THE DAUGHTER TO THE DISCHARGE SHE AGREED NOTIFIED DR FRANK GOT DISCHARGE ORDER AND SEND THE PHARMACY NO TO DR FRANK FOR THE PRESCRIPTION
--- NOTE | 2018-05-11 16:13 | NUR ---
PT WENT HOME IN SAFE CONDITION WITH HER DAUGHTER
--- NOTE | 2018-05-12 02:33 | Progress Note ---
DATE: 05/11/2018 Pulmonary Medicine Progress Note SUBJECTIVE: Mr. Brown was seen and examined at bedside. He is on 3 L/minute by nasal cannula. He had a bowel movement today. He walked in the valadez. The patient is not eating very much, although he is not far from his baseline, where he does not eat very much. REVIEW OF SYSTEMS: No headache, no bleeding. OBJECTIVE: VITAL SIGNS: Afebrile, vital signs noted per the chart record. GENERAL: No acute distress. Alert and calm. HEENT: Normocephalic, atraumatic. NECK: Supple. Throat midline. LUNGS: Bilateral air entry, mostly clear, just some decreased breath sounds at the bases. CARDIOVASCULAR: S1 and S2. No murmurs, rubs, or gallops. ABDOMEN: Soft, nontender. EXTREMITIES: No clubbing. No cyanosis. There is no edema. INTEGUMENT: No rash. No purpura. IMPRESSION AND PLAN: 1. Shhrz-ye-fuqdiwp congestive heart failure. 2. Vblrm-bq-sslhwwl kidney injury. 3. History of congestive heart failure. 4. History of aortic valve replacement. 5. Debility/weakness. 6. Paroxysmal atrial fibrillation. 7. Diabetes. 8. Cellulitis and sepsis. Continue finishing off antibiotics. The patient is improving. Ambulate. He will be considered to go home today if he continues to do well. MD CLEMENTINA Iraheta/AFIA /[id number]
== END 2018-05-11 16:13 | disposition home health service (06) | DRG 871 ==
LOC: ER 09:01 → ERHOLD 14:35 → ICU 17:16 → MED/SURG2 05-08 15:20
PROVIDERS: ADMIT Family Medicine; ATTEND Family Medicine
PROC: 02HV33Z Insertion of Infusion Device into Superior Vena Cava, Percutaneous Approach (ICD-10-PCS; principal; 2018-05-04)
PROC: 3E043XZ Introduction of Vasopressor into Central Vein, Percutaneous Approach (ICD-10-PCS; 2018-05-04)
DX: A41.9 Sepsis, unspecified organism (principal); J18.9 Pneumonia, unspecified organism; I50.23 Acute on chronic systolic (congestive) heart failure; L03.314 Cellulitis of groin; N17.9 Acute kidney failure, unspecified; I13.0 Hypertensive heart and chronic kidney disease with heart failure and stage 1 through stage 4 chronic kidney disease, or unspecified chronic kidney disease; I95.9 Hypotension, unspecified; I48.0 Paroxysmal atrial fibrillation; E66.9 Obesity, unspecified; E11.22 Type 2 diabetes mellitus with diabetic chronic kidney disease; N18.3 Chronic kidney disease, stage 3 (moderate); R65.20 Severe sepsis without septic shock; D64.9 Anemia, unspecified; I25.10 Atherosclerotic heart disease of native coronary artery without angina pectoris; J44.9 Chronic obstructive pulmonary disease, unspecified; R09.02 Hypoxemia; R53.81 Other malaise; R53.1 Weakness; Z68.29 Body mass index [BMI] 29.0-29.9, adult; Z79.01 Long term (current) use of anticoagulants; Z79.82 Long term (current) use of aspirin; Z95.5 Presence of coronary angioplasty implant and graft; Z79.4 Long term (current) use of insulin; Z88.5 Allergy status to narcotic agent; Z95.2 Presence of prosthetic heart valve; Z95.810 Presence of automatic (implantable) cardiac defibrillator
CPT/HCPCS: 36415; 71045; 80053; 80202; 81001; 82550; 82553; 82948; 83540; 83605; 83735; 83880; 84100; 84466; 84484; 85025; 85610; 87040; 87081; 87086; 87400; 93005; 93306; 94640; 97139; 99285; J1650; J1815; J1940; J2543; J3370; J7030; J7050; J7512

== ENCOUNTER 2018-06-22 14:59 | Inpatient (IN) | payer MEDICARE, BC ==
[~2018-06-22] VITALS: Ht 153.7 cm; Wt 83.9 kg
[~2018-06-22 14:59] MED LIST changes: +BUSPIRONE HCL5 MG PO; +LOVASTATIN20 MG PO
--- OUTSIDE RECORDS SUMMARY | 2018-06-22 15:03 | XMS REPORT | Summary of Care ---
Author Author [facility] Organization [facility] Address Unknown Phone Unavailable Encounter JOELLEN Arteaga(ARIANNA) [id number] Date(s): 11/23/17 - 11/23/17 [facility] [address] [employer] provided by [facility] [employer] [facility] [place] [address]- Attending Physician: Nick Guan MD Admitting Physician: Nick Guan MD Vital Signs No data available for this section Problem List Condition Effective Dates Status Health Status Informant ACD - Automatic Resolved cardiac defibrillator procedure(Confirmed) AMI (acute Resolved myocardial infarction)(Confirme d) Aortic Resolved stenosis(Confirmed) CAD (coronary artery Resolved disease)(Confirmed) ICD (implantable Active cardioverter-defibri llator), biventricular, in situ(Confirmed) Congestive heart Resolved failure(Confirmed) Coronary stent Resolved site(Confirmed) DM (diabetes Resolved mellitus), type 2(Confirmed) H/O Malignant < 02/28/17 Resolved melanoma(Confirmed) Hypertension(Confirm Resolved ed) MRSA(Confirmed)1, 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 Allergies, Adverse Reactions, Alerts Substance Reaction Severity Status NKDA Active Medications No data available for this section Results No data available for this section Immunizations No data available for this section Procedures Procedure Date Related Diagnosis Body Site Status Angioplasty Completed Cardiac catheterization Completed Cardiac pacemaker procedure Completed Cataract surgery Completed Excision of calcaneal spur Completed ICD - Internal cardiac defibrillator Completed procedure Implantation of automatic Completed cardioverter/defibrillator, total system (AICD) PCI - Percutaneous coronary intervention Completed Placement of stent Completed TAVR - Transcatheter aortic valve replacement Completed Social History Social History Type Response Substance Abuse Use: None. Sexual Sexually active: No. What is your current gender identity? Identifies as male. Exercise Exercise duration: 0. Employment/School Status: Retired. Alcohol Never Smoking Status Former smoker; Type: Cigarettes; Exposure to Tobacco Smoke None; Cigarette Smoking Last 365 Days No; Reg Smoking Cessation Counseling No; Number of years: 15; 1 entered on: 01/04/18 1quit in 1984 Assessment and Plan No data available for this section
--- OUTSIDE RECORDS SUMMARY | 2018-06-22 15:03 | XMS REPORT | Summary of Care ---
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 Name Role Phone JAEL Boggs, NEVIN Unavailable Unavailable NATA Boggs, DIEGO Unavailable Unavailable JENNIFER Boggs, UVALDO Unavailable Unavailable JAEL STEWART OR, NEVIN Overton Unavailable Unavailable Unavailable Unavailable Functional [...] bundle branch block (426.3, I44.7) Status: Active HFrEF (heart failure with reduced ejection fraction) (428.20, I50.20) Status: Active Special DrAlexi Services Analysis Of Computerized Data Status: Active Medications Name Dates Details Simvastatin [...] Refills: 5 * Start : 27-Jul-2013 Active clonazePAM 0.5 MG Oral Tablet TAKE 1 TABLET DAILY PRN * Refills: 0 * Start : 27-Jul-2013 Active Stambaugh 3 1000 MG Oral Capsule TAKE 1 [...] 1 CAPSULE DAILY. * Refills: 0 Active traMADol HCl - 50 MG Oral Tablet TAKE 1 TABLET 3 TIMES DAILY NEEDED. * Refills: 0 Active busPIRone HCl - 10 MG Oral Tablet TAKE [...] 1 TABLET DAILY. * Refills: 0 Active Lisinopril 5 MG Oral Tablet TAKE 1 TABLET DAILY. * Quantity: 1 Refills: 0 DIEGO PEACE M.D. Active 90 Tablet Bottle Torsemide 20 MG Oral Tablet TAKE 4 TABLET DAILY * Quantity: 1 Refills: 1 DIEGO PEACE M.D. * Start : 24-May-2018 Active 100 Tablet Bottle Allergies and Adverse Reactions Name Dates Details HYDROcodone-Acetaminophen TABS (Allergy) Status: Active Procedures Procedure Dates Details [QL] CBC (INCLUDES DIFF/PLT) Date: 24-May-2018 [QLH] CMP W/EGFR Date: 24-May-2018 [N] 2D Echo complete, with Doppler 14005 Date: 25-May-2018 Immunization Name Dates Details Immunizations not documented Social History Name Dates Details - Status: Name Dates Details Former smoker Vital Signs Date Test Result Details [id number] BP Systolic 108 mm[Hg] Status: Comments: Location: RUE; Position: Sitting BP Diastolic 68 mm[Hg] Status: Comments: Location: RUE; Position: Sitting Height 64 in Status: Weight 191.375 lb Status: Body Mass Index Calculated 32.85 kg/m2 Status: Body Surface Area Calculated 1.92 m2 Status: Heart Rate 85 /min Status: Comments: Location: R Radial; Quality: Normal Respiration Rate 16 /min Status: Comments: Quality: Normal O2 SAT 100 % Status: Comments: Source: RA Results Date Description Value Details :33 [[facility]] BASIC METABOLIC PANEL W/EGFR GLUCOSE 146 mg/dl (Above high threshold) Range: 65-139 Comments: Non-fasting reference interval UREA NITROGEN (BUN) 50 mg/dl (Above high threshold) Range: 7-25 CREATININE 1.93 mg/dl (Above high threshold) Range: 0.70-1.18 Comments: For patients >49 years of age, the reference limitfor Creatinine is approximately 13% higher for peopleidentified as -Spanish. eGFR NON- 34 {ML/MIN/1.7} (Below low threshold) Range: > OR=60 eGFR 39 {ML/MIN/1.7} (Below low threshold) Range: > OR=60 BUN/CREATININE RATIO 26 {CALC} (Above high threshold) Range: 6-22 SODIUM 138 mmol/L (Normal) Range: 135-146 POTASSIUM 3.7 mmol/L (Normal) Range: 3.5-5.3 CHLORIDE 102 mmol/L (Normal) Range: 98-110 CARBON DIOXIDE 25 mmol/L (Normal) Range: 20-32 CALCIUM 8.7 mg/dl (Normal) Range: 8.6-10.3 :33 [[facility]] B TYPE NATRIURETIC PEPTIDE (BNP) Comments: REPORT COMMENT:FASTING:NO B TYPE NATRIURETIC PEPTIDE (BNP) 1024 pg/ml (Above high threshold) Range: <100 Comments: BNP levels increase with age in the generalpopulation with the highest values seen inindividuals greater than 75 years of age.Reference: J. Am. Umu. Cardiol. 2002; 40:976-982. Plan of Care Name Dates Details Planned Observations Planned Goals not documented Planned Encounters Appointment; SOLOMON JEROME On: 09-Aug-2018 13:00 Appointment; NEVIN ELDER M.D. On: 09-Aug-2018 14:00 Appointment; [facility], [facility] On: 13-Sep-2018 14:15 Interventions Provided Medication Changes* Lisinopril 5 MG Oral Tablet - Renew * Torsemide 20 MG Oral Tablet - Start Plan* - discontinue Bumex 2 mg * - start Torsemide 80 mg daily * - continue current medications * - weight q 3 days, 2gm daily Na restriction * - RTC and repeat TTE and CMP in 3 months. Instructions Name Dates Details Instructions not documented [...] Problem not documented On: 19-Dec-2017 9:45 Appointment; [facility], [facility] Encounter Diagnosis: Problem not documented On: 23-Jan-2018 8:45 Appointment; [facility], [facility] Encounter Diagnosis: Problem not documented On: 24-Jan-2018 11:00 Appointment; [facility] Encounter Diagnosis: Problem not documented On: 01-Feb-2018 14:30 Appointment; EDWIGE MIN M.D. Encounter Diagnosis: Problem not documented On: 13-Feb-2018 9:15 Appointment; NEVIN ELDER M.D. Encounter Diagnosis: Problem not documented On: 15-Feb-2018 10:20 Appointment; JESI HAYES M.D. Encounter Diagnosis: Problem not documented On: 13-Mar-2018 8:45 Appointment; NEVIN ELDER M.D. Encounter Diagnosis: Problem not documented On: 24-May-2018 13:40
--- OUTSIDE RECORDS SUMMARY | 2018-06-22 15:03 | XMS REPORT | Summary of Care ---
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 stage 4 chronic kidney disease, or unspecified chronic kidney disease (Final) - 01/28/18 Acute on chronic systolic (congestive) heart failure (Final) - Acute kidney failure, unspecified (Final) - 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) - Presence of prosthetic heart valve (Final) - Personal history of nicotine dependence (Final) - Ischemic cardiomyopathy (Final) - Unspecified atrial fibrillation (Final) - 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) - Type 2 diabetes mellitus with diabetic neuropathy, unspecified (Final) - Type 2 diabetes mellitus with diabetic chronic kidney disease (Final) - Hyperlipidemia, unspecified (Final) - Anxiety disorder, unspecified (Final) - group home (current) use of insulin (Final) - Presence of coronary angioplasty implant and graft (Final) - Chronic kidney disease, unspecified (Final) - Presence of automatic (implantable) cardiac defibrillator (Final) - Hypothyroidism, unspecified (Final) - 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) - Discharge Disposition: Home or Self Care Attending Physician: Nick Guan MD Admitting Physician: Nick Guan MD Vital Signs 1 2 3 Most recent to oldest [Reference Range]: 165.1 cm (11/23/17 2:53 PM) Height 97.2 DegF (11/26/17 4:00 AM) 98 DegF (11/26/17 12:00 AM) 97.6 DegF (11/25/17 8:00 PM) Temperature Oral [96.4-99.1 DegF] 96/66 mmHg (11/26/17 3:00 PM) 91/62 mmHg (11/26/17 2:00 PM) 103/60 mmHg (11/26/17 1:00 PM) Blood Pressure [90-140/60-90 mmHg] 19 BRMIN (11/26/17 3:00 PM) 20 BRMIN (11/26/17 2:00 PM) 20 BRMIN (11/26/17 1:00 PM) Respiratory Rate [14-20 BRMIN] 74 bpm (11/23/17 11:39 AM) Peripheral Pulse Rate [60-100 bpm] 90.727 kg (11/23/17 2:53 PM) 91.364 kg (11/23/17 11:39 AM) Weight 33.28 m2 (11/23/17 2:53 PM) Body Mass Index Problem List Condition [...] Substance Reaction Severity Status NKDA Active Medications acetaminophen 325 mg oral tablet 650 mg, 2 tab, Route: PO, Drug form: TAB, Q6H, Dosing Weight 90.727, kg, PRN Bharti n Score 1-3, Start date: 11/24/17 12:00:00 CDT, Duration: 30 day, Stop date: 11:59:00 CDT Notes: Do not exceed 4 gm/day. (Same as: Tylenol) Start Date: 11/24/17 Stop Date: 11/26/17 Status: Discontinued acetaminophen-codeine #3 1 tab, PO, Q8H, PRN pain, # 30 tab, 0 Refill(s) Start Date: 11/23/17 Stop Date: 11/26/17 Status: Discontinued aspirin 81 mg tablet, enteric coated 81 mg=1 tab, PO, Daily, # 90 tab, 3 Refill(s) Start Date: 11/23/17 Status: Ordered aspirin 81 mg tablet, enteric coated 81 mg, 1 tab, Route: PO, Drug form: ECTAB, Daily, Dosing Weight 90.727, kg, Star t date: 11/24/17 9:00:00 CDT, Duration: 30 day, Stop date: 12/23/17 9:00:00 CDT Notes: Do not crush or chew.(Same As: Ecotrin) Start Date: 11/24/17 Stop Date: 11/26/17 Status: Discontinued bumetanide 2 mg oral tablet 2 mg=1 tab, PO, BID, # 60 tab, 0 Refill(s), Pharmacy: [facility] [id number] Start Date: 11/26/17 Stop Date: 12/26/17 Status: Ordered Bumex 2 mg, 4 tab, Route: PO, Drug form: TAB, Q8H, Dosing Weight 90.727, kg, Start melo e: 11/26/17 16:00:00 CDT, Duration: 30 day, Stop date: 12/26/17 8:00:00 CDT Notes: (Same As: Bumex) Start Date: 11/26/17 Stop Date: 11/26/17 Status: Discontinued Bumex 1 mg, 4 mL, Route: IVP, Drug form: INJ, TID, Dosing Weight 90.727, kg, Start melo e: 11/25/17 13:00:00 CDT, Duration: 30 day, Stop date: 12/25/17 9:00:00 CDT Notes: (Same As: Bumex) Start Date: 11/25/17 Stop Date: 11/25/17 Status: Canceled Bumex 1 mg, 4 mL, Route: IVP, Drug form: INJ, Q12H, Dosing Weight 90.727, kg, Start da te: 11/24/17 21:00:00 CDT, Duration: 30 day, Stop date: 12/24/17 9:00:00 CDT Notes: (Same As: Bumex) Start Date: 11/24/17 Stop Date: 11/24/17 Status: Canceled Bumex 1 mg, 4 mL, Route: IVP, Drug form: INJ, BID, Dosing Weight 90.727, kg, Start melo e: 11/24/17 17:10:00 CDT, Duration: 30 day, Stop date: 12/24/17 17:00:00 CDT Notes: (Same As: Bumex) Start Date: 11/24/17 Stop Date: 11/25/17 Status: Discontinued Bumex 1 mg, 4 mL, Route: IVP, Drug form: INJ, Q8H, Dosing Weight 90.727, kg, Start melo e: 11/25/17 16:00:00 CDT, Duration: 30 day, Stop date: 12/25/17 8:00:00 CDT Notes: (Same As: Bumex) Start Date: 11/25/17 Stop Date: 11/26/17 Status: Discontinued Bumex 1 mg, 4 mL, Route: IVP, Drug form: INJ, ONCE, Dosing Weight 90.727, kg, Start da te: 11/24/17 8:14:00 CDT, Stop date: 11/24/17 8:14:00 CDT Notes: (Same As: Bumex) Start Date: 11/24/17 Stop Date: 11/24/17 Status: Completed busPIRone 10 mg, 1 tab, Route: PO, Drug form: TAB, TID, Dosing Weight 90.727, kg, Start da te: 11/23/17 17:00:00 CDT, Duration: 30 day, Stop date: 12/23/17 13:00:00 CDT Notes: (Same As: BuSpar) Start Date: 11/23/17 Stop Date: 11/26/17 Status: Discontinued busPIRone 10 mg oral tablet 10 mg=1 tab, PO, TID, # 90 tab, 0 Refill(s) Start Date: 11/23/17 Stop Date: 11/26/17 Status: Discontinued busPIRone 10 mg oral tablet 10 mg=1 tab, PO, TID, # 90 tab, 0 Refill(s), Pharmacy: [facility] [id number] Start Date: 11/26/17 Stop Date: 12/26/17 Status: Ordered calcium carbonate 500 mg (200 mg elemental calcium) oral tablet 500 mg, Route: PO, PRN, Dosing Weight 90.727, kg, PRN Abnormal Lab Result, FOR I CU USE ONLY, Start date: 11/23/17 23:38:00 CDT, Duration: 30 day, Stop date: 23:37:00 CDT Start Date: 11/23/17 Stop Date: 11/24/17 Status: Discontinued calcium carbonate 500 mg (200 mg elemental calcium) oral tablet 1,000 mg, Route: PO, PRN, Dosing Weight 90.727, kg, PRN Abnormal Lab Result, FOR ICU USE ONLY, Start date: 11/23/17 23:38:00 CDT, Duration: 30 day, Stop date: 23:37:00 CDT Start Date: 11/23/17 Stop Date: 11/24/17 Status: Discontinued calcium gluconate 1 gm, Route: IVPB, PRN, Dosing Weight 90.727, kg, PRN Abnormal Lab Result, Start date: 11/23/17 23:38:00 CDT, Duration: 30 day, Stop date: 12/23/17 23:37:00 CDT, FOR ICU USE ONLY Start Date: 11/23/17 Stop Date: 11/24/17 Status: Discontinued carvedilol 25 mg oral tablet 25 mg=1 tab, PO, Q12H, # 60 tab, 0 Refill(s), Pharmacy: [id number] Start Date: 11/26/17 Stop Date: 12/26/17 Status: Ordered clonazePAM 0.5 mg, 1 tab, Route: PO, Drug form: TAB, Q12H, Dosing Weight 90.727, kg, Start date: 11/26/17 9:00:00 CDT, Duration: 30 day, Stop date: 12/25/17 21:00:00 CDT Notes: (Same As: KlonoPIN) Start Date: 11/26/17 Stop Date: 11/26/17 Status: Discontinued clonazePAM 0.5 mg, 1 tab, Route: PO, Drug form: TAB, Q8H, Dosing Weight 90.727, kg, Start d ate: 11/26/17 8:00:00 CDT, Duration: 30 day, Stop date: 12/26/17 0:00:00 CDT Notes: (Same As: KlonoPIN) Start Date: 11/26/17 Stop Date: 11/26/17 Status: Canceled clonazePAM 0.5 mg oral tablet 0.5 mg=1 tab, PO, BID, # 30 tab, 0 Refill(s) Start Date: 11/23/17 Status: Ordered Coreg 25 mg, 1 tab, Route: PO, Drug form: TAB, Q12H, Dosing Weight 90.727, kg, Start d ate: 11/23/17 21:00:00 CDT, Duration: 30 day, Stop date: 12/23/17 9:00:00 CDT Notes: Give with food. (Same As: Coreg) Start Date: 11/23/17 Stop Date: 11/26/17 Status: Discontinued Coreg 25 mg oral tablet 25 mg=1 tab, PO, BID, # 180 tab, 3 Refill(s) Start Date: 11/23/17 Stop Date: 11/26/17 Status: Discontinued Dextrose 50% Syringe 25 gm, 50 mL, Route: IVP, Drug Form: INJ, Dosing Weight 90.727, kg, PRN, PRN Blo od Glucose Results, Start date: 11/23/17 15:31:00 CDT, Duration: 30 day, Stop da te: 12/23/17 15:30:00 CDT Start Date: 11/23/17 Stop Date: 11/26/17 Status: Discontinued Dextrose 50% Syringe 12.5 gm, 25 mL, Route: IVP, Drug Form: INJ, Dosing Weight 90.727, kg, PRN, PRN B lood Glucose Results, Start date: 11/23/17 15:31:00 CDT, Duration: 30 day, Stop date: 12/23/17 15:30:00 CDT Start Date: 11/23/17 Stop Date: 11/26/17 Status: Discontinued furosemide 20 mg oral tablet 20 mg=1 tab, PO, Daily, # 30 tab, 0 Refill(s) Start Date: 11/23/17 Stop Date: 11/26/17 Status: Discontinued glucagon 1 mg, Route: IM, Drug form: PDR/INJ, PRN, Dosing Weight 90.727, kg, PRN Blood Gl ucose Results, Start date: 11/23/17 15:31:00 CDT, Duration: 30 day, Stop date: 1 15:30:00 CDT Start Date: 11/23/17 Stop Date: 11/26/17 Status: Discontinued heparin 5,000 unit, 1 mL, Route: SUB-Q, Drug form: INJ, Q8H, Dosing Weight 90.727, kg, S tart date: 11/23/17 16:00:00 CDT, Stop date: 12/23/17 8:00:00 CDT Notes: porcine heparin Start Date: 11/23/17 Stop Date: 11/23/17 Status: Canceled heparin additive 25,000 unit [14 unit/kg/hr] + Premix Diluent Sodium Chloride 0. 45% 500 mL 500 mL, Rate: 20.5 ml/hr, Infuse over: 24.4 hr, Route: IV, Dosing Weight 73.2 kg , Total Volume: 500 mL, Start date: 11/23/17 16:00:00 CDT, Duration: 30 day, Sto p date: 12/23/17 15:59:00 CDT, 1.85, m2 Notes: Total Concentration=50 unit/ ml Total umqyyj=333 mlSend Med Request 2 ho urs prior to next bag Start Date: 11/23/17 Stop Date: 11/26/17 Status: Discontinued insulin aspart 100 units/mL injectable solution 10 unit, SUB-Q, TID-Before Meals, # 15 mL, 1 Refill(s), Pharmacy: [facility] [id number] Start Date: 11/26/17 Status: Ordered insulin lispro 4 unit, 0.04 mL, Route: SUB-Q, Drug form: SOLN, TID-Before Meals, Dosing Weight 90.727, kg, PRN Blood Glucose Results, Start date: 11/23/17 15:31:00 CDT, Durati on: 30 day, Stop date: 12/23/17 15:30:00 CDT Notes: (Same as: Humalog ) Roll in palms of hands gently; Do not shake `vigorou sly. "Single Patient Use Only " WASTE: F/P - Black; E - [facility] [address] able for 28 days at room temperature.Expires in days from Da te Start Date: 11/23/17 Stop Date: 11/26/17 Status: Discontinued insulin lispro 5 unit, 0.05 mL, Route: SUB-Q, Drug form: SOLN, TID-Before Meals, Dosing Weight 90.727, kg, PRN Blood Glucose Results, Start date: 11/23/17 15:31:00 CDT, Durati on: 30 day, Stop date: 12/23/17 15:30:00 CDT Notes: (Same as: Humalog ) Roll in palms of hands gently; Do not shake `vigorou sly. "Single Patient Use Only " WASTE: F/P - Black; E - [facility] [address] able for 28 days at room temperature.Expires in days from Da te Start Date: 11/23/17 Stop Date: 11/26/17 Status: Discontinued insulin lispro 2 unit, 0.02 mL, Route: SUB-Q, Drug form: SOLN, TID-Before Meals, Dosing Weight 90.727, kg, PRN Blood Glucose Results, Start date: 11/23/17 15:31:00 CDT, Durati on: 30 day, Stop date: 12/23/17 15:30:00 CDT Notes: (Same as: Humalog ) Roll in palms of hands gently; Do not shake `vigorou sly. "Single Patient Use Only " WASTE: F/P - Black; E - [facility] [address] able for 28 days at room temperature.Expires in days from Da te Start Date: 11/23/17 Stop Date: 11/26/17 Status: Discontinued insulin lispro 3 unit, 0.03 mL, Route: SUB-Q, Drug form: SOLN, TID-Before Meals, Dosing Weight 90.727, kg, PRN Blood Glucose Results, Start date: 11/23/17 15:31:00 CDT, Durati on: 30 day, Stop date: 12/23/17 15:30:00 CDT Notes: (Same as: Humalog ) Roll in palms of hands gently; Do not shake `vigorou sly. "Single Patient Use Only " WASTE: F/P - Black; E - [facility] [address] able for 28 days at room temperature.Expires in days from Da te Start Date: 11/23/17 Stop Date: 11/26/17 Status: Discontinued insulin lispro 1 unit, 0.01 mL, Route: SUB-Q, Drug form: SOLN, TID-Before Meals, Dosing Weight 90.727, kg, PRN Blood Glucose Results, Start date: 11/23/17 15:31:00 CDT, Durati on: 30 day, Stop date: 12/23/17 15:30:00 CDT Notes: (Same as: Humalog ) Roll in palms of hands gently; Do not shake `vigorou sly. "Single Patient Use Only " WASTE: F/P - Black; E - [facility] [address] able for 28 days at room temperature.Expires in days from Da te Start Date: 11/23/17 Stop Date: 11/26/17 Status: Discontinued insulin lispro 10 unit, 0.1 mL, Route: SUB-Q, Drug form: SOLN, TID-Before Meals, Dosing Weight 90.727, kg, Start date: 11/26/17 7:30:00 CDT, Duration: 30 day, Stop date: 12/25 16:30:00 CDT Notes: (Same as: Humalog ) Roll in palms of hands gently; Do not shake `vigorou sly. "Single Patient Use Only " WASTE: F/P - Black; E - [facility] [address] able for 28 days at room temperature.Expires in days from Da te Start Date: 11/26/17 Stop Date: 11/26/17 Status: Discontinued Lantus 100 units/mL 30 unit, 0.3 mL, Route: SUB-Q, Drug form: SOLN, Q12H, Dosing Weight 90.727, kg, Start date: 11/24/17 9:00:00 CDT, Duration: 30 day, Stop date: 12/23/17 21:00:00 CDT Notes: (Same as: Lantus)Do not hold insulin without contacting prescriberWASTE: F/P - Black; E - [facility] "single patient use only" Start Date: 11/24/17 Stop Date: 11/26/17 Status: Discontinued Lantus 100 units/mL 30 unit, 0.3 mL, Route: SUB-Q, Drug form: SOLN, Bedtime, Dosing Weight 90.727, k g, Start date: 11/23/17 21:00:00 CDT, Duration: 30 day, Stop date: 12/22/17 21:0 0:00 CDT Notes: (Same as: Lantus)Do not hold insulin without contacting prescriberWASTE: F/P - Black; E - [facility] "single patient use only" Start Date: 11/23/17 Stop Date: 11/24/17 Status: Discontinued Levemir 60 units, SUB-Q, QPM, 0 Refill(s) Start Date: 11/23/17 Stop Date: 11/26/17 Status: Discontinued Levemir 50 units, SUB-Q, QAM, 0 Refill(s) Start Date: 11/23/17 Stop Date: 11/26/17 Status: Discontinued Levemir 100 units/mL 30 units, SUB-Q, BID, # 30 mL, 1 Refill(s), Pharmacy: [facility] [id number] Start Date: 11/26/17 Stop Date: 01/25/18 Status: Ordered liothyronine 5 microgram, 1 tab, Route: PO, Drug form: TAB, Q630AM, Dosing Weight 90.727, kg, Start date: 11/24/17 6:30:00 CDT, Duration: 30 day, Stop date: 12/23/17 6:30:00 CDT Notes: (Same as: Cytomel) Start Date: 11/24/17 Stop Date: 11/26/17 Status: Discontinued liothyronine 5 mcg oral tablet 5 microgram=1 tab, PO, Daily, # 30 tab, 0 Refill(s) Start Date: 11/23/17 Status: Ordered lisinopril 5 mg, 1 tab, Route: PO, Drug form: TAB, Daily, Dosing Weight 90.727, kg, Start d ate: 11/24/17 9:16:00 CDT, Duration: 30 day, Stop date: 12/24/17 9:00:00 CDT Notes: (Same as: Prinivil, Zestril) Start Date: 11/24/17 Stop Date: 11/26/17 Status: Discontinued lisinopril 10 mg oral tablet 10 mg=1 tab, PO, BID, # 90 tab, 1 Refill(s) Start Date: 11/23/17 Stop Date: 11/26/17 Status: Discontinued lisinopril 5 mg oral tablet 5 mg=1 tab, PO, Daily, # 30 tab, 0 Refill(s), Pharmacy: [id number] Start Date: 11/26/17 Stop Date: 12/26/17 Status: Ordered Lyrica 50 mg, 1 cap, Route: PO, Drug form: CAP, BID, Dosing Weight 90.727, kg, Start da te: 11/23/17 17:00:00 CDT, Duration: 30 day, Stop date: 12/23/17 9:00:00 CDT Notes: Same as Lyrica Start Date: 11/23/17 Stop Date: 11/23/17 Status: Canceled Lyrica 50 mg oral capsule 50 mg=1 cap, PO, BID, 0 Refill(s) Start Date: 11/23/17 Status: Ordered magnesium oxide 800 mg, Route: PO, PRN, Dosing Weight 90.727, kg, PRN Abnormal Lab Result, FOR I CU USE ONLY, Start date: 11/23/17 23:38:00 CDT, Duration: 30 day, Stop date: 23:37:00 CDT Start Date: 11/23/17 Stop Date: 11/24/17 Status: Discontinued magnesium oxide 800 mg, 2 tab, Route: PO, Drug form: TAB, ONCE, Dosing Weight 90.727, kg, Start date: 11/24/17 0:33:00 CDT, Stop date: 11/24/17 0:33:00 CDT Notes: (Same as: Mag-Ox 400)Magnesium oxide [id number] elemental magnesiumDose= ____mg magnesium oxide (___mg elemental magnesium) Start Date: 11/24/17 Stop Date: 11/24/17 Status: Completed magnesium sulfate 2 gm, Route: IVPB, PRN, Dosing Weight 90.727, kg, PRN Abnormal Lab Result, Start date: 11/23/17 23:38:00 CDT, Duration: 30 day, Stop date: 12/23/17 23:37:00 CDT, FOR ICU USE ONLY Start Date: 11/23/17 Stop Date: 11/24/17 Status: Discontinued magnesium sulfate 1 gm, 100 mL, Route: IVPB, Drug form: INJ, ONCE, Dosing Weight 90.727, kg, Start date: 11/25/17 9:38:00 CDT, Stop date: 11/25/17 9:38:00 CDT Notes: WASTE: F/P - Sink; E - [facility] Start Date: 11/25/17 Stop Date: 11/25/17 Status: Completed melatonin 3 mg oral tablet 3 mg, 1 tab, Route: PO, Drug Form: TAB, Dosing Weight 90.727, kg, Bedtime, PRN a s needed for insomnia, Start date: 11/24/17 12:00:00 CDT, Duration: 30 day, Stop date: 12/24/17 11:59:00 CDT Notes: (Same as: Melatonin) Start Date: 11/24/17 Stop Date: 11/26/17 Status: Discontinued Niaspan ER 500 mg oral tablet, extended release 500 mg=1 tab, PO, Bedtime, # 100 tab, 0 Refill(s) Start Date: 11/23/17 Stop Date: 11/26/17 Status: Discontinued NovoLOG 27 units, SUB-Q, TID-Before Meals, 0 Refill(s) Start Date: 11/23/17 Stop Date: 11/26/17 Status: Discontinued nystatin topical 100,000 units/g powder 1 appl, Route: TOP, PRN, Drug form: PWDR, PRN For Fungal Prophylaxis, Start date : 11/23/17 15:26:00 CDT, Duration: 30 day, Stop date: 12/23/17 15:25:00 CDT Notes: (Same as:Mycostatin, Nilstat) For external use only. Start Date: 11/23/17 Stop Date: 11/26/17 Status: Discontinued [place]-3 oral capsule 1,200 mg=, Daily, 0 Refill(s) Start Date: 11/23/17 Status: Ordered omeprazole 20 mg oral delayed release capsule 20 mg=1 cap, PO, Daily, # 30 cap, 0 Refill(s) Start Date: 11/23/17 Stop Date: 01/04/18 Status: Completed potassium chloride 20 mEq, Route: IVPB, PRN, Dosing Weight 90.727, kg, PRN Abnormal Lab Result, Via central line, Start date: 11/23/17 23:38:00 CDT, Duration: 30 day, Stop date: 1 23:37:00 CDT, FOR ICU USE ONLY Start Date: 11/23/17 Stop Date: 11/24/17 Status: Discontinued potassium chloride 20 mEq, Route: NJ, Drug form: LIQ, PRN, Dosing Weight 90.727, kg, PRN Abnormal L ab Result, Start date: 11/23/17 23:38:00 CDT, Duration: 30 day, Stop date: 12/23 23:37:00 CDT, FOR ICU USE ONLY Start Date: 11/23/17 Stop Date: 11/24/17 Status: Discontinued potassium chloride 10 mEq, Route: IVPB, PRN, Dosing Weight 90.727, kg, PRN Abnormal Lab Result, Via peripheral line, Start date: 11/23/17 23:38:00 CDT, Duration: 30 day, Stop date: 12/23/17 23:37:00 CDT, FOR ICU USE ONLY Start Date: 11/23/17 Stop Date: 11/24/17 Status: Discontinued potassium chloride 20 mEq, Route: PO, Drug form: ERTAB, PRN, Dosing Weight 90.727, kg, PRN Abnormal Lab Result, Start date: 11/23/17 23:38:00 CDT, Duration: 30 day, Stop date: 23:37:00 CDT, FOR ICU USE ONLY Start Date: 11/23/17 Stop Date: 11/24/17 Status: Discontinued potassium chloride 20 mEq oral tablet, extended release 20 mEq, 1 tab, Route: PO, Drug form: ERTAB, ONCE, Dosing Weight 90.727, kg, Star t date: 11/25/17 17:37:00 CDT, Stop date: 11/25/17 17:37:00 CDT Notes: For patients unable to swallow tablet, dissolve in one half glass of wate r. Allow about 2 minutes for the tablets to disintegrate. Stir before giving to prepare slurry and administer.Please exclude Patients with feeding tube less than 14 [place] (Dobhoff, J-tube etc) and pediatric and patients. With food and full glass of water Start Date: 11/25/17 Stop Date: 11/25/17 Status: Completed potassium phosphate 15 mmol, Route: IVPB, PRN, Dosing Weight 90.727, kg, PRN Abnormal Lab Result, St art date: 11/23/17 23:38:00 CDT, Duration: 30 day, Stop date: 12/23/17 23:37:00 CDT, FOR ICU USE ONLY Start Date: 11/23/17 Stop Date: 11/24/17 Status: Discontinued potassium phosphate 30 mmol, Route: IVPB, PRN, Dosing Weight 90.727, kg, PRN Abnormal Lab Result, St art date: 11/23/17 23:38:00 CDT, Duration: 30 day, Stop date: 12/23/17 23:37:00 CDT, FOR ICU USE ONLY Start Date: 11/23/17 Stop Date: 11/24/17 Status: Discontinued potassium phosphate 45 mmol, Route: IVPB, PRN, Dosing Weight 90.727, kg, PRN Abnormal Lab Result, St art date: 11/23/17 23:38:00 CDT, Duration: 30 day, Stop date: 12/23/17 23:37:00 CDT, FOR ICU USE ONLY Start Date: 11/23/17 Stop Date: 11/24/17 Status: Discontinued potassium phosphate-sodium phosphate 250 mg-280 mg-160 mg oral powder for recons titution 2 pkt, Route: PO, Dosing Weight 90.727, kg, PRN, PRN Abnormal Lab Result, FOR IC U USE ONLY, Start date: 11/23/17 23:38:00 CDT, Duration: 30 day, Stop date: 11/29 08/15 23:37:00 CDT Start Date: 11/23/17 Stop Date: 11/24/17 Status: Discontinued Saline Flush 0.9% 10 ml, Route: IVP, Drug Form: INJ, Dosing Weight 90.727, kg, PRN, PRN Line Flush , Start date: 11/23/17 15:26:00 CDT, Duration: 30 day, Stop date: 12/23/17 15:25 :00 CDT Notes: (Same as: BD Posiflush) Start Date: 11/23/17 Stop Date: 11/26/17 Status: Discontinued Saline Flush 0.9% 10 ml, Route: IVP, Drug Form: INJ, Dosing Weight 90.727, kg, Q12H, Start date: 0 11/23/17 21:00:00 CDT, Duration: 30 day, Stop date: 12/23/17 9:00:00 CDT Notes: (Same as: BD Posiflush) Start Date: 11/23/17 Stop Date: 11/26/17 Status: Discontinued simvastatin 40 mg, 1 tab, Route: PO, Drug form: TAB, Bedtime, Dosing Weight 90.727, kg, Star t date: 11/23/17 21:00:00 CDT, Duration: 30 day, Stop date: 12/22/17 21:00:00 CD T Notes: (Same as: Zocor) Start Date: 11/23/17 Stop Date: 11/26/17 Status: Discontinued simvastatin 40 mg=1 tab, PO, Bedtime, # 30 tab, 0 Refill(s) Start Date: 11/23/17 Stop Date: 11/26/17 Status: Discontinued simvastatin 40 mg oral tablet 40 mg=1 tab, PO, Bedtime, # 30 tab, 0 Refill(s), Pharmacy: [facility] [id number] Start Date: 11/26/17 Stop Date: 12/26/17 Status: Ordered sodium phosphate 15 mmol, Route: IVPB, PRN, Dosing Weight 90.727, kg, PRN Abnormal Lab Result, St art date: 11/23/17 23:38:00 CDT, Duration: 30 day, Stop date: 12/23/17 23:37:00 CDT, FOR ICU USE ONLY Start Date: 11/23/17 Stop Date: 11/24/17 Status: Discontinued sodium phosphate 45 mmol, Route: IVPB, PRN, Dosing Weight 90.727, kg, PRN Abnormal Lab Result, St art date: 11/23/17 23:38:00 CDT, Duration: 30 day, Stop date: 12/23/17 23:37:00 CDT, FOR ICU USE ONLY Start Date: 11/23/17 Stop Date: 11/24/17 Status: Discontinued sodium phosphate 30 mmol, Route: IVPB, PRN, Dosing Weight 90.727, kg, PRN Abnormal Lab Result, St art date: 11/23/17 23:38:00 CDT, Duration: 30 day, Stop date: 12/23/17 23:37:00 CDT, FOR ICU USE ONLY Start Date: 11/23/17 Stop Date: 11/24/17 Status: Discontinued spironolactone 25 mg oral tablet 25 mg=1 tab, PO, Daily, # 90 tab, 1 Refill(s) Start Date: 11/23/17 Stop Date: 11/26/17 Status: Discontinued torsemide 20 mg oral tablet 20 mg=1 tab, PO, Daily, # 30 tab, 1 Refill(s) Start Date: 11/23/17 Stop Date: 11/26/17 Status: Discontinued tramadol 50 mg oral tablet 50 mg=1 tab, PO, BID, # 30 tab, 0 Refill(s) Start Date: 11/23/17 Stop Date: 12/08/17 Status: Ordered Viibryd 40 mg oral tablet 40 mg=1 tab, PO, Daily, 0 Refill(s) Start Date: 11/23/17 Stop Date: 11/26/17 Status: Discontinued Vitamin D2 50,000 IntlUnit, 1 cap, Route: PO, Drug form: CAP, QMon, Dosing Weight 90.727, k g, Start date: 11/28/17 9:00:00 CDT, Duration: 30 day, Stop date: 12/26/17 9:00: 00 CDT Notes: (Same as: Vitamin D) "Do Not Crush" Start Date: 11/28/17 Stop Date: 11/26/17 Status: Canceled Vitamin D2 50,000 intl units oral capsule 50,000 IntlUnit=1 cap, PO, QMon, # 8 cap, 0 Refill(s) Start Date: 11/23/17 Stop Date: 01/04/18 Status: Completed warfarin 2 mg oral tablet 2 mg=1 tab, PO, Daily, # 30 tab, 0 Refill(s) Start Date: 11/23/17 Status: Ordered ZyPREXA 5 mg, Route: IM, Drug form: INJ, ONCE, Dosing Weight 90.727, kg, Start date: 2:52:00 CDT, Stop date: 11/25/17 2:52:00 CDT Notes: (Same As: ZyPREXA IM). Reconstitute with 2.1 ml sterile water for inject ion; use within 1 hour after reconstitution. For IM use only; do not administer IV or SUB-Q. Start Date: 11/25/17 Stop Date: 11/25/17 Status: Completed Results BLOOD BANK RESULTS 1 2 3 Most recent to oldest [Reference Range]: A POS *Unknown* (11/23/17 3:39 PM) ABO/Rh Negative (11/23/17 3:39 PM) Antibody Scrn ELECTROLYTES 1 2 3 Most recent to oldest [Reference Range]: 141 mEq/L (11/26/17 12:59 AM) 138 mEq/L (11/25/17 3:18 PM) 141 mEq/L (11/25/17 3:24 AM) Sodium Lvl [135-145 mEq/L] 4.0 mEq/L (11/26/17 12:59 AM) 3.7 mEq/L (11/25/17 3:18 PM) 4.3 mEq/L (11/25/17 3:24 AM) Potassium Lvl [3.5-5.1 mEq/L] 104 mEq/L (11/26/17 12:59 AM) 100 mEq/L (11/25/17 3:18 PM) 102 mEq/L (11/25/17 3:24 AM) Chloride Lvl [95-109 mEq/L] 26 mEq/L (11/26/17 12:59 AM) 27 mEq/L (11/25/17 3:18 PM) 27 mEq/L (11/25/17 3:24 AM) CO2 [24-32 mEq/L] 15.0 mEq/L (11/26/17 12:59 AM) 14.7 mEq/L (11/25/17 3:18 PM) 16.3 mEq/L (11/25/17 3:24 AM) AGAP [10.0-20.0 mEq/L] CHEM PANEL 1 2 3 Most recent to oldest [Reference Range]: 1.87 mg/dL *HI* (11/26/17 12:59 AM) 2.14 mg/dL *HI* (11/25/17 3:18 PM) 1.82 mg/dL *HI* (11/25/17 3:24 AM) Creatinine Lvl [0.50-1.40 mg/dL] 35 mL/min/1.73m2 1 *NA* (11/26/17 12:59 AM) 30 mL/min/1.73m2 2 *NA* (11/25/17 3:18 PM) 37 mL/min/1.73m2 3 *NA* (11/25/17 3:24 AM) eGFR 30 mg/dL *HI* (11/26/17 12:59 AM) 30 mg/dL *HI* (11/25/17 3:18 PM) 31 mg/dL *HI* (11/25/17 3:24 AM) BUN [7-22 mg/dL] 18 (11/24/17 12:43 AM) B/C Ratio [6-25] 158 mg/dL *HI* (11/26/17 12:59 AM) 196 mg/dL *HI* (11/25/17 3:18 PM) 108 mg/dL *HI* (11/25/17 3:24 AM) Glucose Lvl [70-99 mg/dL] 6.6 g/dL (11/24/17 12:43 AM) 6.9 g/dL (11/23/17 4:43 PM) Total Protein [6.4-8.4 g/dL] 3.1 g/dL *LOW* (11/24/17 12:43 AM) 3.3 g/dL *LOW* (11/23/17 4:43 PM) Albumin Lvl [3.5-5.0 g/dL] 3.5 g/dL (11/24/17 12:43 AM) 3.6 g/dL (11/23/17 4:43 PM) Globulin [2.7-4.2 g/dL] 0.9 (11/24/17 12:43 AM) 0.9 (11/23/17 4:43 PM) A/G Ratio [0.7-1.6] 8.7 mg/dL (11/26/17 12:59 AM) 9.5 mg/dL (11/25/17 3:18 PM) 9.4 mg/dL (11/25/17 3:24 AM) Calcium Lvl [8.5-10.5 mg/dL] 2.8 mg/dL (11/26/17 12:59 AM) 2.7 mg/dL (11/25/17 3:18 PM) 4.0 mg/dL (11/25/17 3:24 AM) Phosphorus [2.5-4.5 mg/dL] 1.9 mg/dL (11/26/17 12:59 AM) 2.0 mg/dL (11/25/17 3:18 PM) 1.8 mg/dL (11/25/17 3:24 AM) Magnesium Lvl [1.8-2.4 mg/dL] 17 unit/L (11/24/17 12:43 AM) 18 unit/L (11/23/17 4:43 PM) ALT [0-65 unit/L] 19 unit/L (11/24/17 12:43 AM) 18 unit/L (11/23/17 4:43 PM) AST [0-37 unit/L] 81 unit/L (11/24/17 12:43 AM) 82 unit/L (11/23/17 4:43 PM) Alk Phos [39-136 unit/L] 0.7 mg/dL (11/24/17 12:43 AM) 0.7 mg/dL (11/23/17 4:43 PM) Bili Total [0.2-1.3 mg/dL] 0.2 mg/dL (11/23/17 4:43 PM) Bili Direct [0.0-0.3 mg/dL] 0.5 mg/dL (11/23/17 4:43 PM) Bili Indirect [0.0-1.0 mg/dL] 1Result Comment: The eGFR is calculated [...] be mul tiplied by the estimated BMI. CARDIAC ENZYMES 1 2 3 Most recent to oldest [Reference Range]: 0.02 ng/mL (11/23/17 12:37 PM) Troponin-I [0.00-0.40 ng/mL] 370 pg/mL *HI* (11/23/17 4:43 PM) BNP [<=100 pg/mL] SPECIAL CHEMISTRY 1 2 3 Most recent to oldest [Reference Range]: 8.0 % *HI* (11/23/17 4:43 PM) Hgb A1C [<=5.6 %] PARATHYROID PROFILE 1 2 3 Most recent to oldest [Reference Range]: 1.08 mMol/L (11/26/17 12:59 AM) 1.13 mMol/L (11/25/17 3:18 PM) 1.07 mMol/L (11/25/17 3:24 AM) Ca Ion WB [1.05-1.25 mMol/L] 1.12 mMol/L (11/26/17 12:59 AM) 1.13 mMol/L (11/25/17 3:18 PM) 1.08 mMol/L (11/25/17 3:24 AM) Ca Norm WB [1.05-1.25 mMol/L] URINE CHEM 1 2 3 Most recent to oldest [Reference Range]: 73.90 mg/dL *NA* (11/23/17 9:32 PM) 74.40 mg/dL *NA* (11/23/17 9:32 PM) U Creatinine 10.9 mg/dL *NA* (11/23/17 9:32 PM) U Protein 0.15 *NA* (11/23/17 9:32 PM) U Prot/Creat 575 mg/dL *NA* (11/23/17 9:32 PM) U Urea 85 mEq/L *NA* (11/23/17 9:32 PM) U Sodium URINE AND STOOL 1 2 3 Most recent to oldest [Reference Range]: Clear (11/23/17 9:32 PM) UA Turbidity [Clear] Yellow *NA* (11/23/17 9:32 PM) UA Color [Yellow] 5.5 (11/23/17 9:32 PM) UA pH [5.0-8.0] 1.011 (11/23/17 9:32 PM) UA Spec Grav [<=1.030] 30 mg/dL *ABN* (11/23/17 9:32 PM) UA Glucose [Negative mg/dL] Negative (11/23/17 9:32 PM) UA Blood [Negative] 10 mg/dL *ABN* (11/23/17 9:32 PM) UA Ketones [Negative mg/dL] Negative mg/dL (11/23/17 9:32 PM) UA Protein [Negative mg/dL] <=1.0 mg/dL *NA* (11/23/17 9:32 PM) UA Urobilinogen [0.1-1.0 mg/dL] Negative *NA* (11/23/17 9:32 PM) UA Bili [Negative] Negative (11/23/17 9:32 PM) UA Leuk Est [Negative] Negative (11/23/17 9:32 PM) UA Nitrite [Negative] <1 /HPF (11/23/17 9:32 PM) UA WBC [0-5 /HPF] <1 /HPF (11/23/17 9:32 PM) UA RBC [0-2 /HPF] None Seen *NA* (11/23/17 9:32 PM) UA Sq Epi HEMATOLOGY 1 2 3 Most recent to oldest [Reference Range]: 7.1 K/CMM (11/26/17 12:59 AM) 9.5 K/CMM (11/25/17 3:18 PM) 9.8 K/CMM (11/25/17 3:24 AM) WBC [3.7-10.4 K/CMM] 4.26 M/CMM *LOW* (11/26/17 12:59 AM) 4.19 M/CMM *LOW* (11/25/17 3:18 PM) 4.36 M/CMM *LOW* (11/25/17 3:24 AM) RBC [4.70-6.10 M/CMM] 12.8 g/dL *LOW* (11/26/17 12:59 AM) 12.7 g/dL *LOW* (11/25/17 3:18 PM) 13.2 g/dL *LOW* (11/25/17 3:24 AM) Hgb [14.0-18.0 g/dL] 37.4 % *LOW* (11/26/17 12:59 AM) 37.7 % *LOW* (11/25/17 3:18 PM) 39.3 % *LOW* (11/25/17 3:24 AM) Hct [42.0-54.0 %] 87.8 fL (11/26/17 12:59 AM) 90.1 fL (11/25/17 3:18 PM) 90.1 fL (11/25/17 3:24 AM) MCV [80.0-94.0 fL] 30.1 pg (11/26/17 12:59 AM) 30.4 pg (11/25/17 3:18 PM) 30.3 pg (11/25/17 3:24 AM) MCH [27.0-31.0 pg] 34.2 g/dL (11/26/17 12:59 AM) 33.8 g/dL (11/25/17 3:18 PM) 33.6 g/dL (11/25/17 3:24 AM) MCHC [32.0-36.0 g/dL] 17.7 % *HI* (11/26/17 12:59 AM) 17.7 % *HI* (11/25/17 3:18 PM) 17.9 % *HI* (11/25/17 3:24 AM) RDW [11.5-14.5 %] 7.9 fL (11/26/17 12:59 AM) 7.8 fL (11/25/17 3:18 PM) 7.9 fL (11/25/17 3:24 AM) MPV [7.4-10.4 fL] 151 K/CMM (11/26/17 12:59 AM) 153 K/CMM (11/25/17 3:18 PM) 158 K/CMM (11/25/17 3:24 AM) Platelet [133-450 K/CMM] 73.4 % (11/26/17 12:59 AM) 77.8 % *HI* (11/25/17 3:18 PM) 79.9 % *HI* (11/25/17 3:24 AM) Segs [45.0-75.0 %] 8.9 % *LOW* (11/26/17 12:59 AM) 6.7 % *LOW* (11/25/17 3:18 PM) 6.1 % *LOW* (11/25/17 3:24 AM) Lymphocytes [20.0-40.0 %] 10.8 % (11/26/17 12:59 AM) 10.7 % (11/25/17 3:18 PM) 9.2 % (11/25/17 3:24 AM) Monocytes [2.0-12.0 %] 6.0 % *HI* (11/26/17 12:59 AM) 4.3 % *HI* (11/25/17 3:18 PM) 4.3 % *HI* (11/25/17 3:24 AM) Eosinophils [0.0-4.0 %] 0.9 % (11/26/17 12:59 AM) 0.5 % (11/25/17 3:18 PM) 0.5 % (11/25/17 3:24 AM) Basophils [0.0-1.0 %] 5.2 K/CMM (11/26/17 12:59 AM) 7.4 K/CMM (11/25/17 3:18 PM) 7.8 K/CMM (11/25/17 3:24 AM) Neutrophils # [1.5-8.1 K/CMM] 0.6 K/CMM *LOW* (11/26/17 12:59 AM) 0.6 K/CMM *LOW* (11/25/17 3:18 PM) 0.6 K/CMM *LOW* (11/25/17 3:24 AM) Lymphocytes # [1.0-5.5 K/CMM] 0.8 K/CMM (11/26/17 12:59 AM) 1.0 K/CMM *HI* (11/25/17 3:18 PM) 0.9 K/CMM *HI* (11/25/17 3:24 AM) Monocytes # [0.0-0.8 K/CMM] 0.4 K/CMM (11/26/17 12:59 AM) 0.4 K/CMM (11/25/17 3:18 PM) 0.4 K/CMM (11/25/17 3:24 AM) Eosinophils # [0.0-0.5 K/CMM] 0.1 K/CMM (11/26/17 12:59 AM) 0.1 K/CMM (11/24/17 5:52 AM) 0.1 K/CMM (11/23/17 12:37 PM) Basophils # [0.0-0.2 K/CMM] 24.8 seconds *HI* (11/26/17 1:06 PM) 31.5 seconds *HI* (11/25/17 3:18 PM) 31.6 seconds *HI* (11/25/17 3:24 AM) PT [12.0-14.7 seconds] 2.21 *HI* (11/26/17 1:06 PM) 2.99 *HI* (11/25/17 3:18 PM) 3.00 *HI* (11/25/17 3:24 AM) INR [0.85-1.17] 43.9 seconds *HI* (11/25/17 3:18 PM) 42.2 seconds *HI* (11/25/17 3:24 AM) 83.6 seconds *HI* (11/24/17 5:52 AM) PTT [22.9-35.8 seconds] BACTERIAL - SEROLOGY 1 2 3 Most recent to oldest [Reference Range]: Positive 1 *ABN* (11/23/17 3:46 PM) MRSA by PCR 1Result Comment: "Significant Findings called to Sandra Swanson at 11/24/2017 05:24 by DO. Read Back OK." Immunizations No data available for this section [...] 01/04/18 1quit in 1984 Assessment and Plan Extracted from: Title: [facility] Author: Denis Flores MD Date: 11/26/17 Review of Systems No new events Constitutional Symptoms: no fever, +weight gain, + fatigue, no malaise Eyes: no diplopia, no blurred vision, no loss of vision Ears, Nose, Mouth, Throat: no dysphagia, no odynophagia Cardiovascular: no chest pain, + SOB, + RAYMUNDO, + orthopnea, + decreased exertional tolerance, no palpitations, +leg swelling Respiratory: same as CVS, + dry cough Gastrointestinal: no NVD, no BPR, no dark stool, no constipation, no abdominal pain Genitourinary: no dysuria, no frequency, +hesitancy, +decreased urinary volume Musculoskeletal: no arthralgia, no myalgia Integumentary: no rash, no hives Neurological: no weakness, no headache, no dizziness, +diabetic neuropathy Psychiatric: + anxiety (on medication) Endocrine: +history of DM Hematologic/Lymphatic: no bleeding, no bruising Allergic/Immunologic: no rash, no allergies, no fever, no chills Health Status Allergies: Allergic Reactions (All) Severity Not Documented NKDA- No reactions were documented., Allergies (1) ActiveReaction NKDANone Documented Current medications: (Selected) Inpatient Medications Ordered Bumex: 2 mg, 4 tab, PO, Q8H Core mg, 1 tab, PO, Q12H Dextrose 50% Syringe: 12.5 gm, 25 mL, IVP, PRN, PRN: Blood Glucose Results Dextrose 50% Syringe: 25 gm, 50 mL, IVP, PRN, PRN: Blood Glucose Results Lantus 100 units/mL: 30 unit, 0.3 mL, 0 ml/hr, SUB-Q, Q12H Saline Flush 0.9%: 10 ml, IVP, PRN, PRN: Line Flush Saline Flush 0.9%: 10 ml, IVP, Q12H Vitamin D2: 50,000 IntlUnit, 1 cap, PO, QMon acetaminophen 325 mg oral tablet: 650 mg, 2 tab, PO, Q6H, PRN: Pain Score 1-3 aspirin 81 mg tablet, enteric coated: 81 mg, 1 tab, PO, Daily busPIRone: 10 mg, 1 tab, PO, TID clonazePAM: 0.5 mg, 1 tab, PO, Q12H glucagon: 1 mg, IM, PRN, PRN: Blood Glucose Results insulin lispro: 1 unit, 0.01 mL, SUB-Q, TID-Before Meals, PRN: Blood Glucose Results insulin lispro: 10 unit, 0.1 mL, SUB-Q, TID-Before Meals insulin lispro: 2 unit, 0.02 mL, SUB-Q, TID-Before Meals, PRN: Blood Glucose Results insulin lispro: 3 unit, 0.03 mL, SUB-Q, TID-Before Meals, PRN: Blood Glucose Results insulin lispro: 4 unit, 0.04 mL, SUB-Q, TID-Before Meals, PRN: Blood Glucose Results insulin lispro: 5 unit, 0.05 mL, SUB-Q, TID-Before Meals, PRN: Blood Glucose Results liothyronine: 5 microgram, 1 tab, PO, Q630AM lisinopril: 5 mg, 1 tab, PO, Daily melatonin 3 mg oral tablet: 3 mg, 1 tab, PO, Bedtime, PRN: as needed for insomnia nystatin topical 100,000 units/g powder: 1 appl, TOP, PRN, PRN: For Fungal Prophylaxis simvastatin: 40 mg, 1 tab, PO, Bedtime Suspended heparin additive 25,000 unit [14 unit/kg/hr] + Premix Diluent Sodium Chloride 0.45% 500 mL: 20.5 ml/hr, IV, Stop: 12/23/17 15:59:00 CDT Documented Medications Suspended Coreg 25 mg oral tablet: 25 mg, 1 tab, PO, BID, 180 tab, 3 Refill(s) Levemir: 50 units, SUB-Q, QAM, 0 Refill(s) Levemir: 60 units, SUB-Q, QPM, 0 Refill(s) Lyrica 50 mg oral capsule: 50 mg, 1 cap, PO, BID, 0 Refill(s) Niaspan ER 500 mg oral tablet, extended release: 500 mg, 1 tab, PO, Bedtime, 100 tab, 0 Refill(s) NovoLO units, SUB-Q, TID-Before Meals, 0 Refill(s) [place]-3 oral capsule: 1,200 mg, Daily, 0 Refill(s) Viibryd 40 mg oral tablet: 40 mg, 1 tab, PO, Daily, 0 Refill(s) Vitamin D2 50,000 intl units oral capsule: 50,000 IntlUnit, 1 cap, PO, QMon, 8 cap, 0 Refill(s) acetaminophen-codeine #3: 1 tab, PO, Q8H, for 7 day, PRN: pain, 30 tab, 0 Refill(s) aspirin 81 mg tablet, enteric coated: 81 mg, 1 tab, PO, Daily, 90 tab, 3 Refill(s) busPIRone 10 mg oral tablet: 10 mg, 1 tab, PO, TID, 90 tab, 0 Refill(s) clonazePAM 0.5 mg oral tablet: 0.5 mg, 1 tab, PO, BID, 30 tab, 0 Refill(s) furosemide 20 mg oral tablet: 20 mg, 1 tab, PO, Daily, 30 tab, 0 Refill(s) liothyronine 5 mcg oral tablet: 5 microgram, 1 tab, PO, Daily, 30 tab, 0 Refill(s) lisinopril 10 mg oral tablet: 10 mg, 1 tab, PO, BID, 90 tab, 1 Refill(s) nitroglycerin 0.4 mg sublingual tablet: 0.4 mg, 1 tab, SL, Q5Min, PRN: Chest pain, 100 tab, 0 Refill(s) omeprazole 20 mg oral delayed release capsule: 20 mg, 1 cap, PO, Daily, for 30 day, 30 cap, 0 Refill(s) simvastatin: 40 mg, 1 tab, PO, Bedtime, for 30 day, 30 tab, 0 Refill(s) spironolactone 25 mg oral tablet: 25 mg, 1 tab, PO, Daily, for 90 day, 90 tab, 1 Refill(s) torsemide 20 mg oral tablet: 20 mg, 1 tab, PO, Daily, for 30 day, 30 tab, 1 Refill(s) tramadol 50 mg oral tablet: 50 mg, 1 tab, PO, BID, for 15 day, 30 tab, 0 Refill(s) warfarin 2 mg oral tablet: 2 mg, 1 tab, PO, Daily, 30 tab, 0 Refill(s), Medications (24) Active Scheduled: (12) aspirin 81 mg ECT 81 mg 1 tab, PO, Daily bumetanide 0.5 mg TAB 2 mg 4 tab, PO, Q8H busPIRone 10 mg TAB 10 mg 1 tab, PO, TID carvedilol 25 mg TAB 25 mg 1 tab, PO, Q12H clonazePAM 0.5 mg TAB 0.5 mg 1 tab, PO, Q12H ergocalciferol 53450 IntlUnit CAP 50,000 IntlUnit 1 cap, PO, QMon insulin GLARGINE 1 unit/0.01 mL INJ SYR 30 unit 0.3 mL, SUB-Q, Q12H insulin lispro 100 unit/ml 3 ml Vial 10 unit 0.1 mL, SUB-Q, TID-Before Meals liothyronine 5 microgram TAB 5 microgram 1 tab, PO, Q630AM lisinopril 5 mg TAB 5 mg 1 tab, PO, Daily simvastatin 40 mg TAB 40 mg 1 tab, PO, Bedtime sodium chloride 0.9% 10 ml flush syr BD 10 ml, IVP, Q12H Continuous: (0) PRN: (12) acetaminophen 325 mg TABLET 650 mg 2 tab, PO, Q6H Dextrose 50% 50 ml INJ syringe 12.5 gm 25 mL, IVP, PRN Dextrose 50% 50 ml INJ syringe 25 gm 50 mL, IVP, PRN glucagon recombinant 1 mg PDR 1 mg, IM, PRN insulin lispro 100 unit/ml 3 ml Vial 1 unit 0.01 mL, SUB-Q, TID-Before Meals insulin lispro 100 unit/ml 3 ml Vial 2 unit 0.02 mL, SUB-Q, TID-Before Meals insulin lispro 100 unit/ml 3 ml Vial 3 unit 0.03 mL, SUB-Q, TID-Before Meals insulin lispro 100 unit/ml 3 ml Vial 4 unit 0.04 mL, SUB-Q, TID-Before Meals insulin lispro 100 unit/ml 3 ml Vial 5 unit 0.05 mL, SUB-Q, TID-Before Meals melatonin 3 mg TAB 3 mg 1 tab, PO, Bedtime nystatin 710025 unit/gm 15 gm PWD 1 appl, TOP, PRN sodium chloride 0.9% 10 ml flush syr BD 10 ml, IVP, PRN Problem list: All Problems MRSA / SNOMED CT 581557189 / Confirmed Problem added by Discern ExpertAlexi Glynn, 11/23/2017 Resolved: ACD - Automatic cardiac defibrillator procedure / SNOMED CT 000037597 Resolved: AMI (acute myocardial infarction) / SNOMED CT [id number] Resolved: Aortic stenosis / SNOMED CT [id number] Resolved: CAD (coronary artery disease) / SNOMED CT [id number] Resolved: Congestive heart failure / SNOMED CT 56631444 Resolved: Coronary stent site / SNOMED CT 882169530 Resolved: DM (diabetes mellitus), type 2 / SNOMED CT [id number] Resolved: Hypertension / SNOMED CT 23653036, Active Problems (1) MRSA Histories Past Medical History: Resolved Congestive heart failure (29535900): Resolved. DM (diabetes mellitus), type 2 ([id number]): Resolved. CAD (coronary artery disease) ([id number]): Resolved. Coronary stent site (271939410): Resolved. Hypertension (90371905): Resolved. ACD - Automatic cardiac defibrillator procedure (286730836): Resolved. Aortic stenosis ([id number]): Resolved. AMI (acute myocardial infarction) ([id number]): Resolved. Family History: Heart disease Father High blood pressure Mother Type 2 diabetes mellitus Mother Sister Heart attack Father Bypass Father Aneurysm Mother Procedure history: Cardiac catheterization (57701758). Implantation of automatic cardioverter/defibrillator, total system (AICD) (64862840). Placement of stent (097800452). Cataract surgery (717627901). Excision of calcaneal spur (3626512456). PCI - Percutaneous coronary intervention (2203300006). Angioplasty (2477845308). ICD - Internal cardiac defibrillator procedure (959379446). TAVR - Transcatheter aortic valve replacement ([id number]). Cardiac pacemaker procedure (332386765). Social History Social & Psychosocial Habits Alcohol 10/24/2013 Use: Never Substance Abuse 10/24/2013 Use: None Tobacco 11/23/2017 Use: Former smoker Type: Cigarettes Number of years: 15 Exposure to Tobacco Smoke None Cigarette Smoking Last 365 Days No Reg Smoking Cessation Counseling No . Physical Examination VS/Measurements Vital Signs (last 24 hrs) Last Charted Temp Oral97.2 DegF (NOV 26 04:00) Heart Rate Cmgyoq60 bpm (NOV 26 12:00) Resp Rate 20 BRMIN (NOV 26 12:) WWS635 mmHg (NOV 26 12:) DBP69 mmHg (NOV 26:00) SpO2L 92% (NOV 26:) , Measurements from flowsheet : Measurements 11/23/2017 14:55 Heparin Dosing Weight (kg) 73.19 11/23/2017 14:53 Height 165.1 cm Height Collection Method Stated Weight 90.727 kg Dosing Weight Difference Percent -0.697 % Dosing Weight Collection Method Measured Scale Number 199.6 Body Surface Area 2.0398 m2 Body Mass Index 33.28 m2 11/23/2017 11:43 Heparin Dosing Weight (kg) 72.76 11/23/2017 11:39 Weight 91.364 kg Dosing Weight Difference Percent 21.496 % Dosing Wt Entered is >10% of Previous Wt Confirmed Dosing Weight Collection Method Estimated GEN: Alert and oriented, appears states age, pleasant, cooperative, sitting upright in hospital bed, speaking in full sentences HEENT: NC/AT, MMM, EOMI, anicteric Neck: no palpable lymphadenopathy, no tenderness on palpation CV: RRR, no murmurs, rubs or gallops. Mild JVD. +2 pitting edema to thigh. Radial pulses intact. Bilateral dorsalis pedis pulses on doppler. PULM: Lungs clear to auscultation bilaterally, good air entry, no wheezes, rhonchi or rales ABD: Soft, non-tender, non-distended, normal bowel sounds Ext: No significant deformity or abnormality. Skin: No lesions, rashes, breakdowns appreciated. Neuro: No focal deficits. Sensory deficit bilateral feet. Review / Management Results review: Labs (Last four charted values) WBC 7.1(NOV 26)9.5(NOV 25)9.8(NOV 25)8.0(NOV 24) Hgb L 12.8(NOV 26)L 12.7(NOV 25)L 13.2(NOV 25)L 12.8(NOV 24) Hct L 37.4(NOV 26)L 37.7(NOV 25)L 39.3(NOV 25)L 38.5(NOV 24) Plt 151(NOV 26)153(NOV 25)158(NOV 25)151(NOV 24) Na 141(NOV 26)138(NOV 25)141(NOV 25)139(NOV 24) K 4.0(NOV 26)3.7(NOV 25)4.3(NOV 25)4.0(NOV 24) CO2 26(NOV 26)27(NOV 25)27(NOV 25)26(NOV 24) Cl 104(NOV 26)100(NOV 25)102(NOV 25)101(NOV 24) Cr H 1.87(NOV 26)H 2.14(NOV 25)H 1.82(NOV 25)H 1.81(NOV 24) BUN H 30(NOV 26)H 30(NOV 25)H 31(NOV 25)H 32(NOV 24) Glucose Random H 158(NOV 26)H 196(NOV 25)H 108(NOV 25)H 175(NOV 24) Mg 1.9(NOV 26)2.0(NOV 25)1.8(NOV 25)1.9(NOV 24) Phos 2.8(NOV 26)2.7(NOV 25)4.0(NOV 25)2.8(NOV 24) Ca 8.7(NOV 26)9.5(NOV 25)9.4(NOV 25)8.9(NOV 24) PT H 31.5(NOV 25)H 31.6(NOV 25)H 34.8(NOV 24)H 34.8(NOV 24) INR H 2.99(NOV 25)H 3.00(NOV 25)H 3.39(NOV 24)H 3.39(NOV 24) PTT H 43.9(NOV 25)H 42.2(NOV 25)H 83.6(NOV 24)H 71.3(NOV 24) Troponin 0.02(NOV 23). Impression and Plan 72 yo M with very extensive PMH including cardiac issues, has been admitted because he was found to have acute rise increatinine Assessment & plan - 1. FREDERIC on CKD - base line creatinine around 1.5, had another episode of FREDERIC in 10/15 - no reason to think about pre renal - no clear offending agents, no contrast imaging studies - currently on torsemide, spironolactone and lisinopril - can be volume overload as his pedal edema has been getting worse - USG of kidneys done - does not show any obstructive uropathy and shows normal sized bilateral kidneys. - please do a bladder scan for residual urine - put mckeon's cath - strict I & O - avoid nephrotxins like NSAIDs, IV contrasts unless benefits outweigh risks - continue with Bumex 2 mg iv Q8. 2. Acid Base - within acceptable range 3. Acid base - HCO3 - 26 - please get a ABG done. Body habitus may indicate towards COURTNEY. 4. Volume status- difficult to determine but does have some signs of hypervolemia as pedal edema and increased BNP - started on Bumex Renal will keep following. Addendum ATTENDING NOTE: by Thu, I saw and examined this medically complex patient ; reviewed the labs; independently Won STEWART on visualized radiographic images and reports , and agree with this note. 11/26/2017 Won Andino MD 23:33 Extracted from: Title: Supportive Medicine Consult Author: Riri Haynes MD Date: 11/25/17 Note Mr. Cruz tiffani 72 year old male with history of HTN, HLD, hypothyroidism, IDDM, CAD s/p PCI, systolic HFrEF (20-25%), A-Fib on Warfarin, severe s/p TAVR, CKD, and anxiety. He was admitted for heart failure exacerbation and FREDERIC on 11/23. His hospital course was complicated by an episode of acute delirium yesterday night, where he was very agitated and ran out of his room shouting and cursing. He had to be restrained and was given one dose of Olanzapine 5 mg IM, which resolved the episode. Palliative team was consulted for delirium management. Delirium - Patient was completely out of delirium and back to his baseline when supportive medicine team saw him. - There are no medications or lab results that might contribute to his acute delirium yesterday night. - Patient was taking Clonazepam 0.5 mg PO BID at home for anxiety. This was not continued in hospital. Withdrawal could be a reason for acute delirium, we recommend re-starting home dose. - We recommend consulting Psychiatry if patient has further episodes of acute delirium or anxiety attacks after re-starting Clonazepam. Palliative / Goals of care - Patient currently has the capacity to make complex medical decisions. - Patient does not have MPOA or AD documentation. He does not wish to assign a medical decision maker at this time. - Daniela Cruz is the legal next of kin. Constipation - Last bowel movement was yesterday. Pain - Patient complains of chronic back pain, which is stable since prior to this admission. - He does not want any pain medications at this time, due to concerns for anxiety or delirium attacks. - He has appropriate outpatient follow up scheduled. Spiritual support - Patient identify as Orthodox. He does not need industrial diamond polisher support at this time. Thank you for the opportunity to participate in the care of this patient. We will follow along with you. For any questions or concerns, please page us via the [facility] page extruding press operator or via the following pager: [phone], [phone] Addendum by Shalom, Attending physician attestation: Meghan Garcia MD I was present for and performed the exam on 11/25. I agree with the above findings and on recommendations by Dr. Haynes. 12/06/2017 22:46 CDT Briefly, this is a 72 year old man with extensive past medical history who was admitted forheart failureexacerbation and had an episode of delirium overnight.We are consulted to assist with delirium management. Patient is not delirious at this time, but would consider adding low dose clonazepam since he takes that regularly at home. Answered all questions and provided support. Thank you for the consultation and for the privilege of caring for this patient. Will continue to follow as needed. Extracted from: Title: CCU Admission History and Author: Matthieu Licea MD Date: 11/23/17 Physical Problem List: Acute on chronic heart failure exacerbation (known EF ~20%) Ischemic cardiomyopathy CAD, history of MS x2 (balloon angioplasty in 1984, NSTEMI 09/2017 without cath or PCI done) Acute on chronic renal failure (baseline Cr 1.5 --> 2.6 on admission) History of s/p TAVR 2013 Reported history of atrial fibrillation on coumadin History of LV thrombus (recent TTE without thrombus seen) DMT2 HTN HLD Anxiety Diabetic neuropathy Neuro: #Anxiety - On multiple anxiety medications at home - Will resume home buspirone. Hold clonazepam. #Diabetic neuropathy - Hold home lyrica due to FREDERIC Cardiovascular: #Acute on chronic heart failure exacerbation (known EF ~20%) #Ischemic cardiomyopathy #Coronary artery disease - Appears volume overloaded - Home diuretics: torsemide, furosemide, spironolactone - Will hold off on diuresis for now given FREDERIC. Mckeon for strict I and O. Renal consulted. - Continue carvedilol #History of s/p TAVR - Last TTE with well-seated bioprosthetic valve, mild paravaluvlar leak - Patient of Dr. Guan #History of atrial fibrillation - On coumadin at home - Sinus rhythm now - Start heparin gtt, holding coumadin in case of procedure #LV Thrombus - Unclear history. Recent TTE 10/2017 without evidence of thrombus - Will keep AC with heparin gtt for now pending further evaluation #HTN - Continue carvedilol. BP controlled. Pulm: - On 2L NC for mild desaturation 2/2 mild pulmonary edema Renal: #Acute on chronic renal failure - Unclear etiology: Cardiorenal syndrome vs. medication induced (torsemide, furosemide, spironolactone) vs. post-renal obstruction - Bladder scan with 300cc, post void <50cc - retention less likely - Mckeon for strict I/O - UA, UPC, Renal US pending - Holding EDWIN, diuretics, NSAIDs - Renal consulted, appreciate recs Endo: #. Insulin dependant DM - Home regimen (reported): Novolog 27 units TID. Levemir 50 units qAM, 60 units qPM. - HbA1c pending - Glucose POC qAC and qHS - Will start with SSI, then will start standing insulin at decreased doses and titrate as needed. ID: - No active issues Heme: - No active issues DVT ppx: on heparin gtt Diet: Diabetic diet CODE STATUS: FULL CODE - discussed with patient Dispo: Pending improvement in clinical condition with regard to heart failure exacerbation and renal function. Matthieu Licea MD [facility] PGY3 CCU/CIMU Daily Patient Safety Checklist Yes No Comments (free text) CAD/CHF/PCI Requirements: 1. ASA X 2. EDWIN Inhibitor or ARB X FREDERIC 3. Beta Mike X 4. Statin X 5. DAPT post PCI? N/A 6. Renal Protection Fluid Protocol Post-PCI? N/A Blood Stream Infection Prevention: 1. Central Line necessity addressed? N/A CAUTI Prevention: 1. Mckeon necessity addressed? X FREDERIC, strict I/O DVT Prevention: 1. VTE Advisor Completed on admission and DVT ppx? X Nutrition: 1. Enteral Feeding within 48hr? N/A Blood Glucose Control: 1. 60mg/dl < BG< 200mg/dl? X Discharge Plannin. PT/OT? When appropriate will order 2. Cardiac Rehab? 3. Case Management/Social Work Consult? 4. Restraints assessed/reordered? CCU/CIMU Diagnoses Cardiac Arrest s/p CPR Cardiogenic Shock Acute ST Elevation MS Anterior LAD Lateral LCx Inferior RCA Non ST Elevation MS Anterior LAD Lateral LCx Inferior RCA Unstable Angina Acute Systolic HF Chronic Systolic HF Acute Diastolic HF Chronic Diastolic HF X Acute on Chronic Systolic HF Acute on Chronic Diastolic HF Acute on Chronic Combined Systolic and Diastolic HF Cardiomyopathy Pericarditis Severe Aortic Stenosis Severe Mitral Regurgitation X Atrial Fibrillation X Paroxysmal Persistant Atrial Flutter Hyperkalemia Hypokalemia Hypernatremia Hyponatremia Diabetes Type I Type II Diabetic Keto Acidosis Acute Kidney Injury ATN X FREDERIC on CKD ATN CKD Stage _ Septic Shock Pneumonia Acute Respiratory Failure Chronic Respiratory Failure Acidosis Metabolic Respiratory Combined Alkalosis Metabolic Respiratory Combinded UTI Hemorrhagic Shock Acute Blood Loss Anemia Cerebral Infarction Acute Chronic Acute Encephalopathy Toxic Metabolic Hypoxic Hepatic Protein Calorie Malnutrition Mild Moderate Severe Obesity Morbid N/A Addendum by Problem List: Vinayak Acute on chronic heart failure exacerbation (known EF ~20%) with ICD Matthieu Ischemic cardiomyopathy Mj STEWART on CAD, history of MS x2 (balloon angioplasty in 1984, NSTEMI 09/2017 without cath or PCI 11/23/2017 done) 17:08 CDT Acute on chronic renal failure (baseline Cr 1.5 --> 2.6 on admission) History of s/p TAVR 2013 Reported history of atrial fibrillation on coumadin History of LV thrombus (recent TTE without thrombus seen) DMT2 HTN HLD Anxiety Diabetic neuropathy Neuro: #Anxiety - On multiple anxiety medications at home - Will resume home buspirone. Hold clonazepam. #Diabetic neuropathy - Hold home lyrica due to FREDERIC Cardiovascular: #Acute on chronic heart failure exacerbation (known EF ~20%) with ICD #Ischemic cardiomyopathy #Coronary artery disease - Appears volume overloaded - Home diuretics: torsemide, furosemide, spironolactone - Will hold off on diuresis for now given FREDERIC. Mckeon for strict I and O. Renal consulted. - Continue carvedilol #History of s/p TAVR - Last TTE with well-seated bioprosthetic valve, mild paravaluvlar leak - Patient of Dr. Guan #History of atrial fibrillation - On coumadin at home - Sinus rhythm now - Start heparin gtt, holding coumadin in case of procedure #LV Thrombus - Unclear history. Recent TTE 10/2017 without evidence of thrombus - Will keep AC with heparin gtt for now pending further evaluation #HTN - Continue carvedilol. BP controlled. Pulm: - On 2L NC for mild desaturation 2/2 mild pulmonary edema Renal: #Acute on chronic renal failure - Unclear etiology: Cardiorenal syndrome vs. medication induced (torsemide, furosemide, spironolactone) vs. post-renal obstruction - Bladder scan with 300cc, post void <50cc - retention less likely - Mckeon for strict I/O - UA, UPC, Renal US pending - Holding EDWIN, diuretics, NSAIDs - Renal consulted, appreciate recs Endo: #. Insulin dependant DM - Home regimen (reported): Novolog 27 units TID. Levemir 50 units qAM, 60 units qPM. - HbA1c pending - Glucose POC qAC and qHS - Will start with SSI, then will start standing insulin at decreased doses and titrate as needed. ID: - No active issues Heme: - No active issues DVT ppx: on heparin gtt Diet: Diabetic diet CODE STATUS: FULL CODE - discussed with patient Dispo: Pending improvement in clinical condition with regard to heart failure exacerbation and renal function. Matthieu Licea MD [facility] PGY3 I have seen and examined the patient with the Resident/Fellow. I agree with the findings and plans above.
--- OUTSIDE RECORDS SUMMARY | 2018-06-22 15:03 | XMS REPORT | Continuity of Care Document ---
Author Author Marina marla Organization Interface Address Unknown Phone Unavailable Problems Problem Status Onset Date Classification Date Reported Comments Source Hypertensive heart and chronic kidney disease with heart failure and stage 1 through stage 4 chronic kidney disease, or unspecified chronic kidney disease 01/29/2018 06/15/2018 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 [facility] CHF EXACERBATION Active 11/23/2017 [facility] FREDERIC, HEART FAILURE Active 11/23/2017 [facility] TROUBLE BREATHING/LEG PAIN/INJURY Active 11/23/2017 [facility] H/O Malignant melanoma Resolved 02/28/2017 Problem 06/15/2018 [facility] SEVERE AORTIC STENOSIS, CHF Active 10/24/2013 [facility] AORTIC VALVE DISORDER Active 09/13/2013 [facility] AORTIC VALVE DISORDERTAVR PROTOCOL INC Active 09/13/2013 [facility] ACD - Automatic cardiac defibrillator procedure Resolved Problem 06/15/2018 [facility] AMI (<span ID="[id number]">Confirmed</span>) Resolved Problem 06/15/2018 [facility] Aortic stenosis Resolved Problem 06/15/2018 [facility] Blood clot Resolved Problem 10/29/2013 [facility] CAD (<span ID="[id number]">Confirmed</span>) Resolved Problem 06/15/2018 [facility] Congestive heart failure Resolved Problem 06/15/2018 [facility] Coronary stent site Resolved Problem 06/15/2018 [facility] DM , type 2(<span ID="[id number]">Confirmed</span>) Resolved Problem 06/15/2018 [facility] Hypertension Resolved Problem 06/15/2018 [facility] ICD , biventricular, in situ(<span ID="[id number]">Confirmed</span>) Active Problem 06/15/2018 [facility] Acute on chronic systolic heart failure 06/15/2018 [facility] Acute kidney failure, unspecified 06/15/2018 [facility] Old myocardial infarction 06/15/2018 [facility] Presence of prosthetic heart valve 06/15/2018 [facility] Personal history of nicotine dependence 06/15/2018 [facility] Ischemic cardiomyopathy 06/15/2018 [facility] Unspecified atrial fibrillation 06/15/2018 [facility] group home use of anticoagulants 06/15/2018 [facility] Type 2 diabetes mellitus with diabetic neuropathy, unspecified 06/15/2018 [facility] Type 2 diabetes mellitus with diabetic chronic kidney disease 06/15/2018 [facility] Hyperlipidemia, unspecified 06/15/2018 [facility] Anxiety disorder, unspecified 06/15/2018 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 Presence of coronary angioplasty implant and graft 06/15/2018 [facility] Chronic kidney disease, unspecified 06/15/2018 [facility] Presence of automatic cardiac defibrillator 06/15/2018 [facility] Hypothyroidism, unspecified 06/15/2018 [facility] Atherosclerotic heart disease of [place] coronary artery without angina pectoris 06/15/2018 [facility] AORTIC VALVE DISORDER Active [facility] AC ENDOCARDIT IN OTH DIS Active [facility] AC/CHR SYST/BOBO HRT FAIL Active [facility] HEART FAILURE, UNSPECIFIED Active [facility] Medications Medication Details Route Status Patient Instructions Ordering Provider Order Date Source Vitamin D2 50,000 IntlUnit, 1 cap, Route: PO, Drug form: CAP, QMon, Dosing Weight 90.727, kg, Start date: 11/28/17 9:00:00 CDT, Duration: 30 day, Stop date: 12/26/17 9:00:00 CDTNotes: (Same as: Vitamin D) "Do Not Crush" No Longer Active 11/28/2017 [facility] Bumex 2 mg, 4 tab, Route: PO, Drug form: TAB, Q8H, Dosing Weight 90.727, kg, Start date: 11/26/17 16:00:00 CDT, Duration: 30 day, Stop date: 12/26/17 8:00:00 CDTNotes: (Same As: Bumex) Inactive 11/26/2017 [facility] insulin detemir 100 UNT/ML Injectable Solution [Levemir] 30 units, SUB-Q, BID, # 30 mL, 1 Refill(s), Pharmacy: [facility] [id number] Active 11/26/2017 [facility] Insulin, Aspart, Human 100 UNT/ML Injectable Solution 10 unit, SUB-Q, TID-Before Meals, # 15 mL, 1 Refill(s), Pharmacy: [facility] [place] [id number] Active 11/26/2017 [facility] busPIRone 10 mg oral tablet 10 mg=1 tab, PO, TID, # 90 tab, 0 Refill(s), Pharmacy: [facility] [place] [id number] Active 11/26/2017 [facility] simvastatin 40 mg oral tablet 40 mg=1 tab, PO, Bedtime, # 30 tab, 0 Refill(s), Pharmacy: [facility] [place] [id number] Active 11/26/2017 [facility] bumetanide 2 mg oral tablet 2 mg=1 tab, PO, BID, # 60 tab, 0 Refill(s), Pharmacy: [facility] [place] [id number] Active 11/26/2017 [facility] carvedilol 25 mg oral tablet 25 mg=1 tab, PO, Q12H, # 60 tab, 0 Refill(s), Pharmacy: [facility] [place] [id number] Active 11/26/2017 [facility] lisinopril 5 mg oral tablet 5 mg=1 tab, PO, Daily, # 30 tab, 0 Refill(s), Pharmacy: [facility] [place] [id number] Active 11/26/2017 [facility] Clonazepam 0.5 mg, 1 tab, Route: PO, Drug form: TAB, Q12H, Dosing Weight 90.727, kg, Start date: 11/26/17 9:00:00 CDT, Duration: 30 day, Stop date: 12/25/17 21:00:00 CDTNotes: (Same As: KlonoPIN) Inactive 11/26/2017 [facility] Clonazepam 0.5 mg, 1 tab, Route: PO, Drug form: TAB, Q8H, Dosing Weight 90.727, kg, Start date: 11/26/17 8:00:00 CDT, Duration: 30 day, Stop date: 12/26/17 0:00:00 CDTNotes: (Same As: KlonoPIN) Inactive 11/26/2017 [facility] Insulin Lispro 10 unit, 0.1 mL, Route: SUB-Q, Drug form: SOLN, TID-Before Meals, Dosing Weight 90.727, kg, Start date: 11/26/17 7:30:00 CDT, Duration: 30 day, Stop date: 12/25/17 16:30:00 CDTNotes: (Same as: Humalog ) Roll in palms of hands gently; Do not shake `vigorously. "Single Patient Use Only " WASTE: F/P - Black; E - Municipal Trash Bin Stable for 28 days at room temperature. Expires in days from Date Inactive 11/26/2017 [facility] potassium chloride 20 mEq oral tablet, extended release 20 mEq, 1 tab, Route: PO, Drug form: ERTAB, ONCE, Dosing Weight 90.727, kg, Start date: 11/25/17 17:37:00 CDT, Stop date: 11/25/17 17:37:00 CDTNotes: For patients unable to swallow tablet, dissolve in one half glass of water. Allow about 2 minutes for the tablets to disintegrate. Stir before giving to prepare slurry and administer. Please exclude Patients with feeding tube less than 14 Egyptian (Dobhoff, J-tube etc) and pediatric and patients. With food and full glass of water Inactive 11/25/2017 [facility] Bumex 1 mg, 4 mL, Route: IVP, Drug form: INJ, Q8H, Dosing Weight 90.727, kg, Start date: 11/25/17 16:00:00 CDT, Duration: 30 day, Stop date: 12/25/17 8:00:00 CDTNotes: (Same As: Bumex) No Longer Active 11/25/2017 [facility] Bumex 1 mg, 4 mL, Route: IVP, Drug form: INJ, TID, Dosing Weight 90.727, kg, Start date: 11/25/17 13:00:00 CDT, Duration: 30 day, Stop date: 12/25/17 9:00:00 CDTNotes: (Same As: Bumex) Inactive 11/25/2017 [facility] Magnesium Sulfate 1 gm, 100 mL, Route: IVPB, Drug form: INJ, ONCE, Dosing Weight 90.727, kg, Start date: 11/25/17 9:38:00 CDT, Stop date: 11/25/17 9:38:00 CDTNotes: WASTE: F/P - Sink; E - Municipal Trash Bin Inactive 11/25/2017 [facility] Zyprexa 5 mg, Route: IM, Drug form: INJ, ONCE, Dosing Weight 90.727, kg, Start date: 11/25/17 2:52:00 CDT, Stop date: 11/25/17 2:52:00 CDTNotes: (Same As: ZyPREXA IM). Reconstitute with 2.1 ml sterile water for injection; use within 1 hour after reconstitution. For IM use only; do not administer IV or SUB-Q. Inactive 11/25/2017 [facility] Bumex 1 mg, 4 mL, Route: IVP, Drug form: INJ, Q12H, Dosing Weight 90.727, kg, Start date: 11/24/17 21:00:00 CDT, Duration: 30 day, Stop date: 12/24/17 9:00:00 CDTNotes: (Same As: Bumex) Inactive 11/25/2017 [facility] Bumex 1 mg, 4 mL, Route: IVP, Drug form: INJ, BID, Dosing Weight 90.727, kg, Start date: 11/24/17 17:10:00 CDT, Duration: 30 day, Stop date: 12/24/17 17:00:00 CDTNotes: (Same As: Bumex) No Longer Active 11/24/2017 [facility] Melatonin 3 MG Extended Release Tablet 3 mg, 1 tab, Route: PO, Drug Form: TAB, Dosing Weight 90.727, kg, Bedtime, PRN as needed for insomnia, Start date: 11/24/17 12:00:00 CDT, Duration: 30 day, Stop date: 12/24/17 11:59:00 CDTNotes: (Same as: Melatonin) No Longer Active 11/24/2017 [facility] Acetaminophen 325 MG Oral Tablet 650 mg, 2 tab, Route: PO, Drug form: TAB, Q6H, Dosing Weight 90.727, kg, PRN Pain Score 1-3, Start date: 11/24/17 12:00:00 CDT, Duration: 30 day, Stop date: 12/24/17 11:59:00 CDTNotes: Do not exceed 4 gm/day. (Same as: Tylenol) No Longer Active 11/24/2017 [facility] Lisinopril 5 mg, 1 tab, Route: PO, Drug form: TAB, Daily, Dosing Weight 90.727, kg, Start date: 11/24/17 9:16:00 CDT, Duration: 30 day, Stop date: 12/24/17 9:00:00 CDTNotes: (Same as: Prinivil, Zestril) No Longer Active 11/24/2017 [facility] Insulin Glargine 100 UNT/ML Injectable Solution [Lantus] 30 unit, 0.3 mL, Route: SUB-Q, Drug form: SOLN, Q12H, Dosing Weight 90.727, kg, Start date: 11/24/17 9:00:00 CDT, Duration: 30 day, Stop date: 12/23/17 21:00:00 CDTNotes: (Same as: Lantus) Do not hold insulin without contacting prescriber WASTE: F/P - Black; E - Videostir Trash Bin "single patient use only" No Longer Active 11/24/2017 [facility] Aspirin 81 MG Enteric Coated Tablet 81 mg, 1 tab, Route: PO, Drug form: ECTAB, Daily, Dosing Weight 90.727, kg, Start date: 11/24/17 9:00:00 CDT, Duration: 30 day, Stop date: 12/23/17 9:00:00 CDTNotes: Do not crush or chew. (Same As: Ecotrin) No Longer Active 11/24/2017 [facility] Bumex 1 mg, 4 mL, Route: IVP, Drug form: INJ, ONCE, Dosing Weight 90.727, kg, Start date: 11/24/17 8:14:00 CDT, Stop date: 11/24/17 8:14:00 CDTNotes: (Same As: Bumex) Inactive 11/24/2017 [facility] Triiodothyronine 5 microgram, 1 tab, Route: PO, Drug form: TAB, Q630AM, Dosing Weight 90.727, kg, Start date: 11/24/17 6:30:00 CDT, Duration: 30 day, Stop date: 12/23/17 6:30:00 CDTNotes: (Same as: Cytomel) No Longer Active 11/24/2017 [facility] Magnesium Oxide 800 mg, 2 tab, Route: PO, Drug form: TAB, ONCE, Dosing Weight 90.727, kg, Start date: 11/24/17 0:33:00 CDT, Stop date: 11/24/17 0:33:00 CDTNotes: (Same as: Mag-Ox 400) Magnesium oxide [id number] talita mental magnesium Dose=____mg magnesium oxide (___mg elemental magnesium) Inactive 11/24/2017 [facility] potassium phosphate 15 mmol, Route: IVPB, PRN, Dosing Weight 90.727, kg, PRN Abnormal Lab Result, Start date: 11/23/17 23:38:00 CDT, Duration: 30 day, Stop date: 12/23/17 23:37:00 CDT, FOR ICU USE ONLY No Longer Active 11/24/2017 [facility] Magnesium Sulfate 2 gm, Route: IVPB, PRN, Dosing Weight 90.727, kg, PRN Abnormal Lab Result, Start date: 11/23/17 23:38:00 CDT, Duration: 30 day, Stop date: 12/23/17 23:37:00 CDT, FOR ICU USE ONLY No Longer Active 11/24/2017 [facility] potassium phosphate-sodium phosphate 250 mg-280 mg-160 mg oral powder for reconstitution 2 pkt, Route: PO, Dosing Weight 90.727, kg, PRN, PRN Abnormal Lab Result, FOR ICU USE ONLY, Start date: 11/23/17 23:38:00 CDT, Duration: 30 day, Stop date: 12/23/17 23:37:00 CDT No Longer Active 11/24/2017 [facility] sodium phosphate 15 mmol, Route: IVPB, PRN, Dosing Weight 90.727, kg, PRN Abnormal Lab Result, Start date: 11/23/17 23:38:00 CDT, Duration: 30 day, Stop date: 12/23/17 23:37:00 CDT, FOR ICU USE ONLY No Longer Active 11/24/2017 [facility] Calcium Carbonate 500 MG Chewable Tablet 500 mg, Route: PO, PRN, Dosing Weight 90.727, kg, PRN Abnormal Lab Result, FOR ICU USE ONLY, Start date: 11/23/17 23:38:00 CDT, Duration: 30 day, Stop date: 12/23/17 23:37:00 CDT No Longer Active 11/24/2017 [facility] Magnesium Oxide 800 mg, Route: PO, PRN, Dosing Weight 90.727, kg, PRN Abnormal Lab Result, FOR ICU USE ONLY, Start date: 11/23/17 23:38:00 CDT, Duration: 30 day, Stop date: 12/23/17 23:37:00 CDT No Longer Active 11/24/2017 [facility] Calcium Gluconate 1 gm, Route: IVPB, PRN, Dosing Weight 90.727, kg, PRN Abnormal Lab Result, Start date: 11/23/17 23:38:00 CDT, Duration: 30 day, Stop date: 12/23/17 23:37:00 CDT, FOR ICU USE ONLY No Longer Active 11/24/2017 [facility] Potassium Chloride 20 mEq, Route: IVPB, PRN, Dosing Weight 90.727, kg, PRN Abnormal Lab Result, Via central line, Start date: 11/23/17 23:38:00 CDT, Duration: 30 day, Stop date: 12/23/17 23:37:00 CDT, FOR ICU USE ONLY No Longer Active 11/24/2017 [facility] Coreg 25 mg, 1 tab, Route: PO, Drug form: TAB, Q12H, Dosing Weight 90.727, kg, Start date: 11/23/17 21:00:00 CDT, Duration: 30 day, Stop date: 12/23/17 9:00:00 CDTNotes: Give with food. (Same As: Coreg) No Longer Active 11/24/2017 [facility] Saline Flush 0.9% 10 ml, Route: IVP, Drug Form: INJ, Dosing Weight 90.727, kg, Q12H, Start date: 11/23/17 21:00:00 CDT, Duration: 30 day, Stop date: 12/23/17 9:00:00 CDTNotes: (Same as: BD Posiflush) No Longer Active 11/24/2017 [facility] Simvastatin 40 mg, 1 tab, Route: PO, Drug form: TAB, Bedtime, Dosing Weight 90.727, kg, Start date: 11/23/17 21:00:00 CDT, Duration: 30 day, Stop date: 12/22/17 21:00:00 CDTNotes: (Same as: Zocor) No Longer Active 11/24/2017 [facility] Insulin Glargine 100 UNT/ML Injectable Solution [Lantus] 30 unit, 0.3 mL, Route: SUB-Q, Drug form: SOLN, Bedtime, Dosing Weight 90.727, kg, Start date: 11/23/17 21:00:00 CDT, Duration: 30 day, Stop date: 12/22/17 21:00:00 CDTNotes: (Same as: Lantus) Do not hold insulin without contacting prescriber WASTE: F/P - Black; E - Municipal Trash Bin "single patient use only" No Longer Active 11/24/2017 [facility] Buspirone 10 mg, 1 tab, Route: PO, Drug form: TAB, TID, Dosing Weight 90.727, kg, Start date: 11/23/17 17:00:00 CDT, Duration: 30 day, Stop date: 12/23/17 13:00:00 CDTNotes: (Same As: BuSpar) No Longer Active 11/23/2017 [facility] Lyrica 50 mg, 1 cap, Route: PO, Drug form: CAP, BID, Dosing Weight 90.727, kg, Start date: 11/23/17 17:00:00 CDT, Duration: 30 day, Stop date: 12/23/17 9:00:00 CDTNotes: Same as Lyrica Inactive 11/23/2017 [facility] heparin additive 25,000 unit [14 unit/kg/hr] + Premix Diluent Sodium Chloride 0.45% 500 mL 500 mL, Rate: 20.5 ml/hr, Infuse over: 24.4 hr, Route: IV, Dosing Weight 73.2 kg, Total Volume: 500 mL, Start date: 11/23/17 16:00:00 CDT, Duration: 30 day, Stop date: 12/23/17 15:59:00 CDT, 1.85, m7Loboa: Total Concentration=50 unit/ ml Total [id number]=376 ml Send Med Request 2 hours prior to next bag No Longer Active 11/23/2017 [facility] heparin 5,000 unit, 1 mL, Route: SUB-Q, Drug form: INJ, Q8H, Dosing Weight 90.727, kg, Start date: 11/23/17 16:00:00 CDT, Stop date: 12/23/17 8:00:00 CDTNotes: porcine heparin Inactive 11/23/2017 [facility] Vitamin D2 50,000 intl units oral capsule 50,000 IntlUnit=1 cap, PO, QMon, # 8 cap, 0 Refill(s) No Longer Active 11/23/2017 [facility] Insulin Lispro 4 unit, 0.04 mL, Route: SUB-Q, Drug form: SOLN, TID-Before Meals, Dosing Weight 90.727, kg, PRN Blood Glucose Results, Start date: 11/23/17 15:31:00 CDT, Duration: 30 day, Stop date: 12/23/17 15:30:0 0 CDTNotes: (Same as: Humalog ) Roll in palms of hands gently; Do not shake `vigorously. "Single Patient Use Only " WASTE: F/P - Black; E - Municipal Trash Bin Stable for 28 days at room temperature. Expires in days from Date No Longer Active 11/23/2017 [facility] Dextrose 50% Syringe 25 gm, 50 mL, Route: IVP, Drug Form: INJ, Dosing Weight 90.727, kg, PRN, PRN Blood Glucose Results, Start date: 11/23/17 15:31:00 CDT, Duration: 30 day, Stop date: 12/23/17 15:30:00 CDT No Longer Active 11/23/2017 [facility] Glucagon 1 mg, Route: IM, Drug form: PDR/INJ, PRN, Dosing Weight 90.727, kg, PRN Blood Glucose Results, Start date: 11/23/17 15:31:00 CDT, Duration: 30 day, Stop date: 12/23/17 15:30:00 CDT No Longer Active 11/23/2017 [facility] Saline Flush 0.9% 10 ml, Route: IVP, Drug Form: INJ, Dosing Weight 90.727, kg, PRN, PRN Line Flush, Start date: 11/23/17 15:26:00 CDT, Duration: 30 day, Stop date: 12/23/17 15:25:00 CDTNotes: (Same as: BD Posiflush) No Longer Active 11/23/2017 [facility] Nystatin 100 UNT/MG Topical Powder 1 appl, Route: TOP, PRN, Drug form: PWDR, PRN For Fungal Prophylaxis, Start date: 11/23/17 15:26:00 CDT, Duration: 30 day, Stop date: 12/23/17 15:25:00 CDTNotes: (Same as:Mycostatin, Nilstat) For external use only. No Longer Active 11/23/2017 [facility] omeprazole 20 mg oral delayed release capsule 20 mg=1 cap, PO, Daily, # 30 cap, 0 Refill(s) No Longer Active 11/23/2017 [facility] Levemir 60 units, SUB-Q, QPM, 0 Refill(s) No Longer Active 11/23/2017 [facility] Aspirin 81 MG Enteric Coated Tablet 81 mg=1 tab, PO, Daily, # 90 tab, 3 Refill(s) Active 11/23/2017 [facility] vilazodone hydrochloride 40 MG Oral Tablet [Viibryd] 40 mg=1 tab, PO, Daily, 0 Refill(s) No Longer Active 11/23/2017 [facility] clonazePAM 0.5 mg oral tablet 0.5 mg=1 tab, PO, BID, # 30 tab, 0 Refill(s) Active 11/23/2017 [facility] pregabalin 50 MG Oral Capsule [Lyrica] 50 mg=1 cap, PO, BID, 0 Refill(s) Active 11/23/2017 [facility] carvedilol 25 MG Oral Tablet [Coreg] 25 mg=1 tab, PO, BID, # 180 tab, 3 Refill(s) No Longer Active 11/23/2017 [facility] acetaminophen-codeine #3 1 tab, PO, Q8H, PRN pain, # 30 tab, 0 Refill(s) No Longer Active 11/23/2017 [facility] lisinopril 10 mg oral tablet 10 mg=1 tab, PO, BID, # 90 tab, 1 Refill(s) No Longer Active 11/23/2017 [facility] Oldsmar-3 oral capsule 1,200 mg=, Daily, 0 Refill(s) Active 11/23/2017 [facility] busPIRone 10 mg oral tablet 10 mg=1 tab, PO, TID, # 90 tab, 0 Refill(s) No Longer Active 11/23/2017 [facility] 24 HR Niacin 500 MG Extended Release Tablet [Niaspan] 500 mg=1 tab, PO, Bedtime, # 100 tab, 0 Refill(s) No Longer Active 11/23/2017 [facility] warfarin 2 mg oral tablet 2 mg=1 tab, PO, Daily, # 30 tab, 0 Refill(s) Active 11/23/2017 [facility] spironolactone 25 mg oral tablet 25 mg=1 tab, PO, Daily, # 90 tab, 1 Refill(s) No Longer Active 11/23/2017 [facility] NovoLog 27 units, SUB-Q, TID-Before Meals, 0 Refill(s) No Longer Active 11/23/2017 [facility] Furosemide 20 MG Oral Tablet 20 mg=1 tab, PO, Daily, # 30 tab, 0 Refill(s) No Longer Active 11/23/2017 [facility] torsemide 20 mg oral tablet 20 mg=1 tab, PO, Daily, # 30 tab, 1 Refill(s) No Longer Active 11/23/2017 [facility] liothyronine 5 mcg oral tablet 5 microgram=1 tab, PO, Daily, # 30 tab, 0 Refill(s) Active 11/23/2017 [facility] Simvastatin 40 mg=1 tab, PO, Bedtime, # 30 tab, 0 Refill(s) No Longer Active 11/23/2017 [facility] tramadol hydrochloride 50 MG Oral Tablet 50 mg=1 tab, PO, BID, # 30 tab, 0 Refill(s) Active 11/23/2017 [facility] remove patch 1 patch, Route: TOP, Bedtime, Drug form: ERFILM, Start date: 10/27/13 21:00:00, Duration: 30 day, Stop date: 11/25/13 21:00:00Notes: Remove patch 12 hours after application each day. Inactive 10/28/2013 [facility] tramadol hydrochloride 50 MG Oral Tablet 50 mg=1 tab, PO, Q6H, Pain, # 24 tab, 0 Refill(s) Active 10/27/2013 [facility] warfarin 3 mg oral tablet 3 mg=1 tab, PO, Daily, # 30 tab, 0 Refill(s) Active 10/27/2013 [facility] enoxaparin 80 mg/0.8 mL subcutaneous solution =80 mg, SUB- Q, Q12H, 14 syringes, # 12 mL, 0 Refill(s)Special Instructions: 14 syringes Active 10/27/2013 [facility] enalapril 5 mg oral tablet 5 mg=1 tab, PO, BID, # 60 tab, 1 Refill(s) Active 10/27/2013 [facility] Hydrochlorothiazide 25 MG Oral Tablet 12.5 mg=0.5 tab, PO, Daily, # 30 tab, 1 Refill(s) Active 10/27/2013 [facility] Lidocaine Hydrochloride 0.05 MG/MG Transdermal Patch 1 patch, Route: TOP, Daily, Drug form: FILM, Start date: 10/27/13 12:00:00, Duration: 30 day, Stop date: 11/26/13 9:00:00Notes: Apply only once for up to 12 hours in a 24-hour period (12 hours on and 12 hours off). (Same as: Lidoderm) "Remove old patch before application of new patch" Inactive 10/27/2013 [facility] Tramadol 50 mg, 1 tab, Route: PO, Drug form: TAB, Q6H, Dosing Weight 75.199, kg, PRN Pain Score 1-3, Start date: 10/27/13 11:26:00, Duration: 30 day, Stop date: 11/26/13 11:25:00Notes: Not to exceed 400mg/day. (Same As: Ultram) Inactive 10/27/2013 [facility] Coumadin 3 mg, 3 tab, Route: PO, Drug form: TAB, Q5PM, Dosing Weight 75.199, kg, Start date: 10/26/13 17:00:00, Duration: 1 doses or times, Stop date: 10/26/13 17:00:00Notes: Nurse to ensure documentation of pat ient education per anticoagulation policy. Avoid large intake of vitamin-K containing foods diet. (Same As: Coumadin) Inactive 10/26/2013 [facility] vancomycin (SCIP) + Sodium Chloride 0.9% IV 250 mL 1,250 mg, Route: IVPB, ONCE, Dosing Weight 75.199, kg, Start date: 10/26/13 14:00:00, Stop date: 10/26/13 14:00:00 Inactive 10/26/2013 [facility] POLYETHYLENE GLYCOL 3350 17 gm, 1 pkt, Route: PO, Drug form: PWDR, Daily, Dosing Weight 75.199, kg, Start date: 10/26/13 9:00:00, Duration: 30 day, Stop date: 11/24/13 9:00:00Notes: Dissolve in 8 oz of water or juice. (Same as: Miralax) No Longer Active 10/26/2013 [facility] pantoprazole 40 mg, Route: PO, Daily, Dosing Weight 75.199, kg, Start date: 10/26/13 9:00:00, Duration: 30 day, Stop date: 11/24/13 9:00:00 No Longer Active 10/26/2013 [facility] Enalapril 5 mg, 1 tab, Route: PO, Drug form: TAB, BID, Dosing Weight 75.199, kg, Start date: 10/26/13 9:00:00, Duration: 30 day, Stop date: 11/24/13 17:00:00Notes: (Same as: Vasotec) No Longer Active 10/26/2013 [facility] Lovenox 80 mg, 0.8 mL, Route: SUB-Q, Drug form: INJ, [id number], Dosing Weight 75.199, kg, Start after lines removed., Start date: 10/26/13 8:00:00, Duration: 30 day, Stop date: 11/24/13 20:00:00, > 45 kg; Prophylaxis dose; Pediatric DosingSpecial Instructions: > 45 kg; Prophylaxis dose; Pediatric DosingNotes: Nurse to ensure documentation of patient education per anticoagulation policy. (Same as: Lovenox) No Longer Active 10/26/2013 [facility] Coreg 12.5 mg, 1 tab, Route: PO, Drug form: TAB, BID, Dosing Weight 75.199, kg, Priority: NOW, Start date: 10/26/13 5:04:00, Duration: 30 day, Stop date: 11/24/13 17:00:00Notes: Give with food. (Same As: Coreg) No Longer Active 10/26/2013 [facility] Acetaminophen 325 MG / Hydrocodone Bitartrate 5 MG Oral Tablet [Throckmorton 5/325] 1 tab, Route: PO, Drug Form: TAB, Dosing Weight 75.199, kg, Q6H, PRN Pain, Start date: 10/26/13 0:01:00, Duration: 30 day, Stop date: 11/25/13 0:00:00, pain second choiceNotes: (Same as: Throckmorton 325/5) Do not exceed 4gm/day of acetaminophen. No Longer Active 10/26/2013 [facility] Enalapril 5 mg, 1 tab, Route: PO, Drug form: TAB, Daily, Dosing Weight 75.199, kg, Priority: NOW, Start date: 10/26/13 0:00:00, Duration: 30 day, Stop date: 11/24/13 9:00:00Notes: (Same as: Vasotec) Inactive 10/26/2013 [facility] Magnesium Oxide 800 mg, 2 tab, Route: PO, Drug form: TAB, Q12H, Dosing Weight 75.199, kg, Priority: STAT, Start date: 10/25/13 23:57:00, Duration: 2 day, Stop date: 10/27/13 21:00:00Notes: (Same as: Mag-Ox 400) Magn esium oxide [id number] elemental magnesium Dose=____mg magnesium oxide (___mg elemental magnesium) No Longer Active 10/26/2013 [facility] ceFAZolin 1 gm, Route: IVPB, Drug form: PDR/INJ, ABXQ8H, Start date: 10/25/13 22:00:00, Duration: 3 doses or times, Stop date: 10/26/13 14:00:00Notes: (Same As: Ancef, Kefzol) No Longer Active 10/26/2013 [facility] Saline Flush 0.9% 10 ml, Route: IVP, Drug Form: INJ, Dosing Weight 75.199, kg, Q12H, Start date: 10/25/13 21:00:00, Duration: 30 day, Stop date: 11/24/13 9:00:00Notes: Same as: BD Posiflush Sterile No Longer Active 10/26/2013 [facility] Docusate 100 mg, 1 cap, Route: PO, Drug form: CAP, Q12H, Dosing Weight 75.199, kg, Start date: 10/25/13 21:00:00, Duration: 30 day, Stop date: 11/24/13 9:00:00Notes: (Same as: Colace) (Do Not Crush) No Longer Active 10/26/2013 [facility] tramadol hydrochloride 50 MG Oral Tablet 50 mg, 1 tab, Route: PO, Drug form: TAB, Q6H, Dosing Weight 75.199, kg, PRN Pain Score 4-6, Start date: 10/25/13 17:17:00, Duration: 30 day, Stop date: 11/24/13 17:16:00Notes: Not to exceed 400mg/day. (Same As: Ultram) No Longer Active 10/25/2013 [facility] 10 ML Cefazolin 100 MG/ML Prefilled Syringe 1 gm, Route: IVPB, Drug form: INJ, Q8H, Dosing Weight 75.199, kg, Start date: 10/25/13 16:00:00, Duration: 1 doses or times, Stop date: 10/25/13 16:00:00 Inactive 10/25/2013 [facility] Saline Flush 0.9% 10 ml, Route: IVP, Drug Form: INJ, Dosing Weight 75.199, kg, PRN, PRN Line Flush, Start date: 10/25/13 14:02:00, Duration: 30 day, Stop date: 11/24/13 14:01:00Notes: Same as: BD Posiflush Sterile No Longer Active 10/25/2013 [facility] Ondansetron 4 mg, 1 tab, Route: PO, Drug form: TAB, Q8H, Dosing Weight 75.199, kg, PRN Nausea & Vomiting, Start date: 10/25/13 14:02:00, Duration: 30 day, Stop date: 11/24/13 14:01:00Notes: (Same as: Zofran) No Longer Active 10/25/2013 [facility] Dobutamine 1,000 mg, 250 mL, Rate: 3 micrograms/kg/min, Dosing Weight 75.199, kg, Route: IV, Total Volume: 250, Start date: 10/25/13 14:02:00, Duration: 30 day, Stop date: 11/24/13 14:01:00, Replace Every: 24 hrNo manish: (Same as: Dobutrex) Final conc=4 mg/ml. Premix solution. Protect from light. No Longer Active 10/25/2013 [facility] Nicardipine 40 mg, 200 mL, Rate: Start at 5mg/hr. Titrate, Dosing Weight 75.199, kg, Route: IV, Total Volume: 200, Start Date: 10/25/13 14:02:00, Duration: 30 day, Stop date: 11/24/13 14:01:00, Replace Every: 24 hr Notes: Same as: Cardene Concentration: (0.2 mg /1 ml ) No Longer Active 10/25/2013 [facility] Vancomycin 6.67 MG/ML Injectable Solution 1,127.985 mg, Route: IVPB, Drug form: INJ, ONCE, Dosing Weight 75.199, kg, Start date: 10/25/13 14:02:00, Stop date: 10/25/13 14:02:00 Inactive 10/25/2013 [facility] Magnesium Sulfate 2 gm, 50 mL, Route: IVPB, Drug form: INJ, Q2H, Dosing Weight 75.199, kg, Total dose=4 gm, Start date: 10/25/13 12:00:00, Duration: 2 doses or times, Stop date: 10/25/13 14:00:00 Inactive 10/25/2013 [facility] Digoxin 0.125 MG Oral Tablet 0.125 mg, 1 tab, Route: PO, Drug form: TAB, Daily, Dosing Weight 75.199, kg, Start date: 10/25/13 9:00:00, Duration: 30 day, Stop date: 11/23/13 9:00:00Notes: Take on an Empty Stomach (Same as: Lanoxin) No Longer Active 10/25/2013 [facility] Enalapril Maleate 5 MG / Hydrochlorothiazide 12.5 MG Oral Tablet 1 tab, Route: PO, Drug Form: TAB, Dosing Weight 75.199, kg, Daily, Start date: 10/25/13 9:00:00, Duration: 30 day, Stop date: 11/23/13 9:00:00 No Longer Active 10/25/2013 [facility] Imdur 30 mg, 1 tab, Route: PO, Drug form: ERTAB, Daily, Start date: 10/25/13 9:00:00, Duration: 30 day, Stop date: 11/23/13 9:00:00Notes: (Same as:Imdur) "Do Not Crush" Take on empty stomach/ full glass of water. Do not crush No Longer Active 10/25/2013 [facility] Nexium 40 mg, Route: PO, Drug form: TAB, Daily, Dosing Weight 75.199, kg, Start date: 10/25/13 9:00:00, Duration: 30 day, Stop date: 11/23/13 9:00:00 No Longer Active 10/25/2013 [facility] Aspirin / Calcium Carbonate 81 mg, 1 tab, Route: PO, Drug form: CHEWTAB, Daily, Dosing Weight 75.199, kg, Start date: 10/25/13 9:00:00, Duration: 30 day, Stop date: 11/23/13 9:00:00Notes: Take with food. No Longer Active 10/25/2013 [facility] Vitamin B 12 1,000 microgram, 1 tab, Route: PO, Drug form: TAB, Daily, Dosing Weight 75.199, kg, Start date: 10/25/13 9:00:00, Duration: 30 day, Stop date: 11/23/13 9:00:00Notes: (Same As: Vitamin B-12) No Longer Active 10/25/2013 [facility] Ascorbic Acid / Biotin / Folic Acid / Niacin / pantothenate / pyridoxine / Riboflavin / Thiamine / Vitamin B 12 1 tab, Route: PO, Drug Form: TAB, Dosing Weight 75.199, kg, Daily, Start date: 10/25/13 9:00:00, Duration: 30 day, Stop date: 11/23/13 9:00:00Notes: (Same as:Thera) Take with food. No Longer Active 10/25/2013 [facility] Isosorbide Dinitrate 30 mg, Route: PO, Drug form: TAB, Daily, Dosing Weight 75.199, kg, Start date: 10/25/13 9:00:00, Duration: 30 day, Stop date: 11/23/13 9:00:00 No Longer Active 10/25/2013 [facility] hydrochlorothiazide 25 mg oral tablet 12.5 mg, 0.5 tab, Route: PO, Daily, Start date: 10/25/13 9:00:00, Duration: 30 day, Stop date: 11/23/13 9:00:00Notes: (Same as: Hydrodiuril) With food. No Longer Active 10/25/2013 [facility] Lantus 5 unit, 0.05 mL, Route: SUB-Q, Drug form: INJ, QAM, Dosing Weight 75.199, kg, Start date: 10/25/13 9:00:00, Duration: 30 day, Stop date: 11/23/13 9:00:00Notes: Same as Lantus Solostar PEN "single patient use only" Stable for 28 days at room temperature. Expires in days from Date No Longer Active 10/25/2013 [facility] ferrous sulfate 325 mg, 1 tab, Route: PO, Drug form: ECTAB, Daily, Dosing Weight 75.199, kg, Start date: 10/25/13 9:00:00, Duration: 30 day, Stop date: 11/23/13 9:00:00Notes: Give with food. "Do Not Crush" No Longer Active 10/25/2013 [facility] Magnesium Oxide 400 mg, 1 tab, Route: PO, Drug form: TAB, ONCE, Dosing Weight 75.199, kg, Start date: 10/25/13 4:19:00, Stop date: 10/25/13 4:19:00Notes: (Same as: Mag-Ox 400) Magnesium oxide [id number] elemental magnesium Dose=____mg magnesium oxide (___mg elemental magnesium) Inactive 10/25/2013 [facility] Simvastatin 40 mg, 1 tab, Route: PO, Drug form: TAB, Bedtime, Dosing Weight 75.199, kg, Start date: 10/24/13 21:00:00, Duration: 30 day, Stop date: 11/22/13 21:00:00Notes: (Same as: Zocor) No Longer Active 10/25/2013 [facility] 24 HR Niacin 500 MG Extended Release Tablet [Niaspan] 500 mg, 1 tab, Route: PO, Drug form: ERTAB, Bedtime, Dosing Weight 75.199, kg, Start date: 10/24/13 21:00:00, Duration: 30 day, Stop date: 11/22/13 21:00:00Notes: (Same as: Niaspan) "Do Not Crush" Non-Formulary Item With food. No Longer Active 10/25/2013 [facility] Lantus 25 unit, 0.25 mL, Route: SUB-Q, Drug form: INJ, Bedtime, Dosing Weight 75.199, kg, Start date: 10/24/13 21:00:00, Duration: 30 day, Stop date: 11/22/13 21:00:00Notes: Same as Lantus Solostar PEN &quot ;single patient use only" Stable for 28 days at room temperature. Expires in days from Date No Longer Active 10/25/2013 [facility] Lovenox 80 mg, 0.8 mL, Route: SUB-Q, Drug form: INJ, ONCE, Dosing Weight 75.199, kg, Start date: 10/24/13 18:00:00, Stop date: 10/24/13 18:00:00Notes: Nurse to ensure documentation of patient education per a nticoagulation policy. (Same as: Lovenox) Inactive 10/24/2013 [facility] Coreg 25 mg, 1 tab, Route: PO, Drug form: TAB, BID, Dosing Weight 75.199, kg, Start date: 10/24/13 17:00:00, Duration: 30 day, Stop date: 11/23/13 9:00:00Notes: Give with food. (Same As: Coreg) No Longer Active 10/24/2013 [facility] Furosemide 20 MG Oral Tablet 20 mg, 1 tab, Route: PO, Drug form: TAB, BID, Dosing Weight 75.199, kg, Start date: 10/24/13 17:00:00, Duration: 30 day, Stop date: 11/23/13 9:00:00Notes: (Same as: Lasix) May cause GI upset. Give with food or milk. No Longer Active 10/24/2013 [facility] Protonix 40 mg, 1 tab, Route: PO, Drug form: ECTAB, Before Dinner, Start date: 10/24/13 16:30:00, Duration: 30 day, Stop date: 11/22/13 16:30:00Notes: Tablet should not be chewed or crushed. (Same as: Protonix) No Longer Active 10/24/2013 [facility] Vasotec 5 mg, 1 tab, Route: PO, Drug form: TAB, Daily, Start date: 10/24/13 16:00:00, Duration: 30 day, Stop date: 11/23/13 9:00:00Notes: (Same as: Vasotec) No Longer Active 10/24/2013 [facility] Insulin, Aspart, Human 2 unit, 0.02 mL, [...] days from Date No Longer Active 10/24/2013 [facility] Dextrose 50% Syringe 12.5 gm, 25 mL, Route: IVP, Drug Form: INJ, Dosing Weight 75.199, kg, PRN, PRN Blood Glucose Results, Start date: 10/24/13 14:59:00, Duration: 30 day, Stop date: 11/23/13 14:58:00 No Longer Active 10/24/2013 [facility] Glucagon 1 mg, Route: IM, Drug form: PDR/INJ, PRN, Dosing Weight 75.199, kg, PRN Blood Glucose Results, Start date: 10/24/13 14:59:00, Duration: 30 day, Stop date: 11/23/13 14:58:00 No Longer Active 10/24/2013 [facility] Nitroglycerin 0.4 MG Sublingual Tablet 0.4 mg, 1 tab, Route: SL, Drug form: TAB, Q5Min, Dosing Weight 75.199, kg, PRN as needed for chest pain, Start date: 10/24/13 14:54:00, Duration: 30 day, Stop date: 11/23/13 14:53:00Notes: (Same as:Nitroquick, Nitrostat) "Do Not Crush" Sublingual tablet No Longer Active 10/24/2013 [facility] Lantus 50 unit, SUB-Q, Bedtime, 0 Refill(s) Active 10/24/2013 [facility] Metformin hydrochloride 1000 MG Oral Tablet 1,000 mg=1 tab, PO, BID, # 30 tab, 0 Refill(s) Active 10/24/2013 [facility] 0.8 ML Enoxaparin sodium 100 MG/ML Prefilled Syringe [Lovenox] 80 mg, SUB-Q, Daily, # 20 syr, 0 Refill(s) No Longer Active 10/24/2013 [facility] Vitamin B-12 1000 mcg oral tablet 1,000 microgram=1 tab, PO, Daily, # 30 tab, 0 Refill(s) Active 10/24/2013 [facility] ferrous sulfate 325 mg oral enteric coated tablet 325 mg=1 tab, PO, Daily, 0 Refill(s) Active 10/24/2013 [facility] 24 HR Niacin 500 MG Extended Release Tablet [Niaspan] 500 mg=1 tab, PO, Bedtime, 0 Refill(s) Active 10/24/2013 [facility] vilazodone hydrochloride 40 MG Oral Tablet [Viibryd] 40 mg=1 tab, PO, Daily, with food, 0 Refill(s)Special Instructions: with food Active 10/24/2013 [facility] Os-Chris 500 PO, Daily, 0 Refill(s) Active 10/24/2013 [facility] NovoLog 20 unit, SUB-Q, TID-Before Meals, before a meal, 0 Refill(s)Special Instructions: before a meal Active 10/24/2013 [facility] Aspirin / Calcium Carbonate 81 mg, PO, Daily, 0 Refill(s) Active 10/24/2013 [facility] clonazePAM 0.5 mg oral tablet, disintegrating 0.5 mg=1 tab, PO, TID, 0 Refill(s) No Longer Active 10/24/2013 [facility] simvastatin 40 mg oral tablet 40 mg=1 tab, PO, Bedtime, # 30 tab, 0 Refill(s) Active 10/24/2013 [facility] clonazePAM 0.5 mg oral tablet 0.5 mg=1 tab, SL, BID, 0 Refill(s) Active 10/24/2013 [facility] Nexium 40 mg, PO, Daily, 0 Refill(s) Active 10/24/2013 [facility] Ascorbic Acid / Biotin / Folic Acid / Niacin / pantothenate / pyridoxine / Riboflavin / Thiamine / Vitamin B 12 1 tab, PO, Daily, 0 Refill(s) Active 10/24/2013 [facility] carvedilol 25 MG Oral Tablet [Coreg] 25 mg=1 tab, PO, BID, # 180 tab, 0 Refill(s) Active 10/24/2013 [facility] Digoxin 0.125 MG Oral Tablet 0.125 mg, PO, Daily, # 30 tab, 0 Refill(s) Active 10/24/2013 [facility] isosorbide dinitrate 30 mg oral tablet 30 mg=1 tab, PO, Daily, 0 Refill(s) No Longer Active 10/24/2013 [facility] potassium chloride 10 mEq oral capsule, extended release 10 mEq=1 cap, PO, Daily, 0 Refill(s) Active 10/24/2013 [facility] Nitroglycerin 0.4 MG Sublingual Tablet 0.4 mg=1 tab, SL, Q5Min, Chest pain, # 100 tab, 0 Refill(s) Active 10/24/2013 [facility] Enalapril Maleate 5 MG / Hydrochlorothiazide 12.5 MG Oral Tablet 1 tab, PO, Daily, # 30 tab, 0 Refill(s) No Longer Active 10/24/2013 [facility] Furosemide 20 MG Oral Tablet 20 mg=1 tab, PO, BID, # 30 tab, 0 Refill(s) No Longer Active 10/24/2013 [facility] docosahexaenoic acid 200 MG / Eicosapentaenoic Acid 300 MG / Vitamin E 1 UNT Oral Capsule 1,000 mg=1 cap, PO, Daily, 0 Refill(s) Active 10/24/2013 [facility] Sodium Chloride 0.9% (titrate) 250 mL 250 mL, Rate: pegger dobby looms for use with blood product administration, Dosing Weight 79.545, kg, Route: IV, Total Volume: 250, Start Date: 10/24/13 12:07:00, Duration: 30 day, Stop date: 11/23/13 12:06:00, Replace Every: 24 hr No Longer Active 10/24/2013 [facility] Allergies, Adverse Reactions, Alerts Substance Category Reaction Severity Reaction type Status Date Reported Comments Source Immunizations Immunization Date Given Site Status Last Updated Comments Source Results Order Name Results Value Reference Range Date Interpretation Comments Source Chest 2 views DX Chest 2 views DX EXAM: XR CHEST 2 VIEWS DATE: 01/05/2018 3:00 AM SEO INTERN INDICATION: Line Placement - Status post PPM/ICD [...] Xiomara Patel MD 01/05/18 10:[address] [facility] Chest 1 v for Placement DX Chest 1 v for Placement DX EXAM: XR CHEST 1 VIEW DATE: 01/04/2018 4:20 PM SEO INTERN INDICATION: Line Placement - Status post PPM/ICD [...] Nora German MD 01/04/18 18:[address] [facility] Chest 2 views DX Chest 2 views [...] [place] 12/19/17 10:59 FINAL REPORT [facility] HEMATOLOGY INR 2.21 0.85 - 1.17 11/26/2017 [facility] HEMATOLOGY PT 24.8 s 12.0 - 14.7 11/26/2017 [facility] CHEM PANEL Phosphorus 2.8 mg/dL 2.5 - 4.5 11/26/2017 [facility] CHEM PANEL Magnesium Lvl 1.9 mg/dL 1.8 - 2.4 11/26/2017 [facility] CHEM PANEL eGFR 35 mL/min/1.73m2 11/26/2017 Result Comment: The eGFR is calculated using the [...] should be multiplied by the estimated BMI. [facility] CHEM PANEL Chloride Lvl 104 meq/L 95 - 109 11/26/2017 [facility] CHEM PANEL CO2 26 meq/L 24 - 32 11/26/2017 [facility] CHEM PANEL Calcium Lvl 8.7 mg/dL 8.5 - 10.5 11/26/2017 [facility] CHEM PANEL BUN 30 mg/dL 7 - 22 11/26/2017 [facility] CHEM PANEL Glucose Lvl 158 mg/dL 70 - 99 11/26/2017 [facility] CHEM PANEL Potassium Lvl 4.0 meq/L 3.5 - 5.1 11/26/2017 [facility] CHEM PANEL Sodium Lvl 141 meq/L 135 - 145 11/26/2017 [facility] CHEM PANEL Creatinine Lvl 1.87 mg/dL 0.50 - 1.40 11/26/2017 [facility] CHEM PANEL AGAP 15.0 meq/L 10.0 - 20.0 11/26/2017 [facility] HEMATOLOGY WBC 7.1 K/CMM 3.7 - 10.4 11/26/2017 [facility] HEMATOLOGY RBC 4.26 M/CMM 4.70 - 6.10 11/26/2017 [facility] HEMATOLOGY MCH 30.1 pg 27.0 - 31.0 11/26/2017 [facility] HEMATOLOGY MCV 87.8 fL 80.0 - 94.0 11/26/2017 [facility] HEMATOLOGY MCHC 34.2 g/dL 32.0 - 36.0 11/26/2017 [facility] HEMATOLOGY MPV 7.9 fL 7.4 - 10.4 11/26/2017 [facility] HEMATOLOGY Platelet 151 K/CMM 133 - 450 11/26/2017 [facility] HEMATOLOGY RDW 17.7 % 11.5 - 14.5 11/26/2017 [facility] HEMATOLOGY Hct 37.4 % 42.0 - 54.0 11/26/2017 [facility] HEMATOLOGY Hgb 12.8 g/dL 14.0 - 18.0 11/26/2017 [facility] HEMATOLOGY Basophils 0.9 % 0.0 - 1.0 11/26/2017 [facility] HEMATOLOGY Eosinophils 6.0 % 0.0 - 4.0 11/26/2017 [facility] HEMATOLOGY Lymphocytes 8.9 % 20.0 - 40.0 11/26/2017 [facility] HEMATOLOGY Segs 73.4 % 45.0 - 75.0 11/26/2017 [facility] HEMATOLOGY Monocytes # 0.8 K/CMM 0.0 - 0.8 11/26/2017 [facility] HEMATOLOGY Lymphocytes # 0.6 K/CMM 1.0 - 5.5 11/26/2017 [facility] HEMATOLOGY Monocytes 10.8 % 2.0 - 12.0 11/26/2017 [facility] HEMATOLOGY Basophils # 0.1 K/CMM 0.0 - 0.2 11/26/2017 [facility] HEMATOLOGY Eosinophils # 0.4 K/CMM 0.0 - 0.5 11/26/2017 [facility] HEMATOLOGY Neutrophils # 5.2 K/CMM 1.5 - 8.1 11/26/2017 [facility] PARATHYROID PROFILE Ca Ion WB 1.08 mMol/L 1.05 - 1.25 11/26/2017 [facility] PARATHYROID PROFILE Ca Norm WB 1.12 mMol/L 1.05 - 1.25 11/26/2017 [facility] CHEM PANEL Phosphorus 2.7 mg/dL 2.5 - 4.5 11/25/2017 [facility] CHEM PANEL Magnesium Lvl 2.0 mg/dL 1.8 - 2.4 11/25/2017 [facility] CHEM PANEL eGFR 30 mL/min/1.73m2 11/25/2017 Result Comment: The eGFR is calculated using the [...] should be multiplied by the estimated BMI. [facility] CHEM PANEL Sodium Lvl 138 meq/L 135 - 145 11/25/2017 [facility] CHEM PANEL BUN 30 mg/dL 7 - 22 11/25/2017 [facility] CHEM PANEL Creatinine Lvl 2.14 mg/dL 0.50 - 1.40 11/25/2017 [facility] CHEM PANEL AGAP 14.7 meq/L 10.0 - 20.0 11/25/2017 [facility] CHEM PANEL Calcium Lvl 9.5 mg/dL 8.5 - 10.5 11/25/2017 [facility] CHEM PANEL Chloride Lvl 100 meq/L 95 - 109 11/25/2017 [facility] CHEM PANEL Potassium Lvl 3.7 meq/L 3.5 - 5.1 11/25/2017 [facility] CHEM PANEL CO2 27 meq/L 24 - 32 11/25/2017 [facility] CHEM PANEL Glucose Lvl 196 mg/dL 70 - 99 11/25/2017 [facility] HEMATOLOGY PT 31.5 s 12.0 - 14.7 11/25/2017 [facility] HEMATOLOGY INR 2.99 0.85 - 1.17 11/25/2017 [facility] HEMATOLOGY PTT 43.9 s 22.9 - 35.8 11/25/2017 [facility] HEMATOLOGY Segs 77.8 % 45.0 - 75.0 11/25/2017 [facility] HEMATOLOGY Lymphocytes 6.7 % 20.0 - 40.0 11/25/2017 [facility] HEMATOLOGY Eosinophils # 0.4 K/CMM 0.0 - 0.5 11/25/2017 [facility] HEMATOLOGY Eosinophils 4.3 % 0.0 - 4.0 11/25/2017 [facility] HEMATOLOGY Monocytes 10.7 % 2.0 - 12.0 11/25/2017 [facility] HEMATOLOGY Neutrophils # 7.4 K/CMM 1.5 - 8.1 11/25/2017 [facility] HEMATOLOGY Basophils 0.5 % 0.0 - 1.0 11/25/2017 [facility] HEMATOLOGY Lymphocytes # 0.6 K/CMM 1.0 - 5.5 11/25/2017 [facility] HEMATOLOGY Monocytes # 1.0 K/CMM 0.0 - 0.8 11/25/2017 [facility] HEMATOLOGY MCHC 33.8 g/dL 32.0 - 36.0 11/25/2017 [facility] HEMATOLOGY RDW 17.7 % 11.5 - 14.5 11/25/2017 [facility] HEMATOLOGY MCH 30.4 pg 27.0 - 31.0 11/25/2017 [facility] HEMATOLOGY MPV 7.8 fL 7.4 - 10.4 11/25/2017 [facility] HEMATOLOGY Platelet 153 K/CMM 133 - 450 11/25/2017 [facility] HEMATOLOGY MCV 90.1 fL 80.0 - 94.0 11/25/2017 [facility] HEMATOLOGY RBC 4.19 M/CMM 4.70 - 6.10 11/25/2017 [facility] HEMATOLOGY WBC 9.5 K/CMM 3.7 - 10.4 11/25/2017 [facility] HEMATOLOGY Hgb 12.7 g/dL 14.0 - 18.0 11/25/2017 [facility] HEMATOLOGY Hct 37.7 % 42.0 - 54.0 11/25/2017 [facility] PARATHYROID PROFILE Ca Ion WB 1.13 mMol/L 1.05 - 1.25 11/25/2017 [facility] PARATHYROID PROFILE Ca Norm WB 1.13 mMol/L 1.05 - 1.25 11/25/2017 [facility] CHEM PANEL eGFR 37 mL/min/1.73m2 11/25/2017 Result Comment: The eGFR is calculated using the [...] should be multiplied by the estimated BMI. [facility] CHEM PANEL Calcium Lvl 9.4 mg/dL 8.5 - 10.5 11/25/2017 [facility] CHEM PANEL Chloride Lvl 102 meq/L 95 - 109 11/25/2017 [facility] CHEM PANEL CO2 27 meq/L 24 - 32 11/25/2017 [facility] CHEM PANEL AGAP 16.3 meq/L 10.0 - 20.0 11/25/2017 [facility] CHEM PANEL BUN 31 mg/dL 7 - 22 11/25/2017 [facility] CHEM PANEL Glucose Lvl 108 mg/dL 70 - 99 11/25/2017 [facility] CHEM PANEL Potassium Lvl 4.3 meq/L 3.5 - 5.1 11/25/2017 [facility] CHEM PANEL Sodium Lvl 141 meq/L 135 - 145 11/25/2017 [facility] CHEM PANEL Creatinine Lvl 1.82 mg/dL 0.50 - 1.40 11/25/2017 [facility] CHEM PANEL Magnesium Lvl 1.8 mg/dL 1.8 - 2.4 11/25/2017 [facility] CHEM PANEL Phosphorus 4.0 mg/dL 2.5 - 4.5 11/25/2017 [facility] HEMATOLOGY Eosinophils # 0.4 K/CMM 0.0 - 0.5 11/25/2017 [facility] HEMATOLOGY Neutrophils # 7.8 K/CMM 1.5 - 8.1 11/25/2017 [facility] HEMATOLOGY Monocytes # 0.9 K/CMM 0.0 - 0.8 11/25/2017 [facility] HEMATOLOGY Basophils 0.5 % 0.0 - 1.0 11/25/2017 [facility] HEMATOLOGY Lymphocytes # 0.6 K/CMM 1.0 - 5.5 11/25/2017 [facility] HEMATOLOGY Segs 79.9 % 45.0 - 75.0 11/25/2017 [facility] HEMATOLOGY Lymphocytes 6.1 % 20.0 - 40.0 11/25/2017 [facility] HEMATOLOGY Monocytes 9.2 % 2.0 - 12.0 11/25/2017 [facility] HEMATOLOGY Eosinophils 4.3 % 0.0 - 4.0 11/25/2017 [facility] HEMATOLOGY INR 3.00 0.85 - 1.17 11/25/2017 [facility] HEMATOLOGY PT 31.6 s 12.0 - 14.7 11/25/2017 [facility] HEMATOLOGY PTT 42.2 s 22.9 - 35.8 11/25/2017 [facility] HEMATOLOGY WBC 9.8 K/CMM 3.7 - 10.4 11/25/2017 [facility] HEMATOLOGY RBC 4.36 M/CMM 4.70 - 6.10 11/25/2017 [facility] HEMATOLOGY Hgb 13.2 g/dL 14.0 - 18.0 11/25/2017 [facility] HEMATOLOGY Hct 39.3 % 42.0 - 54.0 11/25/2017 [facility] HEMATOLOGY MCV 90.1 fL 80.0 - 94.0 11/25/2017 [facility] HEMATOLOGY MCH 30.3 pg 27.0 - 31.0 11/25/2017 [facility] HEMATOLOGY RDW 17.9 % 11.5 - 14.5 11/25/2017 [facility] HEMATOLOGY MPV 7.9 fL 7.4 - 10.4 11/25/2017 [facility] HEMATOLOGY MCHC 33.6 g/dL 32.0 - 36.0 11/25/2017 [facility] HEMATOLOGY Platelet 158 K/CMM 133 - 450 11/25/2017 [facility] PARATHYROID PROFILE Ca Norm WB 1.08 mMol/L 1.05 - 1.25 11/25/2017 [facility] PARATHYROID PROFILE Ca Ion WB 1.07 mMol/L 1.05 - 1.25 11/25/2017 [facility] HEMATOLOGY Basophils # 0.1 K/CMM 0.0 - 0.2 11/24/2017 [facility] HEMATOLOGY PTT 83.6 s 22.9 - 35.8 11/24/2017 [facility] CHEM PANEL B/C Ratio 18 6 - 25 11/24/2017 [facility] CHEM PANEL A/G Ratio 0.9 0.7 - 1.6 11/24/2017 [facility] CHEM PANEL Globulin 3.5 g/dL 2.7 - 4.2 11/24/2017 [facility] CHEM PANEL Alk Phos 81 unit/L 39 - 136 11/24/2017 [facility] CHEM PANEL Albumin Lvl 3.1 g/dL 3.5 - 5.0 11/24/2017 [facility] CHEM PANEL AST 19 unit/L 0 - 37 11/24/2017 [facility] CHEM PANEL Bili Total 0.7 mg/dL 0.2 - 1.3 11/24/2017 [facility] CHEM PANEL Total Protein 6.6 g/dL 6.4 - 8.4 11/24/2017 [facility] CHEM PANEL ALT 17 unit/L 0 - 65 11/24/2017 [facility] URINE AND STOOL UA Urobilinogen <=1.0 mg/dL 0.1 - 1.0 11/24/2017 [facility] URINE AND STOOL UA WBC null 0 - 5 11/24/2017 [facility] URINE AND STOOL UA RBC null 0 - 2 11/24/2017 [facility] URINE AND STOOL UA Sq Epi None Seen 11/24/2017 [facility] URINE AND STOOL UA Turbidity Clear (11/23/17 9:32 PM) Clear 11/24/2017 [facility] URINE AND STOOL UA pH 5.5 5.0 - 8.0 11/24/2017 [facility] URINE AND STOOL UA Spec Grav 1.011 <=1.030 11/24/2017 [facility] URINE AND STOOL UA Protein Negative mg/dL Negative mg/dL 11/24/2017 [facility] URINE AND STOOL UA Ketones 10 mg/dL Negative mg/dL 11/24/2017 [facility] URINE AND STOOL UA Bili Negative *NA* (11/23/17 9:32 PM) Negative 11/24/2017 [facility] URINE AND STOOL UA Nitrite Negative (11/23/17 9:32 PM) Negative 11/24/2017 [facility] URINE AND STOOL UA Blood Negative (11/23/17 9:32 PM) Negative 11/24/2017 [facility] URINE AND STOOL UA Leuk Est Negative (11/23/17 9:32 PM) Negative 11/24/2017 [facility] URINE AND STOOL UA Glucose 30 mg/dL Negative mg/dL 11/24/2017 [facility] URINE AND STOOL UA Color Yellow *NA* (11/23/17 9:32 PM) Yellow 11/24/2017 [facility] URINE CHEM U Sodium 85 meq/L 11/24/2017 [facility] URINE CHEM U Creatinine 73.90 mg/dL 11/24/2017 [facility] URINE CHEM U Urea 575 mg/dL 11/24/2017 [facility] URINE CHEM U Prot/Creat 0.15 11/24/2017 [facility] URINE CHEM U Protein 10.9 mg/dL 11/24/2017 [facility] URINE CHEM U Creatinine 74.40 mg/dL 11/24/2017 [facility] CARDIAC ENZYMES BNP 370 pg/mL <=100 pg/mL 11/23/2017 [facility] CHEM PANEL Globulin 3.6 g/dL 2.7 - 4.2 11/23/2017 [facility] CHEM PANEL A/G Ratio 0.9 0.7 - 1.6 11/23/2017 [facility] CHEM PANEL Bili Direct 0.2 mg/dL 0.0 - 0.3 11/23/2017 [facility] CHEM PANEL ALT 18 unit/L 0 - 65 11/23/2017 [facility] CHEM PANEL Albumin Lvl 3.3 g/dL 3.5 - 5.0 11/23/2017 [facility] CHEM PANEL Alk Phos 82 unit/L 39 - 136 11/23/2017 [facility] CHEM PANEL Bili Total 0.7 mg/dL 0.2 - 1.3 11/23/2017 [facility] CHEM PANEL Bili Indirect 0.5 mg/dL 0.0 - 1.0 11/23/2017 [facility] CHEM PANEL Total Protein 6.9 g/dL 6.4 - 8.4 11/23/2017 [facility] CHEM PANEL AST 18 unit/L 0 - 37 11/23/2017 [facility] SPECIAL CHEMISTRY Hgb A1C 8.0 % <=5.6 % 11/23/2017 [facility] BACTERIAL - SEROLOGY MRSA by PCR Positive 1 *ABN* (11/23/17 3:46 PM) 11/23/2017 Result Comment: "Significant Findings called to Sandra Swanson at 11/24/2017 05:24 by DO. Read Back OK." [facility] BLOOD BANK RESULTS ABO/Rh A POS 11/23/2017 [facility] BLOOD BANK RESULTS Antibody Scrn Negative (11/23/17 3:39 PM) 11/23/2017 [facility] CARDIAC ENZYMES Troponin-I 0.02 ng/mL 0.00 - 0.40 11/23/2017 [facility] HEMATOLOGY Basophils # 0.1 K/CMM 0.0 - 0.2 11/23/2017 [facility] Retroperitoneal Complete US Retroperitoneal Complete US EXAM: [...] This report was dictated by a Livestock Rancher/Fellow. I have personally reviewed the images as well as the Resident's interpretation and agree with the findings. Read by: Manolo Mcghee (FELLOW) Resident: Manolo Mcghee (FELLOW) Dictated Date/time: 11/23/17 16:26 Electronically Signed by: Jaime Cheatham MD 11/23/17 16:[address] [facility] Chest 1view DX Chest 1view DX EXAM: [...] by: Alberto Eid 11/23/17 13:[address] [facility] CHEM PANEL Phosphorus 4.0 mg/dL 2.5 - 4.5 10/27/2013 [facility] CHEM PANEL Magnesium Lvl 2.0 mg/dL 1.8 - 2.4 10/27/2013 [facility] ELECTROLYTES AGAP 19.3 meq/L 10.0 - 20.0 10/27/2013 [facility] ELECTROLYTES eGFR 69 mL/min/1.73m2 10/27/2013 1Result Comment: [...] should be multiplied by the estimated BMI. [facility] ELECTROLYTES Calcium Lvl 8.5 mg/dL 8.5 - 10.5 10/27/2013 [facility] ELECTROLYTES Chloride Lvl 96 meq/L 95 - 109 10/27/2013 [facility] ELECTROLYTES CO2 23 meq/L 24 - 32 10/27/2013 [facility] ELECTROLYTES Sodium Lvl 134 meq/L 135 - 145 10/27/2013 [facility] ELECTROLYTES Potassium Lvl 4.3 meq/L 3.5 - 5.1 10/27/2013 [facility] ELECTROLYTES BUN 18 mg/dL 7 - 22 10/27/2013 [facility] ELECTROLYTES Creatinine Lvl 1.1 mg/dL 0.5 - 1.4 10/27/2013 [facility] ELECTROLYTES Glucose Lvl 138 mg/dL 70 - 99 10/27/2013 4Interpretive Data: Adult reference range values reflect the clinical guidelines of the [place] [employer]. [facility] HEMATOLOGY PTT 39.9 s 22.9 - 35.8 10/27/2013 13Interpretive Data: Heparin Therapeutic Range: 57 - [address] [facility] HEMATOLOGY INR 1.37 0.85 - 1.17 10/27/2013 10Interpretive Data: RECOMMENDED RANGES FOR PROTIME INR: 2.0-3.0 for most medical and surgical thromboembolic states. 2.5-3.5 for artificial heart valves and recurrent embolism. INR SHOULD BE USED ONLY FOR PATIENTS ON STABLE ANTICOAGULANT THERAPY. [facility] HEMATOLOGY PT 17.0 s 12.0 - 14.7 10/27/2013 [facility] HEMATOLOGY MPV 7.4 fL 7.4 - 10.4 10/27/2013 [facility] HEMATOLOGY Platelet 195 K/CMM 133 - 450 10/27/2013 [facility] HEMATOLOGY MCHC 32.1 g/dL 32.0 - 36.0 10/27/2013 [facility] HEMATOLOGY RDW 17.3 % 11.5 - 14.5 10/27/2013 [facility] HEMATOLOGY MCV 88.9 fL 80.0 - 94.0 10/27/2013 [facility] HEMATOLOGY MCH 28.5 pg 27.0 - 31.0 10/27/2013 [facility] HEMATOLOGY Hgb 9.0 g/dL 14.0 - 18.0 10/27/2013 [facility] HEMATOLOGY Hct 28.0 % 42.0 - 54.0 10/27/2013 [facility] HEMATOLOGY WBC 8.6 K/CMM 3.7 - 10.4 10/27/2013 [facility] HEMATOLOGY RBC 3.14 M/CMM 4.70 - 6.10 10/27/2013 [facility] HEMATOLOGY Basophils # 0.1 K/CMM 0.0 - 0.2 10/27/2013 [facility] HEMATOLOGY Segs-Bands # 6.7 K/CMM 1.5 - 8.1 10/27/2013 [facility] HEMATOLOGY Eosinophils # 0.4 K/CMM 0.0 - 0.5 10/27/2013 [facility] HEMATOLOGY Lymphocytes # 0.5 K/CMM 1.0 - 5.5 10/27/2013 [facility] HEMATOLOGY Monocytes # 0.9 K/CMM 0.0 - 0.8 10/27/2013 [facility] HEMATOLOGY Segs 78.4 % 45.0 - 75.0 10/27/2013 [facility] HEMATOLOGY Lymphocytes 5.5 % 20.0 - 40.0 10/27/2013 [facility] HEMATOLOGY Basophils 1.1 % 0.0 - 1.0 10/27/2013 [facility] HEMATOLOGY Monocytes 10.0 % 2.0 - 12.0 10/27/2013 [facility] HEMATOLOGY Eosinophils 5.0 % 0.0 - 4.0 10/27/2013 [facility] PARATHYROID PROFILE Ca Ion WB 1.10 mMol/L 1.05 - 1.25 10/27/2013 [facility] PARATHYROID PROFILE Ca Norm WB 1.06 mMol/L 1.05 - 1.25 10/27/2013 [facility] Chest 1view Chest 1view EXAM: XR CHEST 1 VIEW DATE: 10/27/2013 at 0756. INDICATION: Abnormal chest sounds. COMPARISON: 10/26/2013. TECHNIQUE: Single radiograph provided for interpretation. FINDINGS: There has been interval removal of a Maize-Rustam catheter. A left-sided cardiac pacing device is stable in position. Changes of percutaneous cardiac valve repair are noted. No consolidation or infiltrate is seen. Mild blunting of the bilateral costophrenic angles is noted. No pneumothorax is identified. The cardio mediastinal silhouette is slightly enlarged. The chest wall osseous structures are unchanged. IMPRESSION: 1. Interval removal of Maize-Rustam catheter. 2. Small bilateral pleural effusions. 10/27/2013 - - Read by: Samir Rivas MD Dictated Date/time: 10/27/13 12:58 Electronically Signed by: Samir Rivas MD 10/27/13 12:[address] [facility] PARATHYROID PROFILE Ca Norm WB 1.11 mMol/L 1.05 - 1.25 10/26/2013 [facility] PARATHYROID PROFILE Ca Ion WB 1.10 mMol/L 1.05 - 1.25 10/26/2013 [facility] CARDIAC ENZYMES Troponin-T 0.015 ng/mL 0.000 - 0.100 10/26/2013 [facility] CARDIAC ENZYMES BNP 452 pg/mL <=100 pg/mL 10/26/2013 7Interpretive Data: Elevated results are in line with increasing severity of congestive heart failure. Minor elevations between 100 and 300 may be seen with Myocardial Ischemia, Sodium retaining drugs, and compensated/treated heart failure. [facility] CARDIAC ENZYMES Troponin-I 0.18 ng/mL 0.00 - 0.40 10/26/2013 [facility] CHEM PANEL eGFR 78 mL/min/1.73m2 10/26/2013 2Result [...] should be multiplied by the estimated BMI. [facility] CHEM PANEL Calcium Lvl 8.5 mg/dL 8.5 - 10.5 10/26/2013 [facility] CHEM PANEL Chloride Lvl 103 meq/L 95 - 109 10/26/2013 [facility] CHEM PANEL CO2 24 meq/L 24 - 32 10/26/2013 [facility] CHEM PANEL Sodium Lvl 139 meq/L 135 - 145 10/26/2013 [facility] CHEM PANEL Potassium Lvl 4.7 meq/L 3.5 - 5.1 10/26/2013 [facility] CHEM PANEL Glucose Lvl 105 mg/dL 70 - 99 10/26/2013 5Interpretive Data: Adult reference range values reflect the clinical guidelines of the [place] [employer]. [facility] CHEM PANEL BUN 16 mg/dL 7 - 22 10/26/2013 [facility] CHEM PANEL Creatinine Lvl 1.0 mg/dL 0.5 - 1.4 10/26/2013 [facility] CHEM PANEL AGAP 16.7 meq/L 10.0 - 20.0 10/26/2013 [facility] CHEM PANEL Magnesium Lvl 2.0 mg/dL 1.8 - 2.4 10/26/2013 [facility] HEMATOLOGY RDW 16.8 % 11.5 - 14.5 10/26/2013 [facility] HEMATOLOGY MCH 28.7 pg 27.0 - 31.0 10/26/2013 [facility] HEMATOLOGY MPV 7.2 fL 7.4 - 10.4 10/26/2013 [facility] HEMATOLOGY Platelet 216 K/CMM 133 - 450 10/26/2013 [facility] HEMATOLOGY MCHC 33.2 g/dL 32.0 - 36.0 10/26/2013 [facility] HEMATOLOGY MCV 86.5 fL 80.0 - 94.0 10/26/2013 [facility] HEMATOLOGY Hct 28.9 % 42.0 - 54.0 10/26/2013 [facility] HEMATOLOGY RBC 3.34 M/CMM 4.70 - 6.10 10/26/2013 [facility] HEMATOLOGY WBC 11.1 K/CMM 3.7 - 10.4 10/26/2013 [facility] HEMATOLOGY Hgb 9.6 g/dL 14.0 - 18.0 10/26/2013 [facility] HEMATOLOGY PTT 33.7 s 22.9 - 35.8 10/26/2013 14Interpretive Data: Heparin Therapeutic Range: 57 - [address] [facility] HEMATOLOGY INR 1.34 0.85 - 1.17 10/26/2013 11Interpretive Data: RECOMMENDED RANGES FOR PROTIME INR: 2.0-3.0 for most medical and surgical thromboembolic states. 2.5-3.5 for artificial heart valves and recurrent embolism. INR SHOULD BE USED ONLY FOR PATIENTS ON STABLE ANTICOAGULANT THERAPY. [facility] HEMATOLOGY PT 16.7 s 12.0 - 14.7 10/26/2013 [facility] HEMATOLOGY Basophils # 0.1 K/CMM 0.0 - 0.2 10/26/2013 [facility] HEMATOLOGY RBC Morph Normal (10/26/13 3:01 AM) 10/26/2013 [facility] HEMATOLOGY Basophils 0.7 % 0.0 - 1.0 10/26/2013 [facility] HEMATOLOGY Eosinophils # 0.3 K/CMM 0.0 - 0.5 10/26/2013 [facility] HEMATOLOGY Monocytes # 0.7 K/CMM 0.0 - 0.8 10/26/2013 [facility] HEMATOLOGY Lymphocytes # 0.3 K/CMM 1.0 - 5.5 10/26/2013 [facility] HEMATOLOGY Segs-Bands # 9.8 K/CMM 1.5 - 8.1 10/26/2013 [facility] HEMATOLOGY Plt Morph Normal (10/26/13 3:01 AM) 10/26/2013 [facility] HEMATOLOGY Eosinophils 2.5 % 0.0 - 4.0 10/26/2013 [facility] HEMATOLOGY Monocytes 6.3 % 2.0 - 12.0 10/26/2013 [facility] HEMATOLOGY Lymphocytes 2.4 % 20.0 - 40.0 10/26/2013 [facility] HEMATOLOGY Segs 88.1 % 45.0 - 75.0 10/26/2013 [facility] Chest 1view Chest 1view PORTABLE CHEST 2013-10-26 01:31:00 COMPARISON: Yesterday CLINICAL INDICATION: Heart failure DISCUSSION: Support devices are unchanged. No pneumothorax or pleural effusions. Lungs are clear aside from platelike atelectasis retrocardiac regions. 10/26/2013 - - Read by: Huan Dixon MD Dictated Date/time: 10/26/13 09:14 Electronically Signed by: Huan Dixon MD 10/26/13 09:[address] [facility] CHEM PANEL Magnesium Lvl 1.9 mg/dL 1.8 - 2.4 10/25/2013 [facility] ELECTROLYTES AGAP 14.7 meq/L 10.0 - 20.0 10/25/2013 [facility] ELECTROLYTES eGFR 69 mL/min/1.73m2 10/25/2013 3Result Comment: [...] should be multiplied by the estimated BMI. [facility] ELECTROLYTES Potassium Lvl 4.7 meq/L 3.5 - 5.1 10/25/2013 [facility] ELECTROLYTES Chloride Lvl 103 meq/L 95 - 109 10/25/2013 [facility] ELECTROLYTES CO2 27 meq/L 24 - 32 10/25/2013 [facility] ELECTROLYTES Calcium Lvl 8.2 mg/dL 8.5 - 10.5 10/25/2013 [facility] ELECTROLYTES Glucose Lvl 142 mg/dL 70 - 99 10/25/2013 6Interpretive Data: Adult reference range values reflect the clinical guidelines of the [place] [employer]. [facility] ELECTROLYTES Sodium Lvl 140 meq/L 135 - 145 10/25/2013 [facility] ELECTROLYTES Creatinine Lvl 1.1 mg/dL 0.5 - 1.4 10/25/2013 [facility] ELECTROLYTES BUN 16 mg/dL 7 - 22 10/25/2013 [facility] HEMATOLOGY RBC 3.26 M/CMM 4.70 - 6.10 10/25/2013 [facility] HEMATOLOGY WBC 11.3 K/CMM 3.7 - 10.4 10/25/2013 [facility] HEMATOLOGY Hct 28.1 % 42.0 - 54.0 10/25/2013 [facility] HEMATOLOGY Hgb 9.3 g/dL 14.0 - 18.0 10/25/2013 [facility] HEMATOLOGY Platelet 218 K/CMM 133 - 450 10/25/2013 [facility] HEMATOLOGY MPV 6.9 fL 7.4 - 10.4 10/25/2013 [facility] HEMATOLOGY MCV 86.1 fL 80.0 - 94.0 10/25/2013 [facility] HEMATOLOGY MCH 28.6 pg 27.0 - 31.0 10/25/2013 [facility] HEMATOLOGY MCHC 33.2 g/dL 32.0 - 36.0 10/25/2013 [facility] HEMATOLOGY RDW 16.4 % 11.5 - 14.5 10/25/2013 [facility] HEMATOLOGY PTT 46.5 s 22.9 - 35.8 10/25/2013 15Interpretive Data: Heparin Therapeutic Range: 57 - [address] [facility] HEMATOLOGY PT 17.7 s 12.0 - 14.7 10/25/2013 [facility] HEMATOLOGY INR 1.43 0.85 - 1.17 10/25/2013 12Interpretive Data: RECOMMENDED RANGES FOR PROTIME INR: 2.0-3.0 for most medical and surgical thromboembolic states. 2.5-3.5 for artificial heart valves and recurrent embolism. INR SHOULD BE USED ONLY FOR PATIENTS ON STABLE ANTICOAGULANT THERAPY. [facility] HEMATOLOGY Lymphocytes 4.8 % 20.0 - 40.0 10/25/2013 [facility] HEMATOLOGY Eosinophils 3.2 % 0.0 - 4.0 10/25/2013 [facility] HEMATOLOGY Segs 85.5 % 45.0 - 75.0 10/25/2013 [facility] HEMATOLOGY Monocytes 5.8 % 2.0 - 12.0 10/25/2013 [facility] HEMATOLOGY Basophils 0.7 % 0.0 - 1.0 10/25/2013 [facility] HEMATOLOGY Segs-Bands # 9.7 K/CMM 1.5 - 8.1 10/25/2013 [facility] HEMATOLOGY Eosinophils # 0.4 K/CMM 0.0 - 0.5 10/25/2013 [facility] HEMATOLOGY Monocytes # 0.7 K/CMM 0.0 - 0.8 10/25/2013 [facility] HEMATOLOGY Lymphocytes # 0.5 K/CMM 1.0 - 5.5 10/25/2013 [facility] HEMATOLOGY Basophils # 0.1 K/CMM 0.0 - 0.2 10/25/2013 [facility] Chest 1view Chest 1view EXAM: Portable AP [...] Martin Barrett MD 10/25/13 21:[address] [facility] Chest 1view Chest 1view PORTABLE CHEST 2013-10-25 09:16:00 COMPARISON: 10/24/2013 CLINICAL INDICATION: Abnormal chest sounds DISCUSSION: Cardiac conduction device is unchanged. Note of very mild interstitial edema. No pleural effusions or pneumothorax. 10/25/2013 - - Read by: Huan Dixon MD Dictated Date/time: 10/26/13 09:04 Electronically Signed by: Huan Dixon MD 10/26/13 09:[address] [facility] CHEM PANEL Phosphorus 3.7 mg/dL 2.5 - 4.5 10/25/2013 [facility] PARATHYROID PROFILE Ca Norm WB 1.13 mMol/L 1.05 - 1.25 10/25/2013 [facility] PARATHYROID PROFILE Ca Ion WB 1.13 mMol/L 1.05 - 1.25 10/25/2013 [facility] DRUG SCREEN U Cannab Scr Negative *NA* (10/24/13 4:00 PM) Negative 10/24/2013 [facility] DRUG SCREEN UDS Note See Note 9 [...] Methadone 300 ng/mL Urine alcohol 20 mg/dL [facility] DRUG SCREEN U Phencyc Scr Negative *NA* (10/24/13 4:00 PM) Negative 10/24/2013 [facility] DRUG SCREEN U Opiate Scr Negative *NA* (10/24/13 4:00 PM) Negative 10/24/2013 [facility] DRUG SCREEN U Cocaine Scr Negative *NA* (10/24/13 4:00 PM) Negative 10/24/2013 [facility] DRUG SCREEN U Benzodia Scr Negative *NA* (10/24/13 4:00 PM) Negative 10/24/2013 [facility] DRUG SCREEN U Betty Scr Negative *NA* (10/24/13 4:00 PM) Negative 10/24/2013 [facility] DRUG SCREEN U Amph Scr Negative *NA* (10/24/13 4:00 PM) Negative 10/24/2013 [facility] URINE AND STOOL UA Mucus Few /LPF None Seen /LPF 10/24/2013 [facility] URINE AND STOOL UA Sq Epi Occasional /LPF Few /LPF 10/24/2013 [facility] URINE AND STOOL UA Urobilinogen 0.2 EU/dL 0.1 - 1.0 10/24/2013 [facility] URINE AND STOOL UA Blood Negative (10/24/13 4:00 PM) Negative 10/24/2013 [facility] URINE AND STOOL UA Nitrite Negative (10/24/13 4:00 PM) Negative 10/24/2013 [facility] URINE AND STOOL UA Leuk Est Negative (10/24/13 4:00 PM) Negative 10/24/2013 [facility] URINE AND STOOL UA Spec Grav 1.015 <=1.030 10/24/2013 [facility] URINE AND STOOL UA Turbidity Clear (10/24/13 4:00 PM) Clear 10/24/2013 [facility] URINE AND STOOL UA pH 5.5 5.0 - 8.0 10/24/2013 [facility] URINE AND STOOL UA Color Yellow *NA* (10/24/13 4:00 PM) Yellow 10/24/2013 [facility] URINE AND STOOL UA Ketones Negative mg/dL Negative mg/dL 10/24/2013 [facility] URINE AND STOOL UA Glucose Negative mg/dL Negative mg/dL 10/24/2013 [facility] URINE AND STOOL UA Protein Negative mg/dL Negative mg/dL 10/24/2013 [facility] URINE AND STOOL UA Bili Negative *NA* (10/24/13 4:00 PM) Negative 10/24/2013 [facility] CARDIAC ENZYMES Total CK 30 unit/L 12 - 191 10/24/2013 [facility] CARDIAC ENZYMES Troponin-T null 0.000 - 0.100 10/24/2013 [facility] CARDIAC ENZYMES Troponin-I 0.02 ng/mL 0.00 - 0.40 10/24/2013 [facility] CARDIAC ENZYMES BNP 372 pg/mL <=100 pg/mL 10/24/2013 8Interpretive Data: Elevated results are in line with increasing severity of congestive heart failure. Minor elevations between 100 and 300 may be seen with Myocardial Ischemia, Sodium retaining drugs, and compensated/treated heart failure. [facility] CHEM PANEL AST 20 unit/L 0 - 37 10/24/2013 [facility] CHEM PANEL Bili Total 0.5 mg/dL 0.2 - 1.3 10/24/2013 [facility] CHEM PANEL Total Protein 7.0 g/dL 6.4 - 8.4 10/24/2013 [facility] CHEM PANEL ALT 16 unit/L 0 - 65 10/24/2013 [facility] CHEM PANEL Albumin Lvl 3.3 g/dL 3.5 - 5.0 10/24/2013 [facility] CHEM PANEL Alk Phos 76 unit/L 39 - 136 10/24/2013 [facility] CHEM PANEL B/C Ratio 14 6 - 25 10/24/2013 [facility] CHEM PANEL Globulin 3.7 g/dL 2.0 - 4.0 10/24/2013 [facility] CHEM PANEL A/G Ratio 0.9 0.7 - 1.6 10/24/2013 [facility] SPECIAL CHEMISTRY Hgb A1C 5.6 % <=5.6 % 10/24/2013 [facility] CHEM PANEL Plasma Hemoglobin 30 mg/dL 0 - 10 10/24/2013 [facility] IMMUNOLOGY Haptoglobin 18 mg/dL 16 - 200 10/24/2013 [facility] BLOOD BANK RESULTS Antibody Scrn Negative (10/24/13 12:59 PM) 10/24/2013 [facility] BLOOD BANK RESULTS RBC product Product available (10/24/13 12:59 PM) 10/24/2013 [facility] BLOOD BANK RESULTS ABO/Rh A POS 10/24/2013 [facility] BLOOD BANK RESULTS FFP product Product available (10/24/13 12:59 PM) 10/24/2013 [facility] Chest 1view Chest 1view PORTABLE CHEST 2013-10-24 [...] Huan Dixon MD 10/24/13 14:[address] [facility] CHEM PANEL eGFR 62 mL/min/1.73m2 09/28/2013 1Result [...] should be multiplied by the estimated BMI. [facility] CHEM PANEL POC Creatinine 1.2 mg/dL 0.5 - 1.4 09/28/2013 [facility] Heart/coronary art TAVR CTA Heart/coronary art TAVR CTA EXAM: CHEST CARDIAC COMPUTER TOMOGRAPHY ANGIOGRAPHY DATE: 09/28/2013 INDICATION: Aortic stenosis. TAVR candidate. COMPARISON: None TECHNIQUE: Contrast imaging was performed on a [employer] [address] scanner utilizing a single breath hold, at 600 mA and 120 kV. Retrospective ECG gating was performed, at a heart rate of 80 bpm. Images were reformatted at 0.5 mm intervals and sent to the [employer] workstation for interpretation of both systolic and [...] 23 x 22 mm Coplanar TAVR angle: GUAMANIAN 10, CAUDAL 02 Coronary Arteries: This patient [...] by: Matthieu Guzman 10/03/13 17:[address] [facility] Vital Signs Vital Sign Value Date Comments Source Systolic (mm Hg) 96 11/26/2017 [facility] Diastolic (mm Hg) 66 11/26/2017 [facility] Respitory Rate 19 11/26/2017 [facility] Systolic (mm Hg) 91 11/26/2017 [facility] Diastolic (mm Hg) 62 11/26/2017 [facility] Respitory Rate 20 11/26/2017 [facility] Systolic (mm Hg) 103 11/26/2017 [facility] Diastolic (mm Hg) 60 11/26/2017 [facility] Respitory Rate 20 11/26/2017 [facility] Temperature Oral (F) 97.2 F 11/26/2017 [facility] Temperature Oral (F) 98 F 11/26/2017 [facility] Temperature Oral (F) 97.6 F 11/26/2017 [facility] BMI Calculated 33.28 11/23/2017 [facility] Weight 90.727 11/23/2017 [facility] Height 165.1 cm 11/23/2017 [facility] Weight 91.364 11/23/2017 [facility] Heart Rate 74 11/23/2017 [facility] Respitory Rate 18 10/27/2013 [facility] Diastolic (mm Hg) 62 10/27/2013 [facility] Systolic (mm Hg) 111 10/27/2013 [facility] Temperature Oral (F) 97.8 F 10/27/2013 [facility] Respitory Rate 18 10/27/2013 [facility] Systolic (mm Hg) 117 10/27/2013 [facility] Diastolic (mm Hg) 70 10/27/2013 [facility] Respitory Rate 15 10/27/2013 [facility] Diastolic (mm Hg) 67 10/27/2013 [facility] Systolic (mm Hg) 119 10/27/2013 [facility] Temperature Oral (F) 97.8 F 10/27/2013 [facility] Temperature Oral (F) 97.9 F 10/27/2013 [facility] Weight 75.199 10/24/2013 [facility] BMI Calculated 28.02 10/24/2013 [facility] Height 163.83 cm 10/24/2013 [facility] Weight 79.545 10/03/2013 [facility] BMI Calculated 27.47 10/03/2013 [facility] Height 170.18 cm 10/03/2013 [facility] BMI Calculated 25.9 08/21/2013 [facility] Weight 75 08/21/2013 [facility] Height 170.18 cm 08/21/2013 [facility] Encounters Location Location Details Encounter Type Encounter Number Reason For Visit Attending Provider ADM Date DC Date Status Source [facility] Outpatient [id number] Nick Guan 08/21/2013 08/22/2013 [facility] Outpatient [id number] Vimal Mcdaniel 09/28/2013 09/29/2013 [facility] Outpatient [id number] Nick Guan 10/03/2013 10/04/2013 [facility] Inpatient [id number] Nick Guan 10/24/2013 10/27/2013 [facility] PreAdmit [id number] Nick Guan 11/23/2017 11/23/2017 [facility] Inpatient [id number] Nick Guan 11/23/2017 11/26/2017 [facility] Procedures Procedure Code Date Perfomer Comments Source Cardiac catheterization [id number] [facility] Cataract surgery [id number] [facility] Excision of calcaneal spur [id number] [facility] Implantation of automatic cardioverter/defibrillator, total system (AICD) [id number] [facility] Placement of stent [id number] [facility] Angioplasty [id number] [facility] Cardiac pacemaker procedure [id number] [facility] ICD - Internal cardiac defibrillator procedure [id number] [facility] PCI - Percutaneous coronary intervention [id number] [facility] TAVR - Transcatheter aortic valve replacement [id number] [facility]
[2018-06-22] MEDS ORDERED: SODIUM CHLORIDE 0.9% 1000ML 1,000 ML ONE (16:56)
[2018-06-22] MEDS ORDERED: SODIUM CHLORIDE 0.9% 1000ML 1,000 ML IV ONE ×2 (17:00→17:45)
[2018-06-22 17:11] LABS: BASOPHILS # (AUTO) 0.1 (0.0-0.1); BASOPHILS % 0.5 % (0.0-1.0); EOSINOPHILS # (AUTO) 0.7 (0.0-0.4); EOSINOPHILS % 6.4 % (0.0-6.0); HEMATOCRIT 36.5 % (38.2-49.6); HEMOGLOBIN 11.2 g/dL (14.0-18.0); LYMPHOCYTES # (AUTO) 0.8 (1.0-3.2); LYMPHOCYTES % 8.2 % (18.0-39.1); MEAN CORPUSCULAR HEMOGLOBIN 25.2 pg (28-32); MEAN CORPUSCULAR HGB CONC 30.7 g/dL (31-35); MEAN CORPUSCULAR VOLUME 82.2 fL (81-99); MONOCYTES % 9.6 % (4.4-11.3); NEUTROPHILS # (AUTO) 7.6 (2.1-6.9); NEUTROPHILS % 74.9 % (38.7-80.0); PLATELET COUNT 215 x10e3/uL (140-360); RED BLOOD COUNT 4.44 x10e6/uL (4.3-5.7); RED CELL DISTRIBUTION WIDTH 20.5 % (11.7-14.4)
[2018-06-22 17:25] LABS: ALBUMIN 3.3 g/dL (3.5-5.0); ALBUMIN/GLOBULIN RATIO 0.6 (0.8-2.0); ANION GAP 18.3 mmol/L (8-16); CALCIUM 10.2 mg/dL (8.4-10.2); CREATININE, SERUM 2.99 mg/dL (0.72-1.25); MAGNESIUM 2.3 MG/DL (1.3-2.1); POTASSIUM 4.3 mmol/L (3.5-5.1)
--- NOTE | 2018-06-22 18:29 | Diagnostic Imaging Report ---
A single frontal view of the chest. HISTORY: Hypotension COMPARISON: Chest radiograph May 07, 2018 DISCUSSION: Portable technique, limits sensitivity of the exam. Soft tissue attenuation partially limits sensitivity of the exam. Multiple overlying artifacts obscure underlying evaluation. Tubes/Lines: Unchanged appearance of the multilead implanted left-sided cardiac device. Lungs and pleura: Low lung volumes result in bibasilar vascular crowding, accentuation of the pulmonary interstitial markings, central pulmonary vasculature, and the cardiac silhouette. Allowing for these limitations, the findings are as follows: No evidence of a consolidative pneumonia. No definite pleural effusion or pneumothorax is identified. Heart and mediastinum: The cardiac silhouette and central pulmonary vasculature again appears prominent. Bones and soft tissues: Appear unremarkable, given this limited exam. IMPRESSION: 1. Stable cardiomegaly and central pulmonary vascular congestion. 2. No significant interval change when allowing for differences in technique. Signed by: Dr. Warren Monet D.O., M.M.M. on 06/22/2018 6:26 PM
[2018-06-22] MEDS: SODIUM CHLORIDE 0.9% 1000ML 1,000 ML IV SCH (19:03)
[2018-06-22] MEDS ORDERED: TORSEMIDE10 MG PO (19:09)
[2018-06-22] MEDS ORDERED: NOVOLOG100 UNIT/1 SQ (19:10)
[2018-06-22] MEDS ORDERED: VITAMIN D PO (19:14)
[2018-06-22 19:48] VITALS: BP 105/65
--- NOTE | 2018-06-22 19:48 | NUR ---
PT PLACED ON TELE BOX #[phone]. PT TRANSPORTED TO [phone] BY MARTHA DORAN.
[2018-06-22 21:59] VITALS: BP 105/65
[2018-06-22 22:05] VITALS: BP 105/65
--- NOTE | 2018-06-22 22:30 | NUR ---
PT IS TRANSFERRED FROM ER .PT IS AOX3 .PT HAS TREMOR .DENIES PAIN RESPIRATIONS ARE EVEN AND UNLABORED PT HAS TELE #12 PACING .SKIN WARM AND DRY TO TOUCH .ORIENTED THE PT TO THE ENVIRONMENT NS AT 125 CC/HR RUNNING .CALL LIGHT WITH IN REACH .CONTINUE TO MONITOR
[2018-06-23] VITALS (7 sets, daily range): BP systolic 107–117; BP diastolic 68–83
[2018-06-23] MEDS: SODIUM CHLORIDE 0.9% 1000ML 1,000 ML IV SCH (01:56)
[2018-06-23] MEDS ORDERED: NON-FORMULARY MEDICATION ([Vitamin D] 1 TAB) PO SCH (06:45)
[2018-06-23] MEDS ORDERED: TRAMADOL HCL 50 MG TAB PO PRN (06:45)
[2018-06-23] MEDS ORDERED: CLONAZEPAM 0.5 MG TAB PO PRN (06:45)
[2018-06-23] MEDS ORDERED: ACETAMINOPHEN/CODEINE 300MG - 30MG TAB PO PRN (06:45)
[2018-06-23] MEDS ORDERED: NITROGLYCERIN 0.4 MG SUBL SL PRN (06:45)
--- NOTE | 2018-06-23 07:08 | NUR ---
DR JEFFERS HAVE SEEN THE PT FAMILY AT THE BEDSIDE REPORT GIVEN TO THE ONCOMING NURSE .CALL LIGHT WITH IN REACH
[2018-06-23] MEDS: CLONAZEPAM 0.5 MG TAB PO SCH ×3 (07:44→20:55)
[2018-06-23] MEDS: LIOTHYRONINE SODIUM 5 MCG TAB PO SCH (08:51)
[2018-06-23] MEDS: BUSPIRONE HCL 5 MG TAB PO SCH ×2 (08:51→17:43)
[2018-06-23] MEDS: PANTOPRAZOLE SOD 40 MG TABEC PO SCH (08:51)
[2018-06-23] MEDS: ASPIRIN 81 MG CHEW TAB PO SCH (08:51)
[2018-06-23] MEDS: SPIRONOLACTONE 25 MG TAB PO SCH (08:51)
[2018-06-23] MEDS: CARVEDILOL 12.5 MG TAB PO SCH ×2 (08:52→20:55)
[2018-06-23] MEDS: PREGABALIN 50 MG CAP PO SCH ×2 (08:52→17:44)
[2018-06-23] MEDS: VILAZODONE HYDROCHLORIDE 40 MG PO SCH (08:52)
[2018-06-23] MEDS: OMEGA 3 POLYUNSAT FATTY ACIDS 1000 MG SOFTGEL PO SCH (08:52)
[2018-06-23] MEDS: LISINOPRIL 10 MG TAB PO SCH (08:52)
[2018-06-23] MEDS: ALLOPURINOL 300 MG TAB PO SCH (08:53)
[2018-06-23] MEDS ORDERED: CLONAZEPAM 0.5 MG TAB PO SCH ×2 (09:00)
[2018-06-23] MEDS ORDERED: INSULIN DETEMIR 34 UNIT SC SCH (09:00)
[2018-06-23] MEDS ORDERED: WARFARIN SOD 1 MG TAB PO SCH (09:00)
[2018-06-23] MEDS ORDERED: CARVEDILOL 25 MG PO SCH (09:00)
[2018-06-23] MEDS: INSULIN LISPRO 100 UNIT/1 ML 3ML VIAL SQ SCH ×3 (09:07→17:00)
[2018-06-23] MEDS: INSULIN GLARGINE 100 UNITS/ML VIAL SQ SCH ×2 (09:07→20:56)
[2018-06-23] MEDS: TORSEMIDE 10 MG TAB PO SCH (09:08)
[2018-06-23 10:16] LABS: FREE THYROXINE INDEX 1.724 (1.4-3.8); THYROID STIMULATING HORMONE 2.311 uIU/mL (0.350-4.940)
--- NOTE | 2018-06-23 13:34 | History and Physical ---
REASON FOR ADMISSION: The patient comes in with involuntary movements. HISTORY OF PRESENTING ILLNESS: Mr. Brwon with a history of congestive heart failure, history of hypertension, history of hyperlipidemia, history of hypothyroidism, history of diabetes mellitus, was in usual state of health until the patient 2 days prior to admission started to have low blood pressures and started with some involuntary movements. The patient came into the office yesterday and was having coarse involuntary movement and was asked to come to the emergency room for possible sepsis, possible dehydration. The patient came to the emergency room and was found to have hypotension. The patient was started on IV fluids and the patient is currently feeling better, but continues with jerk like movements. PAST MEDICAL HISTORY: History of gout, history of hypertension, history of hyperlipidemia, history of congestive heart failure, history of diabetes mellitus, and history of neuropathy. The patient also has history of depression and atrial fibrillation. MEDICATIONS: Medications that he takes at home are acetaminophen, allopurinol, aspirin, BuSpar, carvedilol, clonazepam, liothyronine, lisinopril, lovastatin, niacin, nitroglycerin, omega-3 fatty acid, omeprazole, Lyrica, Aldactone, torsemide, tramadol, Viibryd, and warfarin. The patient also takes vitamin D. SOCIAL HISTORY: He lives with children and also with his . He is very debilitated and is always on a walker and sometimes on wheelchair too. No history of smoking. No EtOH. No IV drug abuse history either. REVIEW OF SYSTEMS: Negative for chest pain. No shortness of breath. No nausea, vomiting, or diarrhea. No constipation. No rectal bleeding. No hematochezia. No hematemesis. Positive for involuntary movement. No diplopia. No blurry vision either. No weakness noted either. PHYSICAL EXAMINATION: GENERAL: The patient is alert and oriented x3, still continues with myoclonic jerks. VITAL SIGNS: Temperature is 97.9, pulse of 111, respirations of 20, blood pressure is 117/75, and pulse oximetry of 92%, oxygen supplementation on board. HEENT: Normocephalic, atraumatic. Pupils are reactive to light and accommodation. CVS: S1, S2 irregular. Positive for S3. ABDOMEN: Nontender, nondistended. EXTREMITIES: No clubbing, no cyanosis. Positive for trace edema. NEUROLOGIC: The patient does have myoclonic jerk on neurological examination, otherwise motor system is negative. Decreased vibratory senses and sensations in the lower extremity. LABORATORY VALUES: White count is 10.9, hemoglobin of 11.2, hematocrit of 36.5, platelet count is 215. Chemistry; sodium 135, potassium 4.3, BUN 57, creatinine of 2.99. Lactic acid was 13.8. Calcium ionized 10.2. Troponin was 0.27. Urine was not done. MICROBIOLOGY: Blood cultures are pending. ASSESSMENT: 1. A 73-year-old male with a history of congestive heart failure and myoclonic jerks. Plan is to continue the patient on his clonazepam, make it 0.5 mg 3 times a day until Neurology assessment has been done. The myoclonus could be just due to volume depletion and/or some infectious process, cultures are pending. We will continue to monitor the patient. Also consult Neurology for further evaluation. May need an EEG depending on the progression of the disease. 2. Congestive heart failure. We will hold his fluid back and restart back on his diuresis. 3. Coronary artery disease. The patient has an ejection fraction of 15%-20%. We will continue monitoring it and do strict I's and O's and daily weights. 4. Diabetes. Continue with antidiabetic agents. The patient's blood sugar should be maintained on the higher side at this time. Continue to monitor the patient. Lytes will be done on daily basis. The patient's calcium was normal yesterday including ionized calcium. Further recommendation per clinical course. We will continue to monitor the patient. MD MICHELLE Martinez/MODL /[id number]
[2018-06-23 17:40] LABS: INR 1.93; PROTHROMBIN TIME 22.7 seconds (11.9-14.5)
[2018-06-23] MEDS: WARFARIN SOD 2 MG TAB PO SCH (17:44)
--- NOTE | 2018-06-23 18:49 | NUR ---
Echo results called into Dr. Dawson and no new orders received.
--- NOTE | 2018-06-23 19:43 | NUR ---
PATIENT TAKEN AWAY FOR PROCEDURE VIA WHEELCHAIR
--- NOTE | 2018-06-23 19:54 | NUR ---
PATIENT RETURNED FROM PROCEDURE, NO DISTRESS NOTED, PLACED IN BED COMFORTABLY, CALL LIGHT IN REACH, WILL CONTINUE TO MONITOR
--- NOTE | 2018-06-23 20:09 | Diagnostic Imaging Report ---
EXAMINATION: Head CT without contrast. HISTORY:Tremors, myoclonus. COMPARISON:CT brain from 01/11/2018. TECHNIQUE: Multidetector axial images were obtained from the foramen magnum to the vertex without contrast. The images were reconstructed using brain and bone algorithms. Thin section brain images were reformatted into coronal and sagittal planes. Dose modulation, iterative reconstruction, and/or weight based adjustment of the mA/kV was utilized to reduce the radiation dose to as low as reasonably achievable. Intravenous contrast: None IMAGE QUALITY: Acceptable. FINDINGS: Skull/scalp: No lytic or blastic. lesions. No surgical changes. Incidental atherosclerotic calcification in multiple peripheral scalp vessels. Parenchyma: Focal hypodensity in left caudate head represents old lacunar infarct. Nonspecific few, scattered supratentorial white matter hypodensity are likely related to small vessel ischemic changes. No acute hemorrhage, mass or acute major vascular territorial infarct. Arteries: No density suggestive of thrombosis. Atherosclerotic calcification in bilateral carotid siphon and V4 segment of vertebral arteries. Dural sinuses: No abnormal density suggestive of thrombosis. Ventricles: Moderate compensated dilatation due to volume loss. No hydrocephalus. Extra-axial spaces: No abnormal density. Brain volume: Generalized age-related cerebral volume loss. Craniocervical junction: No mass, Chiari malformation, or basilar invagination. Sella: No mass. Paranasal/mastoid sinuses: Complete opacification of right maxillary sinus with intrinsic hyperdense material may represent inspissated secretions or fungal sinusitis in appropriate clinical setting. Thickened and sclerotic right maxillary sinus wall suggest chronic inflammatory process. IMPRESSION: 1. No acute intracranial abnormality, particularly no acute hemorrhage, mass or acute major vascular territorial infarct. 2. No change since CT head from 01/11/2018. Chronic findings: 1. Mild supratentorial white matter microvascular ischemic changes. 2. Chronic lacunar infarct in left caudate head. 3. Generalized age-related cerebral volume loss. Signed by: Dr. Sandy Fuchs M.D. on 06/23/2018 8:06 PM
[2018-06-23] MEDS: SIMVASTATIN 20 MG TAB PO SCH (20:55)
[2018-06-23] MEDS: NIACIN 500 MG TABSR PO SCH (20:55)
[2018-06-23] MEDS ORDERED: NON-FORMULARY MEDICATION (Lovastatin 20 MG) PO SCH (21:00)
[2018-06-23] MEDS ORDERED: NIACIN PO SCH (21:00)
[2018-06-24] VITALS (7 sets, daily range): BP systolic 91–111; BP diastolic 56–76
--- NOTE | 2018-06-24 01:32 | Consultation ---
DATE OF CONSULTATION: 06/23/2018 Neurology consult note. HISTORY OF PRESENT ILLNESS: Mr. Brown is a 73-year-old right-hand dominant man with an extensive past medical history, including chronic kidney disease stage 3B, admitted to [facility] on June 22, 2018 with involuntary movements, dehydration, and acute on chronic kidney injury. Upon awakening on the morning of June 22, 2018, the patient noted "twitching over his entire body." Mr. Brown further describes the movements as involuntary jerking. When questioned further, he describes the movement in his face, arms, and legs as a "small tremor." Due to the tremor affecting his legs, Mr. Brown reports poor balance and impairment of gait in addition to the tremor. At baseline, the patient reports he does not use an assistive device to ambulate. However, according to the patient and his primary care physician, Dr. Jules Dawson, the patient is supposed to use a walker with ambulating. Mr. Brown describes the onset of the above symptoms as abrupt. He does not report other neurological symptoms associated with the tremor, poor balance, and gait impairment. Specifically, the patient does not report a visual field cut or other disturbance, dysarthria, aphasia, weakness, numbness, tingling, dizziness, memory loss, or confusion associated with the above symptoms. Shortly after awakening with the above symptoms, Mr. Brown alerted his son as to his symptoms. The son called Dr. Dawson's office and arranged for the patient to be seen on the afternoon of June 22, 2018. According to Dr. Dawson, the movements observed in his office appeared consistent with mild clonus. Dr. Dawson advised Mr. Brown to proceed to the emergency center at [facility] for further evaluation of his symptoms. Upon arrival at [facility], the patient was afebrile with a blood pressure of 108/63 and a pulse of 76 beats per minute. Documentation of the patient's neurological examination in the emergency center is not available for review at this time. Routine laboratory data revealed Mr. Brown to be dehydrated with acute on chronic kidney injury. He was therefore admitted to [facility] as an inpatient for further evaluation and treatment of his symptoms. Mr. Brown states his children told him he has had similar movements during previous hospitalizations for renal failure. He does not report a family history of tremor or Parkinson disease. There is no known personal or family history of seizure disorder. Mr. Brown does not report alteration in level of consciousness associated with the involuntary movements. The involuntary movements do not have a rhythmic quality. Mr. Brown takes numerous medications at home, including Viibryd. Mr. Brown reports he has taken this medicine for the past few months. However, according to his primary care physician, Dr. Dawson, he has taken this medicine for approximately three years. REVIEW OF SYSTEMS: Impairment of balance and gait, tremor. Otherwise, a 12-point review of systems is negative. 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 PAST SURGICAL HISTORY: Bovine aortic valve replacement, surgery for bone spurs in both shoulders, cardiac catheterization with stent (two or three times), AICD placement, and bilateral cataract removal. PAST HOSPITALIZATIONS: Surgeries/procedures as listed, multiple hospitalizations for renal failure, myocardial infarction, etc., over the past two years. FAMILY MEDICAL HISTORY: The patient's paternal and maternal grandparents are . Their medical histories are unknown. Mr. Brown's father at the age of 96 years from natural causes. His mother as a result of an accident. Mr. Brown has one sibling, a sister, who is alive and healthy. The patient has two children, a son and a daughter, both of whom are alive and healthy. SOCIAL HISTORY: Mr. Brown is . He reports his children live with he and his and care for them. Mr. Brown is retired. The patient reports a remote history of tobacco use, but quit smoking cigarettes approximately 30 years ago. The patient does not report current or prior alcohol or recreational drug use. HOME MEDICATIONS: Tylenol with codeine, allopurinol, aspirin, buspirone, Coreg, clonazepam, NovoLog, Levemir, liothyronine, lisinopril, lovastatin, niacin, nitroglycerin, omega-3 fatty acids/fish oil, omeprazole, Lyrica, spironolactone, torsemide, tramadol, Viibryd, warfarin, and vitamin D. Hospital medications: Acetaminophen with codeine, allopurinol, aspirin, buspirone, Coreg, clonazepam, ergocalciferol, fish oil, insulin glargine, insulin lispro, liothyronine, lisinopril, niacin, nitroglycerin, pantoprazole, Viibryd, pregabalin, Zocor, spironolactone, torsemide, tramadol, and warfarin. ALLERGIES: HYDROCODONE. NO KNOWN FOOD ALLERGIES. NO KNOWN ALLERGIES TO LATEX. NO KNOWN ALLERGIES TO IODINE OR OTHER CONTRAST MATERIALS. PHYSICAL EXAMINATION: VITAL SIGNS: Height 60.5 inches, weight 185 pounds. BMI 35.5 kg/m2. Blood pressure 113/79 mmHg, pulse 90 beats per minute, respiratory rate 20 breaths per minute, and oxygen saturation 92% on room air. General: The patient is awake and alert, does not appear distressed. Obese. HEENT: Normocephalic, and atraumatic. Pupils are surgical. Moist mucous membranes. NECK: Supple. No appreciable thyromegaly. No appreciable carotid bruits. CARDIOVASCULAR: S1, S2, regular rate and rhythm. No murmurs, rubs, or gallops. RESPIRATORY: Clear to auscultation bilaterally. No wheezes, rhonchi, or rales. EXTREMITIES: The skin is warm and dry. No clubbing, cyanosis, or edema. The posterior tibial and dorsalis pedis pulses are trace and symmetric. SKIN: No rashes or lesions. NEUROLOGIC: Memory/Attention: The patient is awake and alert, oriented to person, place, time, and situation. Cranial Nerves: Cranial nerve I - not tested. Cranial nerve II, III, IV, and - pupils are surgical. Extraocular movements intact. No nystagmus. Sensation to light touch and pinprick is intact in the bilateral V1 through V3 distributions. Strength of the temporalis and masseter muscles is within normal limits. Cranial nerve VII - the face is symmetric as are all facial movements. Strength is within normal limits. Cranial nerve VIII - hearing is diminished to finger rub bilaterally. Cranial nerve IX, X - the soft palate elevates equally and symmetrically. Cranial nerve XI - normal strength of the bilateral sternocleidomastoid and trapezius muscles. Cranial nerve XII - the tongue protrudes midline and moves symmetrically from gbbg-vs-bugw. Strength: Bulk is normal. Strength is 5/5 in the bilateral deltoids, biceps, triceps, wrist flexors and extensors, finger flexors and extensors, intrinsic hand muscles, hip flexors, knee flexors and extensors, ankle dorsiflexion and plantar flexion, and intrinsic foot muscles. Tone is normal. DTRs: Deep tendon reflexes are 1+ and symmetric at the triceps, biceps, and brachioradialis. Deep tendon reflexes are absent and symmetric at the patellas and Achilles. Plantar responses are flexor bilaterally. Sensation: Sensation is intact to light touch and pinprick in both arms and both legs. Cerebellar: Rpuxff-hjei-jcwhiv and heel-almanza movements are intact without dysmetria or other impairment. Gait: Deferred. Speech: Spontaneous speech is normal without appreciable dysarthria or aphasia. Repetition is intact. Involuntary movements: With sustention, occasional myoclonic jerks are seen in the fingers and hands, right greater than left. Pronator Drift: None. LABORATORY DATA: A comprehensive metabolic panel is significant for sodium of 135, chloride of 95, anion gap of 18.3, BUN of 57, creatinine of 2.99, estimated GFR of 21, mildly elevated magnesium of 2.0, total protein of 8.4, albumin of 3.3, globulin of 5.1, albumin to globulin ratio 0.6. Lactic acid is 13.8. An ionized calcium is 1.1. A magnesium level drawn on June 23, 2018, is 1.7. TSH 2.311, free T4 index 1.7240, thyroxine (T4) 4.47, T3 uptake 38.57. The CBC with differential and platelets reveals a white blood cell count of 10.09 with 74.9% neutrophils, 8.2% lymphocytes, 9.6% monocytes, 6.4% eosinophils, and 0.5% basophils. The hemoglobin and hematocrit are 11.2 and 36.5, respectively. The platelet count is 215. PT 22.7, INR 1.93. Blood cultures collected on June 22, 2018 revealed no growth after 24 hours. DIAGNOSTIC STUDIES: Electrocardiogram of 06/22/2018: Electronic ventricular pacemaker at 78 beats per minute. Chest x-ray 06/22/2018: Stable cardiomegaly and central pulmonary vascular congestion. No significant interval change when allowing for differences in technique. Echocardiogram of 06/23/2018: Ejection fraction 20%. Left ventricular enlargement. Left atrial enlargement. Trace mitral and tricuspid regurgitation. ASSESSMENT AND PLAN: Mr. Brown is a 73-year-old right-hand dominant man with an extensive past medical history, including chronic kidney disease stage 3B, admitted to [facility] on June 23, 2015 with involuntary movements (myoclonus versus tremor), dehydration, and acute kidney injury superimposed on chronic kidney disease. At present, the patient's neurological examination is significant for occasional mild myoclonus in the fingers and hands, right greater than left. The patient's laboratory data and other diagnostic studies have been reviewed and are documented above. There are numerous potential causes of myoclonus. Review of the patient's laboratory data, does not yield electrolyte abnormalities sufficient to cause myoclonus. There is little suspicion for seizure due to the absence of alteration in the level of consciousness and the lack of a rhythmicity of the involuntary movements. Based on the history provided by the patient as well as the findings on neurological examination, there is low suspicion for a neuro degenerative disorder (i.e., Alzheimer disease, Parkinson disease, multiple system atrophy, etc.) as the source of myoclonus. Laboratory data does not reveal hepatic dysfunction. Therefore, this is not the source of the myoclonus. Based on the information currently available, there are two possible causes for the patient's myoclonus. Firstly, the myoclonus may be secondary to worsening of the patient's renal function. Specifically, the acute kidney injury. Specifically, at baseline, Mr. Brown has moderate to severe renal impairment. The acute kidney injury superimposed on chronic kidney disease causes him to fall in the category of severe renal impairment. Another possible cause for his involuntary movements is accumulation of Viibryd in the body secondary to worsening renal dysfunction. While there is no change in the volume of distribution and effect of Viibryd with ejmk-kb-vwebsroj hepatic or renal dysfunction, Mr. Brown has severe renal dysfunction at the present time. Therefore, it is possible the Viibryd has accumulated in the patient's body and is causing Mr. Bronw's involuntary movements. RECOMMENDATIONS: As follows: 1. A CT of the brain without contrast will be ordered to evaluate for evidence of a neurodegenerative process as detailed above. 2. Continue gentle fluid resuscitation. 3. Follow up the results of the morning labs, specifically the renal function. 4. For symptomatic treatment, there are only a handful of medications, which treat myoclonus. One such medication is Keppra. However, it is possible treatment with this medication may worsen the patient's baseline mood symptoms. Another such medication use in the treatment of myoclonus is valproic acid. However, significant weight gain is a common side effect of valproic acid. Given the patient's other comorbidities, treating the patient with a medication, which can cause significant weight gain, could be harmful. Clonazepam may be used to treat myoclonus. Mr. Brown reports his involuntary movements have significantly improved since beginning treatment with clonazepam 0.5 mg by mouth 3 times daily. Therefore, weighing the potential benefits and risks of all other medications, it is recommended treatment with clonazepam be continued at this time. 5. Defer treatment of the remaining medical comorbidities to the primary and other services following the patient. Thank you for this consultation. I will continue to follow the patient while he remains in the hospital. TIME SPENT: 70 minutes. Yaima Ray MD CP/AFIA /[id number] MOHIT
[2018-06-24] MEDS: LIOTHYRONINE SODIUM 5 MCG TAB PO SCH (05:35)
[2018-06-24 05:49] LABS: BASOPHILS % 0.5 % (0.0-1.0); EOSINOPHILS # (AUTO) 0.6 (0.0-0.4); EOSINOPHILS % 7.3 % (0.0-6.0); HEMATOCRIT 32.4 % (38.2-49.6); HEMOGLOBIN 9.8 g/dL (14.0-18.0); LYMPHOCYTES # (AUTO) 0.8 (1.0-3.2); LYMPHOCYTES % 9.3 % (18.0-39.1); MEAN CORPUSCULAR HEMOGLOBIN 25.4 pg (28-32); MEAN CORPUSCULAR HGB CONC 30.2 g/dL (31-35); MEAN CORPUSCULAR VOLUME 83.9 fL (81-99); MONOCYTES # (AUTO) 0.9 (0.2-0.8); MONOCYTES % 10.6 % (4.4-11.3); NEUTROPHILS % 71.9 % (38.7-80.0); PLATELET COUNT 143 x10e3/uL (140-360); RED BLOOD COUNT 3.86 x10e6/uL (4.3-5.7); RED CELL DISTRIBUTION WIDTH 20.4 % (11.7-14.4)
[2018-06-24 06:16] LABS: ANION GAP 14.1 mmol/L (8-16); CALCIUM 9.6 mg/dL (8.4-10.2); CREATININE, SERUM 1.8 mg/dL (0.72-1.25); POTASSIUM 4.1 mmol/L (3.5-5.1)
[2018-06-24] MEDS: PANTOPRAZOLE SOD 40 MG TABEC PO SCH (08:45)
[2018-06-24] MEDS: ASPIRIN 81 MG CHEW TAB PO SCH (08:45)
[2018-06-24] MEDS: SPIRONOLACTONE 25 MG TAB PO SCH (08:45)
[2018-06-24] MEDS: CARVEDILOL 12.5 MG TAB PO SCH ×2 (08:46→21:00)
[2018-06-24] MEDS: BUSPIRONE HCL 5 MG TAB PO SCH ×2 (08:46→17:28)
[2018-06-24] MEDS: CLONAZEPAM 0.5 MG TAB PO SCH ×3 (08:46→21:11)
[2018-06-24] MEDS: VILAZODONE HYDROCHLORIDE 40 MG PO SCH (08:46)
[2018-06-24] MEDS: LISINOPRIL 10 MG TAB PO SCH (08:47)
[2018-06-24] MEDS: ALLOPURINOL 300 MG TAB PO SCH (08:47)
[2018-06-24] MEDS: PREGABALIN 50 MG CAP PO SCH ×2 (08:47→17:27)
[2018-06-24] MEDS: OMEGA 3 POLYUNSAT FATTY ACIDS 1000 MG SOFTGEL PO SCH (08:47)
[2018-06-24] MEDS: TORSEMIDE 10 MG TAB PO SCH (08:54)
[2018-06-24] MEDS: INSULIN GLARGINE 100 UNITS/ML VIAL SQ SCH ×2 (08:54→21:12)
[2018-06-24] MEDS: INSULIN LISPRO 100 UNIT/1 ML 3ML VIAL SQ SCH ×3 (08:55→17:28)
--- NOTE | 2018-06-24 10:09 | Progress Note ---
DATE: SUBJECTIVE: The patient is here for myoclonic jerks. The patient's myoclonic seizures have reduced considerably after starting clonazepam. No chest pain or shortness of breath. No nausea, vomiting, or diarrhea. The patient is currently off his fluids, using the urinal frequently. OBJECTIVE: VITAL SIGNS: Temperature is 97.7, pulse of 99, respirations of 20, blood pressure is 109/60, and pulse oximetry of 94%. HEENT: Normocephalic, atraumatic. Pupils are reactive to light and accommodation. CVS: S1 and S2, irregular. ABDOMEN: Nontender, nondistended. EXTREMITIES: No clubbing, no cyanosis, and trace edema. LABORATORY VALUES: The patient's white count is 8.36, hemoglobin of 9.8, hematocrit of 32.4. Chemistry shows sodium of 131, potassium of 4.1, BUN of 35, and creatinine of 1.80. ASSESSMENT: 1. Myoclonic jerks. 2. Congestive heart failure. 3. Coronary artery disease. 4. Diabetes. PLAN: 1. Myoclonic jerks are better. We will continue monitoring the patient. Dr. Ray has seen the patient. Possibly secondary to volume depletion. 2. Congestive heart failure. We will continue on his medication and diuresis. 3. Coronary artery disease. Continue on ARBs and beta blockades. 4. Diabetes, better. 5. Acute renal injury is much better. It is at 1.88 now. 6. Check his lytes tomorrow and possible discharge tomorrow. Clonazepam 3 times a day and taper off as needed. Further recommendation per clinical course. Jules Dawson MD ASOg/MODL /[id number]
--- NOTE | 2018-06-24 13:55 | NUR ---
SOCIAL WORK INITIAL ASSESSMENT Community Health Counselor to bedside to discuss plan of care with patient/family. CM/SW role and care transitions discussed. Anticipated discharge plan discussed along with duration of care. CM/SW discussed patients right to make decisions in care. CM/SW work hours given. Patient lives: IN HOUSE WITH FAMILY Admit/Transfer: VIA ED POA/Emergency contact: AISHA Current/Previous Home Health: HAS BUT CANT REMEMBER NAME PCP/Follow-up Care: AURY Current/Previous DME: [facility] Other Services: NONE Employment Status: RETIRED Areas of Concerns: NONE Referral Needs: NONE Education Needs: IMM/LEE given and signed (if applicable): UPON ADMISSION Goal for discharge: RETURN HOME CM/SW left business card at the bedside with contact information. Name and number was also written on the patients whiteboard. Patient verbalized understanding of discussion. CM will follow-up with ongoing discharge and transition of care needs.
[2018-06-24] MEDS: WARFARIN SOD 2 MG TAB PO SCH (17:27)
[2018-06-24] MEDS: NIACIN 500 MG TABSR PO SCH (21:11)
[2018-06-24] MEDS: SIMVASTATIN 20 MG TAB PO SCH (21:11)
[2018-06-25] VITALS: BP 98/65
[2018-06-25 04:00] VITALS: BP 131/76
[2018-06-25] MEDS: LIOTHYRONINE SODIUM 5 MCG TAB PO SCH (05:17)
[2018-06-25 06:56] LABS: INR 2.05; PROTHROMBIN TIME 23.8 seconds (11.9-14.5)
[2018-06-25 07:01] LABS: CALCIUM 9.4 mg/dL (8.4-10.2); CREATININE, SERUM 1.92 mg/dL (0.72-1.25)
[2018-06-25 07:53] VITALS: BP 95/61
[2018-06-25] MEDS: INSULIN LISPRO 100 UNIT/1 ML 3ML VIAL SQ SCH (08:00)
[2018-06-25] MEDS: CARVEDILOL 12.5 MG TAB PO SCH (09:00)
[2018-06-25] MEDS: LISINOPRIL 10 MG TAB PO SCH (09:00)
[2018-06-25] MEDS: SPIRONOLACTONE 25 MG TAB PO SCH (09:05)
[2018-06-25] MEDS: PANTOPRAZOLE SOD 40 MG TABEC PO SCH (09:05)
[2018-06-25] MEDS: CLONAZEPAM 0.5 MG TAB PO SCH (09:06)
[2018-06-25] MEDS: PREGABALIN 50 MG CAP PO SCH (09:06)
[2018-06-25] MEDS: VILAZODONE HYDROCHLORIDE 40 MG PO SCH (09:06)
[2018-06-25] MEDS: BUSPIRONE HCL 5 MG TAB PO SCH (09:06)
[2018-06-25] MEDS: ASPIRIN 81 MG CHEW TAB PO SCH (09:06)
[2018-06-25] MEDS: OMEGA 3 POLYUNSAT FATTY ACIDS 1000 MG SOFTGEL PO SCH (09:06)
[2018-06-25] MEDS: TORSEMIDE 10 MG TAB PO SCH (09:06)
[2018-06-25] MEDS: ALLOPURINOL 300 MG TAB PO SCH (09:07)
[2018-06-25] MEDS: INSULIN GLARGINE 100 UNITS/ML VIAL SQ SCH (09:14)
--- NOTE | 2018-06-25 09:33 | Progress Note ---
DATE: SUBJECTIVE: The patient is here for myoclonic jerks. The patient's myoclonus has decreased in intensity. The patient is feeling much better and wants to go home. No complaints from the family. The patient is breathing better. No chest pain. No shortness of breath noted. OBJECTIVE: VITAL SIGNS: Temperature is 96.9, pulse is 96, respirations of 18, blood pressure is 131/76, and pulse oximetry of 96% on room air. HEENT: Normocephalic, atraumatic. Pupils are reactive to light and accommodation. CVS: S1 and S2, normal. Regular rate and rhythm. ABDOMEN: Nontender, nondistended. EXTREMITIES: No clubbing, no cyanosis, and no edema. LABORATORY VALUES: Today's BMP, sodium of 137, potassium of 4.0, BUN of 32, creatinine of 1.92, and eGFR of 35%. The patient's glucoses have been running in the 150s to 180s. Microbiology, no growth in blood cultures so far. ASSESSMENT: 1. Myoclonic jerks. Plan is to continue on clonazepam. The patient's myoclonic jerk could have happened secondary to the fluid imbalances. 2. Congestive heart failure. Continue on diuresis. 3. Coronary artery disease. Continue ARBs and beta blockade. 4. Acute renal injury, which is trending by 1.9 today. PLAN: Plan is to discharge the patient home today. Further recommendation as an outpatient basis. The patient can continue clonazepam and decrease the torsemide to 1 tablet a day. We will monitor the patient again in 1 week and check his lytes again in 1 week. MD MICHELLE Martinez/MODL /[id number]
--- NOTE | 2018-06-25 10:10 | NUR ---
Pt discharged at this time. Pt and family verbalized understanding of discharge instructions.
[2018-06-26] MEDS ORDERED: ERGOCALCIFEROL 50,000 UNIT CAP PO SCH (09:00)
== END 2018-06-25 10:10 | disposition home or self-care (01) | DRG 683 ==
LOC: ER 14:59 → ERHOLD 18:59 → MED/SURG3 19:52
PROVIDERS: ADMIT Family Medicine; ATTEND Family Medicine
DX: N17.9 Acute kidney failure, unspecified (principal); I13.0 Hypertensive heart and chronic kidney disease with heart failure and stage 1 through stage 4 chronic kidney disease, or unspecified chronic kidney disease; I25.10 Atherosclerotic heart disease of native coronary artery without angina pectoris; I50.9 Heart failure, unspecified; N18.3 Chronic kidney disease, stage 3 (moderate); G20 Parkinson's disease; E11.42 Type 2 diabetes mellitus with diabetic polyneuropathy; Z79.4 Long term (current) use of insulin; I48.91 Unspecified atrial fibrillation; F32.9 Major depressive disorder, single episode, unspecified; F41.9 Anxiety disorder, unspecified; M10.9 Gout, unspecified; Z95.810 Presence of automatic (implantable) cardiac defibrillator; Z79.01 Long term (current) use of anticoagulants; Z95.2 Presence of prosthetic heart valve; I25.2 Old myocardial infarction
CPT/HCPCS: 36415; 70450; 71045; 80048; 80053; 82330; 82550; 82553; 82948; 83605; 83735; 84436; 84443; 84479; 84484; 85025; 85610; 87040; 93005; 93306; 99284; J1815; J7030

== ENCOUNTER 2019-01-13 06:02 | Emergency (ER) | payer MEDICARE, BC ==
[~2019-01-13] VITALS: Ht 153.7 cm; Wt 83.9 kg
[~2019-01-13 06:02] MED LIST changes: +TORSEMIDE10 MG PO; +VITAMIN D PO
--- OUTSIDE RECORDS SUMMARY | 2019-01-13 06:06 | XMS REPORT | Summary of Care ---
Author Author JAEL Boggs, NEVIN Davis Unknown Address Unknown Phone Unavailable Care Team Providers Care Manager Supply Chain Name Role Phone JAEL Boggs, NEVIN Unavailable Unavailable NATA Boggs, DIEGO Unavailable Unavailable JENNIFER Boggs, UVALDO Unavailable Unavailable JAEL STEWART CO, NEVIN Overton Unavailable Unavailable Unavailable Unavailable Functional [...] Refills: 0 * Start : 27-Jul-2013 Active [place] 3 1000 MG Oral Capsule TAKE 1 [...] TABLET DAILY * Quantity: 45 Refills: 3 JENNIFER Beaver.UVALDO Chaudhari * Start : 16-Nov-2017 Active Liothyronine Sodium [...] TABLET DAILY. * Quantity: 1 Refills: 0 NATA Beaver.DIEGO Chaudhari Active 90 Tablet Bottle Torsemide 20 MG Oral Tablet TAKE 1 TABLET DAILY. * Refills: 0 Active Allergies and Adverse Reactions Name Dates Details HYDROcodone-Acetaminophen TABS (Allergy) Status: Active Procedures Procedure Dates Details Procedures not documented Immunization Name Dates Details Immunizations not documented Social History Name Dates Details - Status: Name Dates Details Former smoker Vital Signs Date Test Result Details [id number] BP Systolic 112 mm[Hg] Status: Comments: Location: LUE; Position: Sitting BP Diastolic 80 mm[Hg] Status: Comments: Location: LUE; Position: Sitting Weight 188 lb Status: Body Mass Index Calculated 32.27 kg/m2 Status: Body Surface Area Calculated 1.91 m2 Status: Height 64 in Status: O2 SAT 97 % Status: Comments: Source: RA Heart Rate 82 /min Status: Comments: Location: L Radial; Results Date Description Value Details :16 [QL] CMP W/EGFR GLUCOSE 80 mg/dl (Normal) Range: 65-99 Comments: Fasting reference interval UREA NITROGEN (BUN) 37 mg/dl (Above high threshold) Range: 7-25 CREATININE 1.98 mg/dl (Above high threshold) Range: 0.70-1.18 Comments: For patients >49 years of age, the reference limitfor Creatinine is approximately 13% higher for peopleidentified as -Leb[place]. eGFR NON- 33 {ML/MIN/1.7} (Below low threshold) Range: > OR=60 eGFR 38 {ML/MIN/1.7} (Below low threshold) Range: > OR=60 BUN/CREATININE RATIO 19 {CALC} (Normal) Range: 6-22 SODIUM 139 mmol/L (Normal) Range: 135-146 POTASSIUM 4.1 mmol/L (Normal) Range: 3.5-5.3 CHLORIDE 103 mmol/L (Normal) Range: 98-110 CARBON DIOXIDE 26 mmol/L (Normal) Range: 20-32 CALCIUM 8.9 mg/dl (Normal) Range: 8.6-10.3 PROTEIN, TOTAL 6.2 g/dl (Normal) Range: 6.1-8.1 ALBUMIN 3.7 g/dl (Normal) Range: 3.6-5.1 GLOBULIN 2.5 {G/DL__CALC} (Normal) Range: 1.9-3.7 ALBUMIN/GLOBULIN RATIO 1.5 {CALC} (Normal) Range: 1.0-2.5 BILIRUBIN, TOTAL 0.5 mg/dl (Normal) Range: 0.2-1.2 ALKALINE PHSPHATASE 93 u/l (Normal) Range: 40-115 AST 13 u/l (Normal) Range: 10-35 ALT 7 u/l (Below low threshold) Range: 9-46 01-Aug-20189:16 [[facility]] CBC (INCLUDES DIFF/PLT) Comments: REPORT COMMENT:FASTING:YES WHITE BLOOD CELL COUNT 7.6 {Thousand/u} (Normal) Range: 3.8-10.8 RED BLOOD CELL COUNT 3.69 {Million/uL} (Below low threshold) Range: 4.20-5.80 HEMAGLOBIN 9.6 g/dl (Below low threshold) Range: 13.2-17.1 HEMATOCRIT 32.3 % (Below low threshold) Range: 38.5-50.0 MCV 87.5 fL (Normal) Range: 80.0-100.0 MCH 26.0 pg (Below low threshold) Range: 27.0-33.0 MCHC 29.7 g/dl (Below low threshold) Range: 32.0-36.0 RDW 19.8 % (Above high threshold) Range: 11.0-15.0 PLATELET COUNT 193 {Thousand/u} (Normal) Range: 140-400 MPV 9.8 fL (Normal) Range: 7.5-12.5 ABSOLUTE NEUTROPHILS 5312 {cells/uL} (Normal) Range: 1182-4032 ABSOLUTE LYMPHOCYTES 920 {cells/uL} (Normal) Range: 850-3900 ABSOLUTE MONOCYTES 730 {cells/uL} (Normal) Range: 200-950 ABSOLUTE EOSINOPHILS 578 {cells/uL} (Above high threshold) Range: 15-500 ABSOLUTE BASOPHILS 61 {cells/uL} (Normal) Range: 0-200 NEUTROPHILS 69.9 % (Normal) LYMPHOCYTES 12.1 % (Normal) MONOCYTES 9.6 % (Normal) EOSINOPHILS 7.6 % (Normal) BASOPHILS 0.8 % (Normal) Plan of Care Name Dates Details Planned Observations Planned Goals not documented Planned Encounters Appointment; RISHABH SPEAR On: 13-Sep-2018 14:15 Interventions Provided Plan* Heart failure with reduced EF * - 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 Kirstie Schmitt of advanced heart failure * History of LV thrombus * - continue coumadin Instructions Name Dates Details Instructions not documented [...] Problem not documented On: 19-Dec-2017 9:45 Appointment; [facility], DEVICE Encounter Diagnosis: Problem not documented On: 23-Jan-2018 8:45 Appointment; [facility], DEVICE Encounter Diagnosis: Problem not documented On: 24-Jan-2018 11:00 Appointment; [facility], DEVICE Encounter Diagnosis: Problem not documented On: 01-Feb-2018 14:30 Appointment; EDWIGE MIN M.D. Encounter Diagnosis: Problem not documented On: 13-Feb-2018 9:15 Appointment; NEVIN ELDER M.D. Encounter Diagnosis: Problem not documented On: 15-Feb-2018 10:20 Appointment; JESI HAYES M.D. Encounter Diagnosis: Problem not documented On: 13-Mar-2018 8:45 Appointment; NEVIN ELDER M.D. Encounter Diagnosis: Problem not documented On: 24-May-2018 13:40 Appointment; SOLOMON JEROME Encounter Diagnosis: Problem not documented On: 09-Aug-2018 13:00 Appointment; NEVIN ELDER M.D. Encounter Diagnosis: Problem not documented On: 09-Aug-2018 14:00
[2019-01-13] MEDS ORDERED: ASPIRIN 81 MG CHEW TAB PO ONE (06:30)
[2019-01-13 06:49] LABS: BASOPHILS % 0.4 % (0.0-1.0); EOSINOPHILS # (AUTO) 0.1 (0.0-0.4); EOSINOPHILS % 1.3 % (0.0-6.0); HEMATOCRIT 39.1 % (38.2-49.6); HEMOGLOBIN 12.8 g/dL (14.0-18.0); LYMPHOCYTES # (AUTO) 0.5 (1.0-3.2); LYMPHOCYTES % 5.6 % (18.0-39.1); MEAN CORPUSCULAR HEMOGLOBIN 31.7 pg (28-32); MEAN CORPUSCULAR HGB CONC 32.7 g/dL (31-35); MEAN CORPUSCULAR VOLUME 96.8 fL (81-99); MONOCYTES # (AUTO) 0.7 (0.2-0.8); NEUTROPHILS # (AUTO) 7.8 (2.1-6.9); NEUTROPHILS % 84.2 % (38.7-80.0); PLATELET COUNT 135 x10e3/uL (140-360); RED BLOOD COUNT 4.04 x10e6/uL (4.3-5.7)
[2019-01-13 06:58] LABS: INR 2.25; PROTHROMBIN TIME 25.6 seconds (11.9-14.5)
[2019-01-13 07:06] LABS: ALBUMIN 3.5 g/dL (3.5-5.0); ANION GAP 18.5 mmol/L (8-16); CALCIUM 10.1 mg/dL (8.4-10.2); CREATININE, SERUM 3.73 mg/dL (0.72-1.25); POTASSIUM 4.5 mmol/L (3.5-5.1)
--- NOTE | 2019-01-13 07:09 | Diagnostic Imaging Report ---
EXAMINATION: CHEST SINGLE (PORTABLE) COMPARISON: Chest x-ray INDICATION: ^SOB, ASSESS PICC LINE POSITION(PICC PRESENT ON ARRIVAL) ^[id number] ^0650 ^Y DISCUSSION: Frontal view of the chest obtained at 0654 hours. HEART AND MEDIASTINUM: Stable cardiomegaly. Mild pulmonary vascular congestion. LINES: Multiple pacer/defibrillator wires terminate in the right atrium, right ventricle, and coronary sinus. Right PICC line terminates in the SVC without pneumothorax. TAVR is redemonstrated. LUNGS: Diffuse hyperinflation suggestive of small airways disease. No pneumonia or pulmonary edema. PLEURA: No pleural effusion or pneumothorax. BONES AND SOFT TISSUES: No focal osseous lesion. The soft tissues are normal. IMPRESSION: Right PICC line terminates in the SVC without pneumothorax. Cardiomegaly with mild pulmonary vascular congestion. Signed by: Dr. Dillon Pina MD on 01/13/2019 7:06 AM
--- NOTE | 2019-01-13 07:10 | NUR ---
acceptance done. face sheet sent
[2019-01-13 07:12] LABS: CREATINE KINASE MB 4.5 ng/mL (0-5.0)
--- NOTE | 2019-01-13 07:40 | NUR ---
REPORT CALLED TO JORGE L PHAM FOR BED CVICU BED 21.
== END 2019-01-13 08:00 | disposition short-term general hospital (02) ==
LOC: ER 06:02
DX: R53.1 Weakness (principal); I50.32 Chronic diastolic (congestive) heart failure; R00.0 Tachycardia, unspecified; R26.2 Difficulty in walking, not elsewhere classified; I25.10 Atherosclerotic heart disease of native coronary artery without angina pectoris; Z95.810 Presence of automatic (implantable) cardiac defibrillator
CPT/HCPCS: 36415; 71045; 80053; 82550; 82553; 83605; 83880; 84484; 85025; 85610; 85730; 87040; 93005; 99284